=== PATIENT | female | born 1935 | race Caucasian/White ===

== ENCOUNTER 2017-10-20 18:56 | Emergency (ER) | payer MEDICARE, SELFPAY ==
[2017-10-20 19:28] VITALS: BP 123/77; PULSE 91; RESP 20; TEMP 36.7; O2SAT 96
--- NOTE | 2017-10-20 20:18 | DI.CT.S_ITS ---
PROCEDURE: CT ABDOMEN PELVIS W CON INDICATIONS: LLQ pain - diverticulitis? TECHNIQUE: After the administration of oral and intravenous contrast, 5 mm thick sections acquired from the diaphragms to the symphysis. 5 mm thick coronal and sagittal reformats were performed. For radiation dose reduction, the following was used: automated exposure control, adjustment of mA and/or kV according to patient size. COMPARISON: [facility], CT, KIDNEY/ URETER/BLADDER, 02/25/2016, 12:49. FINDINGS: Image quality: Excellent. ABDOMEN: Lung bases: Lung bases are clear. Heart size is normal. Solid organs: Liver is normal in size. No change in 7 mm hypodensity within the right hepatic dome. Calcifications within the hepatic parenchyma and spleen are present. Gallbladder is partially contracted. Biliary system is non-dilated. Pancreas enhances normally. Spleen is normal in size and enhancement. No adrenal nodules. There is multifocal scarring involving the right kidney. Mild to moderate left and mild right hydronephrosis are present, new since the prior examination.. Multiple calculi within the right inferior pole kidney and renal pelvis are present, as before, largest of which is in the renal pelvis, measuring 16 mm. Peritoneum and bowel: Moderate hiatal hernia. Stomach and small bowel are grossly unremarkable. Appendix is not seen. No evidence of appendicitis.: Is nondistended. There is thickening versus suboptimal distention of the distal transverse colon, within the left lower quadrant. Diverticulosis of the descending and sigmoid colon is present. There is thickening of the distal descending colon, as well as the sigmoid colon. Pericolonic fat stranding surrounds segments of the sigmoid colon, and there is a small amount of loculated mesenteric pericolonic fluid surrounding the sigmoid colon. No free fluid or air. Nodes and vessels: No retroperitoneal or mesenteric adenopathy. Aorta and inferior vena cava are normal in caliber. Miscellaneous: No ventral hernias. PELVIS: Genitourinary: Urinary bladder is decompressed. Miscellaneous: No inguinal hernias or adenopathy. Bones: No suspicious bony lesions. No vertebral body compression fractures. IMPRESSION: 1. Findings most suggestive of diverticulitis involving the sigmoid colon, with pericolonic fluid, but no evidence of pericolonic abscess. Thickening of the distal transverse colon is present, which may represent ischemia, infection, inflammation, or suboptimal colonic distention. Followup colonoscopy is recommended to exclude underlying neoplasm. 2. Right renal scarring and collecting system calculi, associated with mild hydronephrosis. Mild left hydronephrosis is present. 3. Remote granulomatous disease. 4. Hiatal hernia. 5. Concordant with preliminary interpretation. Dictated by: Estephania Huffman M.D. on 10/21/2017 at 8:48 Approved by: Estephania Huffman M.D. on 10/21/2017 at 8:56
--- NOTE | 2017-10-20 20:52 | PC.NURSE ---
labs drawn by tutorial laboratory supervisor
[2017-10-20 21:08] LABS: Add Manual Diff / Slide Review NO; Basophils Percent Auto 0.6 % (0-2); Eosinophils Percent Auto 0.1 % (2-4); Hematocrit 44.8 % (36-46); Hemoglobin 15.3 g/dL (12.0-16.0); Lymphocytes Percent Auto 10.9 % (25-40); Mean Corpuscular HGB Conc 34.2 % (30-36); Mean Corpuscular Hemoglobin 30.5 PG (26-34); Mean Corpuscular Volume 89.3 fL (80-100); Monocytes Percent Auto 5.4 % (3-14); Neutrophils Absolute Auto 11600 /uL (3000-5900); Platelet Count 228 X10^3/uL (150-400); Red Blood Cell Count 5.02 X10^6/uL (4.0-5.2); Red Cell Distribution Width 14.3 % (11.6-14.8)
[2017-10-20 21:22] LABS: Alanine Aminotransferase 13 IU/L (9-52); Albumin Globulin Ratio 1.2 (1.0-2.8); Alkaline Phosphatase 123 U/L (38-126); Aspartate Aminotransferase 19 IU/L (14-36); BUN Creatinine Ratio 36.7 (6-22); Bilirubin Total 0.5 mg/dL (0.2-1.3); Calcium 9.3 mg/dL (8.4-10.2); Estimated Glomerular Filt Rate > 60.0 mL/min (>60); Globulin 3.4 g/dL (1.7-4.1); Glucose 104 mg/dL (80-110); HEMOLYSIS < 15 (0-50); Lactate (Lactic Acid) 1.1 mmol/L (0.7-2.1); Lipase 62 U/L (23-300); Potassium 4.5 mmol/L (3.4-5.1); Sodium 139 mmol/L (137-145); Total Protein 7.4 g/dL (6.3-8.2)
[2017-10-20 22:04] LABS: Appearance Urine UA SL CLOUDY; Bilirubin Urine UA NEGATIVE (NEGATIVE); Color Urine UA YELLOW; Glucose Urine UA NEGATIVE (Normal); Ketones Urine UA TRACE (NEGATIVE); Leukocyte Esterase Urine UA 2+ (NEGATIVE); Nitrite Urine UA POSITIVE (NEGATIVE); Occult Blood Urine UA 1+ (Negative); Protein Urine UA NEGATIVE (Negative); Urobilinogen Urine UA 0.2 E.U./dL (0.2); pH Urine UA 6.5 (4.5-8.0)
[2017-10-20 22:07] LABS: Bacteria Urine Many (>30); Culture Indicated Urine Specimen Cultured; RBC Urine 5-10/HPF (0-5/HPF); WBC Urine 30-100/HPF (0-5/HPF)
[2017-10-20 22:09] LABS: Squamous Epithelial Cell Urine 0-1 /HPF
[2017-10-20] MEDS: CIPROFLOXACIN 400 MG/200 ML PIGGYBACK 200 MG IV (23:36)
[2017-10-20] MEDS: metroNIDAZOLE 500 MG/100 ML PIGGYBACK 100 MG IV (23:36)
--- NOTE | 2017-10-20 23:40 | PC.NURSE ---
jennifer and uzair herrera site compatibility checked with clinical pharmacology and fanny. confirmed compatible.
--- NOTE | 2017-10-21 01:15 | ED_ITS ---
HPI - Abdominal Pain General Chief Complaint: Abdominal Pain Stated Complaint: STOMACH PAIN Time Seen by Provider: 10/20/17 19:56 History of Present Illness HPI narrative: HPI 82-year-old female with history of diverticulitis and ureterolithiasis presents for evaluation of one half day of intermittent mild left lower quadrant pain, notes decreased passage of flatus and stool. Denies nausea and vomiting. Denies dysuria and urinary frequency. Denies a history of atrial fibrillation. No prior abdominal surgeries. M/S/F/SocHx notable for: uretolithiasis, nephrolithiasis, colitis, constipation , diverticulitis, Parkinson's; remainder reviewed with patient and in chart. ROS: Negative constitutional, eye, cardiovascular, pulmonary, GI, , MSK, skin , neurologic, psychiatric, endocrine unless noted in the HPI. Exam Gen: Pleasant, non-toxic appearing, resting comfortably. HEENT: NC, AT, PEERL, EOMI. Resp: Clear to auscultation bilaterally, normal work of breathing, no accessory muscle usage. Card: Regular rate and rhythm with no murmurs, rubs, or gallops, extremities warm and well perfused. GI: minimal left lower quadrant tenderness, otherwise non-tender to palpation throughout all quadrants, no focal tenderness at McBurney's point, negative Francis's sign, non-distended, no rebound or guarding. : No suprapubic tenderness to palpation. MSK: No visible deformities, strength and tone without visually appreciable deficit. Skin: Normal color with no visible lesions. Neuro: AO x 3, no facial asymmetry, vision and hearing WNL. Psych: Mood and affect appropriate. Labs / Imaging: CT Abd/Pelvis: focal nodular thickening of the rectosigmoid colon leading to luminal narrowing. Associate diverticulitis noted. No definite inflamed diverticulitis, however seen. Diverticulitis felt less likely but difficult to entirely exclude to existing competent. Neoplastic lesion or focal colitis suspected. Free fluid. No topic gas. Right nephrolithiasis. Other findings above. Lactate 1.1 WBC 14.0, Hb 15.3, Na 139, K 4.5, Cr 0.60 Conjugated bilirubin 0.5, ALP 123, AST 19, ALT 13, lipase 62 UA - positive nitrate, 2+ leukocyte esterase, 5-10 RBCs, 3-100 WBCs, 0-1 squamous epithelial cells, many bacteria. MDM Previous chart, nursing note, labs, imaging, and vitals reviewed. A: 82-year-old female with history of diverticulitis and ureterolithiasis presents for evaluation of one half day of intermittent mild left lower quadrant pain, notes decreased passage of flatus and stool. DDx & Evaluation: left lower quadrant pain appears to correlate with imaging showing focal nodular thickening of the rectosigmoid colon. Given acute onset of symptoms and leukocytosis favor colitis. Patient given ciprofloxacin and Flagyl - the former of which also treat her urinary tract infection. No clear evidence of pyelonephritis, ureterolithiasis, or other acute intra-abdominal or genitourinary process. Patient given cipro and flagyl. Patient able to tolerate p.o. well, passing flatus and stool at baseline. Patient update of results, patient notes she has not had a colonoscopy ever. Strongly advised patient to have a colonoscopy after symptoms resolved. Patient given return to care precautions. Repeat exam at time of discharge without any abdominal discomfort and nontender to palpation throughout all quadrants. Disposition: discharge with prescription for ciprofloxacin and Flagyl. Return to care precautions provided. Recommend PCP follow-up. Impression: suspected colitis (please reference below for remainder of encounter information) Related Data Home Medications Medication Instructions Recorded Confirmed carbidopa-levodopa 1 tab PO TID #0 12/31/15 Previous Rx's Medication Instructions Recorded tamsulosin [Flomax] 0.4 mg PO Q DAY #7 cap 02/07/16 levofloxacin [Levaquin] 500 mg PO QDAY #10 tab 02/10/16 metronidazole [Flagyl] 500 mg PO TID #30 tab 02/10/16 Allergies Allergy/AdvReac Type Severity Reaction Status Date / Time Penicillins [PENICILLINS] Allergy Unknown Verified 10/20/17 23:25 [facility] Surgical History History of lithotripsy Status post hysterectomy Status post tonsillectomy and adenoidectomy Status post tubal ligation Family History Grandfather Diabetes mellitus Mother Heart disease Stroke Exam Initial Vital Signs Initial Vital Signs: Vital Signs Temperature 98.0 F 10/20/17 19:28 Pulse Rate 91 H 10/20/17 19:28 Respiratory Rate 20 10/20/17 19:28 Blood Pressure 123/77 H 10/20/17 19:28 Pulse Oximetry 96 10/20/17 19:28 Course Orders Ordered: ED Orders 10/20/17 20:18 CT abdomen pelvis w con Stat 10/20/17 20:48 Complete Blood Count AUTO DIFF Stat Comprehensive Metabolic Panel Stat Lactate (Lactic Acid) Stat Lipase Stat 10/20/17 21:34 Urinalysis and Microscopic Stat Urine Culture Stat Ciprofloxacin (Cipro) 400 mg in 200 mls @ 200 mls/hr IV NOW CASA Last Infusion: 10/21/17 00:43 Dose: 0 mls/hr Admin: 10/20/17 23:36 Dose: 200 mls/hr Discontinued Medications Metronidazole (Flagyl) 500 mg in 100 mls @ 100 mls/hr IV NOW ONE Stop: 10/21/17 00:08 Last Infusion: 10/21/17 00:44 Dose: 0 mls/hr Admin: 10/20/17 23:36 Dose: 100 mls/hr Vital Signs - 8 hr 10/20/17 19:28 Temperature 98.0 F Pulse Rate 91 H Respiratory Rate 20 Blood Pressure 123/77 H Pulse Oximetry 96 MDM - Abdominal Pain Lab Data Result diagrams: 10/20/17 20:48 10/20/17 20:48 Lab Results 10/20/17 10/20/17 10/20/17 Range/Units 20:48 20:48 20:48 WBC 14.0 H (4.5-11.0) X10^3/uL RBC 5.02 (4.0-5.2) X10^6/uL Hgb 15.3 (12.0-16.0) g/dL Hct 44.8 (36-46) % MCV 89.3 (80-100) fL MCH 30.5 (26-34) PG MCHC 34.2 (30-36) % RDW 14.3 (11.6-14.8) % Plt Count 228 (150-400) X10^3/uL Neut % (Auto) 83.0 H (50-75) % Lymph % (Auto) 10.9 L (25-40) % [place] % (Auto) 5.4 (3-14) % Eos % (Auto) 0.1 L (2-4) % Baso % (Auto) 0.6 (0-2) % Neut # (Auto) 64378 H (3790-1106) /uL Sodium 139 (137-145) mmol/L Potassium 4.5 (3.4-5.1) mmol/L Chloride 103.0 (98-107) mmol/L Carbon Dioxide 26.0 (22-32) mmol/L BUN 22.0 H (7-17) mg/dL Creatinine 0.60 (0.52-1.04) mg/dL Estimated GFR > 60.0 (>60) mL/min BUN/Creatinine Ratio 36.7 H (6-22) Glucose 104 (80-110) mg/dL Lactate 1.1 (0.7-2.1) mmol/L Calcium 9.3 (8.4-10.2) mg/dL Total Bilirubin 0.5 (0.2-1.3) mg/dL AST 19 (14-36) IU/L ALT 13 (9-52) IU/L Alkaline Phosphatase 123 (38-126) U/L Total Protein 7.4 (6.3-8.2) g/dL Albumin 4.0 (3.5-5.0) g/dL Globulin 3.4 (1.7-4.1) g/dL Albumin/Globulin Ratio 1.2 (1.0-2.8) Lipase 62 (23-300) U/L Urine Color Urine Appearance Urine pH (4.5-8.0) Ur Specific [place] (1.000-1.035) Urine Protein (Negative) Urine Glucose (UA) (Normal) g/dL Urine Ketones (NEGATIVE) Urine Occult Blood (Negative) Urine Nitrate (NEGATIVE) Urine Bilirubin (NEGATIVE) Urine Urobilinogen (0.2) E.U./dL Ur Leukocyte Esterase (NEGATIVE) Urine RBC (0-5/HPF) Urine WBC (0-5/HPF) Ur Squamous Epith Cells Urine Bacteria (None) Ur Culture Indicated? Micro UA Comment 10/20/17 Range/Units 21:34 WBC (4.5-11.0) X10^3/uL RBC (4.0-5.2) X10^6/uL Hgb (12.0-16.0) g/dL Hct (36-46) % MCV (80-100) fL MCH (26-34) PG MCHC (30-36) % RDW (11.6-14.8) % Plt Count (150-400) X10^3/uL Neut % (Auto) (50-75) % Lymph % (Auto) (25-40) % [place] % (Auto) (3-14) % Eos % (Auto) (2-4) % Baso % (Auto) (0-2) % Neut # (Auto) (3633-2491) /uL Sodium (137-145) mmol/L Potassium (3.4-5.1) mmol/L Chloride (98-107) mmol/L Carbon Dioxide (22-32) mmol/L BUN (7-17) mg/dL Creatinine (0.52-1.04) mg/dL Estimated GFR (>60) mL/min BUN/Creatinine Ratio (6-22) Glucose (80-110) mg/dL Lactate (0.7-2.1) mmol/L Calcium (8.4-10.2) mg/dL Total Bilirubin (0.2-1.3) mg/dL AST (14-36) IU/L ALT (9-52) IU/L Alkaline Phosphatase (38-126) U/L Total Protein (6.3-8.2) g/dL Albumin (3.5-5.0) g/dL Globulin (1.7-4.1) g/dL Albumin/Globulin Ratio (1.0-2.8) Lipase (23-300) U/L Urine Color Yellow Urine Appearance Sl cloudy Urine pH 6.5 (4.5-8.0) Ur Specific [place] 1.020 (1.000-1.035) Urine Protein Negative (Negative) Urine Glucose (UA) Negative (Normal) g/dL Urine Ketones Trace H (NEGATIVE) Urine Occult Blood 1+ H (Negative) Urine Nitrate Positive H (NEGATIVE) Urine Bilirubin Negative (NEGATIVE) Urine Urobilinogen 0.2 (0.2) E.U./dL Ur Leukocyte Esterase 2+ H (NEGATIVE) Urine RBC 5-10/hpf H (0-5/HPF) Urine WBC 30-100/hpf H (0-5/HPF) Ur Squamous Epith Cells 0-1 /hpf Urine Bacteria Many (>30) H (None) Ur Culture Indicated? Specimen cultured Micro UA Comment Not Reportable Discharge Plan Departure Prescriptions: No Action carbidopa-levodopa 25 MG/100 MG tablet 1 tab PO TID Qty: 0 RF: 0 tamsulosin [Flomax] 0.4 MG capsule,extended release 24hr 0.4 mg PO Q DAY Qty: 7 RF: 0 metronidazole [Flagyl] 500 MG tablet 500 mg PO TID Qty: 30 RF: 0 levofloxacin [Levaquin] 500 MG tablet 500 mg PO QDAY Qty: 10 RF: 0
[2017-10-21 01:22] VITALS: BP 118/62; PULSE 84; RESP 16; O2SAT 98
== END 2017-10-21 01:23 | disposition home or self-care (01) ==
PROVIDERS: Emergency Provider Emergency Medicine; Family Provider Family Medicine; PCP Family Medicine
DX: K52.9 Noninfective gastroenteritis and colitis, unspecified (principal)
CPT/HCPCS: 36415; 74177; 80053; 81001; 83605; 83690; 85025; 87086; 87186; 96365; 96368; 99283; 99284; J0744; Q9967

== ENCOUNTER → 2017-11-23 09:14 | Outpatient (CLI) | payer MEDICARE, SELFPAY ==
--- NOTE | 2017-11-23 | DI.RAD.S_ITS ---
PROCEDURE: XR KUB INDICATIONS: KIDNEY STONES TECHNIQUE: One view of the abdomen acquired. COMPARISON: [facility], CT, CT ABDOMEN PELVIS W CON, 10/20/2017, 20:47. [facility], CR, KUB XRAY (1 VIEW ABDOMEN), 03/14/2017, 14:31. FINDINGS: Surgical changes and devices: None. Bowel: Bowel gas pattern is normal. Soft tissues: Multiple right renal calculi are identified. Pelvic phleboliths. Visualized solid organ contours appear normal in size. Bones: No suspicious bony lesions. Dextroconvex lumbar scoliosis. IMPRESSION: Right nephrolithiasis appearing unchanged. Dictated by: Nathaniel Hamilton M.D. on 11/23/2017 at 9:58 Approved by: Nathaniel Hamilton M.D. on 11/23/2017 at 10:01
== END ==
PROVIDERS: PCP Family Medicine; Visit Provider Specialist
DX: N20.0 Calculus of kidney (principal)
CPT/HCPCS: 74018

== ENCOUNTER 2018-10-10 20:27 | Inpatient (IN) | payer MEDICARE, SELFPAY ==
--- NOTE | 2018-10-10 20:30 | ED_ITS ---
HPI - Extremity Injury (Lower) General Chief Complaint: Extremity Injury, Lower Stated Complaint: GLF, Rt Hip Pain Time Seen by Provider: 10/10/18 20:29 Source: EMS Mode of arrival: ambulatory Limitations: no limitations History of Present Illness HPI Narrative: Patient is a kiesha 83-year-old female who presents with right hip pain. 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 There is an obvious shortening and rotation. She is not on any blood thinners or anti-platelet medication she did not hit her head there is no other injury. She does have a history of Parkinson's MD complaint: hip injury Related Data Home Medications Medication Instructions Recorded Confirmed carbidopa-levodopa 1 tab PO TID #0 12/31/15 10/10/18 carbidopa-levodopa 1 tab PO TID 10/10/18 10/10/18 trazodone 50 mg PO BEDTIME PRN 10/10/18 10/10/18 Allergies Allergy/AdvReac Type Severity Reaction Status Date / Time Penicillins [PENICILLINS] Allergy Unknown Verified 10/10/18 20:34 Review of Systems Review of Systems ROS Unobtainable: All systems reviewed & are unremarkable except as noted in HPI and below Constitutional Denies chills, Denies fever(s), Denies lethargy and Denies weakness Eyes Denies change in vision, Denies eye discharge, Denies irritation and Denies loss of vision ENT Ears, Nose, Mouth, and Throat: Denies change in voice, Denies neck pain and Denies sore throat Cardiovascular Denies dyspnea and Denies dyspnea on exertion Respiratory Denies cough, Denies dyspnea, Denies dyspnea on exertion and Denies wheezing Gastrointestinal Gastrointestinal: Denies abdominal pain, Denies change in bowel habits, Denies diarrhea, Denies nausea and Denies vomiting Genitourinary Denies hematuria, Denies flank pain, Denies urinary incontinence and Denies urinary urgency Musculoskeletal Reports as per HPI and Denies neck pain Integumentary/Breasts Denies pruritus, Denies erythema, Denies rash and Denies wounds Neurologic Denies loss of vision and Denies weakness Allergic/Immunologic Denies wheezing [facility] Medical History Diverticulosis (Acute) Hallucinations (Acute) Macular degeneration of left eye (Acute) Nephrolithiasis (Acute) Parkinsons (Acute) Scoliosis (Acute) Septicemia (Acute) Surgical History History of cystocele (Acute) History of lithotripsy Status post hysterectomy Status post tonsillectomy and adenoidectomy Status post tubal ligation Family History (Updated 10/10/18 @ 23:57 by SUZAN Machado) Grandfather Diabetes mellitus Mother Heart disease Stroke Father Parkinsons Social History household members: spouse Smoking Status: Never smoker alcohol intake: current Family History Grandfather Diabetes mellitus Mother Heart disease Stroke Father Parkinsons Social History household members: spouse Smoking Status: Never smoker alcohol intake: current Exam Initial Vital Signs Initial Vital Signs: Vital Signs Temperature 98.4 F 10/10/18 20:34 Pulse Rate 90 10/10/18 20:34 Respiratory Rate 15 10/10/18 20:34 Blood Pressure 147/63 H 10/10/18 20:34 Pulse Oximetry 96 10/10/18 20:34 GENERAL: Alert well-dressed pleasant elderly female HEENT: Head atraumatic,EOMI, pupils reactive, neck is supple no vertebral tenderness full range of motion CARDIOVASCULAR: Regular rate and rhythm without murmurs, rubs or gallops. RESPIRATORY: Breath sounds equal bilaterally, no wheezes rales or rhonchi. ABDOMEN: Soft, nontender. Normoactive bowel sounds all 4 quadrants. No guarding or rebound. EXTREMITIES: Normal range of motion, no clubbing or edema. Neurovascularly intact Right leg shortened and internally rotated distal pedal pulse is intact no contusion at pelvis NEUROLOGICAL: Alert and oriented x4.Normal gait and speech. Cranial nerves II through XII grossly intact. SKIN: Warm, dry, no laceration, no petechiae, no rashes or lesions. Course Orders Ordered: ED Orders 10/10/18 20:35 XR hip w pel if done RT 2V Stat 10/10/18 21:22 Complete Blood Count AUTO DIFF Stat Comprehensive Metabolic Panel Stat 10/10/18 21:24 Magnesium Routine 10/10/18 23:43 Consult to Physical Therapy Evaluate & Treat 10/10/18 23:44 Consult to Occupational Therapy Evaluate & Treat Consult to Physician Routine 10/11/18 Basic Metabolic Panel Routine Complete Blood Count AUTO DIFF Routine EKG-12 Lead Routine Al Hydrox/Mg Hydrox/Simethicone (Maalox Plus) 30 ml PO Q6HR PRN PRN Reason: Dyspepsia Calcium Carbonate (Tums) 1,000 mg PO Q4HR PRN PRN Reason: Dyspepsia Carbidopa/Levodopa (Sinemet 25-100 Tab) 1 each PO TID CASA Carbidopa/Levodopa (Sinemet Er 50-200 Tab) 1 each PO TID CASA Sodium Chloride (Normal Saline 0.9%) 1,000 mls @ 75 mls/hr IV CONT [facility] Last Admin: 10/10/18 23:32 Dose: 75 mls/hr Ciprofloxacin (Cipro) 400 mg in 200 mls @ 200 mls/hr IV Q12H [facility] Last Admin: 10/11/18 00:59 Dose: 200 mls/hr Morphine Sulfate (Morphine) 2 mg IV Q4HR PRN PRN Reason: Breakthrough Pain Naloxone HCl (Narcan) 0.2 mg IV Q2MIN PRN PRN Reason: Opiate Reversal Ondansetron HCl (Zofran) 4 mg IV Q8HR PRN PRN Reason: Nausea And Vomiting Oxycodone/Acetaminophen (Percocet 5/325) 1 tab PO Q4HR PRN PRN Reason: Pain, Moderate (4-6) Oxycodone/Acetaminophen (Percocet 5/325) 2 tab PO Q4HR PRN PRN Reason: Pain, Severe (7-10) Last Admin: 10/11/18 00:48 Dose: 2 tab Discontinued Medications Morphine Sulfate (Morphine) 2 mg IV NOW ONE Stop: 10/10/18 20:36 Last Admin: 10/10/18 20:44 Dose: 2 mg Morphine Sulfate (Morphine) 2 mg IV NOW ONE Stop: 10/10/18 21:25 Last Admin: 10/10/18 21:33 Dose: 2 mg Vital Signs - 8 hr 10/10/18 20:34 10/10/18 22:35 10/10/18 22:49 Temperature 98.4 F 97.5 F L Pulse Rate 90 94 H 92 H Respiratory Rate 15 18 15 Blood Pressure 147/63 H 151/82 H 125/57 L Pulse Oximetry 96 93 94 10/11/18 00:00 Temperature 98.0 F Pulse Rate 84 Respiratory Rate 14 Blood Pressure 121/62 Pulse Oximetry 92 MDM - Extremity Injury (Lower) Lab Data Attestation: I reviewed the patient's lab results. Result diagrams: 10/10/18 21:22 10/10/18 21:22 Lab Results 10/10/18 10/10/18 10/10/18 Range/Units 21:22 21:22 21:24 WBC 12.1 H (4.5-11.0) X10^3/uL RBC 5.03 (4.0-5.2) X10^6/uL Hgb 14.8 (12.0-16.0) g/dL Hct 46.0 (36-46) % MCV 91.5 (80-100) fL MCH 29.4 (26-34) PG MCHC 32.2 (30-36) % RDW 14.5 (11.6-14.8) % Plt Count 267 (150-400) X10^3/uL Neut % (Auto) 80.7 H (50-75) % Lymph % (Auto) 10.6 L (25-40) % [place] % (Auto) 7.5 (3-14) % Eos % (Auto) 0.6 L (2-4) % Baso % (Auto) 0.6 (0-2) % Neut # (Auto) 9800 H (6568-4017) /uL Lymph # (Auto) 1300 (3403-6804) /uL Randall # (Auto) 900 (0-900) /uL Eos # (Auto) 100 (0-450) /uL Baso # (Auto) 100 (0-100) /uL Sodium 140 (137-145) mmol/L Potassium 4.2 (3.4-5.1) mmol/L Chloride 104 (98-107) mmol/L Carbon Dioxide 28 (22-32) mmol/L BUN 26 H (7-17) mg/dL Creatinine 0.70 (0.52-1.04) mg/dL Estimated GFR > 60.0 (>60) mL/min BUN/Creatinine Ratio 37.1 H (6-22) Glucose 128 H (80-110) mg/dL Calcium 9.6 (8.4-10.2) mg/dL Magnesium 2.2 (1.6-2.3) mg/dL Total Bilirubin 0.3 (0.2-1.3) mg/dL AST 21 (14-36) IU/L ALT 13 (9-52) IU/L Alkaline Phosphatase 129 H (38-126) U/L Total Protein 7.9 (6.3-8.2) g/dL Albumin 4.3 (3.5-5.0) g/dL Globulin 3.6 (1.7-4.1) g/dL Albumin/Globulin Ratio 1.2 (1.0-2.8) Imaging Data Right hip x-ray: Radiologist's impression: PROCEDURE: XR HIP W PEL IF DONE RT 2V INDICATIONS: fall shortened TECHNIQUE: AP pelvis with lateral view(s) of the right hip(s). COMPARISON: None. FINDINGS: Comminuted trochanteric fracture of the right hip with varus angulation and displacement of the lesser trochanter. No dislocation. No other fractures or dislocations. IMPRESSION: Comminuted trochanteric fracture of the right hip with varus angulation and displacement of the lesser trochanter. Dictated by: Capo Ramos M.D. on 10/10/2018 at 21:48 MDM Narrative Medical decision making narrative: Dr. Palacio orthopedic has reviewed x-rays will likely go to OR tomorrow evening after 6:00 p.m. she can eat breakfast-bed keep NPO henrik Loya updated on patient's symptoms test results in ED to see evaluate patient Discharge Plan Departure Patient Disposition: Admitted As Inpatient Clinical Impression: Closed right hip fracture Qualifiers: Encounter type: initial encounter Qualified Code(s): S72.001A - Fracture of unspecified part of neck of right femur, initial encounter for closed fracture Discharge Date/Time: 10/10/18 22:50 Interventions: ED Discharge Assessment Last Done: 10/10/18 22:49 Admit Date/Time: 10/10/18 22:15 Admit Provider: Drew Loya
[2018-10-10 20:34] VITALS: BP 147/63; PULSE 90; RESP 15; TEMP 36.9; O2SAT 96
--- NOTE | 2018-10-10 20:35 | DI.RAD.S_ITS ---
PROCEDURE: XR HIP W PEL IF DONE RT 2V INDICATIONS: fall shortened TECHNIQUE: AP pelvis with lateral view(s) of the right hip(s). COMPARISON: None. FINDINGS: Comminuted trochanteric fracture of the right hip with varus angulation and displacement of the lesser trochanter. No dislocation. No other fractures or dislocations. IMPRESSION: Comminuted trochanteric fracture of the right hip with varus angulation and displacement of the lesser trochanter. Dictated by: Capo Ramos M.D. on 10/10/2018 at 21:48 Approved by: Capo Ramos M.D. on 10/10/2018 at 21:49
[2018-10-10] MEDS: MORPHINE 2 MG/ML INJ IV ×2 (20:44→21:33)
[2018-10-10 21:28] LABS: Add Manual Diff / Slide Review NO; Basophils Absolute Auto 100 /uL (0-100); Basophils Percent Auto 0.6 % (0-2); Eosinophils Absolute Auto 100 /uL (0-450); Eosinophils Percent Auto 0.6 % (2-4); Hemoglobin 14.8 g/dL (12.0-16.0); Lymphocytes Absolute Auto 1300 /uL (1100-4500); Lymphocytes Percent Auto 10.6 % (25-40); Mean Corpuscular HGB Conc 32.2 % (30-36); Mean Corpuscular Hemoglobin 29.4 PG (26-34); Mean Corpuscular Volume 91.5 fL (80-100); Monocytes Absolute Auto 900 /uL (0-900); Monocytes Percent Auto 7.5 % (3-14); Neutrophils Absolute Auto 9800 /uL (1500-7000); Neutrophils Percent Auto 80.7 % (50-75); Platelet Count 267 X10^3/uL (150-400); Red Blood Cell Count 5.03 X10^6/uL (4.0-5.2); Red Cell Distribution Width 14.5 % (11.6-14.8); White Blood Cell Count 12.1 X10^3/uL (4.5-11.0)
[2018-10-10 21:40] LABS: Alanine Aminotransferase 13 IU/L (9-52); Albumin 4.3 g/dL (3.5-5.0); Albumin Globulin Ratio 1.2 (1.0-2.8); Alkaline Phosphatase 129 U/L (38-126); Aspartate Aminotransferase 21 IU/L (14-36); BUN Creatinine Ratio 37.1 (6-22); Bilirubin Total 0.3 mg/dL (0.2-1.3); Blood Urea Nitrogen 26 mg/dL (7-17); Calcium 9.6 mg/dL (8.4-10.2); Carbon Dioxide 28 mmol/L (22-32); Chloride 104 mmol/L (98-107); Estimated Glomerular Filt Rate > 60.0 mL/min (>60); Globulin 3.6 g/dL (1.7-4.1); Glucose 128 mg/dL (80-110); HEMOLYSIS < 15 (0-50); Potassium 4.2 mmol/L (3.4-5.1); Sodium 140 mmol/L (137-145); Total Protein 7.9 g/dL (6.3-8.2)
[2018-10-10 22:35] VITALS: BP 151/82; PULSE 94; RESP 18; TEMP 36.4; O2SAT 93
[2018-10-10 22:49] VITALS: BP 125/57; PULSE 92; RESP 15; O2SAT 94
[2018-10-10 23:00] VITALS: O2SAT 98
[2018-10-10 23:22] VITALS: BMI 22.7
[2018-10-10] MEDS: SODIUM CHLORIDE 0.9% 1,000 ML 75 ML IV (23:32)
--- NOTE | 2018-10-10 23:43 | PM.HP.1 ---
History of Present Illness Date Patient Seen: 10/10/18 Time Patient Seen: 22:54 Chief complaint: GLF, Rt Hip Pain Narrative: Carolina Swift is an 83-year-old female patient with history significant for Parkinson's, diverticulosis, nephrolithiasis, colitis, macular degeneration left eye, and scoliosis who presents to the ER after sustaining a fall landing on and fracturing her right hip. 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 She denies prodromal symptoms and had no complaints of dizziness visual changes or weakness. The patient was unable to ambulate due to severe pain and therefore her summoned EMS. The patient denies recent complaints of fevers or chills, no headaches nasal congestion or sore throat. She has a history of Parkinson's but denies difficulties chewing or swallowing. She has had no complaints of chest pain and denies palpitations. She reports no shortness of breath or dyspnea on exertion and has had no cough or wheezing. She denies abdominal pain, nausea vomiting but has had difficulty with chronic constipation. She denies urinary symptoms of burning, urgency or frequency and reports no hematuria. The patient is normally independent in functions and uses no assistive devices. Patient arrived in the ER at 7:28 p.m. at which time she was found to be 5 afebrile with a temperature of 98.0?, heart rate of 91, blood pressure 123/77 and a respiratory rate of 20 with saturation 96% on room air. The patient was found to have shortening and external rotation of the right leg and imaging was obtained which identifies and angulated comminuted trochanteric fracture right hip. Dr. Palacio was consulted with tentative plan to take the patient to surgery tomorrow evening. On laboratory analysis the patient does have an elevated white count at 12.1 with a hemoglobin of 14.8 hematocrit of 46.0 and platelets of 267. On chemistry her liquid lytes are within normal limits but is notable for a BUN of 26 and a creatinine of 0.7. Her nonfasting glucose was 128. The patient is admitted for evaluation and management of her right hip fracture. Patient History Medical History Diverticulosis (Acute) Hallucinations (Acute) Macular degeneration of left eye (Acute) Nephrolithiasis (Acute) Parkinsons (Acute) Scoliosis (Acute) Septicemia (Acute) Surgical History History of cystocele (Acute) History of lithotripsy Status post hysterectomy Status post tonsillectomy and adenoidectomy Status post tubal ligation Family History Grandfather Diabetes mellitus Mother Heart disease Stroke Family & Social History Family History (Updated 10/10/18 @ 23:57 by SUZAN Machado) Grandfather Diabetes mellitus Mother Heart disease Stroke Father Parkinsons Safety & Behavioral: Feels Safe in Current Yes Environment Been Physically Hurt or No Threatened By a Person Comment: The patient is for 15 years and lives in a single family single level family home with 2 steps to the [facility]. Her parents are both , her father had Parkinson's and her mother had cardiac disease with her 1st heart attack at the age of 40 but lived to be 93. She is an only child and has 2 children both in good health. Smoking: Patient endorses smoking 1/2 pack per day for a few years in her 20s but none since. Alcohol: Past occasional drinking but no longer consumes alcohol. Substance use: Patient denies recreation pharmaceuticals, herbal or cannabis products. Advanced directive: In direct discussion with the patient she wishes to be DO NOT RESUSCITATE. She designates her or her daughter Martina who is a physician or her daughter Leigh to be surrogate decision makers, all of home reportedly hold DPOA. Meds Home Medications Medication Instructions Recorded Confirmed Type carbidopa-levodopa 1 tab PO TID #0 12/31/15 10/10/18 History carbidopa-levodopa 1 tab PO TID 10/10/18 10/10/18 History trazodone 50 mg PO BEDTIME PRN 10/10/18 10/10/18 History Allergies Allergy/AdvReac Type Severity Reaction Status Date / Time Penicillins [PENICILLINS] Allergy Unknown Verified 10/10/18 20:34 Review of Systems Review of Systems All systems reviewed & are unremarkable except as noted in HPI and below Exam Vital Signs (past 8 hours): - 10/10/18 20:34 10/10/18 22:35 10/10/18 22:49 Temperature 98.4 F 97.5 F L Pulse Rate 90 94 H 92 H Respiratory Rate 15 18 15 Blood Pressure 147/63 H 151/82 H 125/57 L Pulse Oximetry 96 93 94 Oxygen Delivery Method Room Air Oxygen Flow Rate 0 Narrative Exam Narrative: GENERAL APPEARANCE: well developed, well nourished, in no acute distress. HEAD: Normocephalic, atraumatic, no scalp lesions. EYES: pupils equal, round, reactive to light and accommodation, sclera non-icteric, extraocular movement intact without nystagmus. EARS: normal external structures, no ear pain NOSE: sinuses non tender to percussion, no rhinorrhea ORAL CAVITY: Dry mucous membranes without lesions or exudate, palate normal, tongue in midline. THROAT: normal, no erythema, no exudate, pharynx normal, uvula midline. NECK/THYROID: neck supple, nontender to palpation, no step-offs, no jugular venous distention, no carotid bruit, no thyromegaly, trachea midline. LYMPH NODES: no cervical or supraclavicular lymphadenopathy. SKIN: warm and dry, no rashes, good turgor, 4 mm skin biopsy site right lateral lower leg without redness or swelling. HEART: regular rate and rhythm, S1-S2 without murmur, no rubs or gallops, 1+ dorsalis pedis pulses bilaterally, brisk capillary refill, no edema LUNGS: clear to auscultation bilaterally, no coarseness crackles or wheezing, no cough present CHEST: Symmetrical movement, no accessory muscle use, no pain to AP and lateral compression. ABDOMEN: Soft, no distention, no epigastric or abdominal tenderness on palpation, no guarding or peritoneal signs, no organomegaly, no flank or suprapubic tenderness, active bowel tones. BACK: Nontender to palpation, no step-offs, no muscular spasms palpated EXTREMITIES: Shortening and external rotation right leg, swelling and pain palpation right hip, BUE and LLE strength is 5/5, network pricing consultant equal bilateral, distal CMS intact. NEUROLOGIC: Mild masked facies, AAO x4, cranial nerves II-XII grossly intact , sensory exam intact to light touch, hearing grossly normal to speech. PSYCH: alert, cognitive function intact, fair eye contact, flat affect Objective Labs Result Diagrams: 10/10/18 21:22 10/10/18 21:22 Labs: Laboratory Results - last 24 hr 10/10/18 10/10/18 21:22 21:22 WBC 12.1 H RBC 5.03 Hgb 14.8 Hct 46.0 MCV 91.5 MCH 29.4 MCHC 32.2 RDW 14.5 Plt Count 267 Neut % (Auto) 80.7 H Lymph % (Auto) 10.6 L [place] % (Auto) 7.5 Eos % (Auto) 0.6 L Baso % (Auto) 0.6 Neut # (Auto) 9800 H Lymph # (Auto) 1300 [place] # (Auto) 900 Eos # (Auto) 100 Baso # (Auto) 100 Sodium 140 Potassium 4.2 Chloride 104 Carbon Dioxide 28 BUN 26 H Creatinine 0.70 Estimated GFR > 60.0 BUN/Creatinine Ratio 37.1 H Glucose 128 H Calcium 9.6 Total Bilirubin 0.3 AST 21 ALT 13 Alkaline Phosphatase 129 H Total Protein 7.9 Albumin 4.3 Globulin 3.6 Albumin/Globulin Ratio 1.2 Assessment & Plan Assessment & Plan narrative: Mrs. Swift is admitted to the hospital with plan for surgical management of her comminuted right trochanteric hip fracture 1. Comminuted right trochanteric hip fracture, present on admission, acute -patient sustained a ground level fall landing on her right hip stating a comminuted and angulated trochanteric fracture of the right hip. -cause of the fall is unknown, patient denies prodromal symptoms weakness dizziness visual changes or headache. She denies loss of consciousness, head or neck trauma. -Dr. Palacio, orthopedics, is consulting with plan for surgery tomorrow evening. -pain management with Percocet 1-2 tablets q.6 hours as needed for pain with morphine 2 mg as needed for breakthrough pain -will obtain a preoperative 12 lead EKG with BMP and CBC in the morning -patient will be NPO at 9:00 a.m. in anticipation of surgery. 2. Urinary tract infection, present on admission, acute versus chronic. -patient with history of prior urinary tract infections and is at present asymptomatic. -patient is currently afebrile has elevated white count at 12.1 which may be related to UTI or trauma. -patient with prior history of septicemia secondary to nephrolithiasis per family report. -patient with indwelling Michel catheter draining cloudy yellow urine. -patient with positive urine culture from 1 year ago with Klebsiella pneumoniae, in light of surgery with implants will treat current finding of UTI. -ciprofloxacin 400 mg IV every 12 hours. -normal saline 75 mL per hour for rehydration 3. Parkinson's, present on admission, chronic. -patient with recent adjustment in her carbidopa levodopa dosing confirmed with family at bedside. Continue 1 each carbidopa levodopa 25/100 and 50/200 3 times daily. -patient with associated sleep disturbance and her reports restless sleep and hallucinations. Patient states trazodone is ineffective. -will monitor patient and medicate as needed. 4. Constipation, chronic -patient with history constipation and poor oral intake -patient appears dehydrated, normal saline 75 cc/hour. -docusate, Dulcolax and MiraLax or ordered as needed for constipation. The patient is admitted to the hospital for management of pain and planned surgical intervention over hip fracture. The patient is admitted as an inpatient with expected length of stay to be greater than 2 midnights.
[2018-10-11] VITALS (22 sets, daily range): BP systolic 102–148; BP diastolic 49–94; PULSE 80–92; RESP 8–18; TEMP 36.3–37.1; O2SAT 90–99; BMI 23.8
--- NOTE | 2018-10-11 | DI.RAD.S_ITS ---
PROCEDURE: XR HIP W PEL IF DONE RT 2V INDICATIONS: RIGHT HIP ORIF TECHNIQUE: 4 intraoperative fluoroscopic views of the hip were acquired. COMPARISON: [facility], , XR HIP W PEL IF DONE RT 2V, 10/10/2018, 20:54. FINDINGS: Intraoperative fluoroscopic images of right hip shows internal fixation of previously noted right intertrochanteric fracture with intramedullary win and femoral neck compression screw placement. Distal fixation screws also seen. IMPRESSION: Fluoroscopy guidance was provided intraoperatively for ORIF of right proximal femur. Dictated by: Blane Archer M.D. on 10/11/2018 at 21:16 Approved by: Blane Archer M.D. on 10/11/2018 at 21:17
--- NOTE | 2018-10-11 00:05 | P.HP_ITS ---
History of Present Illness Date Patient Seen: 10/10/18 Time Patient Seen: 22:54 Chief complaint: GLF, Rt Hip Pain Narrative: Carolina Swift is an 83-year-old female patient with history signi ficant for Parkinson's, diverticulosis, nephrolithiasis, colitis, macular degeneration left eye, and scoliosis who presents to the ER after sustaining a fall landing on and fracturing her right hip. 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 She denies prodromal symptoms and had no complaints of dizziness visual changes or weakness. The patient was unable to ambulate due to severe pain and therefore her summoned EMS. The patient denies recent complaints of fevers or chills, no headaches nasal congestion or sore throat. She has a history of Parkinson's but denies difficulties chewing or swallowing. She has had no complaints of chest pain and denies palpitations. She reports no shortness of breath or dyspnea on exertion and has had no cough or wheezing. She denies abdominal pain, nausea vomiting but has had difficulty with chronic constipation. She denies urinary symptoms of burning, urgency or frequency and reports no hematuria. The patient is normally independent in functions and uses no assistive devices. Patient arrived in the ER at 7:28 p.m. at which time she was found to be 5 afebrile with a temperature of 98.0?, heart rate of 91, blood pressure 123/77 an d a respiratory rate of 20 with saturation 96% on room air. The patient was found to have shortening and external rotation of the right leg and imaging was obtained which identifies and angulated comminuted trochanteric fracture right hip. Dr. Palacio was consulted with tentative plan to take the patient to surgery tomorrow evening. On laboratory analysis the patient does have an elevated white count at 12.1 with a hemoglobin of 14.8 hematocrit of 46.0 and platelets of 267. On chemistry her liquid lytes are within normal limits but is notable for a BUN of 26 and a creatinine of 0.7. Her nonfasting glucose was 128. The patient is admitted for evaluation and management of her right hip fracture. Patient History Medical History Diverticulosis (Acute) Hallucinations (Acute) Macular degeneration of left eye (Acute) Nephrolithiasis (Acute) Parkinsons (Acute) Scoliosis (Acute) Septicemia (Acute) Surgical History History of cystocele (Acute) History of lithotripsy Status post hysterectomy Status post tonsillectomy and adenoidectomy Status post tubal ligation Family History Grandfather Diabetes mellitus Mother Heart disease Stroke Family & Social History Family History (Updated 10/10/18 @ 23:57 by SUZAN Machado) Grandfather Diabetes mellitus Mother Heart disease Stroke Father Parkinsons Safety & Behavioral: Feels Safe in Current Yes Environment Been Physically Hurt or No Threatened By a Person Comment: The patient is for 15 years and lives in a single family single level family home with 2 steps to the [facility]. Her parents are both , her father had Parkinson's and her mother had cardiac disease with her 1st heart attack at the age of 40 but lived to be 93. She is an only child and has 2 children both in good health. Smoking: Patient endorses smoking 1/2 pack per day for a few years in her 20s but none since. Alcohol: Past occasional drinking but no longer consumes alcohol. Substance use: Patient denies recreation pharmaceuticals, herbal or cannabis products. Advanced directive: In direct discussion with the patient she wishes to be DO NOT RESUSCITATE. She designates her or her daughter Martina who is a physician or her daughter Leigh to be surrogate decision makers, all of home reportedly hold DPOA. Meds Home Medications Medication Instructions Recorded Confirmed Type carbidopa-levodopa 1 tab PO TID #0 12/31/15 10/10/18 History carbidopa-levodopa 1 tab PO TID 10/10/18 10/10/18 History trazodone 50 mg PO BEDTIME PRN 10/10/18 10/10/18 History Allergies Allergy/AdvReac Type Severity Reaction Status Date / Time Penicillins [PENICILLINS] Allergy Unknown Verified 10/10/18 20:34 Review of Systems Review of Systems All systems reviewed & are unremarkable except as noted in HPI and below Exam Vital Signs (past 8 hours): - 10/10/18 20:34 10/10/18 22:35 10/10/18 22:49 Temperature 98.4 F 97.5 F L Pulse Rate 90 94 H 92 H Respiratory Rate 15 18 15 Blood Pressure 147/63 H 151/82 H 125/57 L Pulse Oximetry 96 93 94 Oxygen Delivery Method Room Air Oxygen Flow Rate 0 Narrative Exam Narrative: GENERAL APPEARANCE: well developed, well nourished, in no acute distress. HEAD: Normocephalic, atraumatic, no scalp lesions. EYES: pupils equal, round, reactive to light and accommodation, sclera non-icte rand, extraocular movement intact without nystagmus. EARS: normal external structures, no ear pain NOSE: sinuses non tender to percussion, no rhinorrhea ORAL CAVITY: Dry mucous membranes without lesions or exudate, palate normal, tongue in midline. THROAT: normal, no erythema, no exudate, pharynx normal, uvula midline. NECK/THYROID: neck supple, nontender to palpation, no step-offs, no jugular adriana ous distention, no carotid bruit, no thyromegaly, trachea midline. LYMPH NODES: no cervical or supraclavicular lymphadenopathy. SKIN: warm and dry, no rashes, good turgor, 4 mm skin biopsy site right lateral lower leg without redness or swelling. HEART: regular rate and rhythm, S1-S2 without murmur, no rubs or gallops, 1+ dorsalis pedis pulses bilaterally, brisk capillary refill, no edema LUNGS: clear to auscultation bilaterally, no coarseness crackles or wheezing, no cough present CHEST: Symmetrical movement, no accessory muscle use, no pain to AP and lateral compression. ABDOMEN: Soft, no distention, no epigastric or abdominal tenderness on palpation, no guarding or peritoneal signs, no organomegaly, no flank or suprapubic tenderness, active bowel tones. BACK: Nontender to palpation, no step-offs, no muscular spasms palpated EXTREMITIES: Shortening and external rotation right leg, swelling and pain palpation right hip, BUE and LLE strength is 5/5, director semiconductor equal bilateral, distal CMS intact. NEUROLOGIC: Mild masked facies, AAO x4, cranial nerves II-XII grossly intact , sensory exam intact to light touch, hearing grossly normal to speech. PSYCH: alert, cognitive function intact, fair eye contact, flat affect Objective Labs Result Diagrams: 10/10/18 21:22 10/10/18 21:22 Labs: Laboratory Results - last 24 hr 10/10/18 10/10/18 21:22 21:22 WBC 12.1 H RBC 5.03 Hgb 14.8 Hct 46.0 MCV 91.5 MCH 29.4 MCHC 32.2 RDW 14.5 Plt Count 267 Neut % (Auto) 80.7 H Lymph % (Auto) 10.6 L [place] % (Auto) 7.5 Eos % (Auto) 0.6 L Baso % (Auto) 0.6 Neut # (Auto) 9800 H Lymph # (Auto) 1300 [place] # (Auto) 900 Eos # (Auto) 100 Baso # (Auto) 100 Sodium 140 Potassium 4.2 Chloride 104 Carbon Dioxide 28 BUN 26 H Creatinine 0.70 Estimated GFR > 60.0 BUN/Creatinine Ratio 37.1 H Glucose 128 H Calcium 9.6 Total Bilirubin 0.3 AST 21 ALT 13 Alkaline Phosphatase 129 H Total Protein 7.9 Albumin 4.3 Globulin 3.6 Albumin/Globulin Ratio 1.2 Assessment & Plan Assessment & Plan narrative: Mrs. Swift is admitted to the hospital with plan for surgical management of her comminuted right trochanteric hip fracture 1. Comminuted right trochanteric hip fracture, present on admission, acute -patient sustained a ground level fall landing on her right hip stating a comminuted and angulated trochanteric fracture of the right hip. -cause of the fall is unknown, patient denies prodromal symptoms weakness dizziness visual changes or headache. She denies loss of consciousness, head or neck trauma. -Dr. Palacio, orthopedics, is consulting with plan for surgery tomorrow evening. -pain management with Percocet 1-2 tablets q.6 hours as needed for pain with morphine 2 mg as needed for breakthrough pain -will obtain a preoperative 12 lead EKG with BMP and CBC in the morning -patient will be NPO at 9:00 a.m. in anticipation of surgery. 2. Urinary tract infection, present on admission, acute versus chronic. -patient with history of prior urinary tract infections and is at present asymptomatic. -patient is currently afebrile has elevated white count at 12.1 which may be related to UTI or trauma. -patient with prior history of septicemia secondary to nephrolithiasis per family report. -patient with indwelling Michel catheter draining cloudy yellow urine. -patient with positive urine culture from 1 year ago with Klebsiella pneumoniae, in light of surgery with implants will treat current finding of UTI. -ciprofloxacin 400 mg IV every 12 hours. -normal saline 75 mL per hour for rehydration 3. Parkinson's, present on admission, chronic. -patient with recent adjustment in her carbidopa levodopa dosing confirmed with family at bedside. Continue 1 each carbidopa levodopa 25/100 and 50/200 3 times daily. -patient with associated sleep disturbance and her reports restless sleep and hallucinations. Patient states trazodone is ineffective. -will monitor patient and medicate as needed. 4. Constipation, chronic -patient with history constipation and poor oral intake -patient appears dehydrated, normal saline 75 cc/hour. -docusate, Dulcolax and MiraLax or ordered as needed for constipation. The patient is admitted to the hospital for management of pain and planned surgical intervention over hip fracture. The patient is admitted as an inpatient with expected length of stay to be greater than 2 midnights.
[2018-10-11 00:14] LABS: Magnesium 2.2 mg/dL (1.6-2.3)
[2018-10-11] MEDS: OXYCODONE/ACETAMINOPHEN 5/325 TABLET 2 TAB PO ×2 (00:48→08:53)
[2018-10-11] MEDS: CIPROFLOXACIN 400 MG/200 ML PIGGYBACK 200 MG IV ×3 (00:59→23:55)
[2018-10-11 06:01] LABS: BUN Creatinine Ratio 37.1 (6-22); Blood Urea Nitrogen 26 mg/dL (7-17); Calcium 8.8 mg/dL (8.4-10.2); Carbon Dioxide 28 mmol/L (22-32); Chloride 104 mmol/L (98-107); Estimated Glomerular Filt Rate > 60.0 mL/min (>60); Glucose 119 mg/dL (80-110); HEMOLYSIS < 15 (0-50); Potassium 4.4 mmol/L (3.4-5.1); Sodium 137 mmol/L (137-145)
[2018-10-11 06:03] LABS: Add Manual Diff / Slide Review NO; Basophils Absolute Auto 0 /uL (0-100); Basophils Percent Auto 0.3 % (0-2); Eosinophils Absolute Auto 0 /uL (0-450); Eosinophils Percent Auto 0.4 % (2-4); Hematocrit 39.4 % (36-46); Lymphocytes Absolute Auto 1600 /uL (1100-4500); Lymphocytes Percent Auto 13.4 % (25-40); Mean Corpuscular HGB Conc 33.1 % (30-36); Mean Corpuscular Hemoglobin 30.1 PG (26-34); Mean Corpuscular Volume 91.1 fL (80-100); Monocytes Absolute Auto 1200 /uL (0-900); Monocytes Percent Auto 9.9 % (3-14); Neutrophils Absolute Auto 9100 /uL (1500-7000); Platelet Count 224 X10^3/uL (150-400); Red Blood Cell Count 4.33 X10^6/uL (4.0-5.2)
--- NOTE | 2018-10-11 06:57 | PM.CN ---
History of Present Illness Date Patient Seen: 10/11/18 Time Patient Seen: 06:57 Chief complaint: GLF, Rt Hip Pain Reason for consult: Right hip fracture Requesting provider: Lelo Greene Narrative: The patient is an 83-year-old woman with Parkinson's disease. She suffered a fall yesterday sustaining a displaced proximal femur fracture. Orthopedic consultation has been obtained for definitive management of the fracture. PENDING SALE TO [facility] Medical History Diverticulosis (Acute) Hallucinations (Acute) Macular degeneration of left eye (Acute) Nephrolithiasis (Acute) Parkinsons (Acute) Scoliosis (Acute) Septicemia (Acute) Surgical History History of cystocele (Acute) History of lithotripsy Status post hysterectomy Status post tonsillectomy and adenoidectomy Status post tubal ligation Family History Grandfather Diabetes mellitus Mother Heart disease Stroke Father Parkinsons Social History household members: spouse Smoking Status: Never smoker alcohol intake: current Family History Grandfather Diabetes mellitus Mother Heart disease Stroke Father Parkinsons Social History household members: spouse Smoking Status: Never smoker alcohol intake: current Meds Home Medications Medication Instructions Recorded Confirmed Type carbidopa-levodopa 1 tab PO TID #0 12/31/15 10/10/18 History carbidopa-levodopa 1 tab PO TID 10/10/18 10/10/18 History trazodone 50 mg PO BEDTIME PRN 10/10/18 10/10/18 History Allergies Allergy/AdvReac Type Severity Reaction Status Date / Time Penicillins [PENICILLINS] Allergy Unknown Verified 10/10/18 20:34 Review of Systems Review of Systems All systems reviewed & are unremarkable except as noted in HPI and below Exam Vital Signs (past 8 hours): - 10/10/18 23:00 10/11/18 00:00 10/11/18 04:00 Temperature 98.0 F 97.8 F Pulse Rate 84 87 Respiratory Rate 14 16 Blood Pressure 121/62 121/60 Pulse Oximetry 98 92 92 Oxygen Delivery Method Room Air Oxygen Flow Rate 0 Narrative Exam Narrative: Right lower extremity is shortened and externally rotated. Calf is soft. Light touch and motion are intact in the right foot. There is a 2+ posterior tibial pulse. The skin over the proposed incision sites appears to be intact. Objective Labs Result Diagrams: 10/11/18 05:10 10/11/18 05:10 Labs: Laboratory Results - last 24 hr 10/10/18 10/10/18 10/10/18 21:22 21:22 21:24 WBC 12.1 H RBC 5.03 Hgb 14.8 Hct 46.0 MCV 91.5 MCH 29.4 MCHC 32.2 RDW 14.5 Plt Count 267 Neut % (Auto) 80.7 H Lymph % (Auto) 10.6 L [place] % (Auto) 7.5 Eos % (Auto) 0.6 L Baso % (Auto) 0.6 Neut # (Auto) 9800 H Lymph # (Auto) 1300 [place] # (Auto) 900 Eos # (Auto) 100 Baso # (Auto) 100 Sodium 140 Potassium 4.2 Chloride 104 Carbon Dioxide 28 BUN 26 H Creatinine 0.70 Estimated GFR > 60.0 BUN/Creatinine Ratio 37.1 H Glucose 128 H Calcium 9.6 Magnesium 2.2 Total Bilirubin 0.3 AST 21 ALT 13 Alkaline Phosphatase 129 H Total Protein 7.9 Albumin 4.3 Globulin 3.6 Albumin/Globulin Ratio 1.2 10/11/18 10/11/18 05:10 05:10 WBC 12.0 H RBC 4.33 Hgb 13.0 Hct 39.4 MCV 91.1 MCH 30.1 MCHC 33.1 RDW 14.0 Plt Count 224 Neut % (Auto) 76.0 H Lymph % (Auto) 13.4 L [place] % (Auto) 9.9 Eos % (Auto) 0.4 L Baso % (Auto) 0.3 Neut # (Auto) 9100 H Lymph # (Auto) 1600 [place] # (Auto) 1200 H Eos # (Auto) 0 Baso # (Auto) 0 Sodium 137 Potassium 4.4 Chloride 104 Carbon Dioxide 28 BUN 26 H Creatinine 0.70 Estimated GFR > 60.0 BUN/Creatinine Ratio 37.1 H Glucose 119 H Calcium 8.8 Magnesium Total Bilirubin AST ALT Alkaline Phosphatase Total Protein Albumin Globulin Albumin/Globulin Ratio Radiographs: X-rays reveal a displaced intertrochanteric hip fracture with a long medial lesser trochanteric butterfly fragment which extends into the subtrochanteric region. Assessment & Plan Assessment & Plan narrative: The patient is a pleasant 83-year-old woman with a history of Parkinson's disease who suffered a fall last night. She has a displaced sub/intertrochanteric fracture of the right femur. Treatment options for this include a dynamic hip screw or an intramedullary hip screw. Given the length of the medial butterfly fragment, I believe an intramedullary approach would be preferable. I have discussed the risks benefits and alternatives of the surgery with the patient and she has agreed to proceed. We will try to schedule that for this evening after my elective surgical day. She has given her signed informed consent.
[2018-10-11] MEDS: CARBIDOPA-LEVODOPA ER 50/200 TABLET 1 EACH PO ×2 (08:50→14:51)
[2018-10-11] MEDS: CARBIDOPA-LEVODOPA 25/100 TABLET 1 EACH PO ×2 (08:50→14:51)
--- NOTE | 2018-10-11 11:14 | PC.NURSE ---
Pt is A&Ox3. She denies pain at rest, but sais that she is umcomfortable with any movement. Given 2 percocet and pt seems to be more comfortable. Pts is visiting, his daughter brought him in. Initially they were going to leave her here in his wheelchair by himself to visit family alone. She stated that if he had to go to the bathroom he may end up on the floor. Explained to family member that visitor cannot be left here by himself if he needs supervision.. Family or someone needs to be with visitor at all times. Nurses are here to care for the patient only. Family has remained here with there dad. Pts daughter just came to visit as well. Family member also asking if can use oxygen in the room if needed as he left his in the car. This is not acceptable. Will talk to family if this issue is brought up again.
--- NOTE | 2018-10-11 11:25 | PT.IPTN ---
Current Diagnoses Fracture of unspecified part of neck of right femur, initial encounter for closed fracture (10/10/18) Encounter for other preprocedural examination (10/10/18) Surgery Performed Operation Date: 10/11/18 17:00 <No data on this case meets the specified criteria> Physical Therapy Treatment Note M3 PT-IP Subjective Start: 10/11/18 11:24 Freq: NEEDED Status: Active Protocol: Document 10/11/18 11:24 (Rec: 10/11/18 11:25 [id number]) Subjective Physical Therapy Visit Type Type Administrative Note Notes Checked in with pt and RN. Pt will receive hip sx later this pm. Hold PT at this point and reattempt tomorrow.
[2018-10-11] MEDS: SODIUM CHLORIDE 0.9% 1,000 ML 75 ML IV (14:01)
--- NOTE | 2018-10-11 14:10 | OT.IP.TRT ---
Current Diagnoses Fracture of unspecified part of neck of right femur, initial encounter for closed fracture (10/10/18) Encounter for other preprocedural examination (10/10/18) Surgery Performed Operation Date: 10/11/18 17:00 <No data on this case meets the specified criteria> Occupational Therapy Treatment Note M3 OT- IP Subjective and Pain Start: 10/11/18 14:09 Freq: Status: Active Protocol: Document 10/11/18 14:10 COLT (Rec: 10/11/18 14:12 COLT [id number]) OT- Subjective Occupational Therapy Visit Type Type Patient Unavailable Notes OT referral received. Will hold evaluation today as pt in surgery for repair of R hi p fx. Will await post op orders.
[2018-10-11] MEDS: OXYCODONE/ACETAMINOPHEN 5/325 TABLET 1 TAB PO (14:59)
--- NOTE | 2018-10-11 15:56 | CM.DANOTE ---
Addendum entered by Shayna Eastman LPN 10/12/18 16:28: Ashlie/[facility] did call back late 10/11. [facility] can accept when pt stable for same if this continues to be their snf choice. Original Note: Discharge Planning/Care Management DCP: assessment: case received, EMR reviewed and met with pt and her 3 daughters. Introduced self and role. Pt is an 83 year old female who admitted last night to care of the hospitalist team. Fall with fractured hip in setting of Parkinson's disease. Orthopedic team: consulted: Dr. Palacio is taking pt to surgery this evening for surgical repair of the hip. Payer: Medicare and AARP: Plan F PCP: Dr. Dennis Nieves Pt states she is aware that a SNF rehab stay will likely be needed and discussed specifics of same. SNF choice list: discussed. Choice: [facility] referral/done and with daughters to do some touring. Daughter Martina Hardy: a family practice physician: is identified as the primary family spokesperson. Pt does live with her but he has his own health care issues and is currently being cared for by his daughter. Martina does note that the family is aware that pt and her will need to relook at their living situation after she completed her rehab and they will assist them with the options going forward. Pt was very alert and participatory in the conversation. P: check in tomorrow once pt has worked with therapy. Anticipate snf stay: [facility] or other. November/[facility] is reviewing and anticipates acceptance if this remains pt/family choice. Advanced directive, confirm from FAMILY Start: 10/11/18 01:12 Freq: Q24H Status: Active Protocol: Document 10/11/18 11:02 CLL (Rec: 10/11/18 11:13 CLL [id number]) Advance Directive, confirm on record Time 08:00 Person contacted family Copy received No CM Discharge Assessment Start: 10/11/18 15:46 Freq: Status: Active Protocol: Document 10/11/18 15:47 ITV (Rec: 10/11/18 15:56 ITV [id number]) Discharge Planning Assessment Advance Directives? Yes History Provided By Patient Family Member Medical Record Has Patient been admitted in last 30 No days? Prior Living Arrangements House Household Members spouse Comment spouse uses a w/c and o2. His daughter did bring him to visit pt today, see DEEPA Rasmussen's notes re this visit. Is patient alert and oriented? Yes Patient/Family Preference Senior Living Facility Whiteboard Updated in Patient Room with Yes name and ext. # of Communication Clerk Review Status In Process Next Review Type Continued Stay Review Discharge Planning/Care Management Advanced directive, confirm from FAMILY Start: 10/11/18 01:12 Freq: Q24H Status: Active Protocol: Document 10/11/18 11:02 CLL (Rec: 10/11/18 11:13 CLL [id number]) Advance Directive, confirm on record Time 08:00 Person contacted family Copy received No CM Discharge Assessment Start: 10/11/18 15:46 Freq: Status: Active Protocol: Document 10/11/18 15:47 ITV (Rec: 10/11/18 15:56 ITV [id number]) Discharge Planning Assessment Advance Directives? Yes History Provided By Patient Family Member Medical Record Has Patient been admitted in last 30 No days? Prior Living Arrangements House Household Members spouse Comment spouse uses a w/c and o2. His daughter did bring him to visit pt today, see DEEPA Rasmussen's notes re this visit. Is patient alert and oriented? Yes Patient/Family Preference Senior Living Facility Whiteboard Updated in Patient Room with Yes name and ext. # of Communication Clerk Review Status In Process Next Review Type Continued Stay Review
--- NOTE | 2018-10-11 16:28 | PC.NURSE ---
Addendum entered by Merary Mueller R.N. 10/11/18 21:02: Pt resting quietly at this time. Family in room. IVF infusing as per orders. Two dsg to right hip CDI. Michel cath patent clear urine. Stable post op course. Call light w/in reach/ bed alarm on for pt safety. Continue w/plan of care. Addendum entered by Merary Mueller R.N. 10/11/18 19:46: Pt returned from PACU @ 1930 [place] but awakens easily. Lungs diminished @ bases SpO2 96% 1L IFV resumed as per ordfers. SCD in place. Stable post op course. Call light w/in reach, bed alarm on for pt safety. Original Note: Pt awake, A/O, denies discomfort at this time. IV NS @ 75 infusing as per orders via pump w/o incidence. SCD on Michel cath patent mark yellow urine. Pt escorted to OR suite at 1630
[2018-10-11] MEDS: CEFAZOLIN 1 GM VIAL IV (17:30)
--- NOTE | 2018-10-11 17:55 | SUR.OPER ---
Head on pillow. Supine on fracture table with operative leg secured in traction. Other leg secured in padded stirrup. Arms across chest, secured with sheet.
[2018-10-11] MEDS: BUPIVACAINE 0.5% W/ EPI (PF) VIAL 30 ML INJ (18:32)
[2018-10-11] MEDS: LACTATED RINGERS 1,000 ML 42 ML IV (18:48)
--- NOTE | 2018-10-11 19:03 | PM.OP.1 ---
Operative Date/Time/Diagnoses Date of procedure: 10/11/18 Time of procedure: 19:03 Pre-op diagnosis: Right closed, displaced, subtrochanteric/intertrocanteric femoral fracture Post-op diagnosis: same Procedure & Clinicians Procedure: Reduction and internal fixation of right hip fracture with intramedullary hip screw Same procedure as scheduled: Yes Indications: The patient is an 83-year-old woman with Parkinson's disease who fell yesterday sustaining the above-noted fracture. After discussion of the risks benefits and alternatives she has agreed to surgery. Risks discussed included but were not limited to: Failure to improve, cutting out of the screw, stiffness, infection, nerve damage, deep venous thrombosis, pulmonary embolism, stroke, myocardial infarction, permanent paralysis and . Surgeon: oDn Palacio Click Yes if Unassisted: Yes Anesthesia Type: General and Local Operative Notes Findings: Comminuted displaced proximal femoral fracture with satisfactory reduction after win placement. Closure Type: primary Specimen(s): none sent Prosthetic devices, grafts, tissues, transplants, or devices: Implants in this procedure were manufactured by the [employer] and included a [employer] Nail System with a 130 degree 11.5 mm short femoral nail, a 110 mm x 10.5 mm diameter lag screw and 2 distal 5.0 mm diameter cortical screws measuring 30 mm in length. Applied: catheter and implant(s) Estimated Blood Loss (mL): 150 Blood products transfused: none Procedure in detail: Patient was seen in the preoperative area where the right hip was confirmed as the operative site and marked with my initials. She received preoperative antibiotics and was taken to the operating room and a general anesthetic was induced on her hospital bed prior to transfer to the fracture table. The right leg was placed in a traction leg schaffer the left leg in a well leg schaffer. After appropriate traction was applied the position of the fracture alignment was confirmed as being improved on the AP and lateral views. A multimedia editor-out was then performed. The lateral aspect of the right thigh was prepared with ChloraPrep in the usual fashion and draped with a vertical adherent drape. An approximately 6 cm incision was created proximal to the greater trochanter and carried to the fascia german which was incised. The tip of the greater trochanter was palpated and a guide pin placed through the greater trochanter into the femoral shaft across the fracture. A starter Reamer was used and the guide win exchanged for a longer ball tip guide win. This was over reamed with the proximal Reamer to the appropriate depth to allow placement of the win. Flexible reamers were then used as sounds to determine the appropriate win size. A 13 mm Reamer had slight cortical bite so an 11.5 mm win was chosen. This was assembled to the out seat coverer appropriately and then placed. The guide win was then removed. Using the out seat coverer to place the lag screw in the appropriate position, a guide pin was placed into the femoral head and confirmed as being in the central 3rd of the femoral head on the AP and lateral views. It was slightly anterior in the femoral neck. I felt this was acceptable. This was measured and reamed with the appropriate Reamer and the 110 mm lag screw placed. The locking bolt was then placed in the sliding position. The 2 distal interlock screws were placed using the appropriate guide. The position of all hardware and the fracture was verified as being acceptable in the AP and lateral views. The out seat coverer was removed. The wounds were irrigated with sterile saline solution. The fascia german was reapproximated with 0 Vicryl. The subcutaneous layer in the proximal wound was closed with interrupted 3 O Vicryl. Bambi were used for all skin incisions. Local anesthetic including 20 mL of 0.5% Marcaine with epinephrine was injected around the wounds for postoperative pain control. Dressings of Xeroform, sterile 4x4s and Tegaderms were applied. The patient was then transferred back to her hospital bed and taken to the recovery room in good condition having tolerated the procedure well. Complications: none Condition: stable Disposition: PACU Plan for aftercare: The patient will be allowed to weightbear as tolerated on the right lower extremity with physical therapy. She likely will require transfer to a [facility] facility for additional rehabilitation prior to discharge home.
--- NOTE | 2018-10-11 19:05 | SUR.PHASEI ---
Oral care done
--- NOTE | 2018-10-11 19:14 | P.OP_ITS ---
Operative Date/Time/Diagnoses Date of procedure: 10/11/18 Time of procedure: 19:03 Pre-op diagnosis: Right closed, displaced, subtrochanteric/intertrocanteric femoral fracture Post-op diagnosis: same Procedure & Clinicians Procedure: Reduction and internal fixation of right hip fracture with intramedullary hip screw Same procedure as scheduled: Yes Indications: The patient is an 83-year-old woman with Parkinson's disease who fell yesterday sustaining the above-noted fracture. After discussion of the risks benefits and alternatives she has agreed to surgery. Risks discussed included but were not limited to: Failure to improve, cutting out of the screw, stiffness, infection, nerve damage, deep venous thrombosis, pulmonary embolism, stroke, myocardial infarction, permanent paralysis and . Surgeon: Don Palacio Click Yes if Unassisted: Yes Anesthesia Type: General and Local Operative Notes Findings: Comminuted displaced proximal femoral fracture with satisfactory reduction after win placement. Closure Type: primary Specimen(s): none sent Prosthetic devices, grafts, tissues, transplants, or devices: Implants in this procedure were manufactured by the [employer] and included a [employer] Natural Nail System with a 130 degree 11.5 mm short femoral nail, a 110 mm x 10.5 mm diameter lag screw and 2 distal 5.0 mm diameter cortical screws measuring 30 mm in length. Applied: catheter and implant(s) Estimated Blood Loss (mL): 150 Blood products transfused: none Procedure in detail: Patient was seen in the preoperative area where the right hip was confirmed as the operative site and marked with my initials. She received preoperative antibiotics and was taken to the operating room and a general anesthetic was induced on her hospital bed prior to transfer to the fracture table. The right leg was placed in a traction leg schaffer the left leg in a well leg schaffer. After appropriate traction was applied the position of the fracture alignment was confirmed as being improved on the AP and lateral views. A multimedia production assistant-out was then performed. The lateral aspect of the right thigh was prepared with ChloraPrep in the usual fashion and draped with a vertical adherent drape. An approximately 6 cm incision was created proximal to the greater trochanter and carried to the fascia german which was incised. The tip of the greater trochanter was palpated and a guide pin placed through the greater trochanter into the femoral shaft across the fracture. A starter Reamer was used and the guide win exchanged for a longer ball tip guide win. This was over reamed with the proximal Reamer to the appropriate depth to allow placement of the win. Flexible reamers were then used as sounds to determine the appropriate win size. A 13 mm Reamer had slight cortical bite so an 11.5 mm win was chosen. This was assembled to the out black studies professor appropriately and then placed. The guide win was then removed. Using the out black studies professor to place the lag screw in the appropriate position, a guide pin was placed into the femoral head and confirmed as being in the central 3rd of the femoral head on the AP and lateral views. It was slightly anterior in the femoral neck. I felt this was acceptable. This was measured and reamed with the appropriate Reamer and the 110 mm lag screw placed. The locking bolt was then placed in the sliding position. The 2 distal interlock screws were placed using the appropriate guide. The position of all hardware and the fracture was verified as being acceptable in the AP and lateral views. The out black studies professor was removed. The wounds were irrigated with sterile saline solution. The fascia german was reapproximated with 0 Vicryl. The subcutaneous layer in the proximal wound was closed with interrupted 3 O Vicryl. Bambi were used for all skin incisions. Local anesthetic including 20 mL of 0.5% Marcaine with epinephrine was injected around the wounds for postoperative pain control. Dressings of Xeroform, sterile 4x4s and Tegaderms were applied. The patient was then transferred back to her hospital bed and taken to the recovery room in good condition having tolerated the procedure well. Complications: none Condition: stable Disposition: PACU Plan for aftercare: The patient will be allowed to weightbear as tolerated on the right lower extremity with physical therapy. She likely will require transfer to a [facility] facility for additional rehabilitation prior to discharge home.
--- NOTE | 2018-10-11 19:20 | SUR.PHASEI ---
Report called to Josette
--- NOTE | 2018-10-11 19:37 | SUR.PHASEI ---
Pt transferred to the floor with o2 at 1lnc. Report to Josette. VS Stable. IV saline locked. Drsgs checked with RN. Pt denied pain.
[2018-10-11] MEDS: ACETAMINOPHEN 325 MG TABLET 975 MG PO (20:01)
[2018-10-11] MEDS: DOCUSATE 100 MG CAPSULE PO (20:01)
--- NOTE | 2018-10-11 21:09 | P.PN_ITS ---
Subjective Date Patient Seen: 10/11/18 Interval history: Carolina Swift is an 83-year-old female patient with a past medical history significant for Parkinson's, diverticulosis, nephrolithiasis, colitis, macular degeneration left eye, and scoliosis who presents to the ER after sustaining a fall landing on and fracturing her right hip. The patient is resting in bed comfortably. She reports pain with movement but otherwise does not have any pain. she endorses chronic constipation. She denies headache, shortness of breath, chest pain, abdominal pain, nausea, vomiting, fever, chills, dysuria, or diarrhea. She is voiding via ramos catheter. A stringent bowel regimen is been implemented. She is on strict bedrest and is going to have surgery this evening. Exam Vital Signs (past 8 hours): - 10/11/18 16:02 10/11/18 16:03 10/11/18 16:35 Temperature 98.1 F 98.0 F Pulse Rate 83 82 Respiratory Rate 18 15 Blood Pressure 112/59 L 102/62 Pulse Oximetry 96 96 93 10/11/18 18:48 10/11/18 18:54 10/11/18 18:58 Temperature 98.7 F Pulse Rate 92 H 92 H 92 H Respiratory Rate 12 15 11 L Blood Pressure 137/61 122/49 L 119/54 L Pulse Oximetry 99 93 97 10/11/18 19:03 10/11/18 19:08 10/11/18 19:18 Temperature Pulse Rate 90 92 H 90 Respiratory Rate 8 L 11 L 12 Blood Pressure 128/54 L 131/53 L 148/73 H Pulse Oximetry 99 97 94 10/11/18 19:30 10/11/18 19:49 10/11/18 20:00 Temperature 97.4 F L Pulse Rate 88 88 87 Respiratory Rate 16 17 Blood Pressure 131/75 137/70 Pulse Oximetry 94 95 10/11/18 20:30 10/11/18 20:31 Temperature 97.3 F L Pulse Rate 86 Respiratory Rate 16 Blood Pressure 125/66 Pulse Oximetry 95 92 Oxygen Delivery Method Room Air Oxygen Flow Rate 1 Narrative Exam Narrative: General: Elderly female lying in bed and in no acute distress, well-developed, well-nourished, appropriately interactive. HEENT: Normocephalic, atraumatic. External ears without defect. Pupils equal, ro und, and reactive to light. Anicteric sclerae, moist conjunctivae, and no lid lag. Dry oral mucosa. Neck:Poor tugor with full range of motion. No lymphadenopathy or thyromegaly. Cardiovascular: Regular rate and rhythm without murmurs, rubs, or gallops appreciated. Pulmonary: Clear to auscultation bilaterally without crackles, wheezes, or rhonchi. Normal respiratory effort with no use of accessory muscles. Abdomen: Soft, bowel sounds present, nontender, nondistended. No hepatosplenomegaly or masses appreciated. Extremities: No clubbing, cyanosis, or edema. Right leg externally rotated without tenderness to palpation. Skin: Normal temperature, turgor, and texture; no rash, ulcers, or subcutaneous nodules appreciated. Neurological: Cranial nerves grossly intact. Parkinsonian disease is very subtle with mild tremor and masked facies. Psychiatric: Normal mood and affect. Alert and oriented to person, place, and time. Objective Labs Result Diagrams: 10/12/18 05:00 10/12/18 05:21 Labs: Laboratory Results - last 24 hr 10/10/18 10/10/18 10/10/18 21:22 21:22 21:24 WBC 12.1 H RBC 5.03 Hgb 14.8 Hct 46.0 MCV 91.5 MCH 29.4 MCHC 32.2 RDW 14.5 Plt Count 267 Neut % (Auto) 80.7 H Lymph % (Auto) 10.6 L [place] % (Auto) 7.5 Eos % (Auto) 0.6 L Baso % (Auto) 0.6 Neut # (Auto) 9800 H Lymph # (Auto) 1300 [place] # (Auto) 900 Eos # (Auto) 100 Baso # (Auto) 100 Sodium 140 Potassium 4.2 Chloride 104 Carbon Dioxide 28 BUN 26 H Creatinine 0.70 Estimated GFR > 60.0 BUN/Creatinine Ratio 37.1 H Glucose 128 H Calcium 9.6 Magnesium 2.2 Total Bilirubin 0.3 AST 21 ALT 13 Alkaline Phosphatase 129 H Total Protein 7.9 Albumin 4.3 Globulin 3.6 Albumin/Globulin Ratio 1.2 10/11/18 10/11/18 05:10 05:10 WBC 12.0 H RBC 4.33 Hgb 13.0 Hct 39.4 MCV 91.1 MCH 30.1 MCHC 33.1 RDW 14.0 Plt Count 224 Neut % (Auto) 76.0 H Lymph % (Auto) 13.4 L [place] % (Auto) 9.9 Eos % (Auto) 0.4 L Baso % (Auto) 0.3 Neut # (Auto) 9100 H Lymph # (Auto) 1600 [place] # (Auto) 1200 H Eos # (Auto) 0 Baso # (Auto) 0 Sodium 137 Potassium 4.4 Chloride 104 Carbon Dioxide 28 BUN 26 H Creatinine 0.70 Estimated GFR > 60.0 BUN/Creatinine Ratio 37.1 H Glucose 119 H Calcium 8.8 Magnesium Total Bilirubin AST ALT Alkaline Phosphatase Total Protein Albumin Globulin Albumin/Globulin Ratio Assessment & Plan Assessment & Plan narrative: Carolina Swift is an 83-year-old female patient with a past medical history significant for Parkinson's, diverticulosis, nephrolithiasis, colitis, macular degeneration left eye, and scoliosis who presents to the ER after sustaining a fall landing on and fracturing her right hip. 1. Acute pathological comminuted right trochanteric hip fracture, present on admission. Active. -Patient sustained a ground level fall landing on her right hip enduring a comminuted and angulated trochanteric fracture of the right hip. -The cause of the fall is unknown. Patient denies prodromal symptoms including: weakness, dizziness, visual changes, or headache. She denies loss of conscio usness, head or neck trauma after fall. -Dr. Palacio, orthopedics, consulted and plans for surgery later today. NPO currently. -Continue Percocet 1-2 tablets every 6 hours as needed for moderate pain and morphine 2 mg IV as needed for severe breakthrough pain. 2. Probable acute urinary tract infection, present on admission. Active. -Patient with history of prior urinary tract infections. Afebrile with mildly elevated WBC of 12.1 which may be related to UTI vs. trauma and asymptomatic other than GLF. -Prior history of septicemia secondary to nephrolithiasis per family report. -Continue ciprofloxacin 400 mg IV every 12 hours. -Continue normal saline 75 mL/hr for gentle hydration. 3. Parkinson's, chronic, present on admission. Stable. -Patient had recent adjustment in her carbidopa/levodopa dosing confirmed with family at bedside. Continue carbidopa/levodopa IR 25/100 mg 3 times daily and carbidopa/levodopa ER 50/200 mg 3 times daily. -Patient with associated sleep disturbance and her reports restless sleep and hallucinations. Patient states trazodone is ineffective. 4. Constipation, chronic, present on admission. Stable. -Patient with history constipation likely due to parkinson's and poor oral intake of fluids. -Continue normal saline 75 mL/hr for gentle hydration as patient appears dry. -Continue docusate, Dulcolax and MiraLax as needed for constipation. Disposition: Patient likely to discharge in several days after surgery once mobilizing to long term facility for continued physical rehabilitation.
[2018-10-11] MEDS: OXYCODONE IR 5 MG TABLET PO (23:55)
[2018-10-12] VITALS (11 sets, daily range): BP systolic 107–126; BP diastolic 47–64; PULSE 82–104; RESP 16–21; TEMP 36.2–37.1; O2SAT 92–95
--- NOTE | 2018-10-12 04:02 | PC.NURSE ---
Assumed care of pt at 2300 on 10/11/18. Pt resting in bed during bedside hand-off. Drsgs to R hip c/d/i. CMS+, IVF infusing per AUG. Oxycodone effective for post-op pain. Denies nausea. CPOX on; 1L NC sats 92-95%. Reposition to prevention skin breakdown. Bed alarm on. Door open for close monitoring.
[2018-10-12] MEDS: SODIUM CHLORIDE 0.9% 1,000 ML 75 ML IV (06:13)
[2018-10-12] MEDS: OXYCODONE IR 5 MG TABLET PO ×4 (06:13→17:22)
[2018-10-12 06:20] LABS: Add Manual Diff / Slide Review NO; Basophils Absolute Auto 0 /uL (0-100); Basophils Percent Auto 0.1 % (0-2); Eosinophils Absolute Auto 0 /uL (0-450); Hematocrit 34.6 % (36-46); Hemoglobin 11.8 g/dL (12.0-16.0); Lymphocytes Absolute Auto 700 /uL (1100-4500); Lymphocytes Percent Auto 6.3 % (25-40); Mean Corpuscular HGB Conc 34.1 % (30-36); Mean Corpuscular Hemoglobin 30.8 PG (26-34); Mean Corpuscular Volume 90.4 fL (80-100); Monocytes Absolute Auto 800 /uL (0-900); Monocytes Percent Auto 7.8 % (3-14); Neutrophils Absolute Auto 9300 /uL (1500-7000); Neutrophils Percent Auto 85.8 % (50-75); Platelet Count 205 X10^3/uL (150-400); Red Blood Cell Count 3.82 X10^6/uL (4.0-5.2); Red Cell Distribution Width 14.1 % (11.6-14.8); White Blood Cell Count 10.9 X10^3/uL (4.5-11.0)
[2018-10-12 06:21] LABS: Blood Urea Nitrogen 16 mg/dL (7-17); Calcium 8.5 mg/dL (8.4-10.2); Carbon Dioxide 24 mmol/L (22-32); Chloride 104 mmol/L (98-107); Estimated Glomerular Filt Rate > 60.0 mL/min (>60); Glucose 126 mg/dL (80-110); HEMOLYSIS < 15 (0-50); Potassium 4.2 mmol/L (3.4-5.1); Sodium 135 mmol/L (137-145)
[2018-10-12] MEDS: ACETAMINOPHEN 325 MG TABLET 975 MG PO ×3 (09:37→21:20)
[2018-10-12] MEDS: DOCUSATE 100 MG CAPSULE PO ×2 (09:38→21:21)
[2018-10-12] MEDS: ENOXAPARIN 40 MG/0.4 ML SYRINGE SUBCUT (09:39)
[2018-10-12] MEDS: POLYETHYLENE GLYCOL 3350 17 GM POWD.PACK PO (09:39)
--- NOTE | 2018-10-12 10:17 | P.PN_ITS ---
Subjective Date Patient Seen: 10/12/18 Time Patient Seen: 10:16 Interval history: 83 year old female with history of Parkinsons who is POD#1 s/p reduction and internal fixation of right hip fracture with intramedullary hip screw with Dr. Palacio. Her pain is well controlled. She has not yet mobilized with PT. Tolerating food. Urinary catheter in place. Denies chest pain or shortness of breath. Exam Vital Signs (past 8 hours): - 10/12/18 05:50 10/12/18 07:40 Temperature 97.9 F 97.8 F Pulse Rate 88 92 H Respiratory Rate 16 18 Blood Pressure 114/62 126/64 Pulse Oximetry 95 95 Oxygen Delivery Method Nasal Cannula Oxygen Flow Rate 1 Narrative Exam Narrative: 83 year old female resting comfortably in bed, no acute distress. Alert and oriented. Dressing in place over right hip is clean, dry, and intact. Distal sensation intact. Pulses symmetrical. Able to flex/extend the toes. Objective Labs Result Diagrams: 10/12/18 05:00 10/12/18 05:21 Labs: Laboratory Results - last 24 hr 10/12/18 10/12/18 10/12/18 05:00 05:21 05:21 WBC 10.9 Cancelled RBC 3.82 L Cancelled Hgb 11.8 L Cancelled Hct 34.6 L Cancelled MCV 90.4 Cancelled MCH 30.8 Cancelled MCHC 34.1 Cancelled RDW 14.1 Cancelled Plt Count 205 Cancelled Neut % (Auto) 85.8 H Lymph % (Auto) 6.3 L [place] % (Auto) 7.8 Eos % (Auto) 0.0 L Baso % (Auto) 0.1 Neut # (Auto) 9300 H Lymph # (Auto) 700 L [place] # (Auto) 800 Eos # (Auto) 0 Baso # (Auto) 0 Sodium 135 L Potassium 4.2 Chloride 104 Carbon Dioxide 24 BUN 16 Creatinine 0.50 L Estimated GFR > 60.0 BUN/Creatinine Ratio 32.0 H Glucose 126 H Calcium 8.5 Magnesium 2.0 Assessment & Plan Post-op Postoperative Procedures Operation Date: 10/11/18 17:00 Actual Procedures Side Surgeon p ORIF Hip/Intramedullary Hip Screw Right Don Palacio MD Continue pain control. Weight bear as tolerated with PT today. Patient will likely discharge to SNF in the coming days.
--- NOTE | 2018-10-12 10:45 | PT.IIE ---
Current Diagnoses Fracture of unspecified part of neck of right femur, initial encounter for closed fracture (10/10/18) Encounter for other preprocedural examination (10/10/18) Surgery Performed Operation Date: 10/11/18 17:00 Actual Procedures p ORIF Hip/Intramedullary Hip Screw(Right) - Don Palacio MD Surgical History (Last Reviewed 10/11/18 @ 06:58 by Don Palacio MD) History of cystocele (Acute) History of lithotripsy Status post hysterectomy Status post tonsillectomy and adenoidectomy Status post tubal ligation Medical History (Last Reviewed 10/11/18 @ 06:58 by Don Palacio MD) Diverticulosis (Acute) Hallucinations (Acute) Macular degeneration of left eye (Acute) Nephrolithiasis (Acute) Parkinsons (Acute) Scoliosis (Acute) Septicemia (Acute) Physical Therapy Inpatient Evaluation/Re-Eval M1 PT/OT-IP Prior Functional Status Start: 10/11/18 11:24 Freq: NEEDED Status: Active Protocol: Document 10/12/18 10:45 AB (Rec: 10/12/18 13:14 AB [id number]) Medical Review Prior Functional Status Medical History Reviewed Yes Communication able to make needs known Mobility and Gait pt staed that she is independent with all mobilities and ambulation without AD Social History Household Members spouse Living Arrangements House Number of Floors (Floors) One Floor Number of Stairs To Enter/Railing? 2 steps to enter without rails but has a R side grab bar by the door Home Environment Standard Height Toilet Walk in Shower Home Equipment Raised Toilet Seat Without Armrests Shower Seat without Backrest Hand Held Shower Employment Status Retired M2 PT-IP Current Condition Start: 10/11/18 11:24 Freq: NEEDED Status: Active Protocol: Document 10/12/18 10:45 AB (Rec: 10/12/18 13:14 AB [id number]) Physical Therapy Current Condition Current Condition Evaluation Date 10/12/18 Treatment Diagnosis s/p reduction and internal fixation intramedullary hip screw; diff in walk Onset Date 10/10/18 Precautions Other Precautions falls Weight Bearing Status Weight Bearing Status Weight Bear as Tolerated M3 PT-IP Subjective Start: 10/11/18 11:24 Freq: NEEDED Status: Active Protocol: Document 10/12/18 10:45 AB (Rec: 10/12/18 13:14 AB [id number]) Subjective Physical Therapy Visit Type Type Initial Evaluation Visit Start Time 10:45 Visit Stop Time 11:26 Total Visit Minutes 41 Number of BLOOD DONOR RECRUITER Visits 0 Physical Therapy Visit Comments Patient Comments pt agreeable to do PT Therapy Pain Assessment Pain When Pain Assessed At Rest Pain Present Pain Present Pain Reported Location Right Hip Intensity 5 Scale Used Numeric (1 - 10) Pain Management Techniques Apply Cold Re-positioning Timing of Activity with Medications M4 PT-IP Mobility and Gait Start: 10/11/18 11:24 Freq: NEEDED Status: Active Protocol: Document 10/12/18 10:45 AB (Rec: 10/12/18 13:14 AB [id number]) PT-Bed Mobility Assessment Supine to Sit Supine to Sit Maximum Assistance 1 Person Assistance PT-Transfer Assessment Sit to and From Stand Sit to and from Stand Moderate Assistance Maximum Assistance 1 Person Assistance Equipment Transfer Assistive Device Gait Belt Front Wheeled Walker Orthotic/Prosthetic Devices or Brace: No Transfers Transfer Destination Chair Transfer Technique pt ambulated using fWW Transfer Ability Level of Assist Maximum Assistance 1 Person Assistance Gait Assessment Gait Gait Assistance Required: Maximum Assistance Distance (Feet) 3 Able to Maintain Weight Bearing Status Yes During Gait Assistive Devices Assistive Device Gait Belt Front Wheeled Walker Orthotic/Prosthetic Devices or Brace: No Gait Deviations General Gait Pattern Ataxic Decreased Stride Length Decreased Feet Clearance Narrow Based Gait Factors Limiting Gait Function Factors Limiting Gait Function Decreased Activity Tolerance Decreased Strength Difficulty Following Directions Limited Range of Motion Pain Poor Balance Poor Safety Awareness PT-Balance Assessment Sitting Balance and Reactions Static Sitting Balance Ability Good Dynamic Sitting Balance Ability Fair Standing Balance and Reactions Static Standing Balance Ability Poor Dynamic Standing Balance Ability Poor Device Used FWW M5 PT-IP Objective Assessments Start: 10/11/18 11:24 Freq: NEEDED Status: Active Protocol: Document 10/12/18 10:45 AB (Rec: 10/12/18 13:14 AB [id number]) Orientation Orientation/Cognition Level of Alertness Alert Orientation Name Place Situation Safety Awareness Decreased Safety Awareness Memory Description Short Term Impaired [place] Impaired Gross Range of Motion Lower Extremity ROM Assessment Right Impaired Impairments muscle guarding during hip/ knee flexion Strength Lower Extremity Strength Assessment Bilaterally Impaired Comments Strength Comments RLE : 3-/5 LLE: 3+/5 Muscle Tone Muscle Tone Location Bilateral Lower Extremity Type of Tone Rigidity Severity of Tone Mild M6 PT-IP Treatment Start: 10/11/18 11:24 Freq: NEEDED Status: Active Protocol: Document 10/12/18 10:45 AB (Rec: 10/12/18 13:14 AB [id number]) Physical Therapy Treatment Education Education Provided Precautions Weight Bearing Status Safety M7 PT-IP Assessment and Plan Start: 10/11/18 11:24 Freq: NEEDED Status: Active Protocol: Document 10/12/18 10:45 AB (Rec: 10/12/18 13:14 AB [id number]) PT Summary Assessment and Plan Potential Rehabilitation Potential Fair Status of Condition at Evaluation Evolving Summary Impairments Pain ROM Strength Balance Coordination Sensation Tone Cognition Bed Mobility Transfers Gait Activity Tolerance Assessment Summary [facility] to improve strength and mobility. Goals Bed Mobility Goal Contact Guard Assistance Transfer Goal Contact Guard Assistance Front Wheeled Walker Gait Goal Contact Guard Assistance Front Wheel Walker Gait Distance 100 Days to Meet Goals 5 Frequency of Treatment Frequency Of Treatment Twice a Day Treatment Plan Physical Therapy Treatment Plan Bed Mobility Training Transfer Training Gait Training Therapeutic Exercise Balance Retraining Post Op Education Discharge Planning Hot or Cold Pack Neuromuscular Re-ed Coordination Retraining Manual Therapy Recommendations To Nursing Amount of Assist Needed 2 Person Assist Discharge Recommendations PT Discharge Recommendations SNF Rehab
--- NOTE | 2018-10-12 10:52 | P.PN_ITS ---
Subjective Date Patient Seen: 10/12/18 Time Patient Seen: 10:52 Interval history: She is seen today to follow-up her right hip fracture and Parkinson's disease. The Sinemet had not been reordered postop and so that will be corrected today. Several family members are present and are pleasantly entertaining her and each other. She plans to go to [facility] for rehab soon. Exam Vital Signs (past 8 hours): - 10/12/18 05:50 10/12/18 07:40 Temperature 97.9 F 97.8 F Pulse Rate 88 92 H Respiratory Rate 16 18 Blood Pressure 114/62 126/64 Pulse Oximetry 95 95 Oxygen Delivery Method Nasal Cannula Oxygen Flow Rate 1 Narrative Exam Narrative: She is alert and oriented x3. There is no masked faces, observed stiffness or pill rolling tremor. Heart is regular rate and rhythm without murmur. Lungs are clear to auscultation bilaterally. Extremities have no ankle edema. Clean dressings are present on the right hip in 2 locations without signs of infection or drainage. Objective Labs Result Diagrams: 10/12/18 05:00 10/12/18 05:21 Labs: Laboratory Results - last 24 hr 10/12/18 10/12/18 10/12/18 05:00 05:21 05:21 WBC 10.9 Cancelled RBC 3.82 L Cancelled Hgb 11.8 L Cancelled Hct 34.6 L Cancelled MCV 90.4 Cancelled MCH 30.8 Cancelled MCHC 34.1 Cancelled RDW 14.1 Cancelled Plt Count 205 Cancelled Neut % (Auto) 85.8 H Lymph % (Auto) 6.3 L [place] % (Auto) 7.8 Eos % (Auto) 0.0 L Baso % (Auto) 0.1 Neut # (Auto) 9300 H Lymph # (Auto) 700 L [place] # (Auto) 800 Eos # (Auto) 0 Baso # (Auto) 0 Sodium 135 L Potassium 4.2 Chloride 104 Carbon Dioxide 24 BUN 16 Creatinine 0.50 L Estimated GFR > 60.0 BUN/Creatinine Ratio 32.0 H Glucose 126 H Calcium 8.5 Magnesium 2.0 Assessment & Plan Assessment & Plan narrative: 1. Comminuted right trochanteric hip fracture, present on admission, acute -patient sustained a ground level fall landing on her right hip stating a comminuted and angulated trochanteric fracture of the right hip. -cause of the fall is unknown, patient denies prodromal symptoms weakness dizziness visual changes or headache. She denies loss of consciousness, head or neck trauma. -Dr. Palacio did an open reduction internal fixation yesterday. -pain management with Percocet 1-2 tablets q.6 hours as needed for pain with morphine 2 mg as needed for breakthrough pain -postop hemoglobin this morning is down just slightly to 11.8. 2. Urinary tract infection not present -no classic UTI symptoms so no UA collected. No treatment indicated. 3. Parkinson's, present on admission, chronic. -resume the carbidopa levodopa 25/100 and 50/200 3 times daily today. -patient with associated sleep disturbance and her reports restless sle ep and hallucinations. Patient states trazodone is ineffective. -will monitor patient and medicate as needed. 4. Constipation, chronic -patient with history constipation and poor oral intake -docusate, Dulcolax and MiraLax or ordered as needed for constipation. Disposition is return to [facility] where she had been before, for rehabilitation in 1 or 2 days depending on orthopedic recommendations.
[2018-10-12] MEDS: CARBIDOPA-LEVODOPA 25/100 TABLET 1 EACH PO ×2 (12:41→21:21)
[2018-10-12] MEDS: CARBIDOPA-LEVODOPA ER 50/200 TABLET 1 EACH PO ×2 (12:42→21:20)
--- NOTE | 2018-10-12 12:46 | PC.NURSE ---
Addendum entered by Samantha Jordan R.N. 10/12/18 14:16: MS/PAIN - pt req pain medication while working with phys therapy this afternoon, given 5mg po oxycodone. Original Note: AM NOTE - awakens easily, r hip discomfort 2 on scale 0/10 after earlier oxycodone, barrier dsg x 2 cdi, 2l 94%, removed oxygen and sat 92% ra, brought in IS and pt demonstrated correct use to 1000, enc use freq, ramos clear urine, tong scs, +cms, wiggles toes on command, hx parkinson's and spoke and meds were reordered this am, later after repositioning, given 5mg po oxycodone prior to phys therapy, able sit up, denied dizziness and few steps to chair, adequate po intake and ivf saline locked.
--- NOTE | 2018-10-12 14:00 | PT.IPTN ---
Current Diagnoses Fracture of unspecified part of neck of right femur, initial encounter for closed fracture (10/10/18) Encounter for other preprocedural examination (10/10/18) Surgery Performed Operation Date: 10/11/18 17:00 Actual Procedures p ORIF Hip/Intramedullary Hip Screw(Right) - Don Palacio MD Physical Therapy Treatment Note M2 PT-IP Current Condition Start: 10/11/18 11:24 Freq: NEEDED Status: Active Protocol: Document 10/12/18 10:45 AB (Rec: 10/12/18 13:14 AB [id number]) Physical Therapy Current Condition Current Condition Evaluation Date 10/12/18 Treatment Diagnosis s/p reduction and internal fixation intramedullary hip screw; diff in walk Onset Date 10/10/18 Precautions Other Precautions falls Weight Bearing Status Weight Bearing Status Weight Bear as Tolerated M3 PT-IP Subjective Start: 10/11/18 11:24 Freq: NEEDED Status: Active Protocol: Document 10/12/18 14:00 AB (Rec: 10/12/18 15:07 AB [id number]) Subjective Physical Therapy Visit Type Type Treatment Note Visit Start Time 14:00 Visit Stop Time 14:17 Total Visit Minutes 17 Number of HIGH ENERGY FORMING EQUIPMENT OPERATOR Visits 0 Physical Therapy Visit Comments Patient Comments pt agreeable to do PT Therapy Pain Assessment Pain When Pain Assessed During Mobility Pain Present Pain Present Pain Reported Location Right Hip Intensity 5 Scale Used Numeric (1 - 10) Pain Management Techniques Re-positioning M4 PT-IP Mobility and Gait Start: 10/11/18 11:24 Freq: NEEDED Status: Active Protocol: Document 10/12/18 14:00 AB (Rec: 10/12/18 15:07 AB [id number]) PT-Transfer Assessment Sit to and From Stand Sit to and from Stand Maximum Assistance 1 Person Assistance Use of Upper Extremities Equipment Transfer Assistive Device Gait Belt Front Wheeled Walker Orthotic/Prosthetic Devices or Brace: No Comments Mobility Comments pt completed sit to stand max A and cues, able to maintain standing using FWW for support mod to max A and cues. tolerated standing for ~ 15 sec. pt stated that she thinks she cannot walk but agreed to do marching in place and completed x 4 requiring max A and cues. pt c/o increase pain and requested to sit down. required mod A for controlled descent to the chair. informed nurse regarding pt requesting for pain meds. pt agreed to stand again and completed sit to stand max A and cues. tolerated ~ 10 sec of standing and pt has to sit down. pt refused further activities. M5 PT-IP Objective Assessments Start: 10/11/18 11:24 Freq: NEEDED Status: Active Protocol: Document 10/12/18 10:45 AB (Rec: 10/12/18 13:14 AB [id number]) Orientation Orientation/Cognition Level of Alertness Alert Orientation Name Place Situation Safety Awareness Decreased Safety Awareness Memory Description Short Term Impaired [employer] Director Impaired Gross Range of Motion Lower Extremity ROM Assessment Right Impaired Impairments muscle guarding during hip/ knee flexion Strength Lower Extremity Strength Assessment Bilaterally Impaired Comments Strength Comments RLE : 3-/5 LLE: 3+/5 Muscle Tone Muscle Tone Location Bilateral Lower Extremity Type of Tone Rigidity Severity of Tone Mild M6 PT-IP Treatment Start: 10/11/18 11:24 Freq: NEEDED Status: Active Protocol: Document 10/12/18 14:00 AB (Rec: 10/12/18 15:07 AB [id number]) Physical Therapy Treatment Exercises Exercises Seated Knee Flexion/Extension Education Education Provided Precautions Weight Bearing Status Post-Op Packet Safety M7 PT-IP Assessment and Plan Start: 10/11/18 11:24 Freq: NEEDED Status: Active Protocol: Document 10/12/18 14:00 AB (Rec: 10/12/18 15:07 AB [id number]) PT Summary Assessment and Plan Potential Rehabilitation Potential Fair Summary Impairments Pain ROM Strength Balance Coordination Sensation Tone Cognition Bed Mobility Transfers Gait Activity Tolerance Progress Towards Goals Slow Progress due to Pain Slow Progress due to Medical Issues Assessment Summary pt requiring max A with moblity and unable to tolerate much activity this afternoon. pt will require SNF rehab to improve strength and function. Goals Bed Mobility Goal Contact Guard Assistance Transfer Goal Contact Guard Assistance Front Wheeled Walker Gait Goal Contact Guard Assistance Front Wheel Walker Gait Distance 100 Days to Meet Goals 5 Frequency of Treatment Frequency Of Treatment Twice a Day Treatment Plan Physical Therapy Treatment Plan Bed Mobility Training Transfer Training Gait Training Therapeutic Exercise Balance Retraining Post Op Education Discharge Planning Hot or Cold Pack Neuromuscular Re-ed Coordination Retraining Manual Therapy Recommendations To Nursing Amount of Assist Needed 2 Person Assist Discharge Recommendations PT Discharge Recommendations SNF Rehab
--- NOTE | 2018-10-12 15:03 | OT.IP.EVAL ---
Current Diagnoses Fracture of unspecified part of neck of right femur, initial encounter for closed fracture (10/10/18) Encounter for other preprocedural examination (10/10/18) Surgery Performed Operation Date: 10/11/18 17:00 Actual Procedures p ORIF Hip/Intramedullary Hip Screw(Right) - Don Palacio MD Past Medical History (Last Reviewed 10/11/18 @ 06:58 by Don Palacio MD) Diverticulosis (Acute) Hallucinations (Acute) Macular degeneration of left eye (Acute) Nephrolithiasis (Acute) Parkinsons (Acute) Scoliosis (Acute) Septicemia (Acute) Surgical History (Last Reviewed 10/11/18 @ 06:58 by Don Palacio MD) History of cystocele (Acute) History of lithotripsy Status post hysterectomy Status post tonsillectomy and adenoidectomy Status post tubal ligation Occupational Therapy Inpatient Evaluation/Re-Eval M1 PT/OT-IP Prior Functional Status Start: 10/11/18 11:24 Freq: NEEDED Status: Active Protocol: Document 10/12/18 11:10 [facility] (Rec: 10/12/18 15:03 [facility] [id number]) Medical Review Prior Functional Status Medical History Reviewed Yes Communication able to make needs known Mobility and Gait pt stated that she is independent with all mobilities and ambulation without AD Activities of Daily Living and IADL's Per pt's daughter has been coming to assist more for medication set-up, assist to pay bills. Pt's assists with IADl needs. Social History Household Members spouse Living Arrangements House Number of Floors (Floors) One Floor Number of Stairs To Enter/Railing? 2 steps to enter without rails but has a R side grab bar by the door Home Environment Standard Height Toilet Walk in Shower Home Equipment Raised Toilet Seat Without Armrests Shower Seat without Backrest Hand Held Shower Employment Status Retired M2 OT-IP Current Condition Start: 10/11/18 14:09 Freq: Status: Active Protocol: Document 10/12/18 11:10 [facility] (Rec: 10/12/18 15:03 [facility] [id number]) Occupational Therapy Current Condition Current Condition Evaluation Date 10/12/18 Treatment Diagnosis s/p ORIF Hip/Intramedullary Hip screw Diagnosis Onset Date 10/10/18 Weight Bearing Status Weight Bearing Status Weight Bear as Tolerated M3 OT- IP Subjective and Pain Start: 10/11/18 14:09 Freq: Status: Active Protocol: Document 10/12/18 11:10 [facility] (Rec: 10/12/18 15:03 [facility] [id number]) OT- Subjective Occupational Therapy Visit Type Type Initial Evaluation Visit Start Time 11:10 Visit Stop Time 11:40 Total Visit Minutes 30 Occupational Therapy Visit Comments Patient Comments Pt in the process on getting up with PT when OT came in for OT eval. OT Pain Assessment Pain When Pain Assessed At Rest Pain Present Pain Present Pain Reported Location Right Hip Intensity 5 M4 OT- IP ADL's Start: 10/11/18 14:09 Freq: Status: Active Protocol: Document 10/12/18 11:10 [facility] (Rec: 10/12/18 15:03 [facility] [id number]) OT ADL-Grooming General Evaluation Grooming Ability Standby Assistance Areas Needing Assistance Retrieving/Set-up of Grooming Items Comments OT Grooming Comments Pt needing set-up for grooming needs while sitting at the recliner. OT ADL-Oral Care Comments Oral Care Comments Pt unable to take out lower dentures and states at times not able to at home. OT ADL-Dressing General Eval Lower Body Dressing Ability Total Assistance Areas Needing Assistance Socks M5 OT- IP IADL's Start: 10/11/18 14:09 Freq: Status: Active Protocol: Document 10/12/18 11:10 [facility] (Rec: 10/12/18 15:03 [facility] [id number]) OT-Instrumental Activities of Daily Living Medication Management Medication Management Caregiver Administers Money Management Money Management Caregiver Provides Assistance Meal Preparation Meal Preparation Caregiver Provides Assist M6 OT- IP Functional Cognition Start: 10/11/18 14:09 Freq: Status: Active Protocol: Document 10/12/18 11:10 [facility] (Rec: 10/12/18 15:03 [facility] [id number]) Cognitive Factors Limiting Selfcare Function Cognitive Ability Level of Alertness Alert Patient Orientation Name Place Situation Attention Span Ability Capable of Focused Attention Capable of Sustained Attention Ability to Follow Commands Able to Follow One Step Commands with Increased Time Able to Follow One Step Commands with Repetition Memory Description Short Term Impaired Working Impaired Safety Awareness Underestimates Need for Assistance Cognitive Comments Cognitive Assessment Comments Pt needing concrete commands to follow. Pt needed orientation to items in order to do own grooming while sitting in the recliner. M7 OT- IP Mobility and Balance Start: 10/11/18 14:09 Freq: Status: Active Protocol: Document 10/12/18 11:10 [facility] (Rec: 10/12/18 15:03 [facility] [id number]) OT- Bed Mobility Assessment Rolling Type of Rolling Roll to Left Level of Assistance Maximum Assistance 1 Person Assistance Supine to Sit Supine to Sit Assist Maximum Assistance 1 Person Assistance OT-Transfer Assessment Sit to and From Stand Sit to and from Stand Maximum Assistance 1 Person Assistance 2 Person Assistance Transfers Transfer Ability Maximum Assistance 1 Person Assistance 2 Person Assistance Technique Transfer Destination Chair Transfer Technique Stand Step Pivot Devices Transfer Assistive Devices Gait Belt Front Wheeled Walker Comments Mobility Comments Pt needing extensive assist for bed mobility and to come to stand. VC for safety for FWW and to be sure to back up all the way to the recliner before sitting. M8 OT- IP Objective Assessments Start: 10/11/18 14:09 Freq: Status: Active Protocol: Document 10/12/18 11:10 [facility] (Rec: 10/12/18 15:03 [facility] [id number]) OT Gross Range of Motion Upper Extremity Range of Motion Assessment Within Functional Limits OT Strength Upper Extremity Strength Assessment Within Functional Limits M9 OT- IP Assessment and Plan Start: 10/11/18 14:09 Freq: Status: Active Protocol: Document 10/12/18 11:10 [facility] (Rec: 10/12/18 15:03 [facility] [id number]) OT Summary Assessment and Plan Potential Rehabilitation Potential Good Analytic Complexity at Evaluation Low Summary OT Impairments Pain Functional Mobility Grooming Dressing Toileting Bathing Toilet Transfers Shower Transfers Progress Towards Goals Slow Progress due to Pain Slow Progress due to Medical Issues Slow Progress due to Activity Tolerance Assessment Summary Pt low complexity and main barriers are needing extensive assist for bed mobility, transfers, ADL's, and will benefit from skilled rehab as pt far from baseline. Goals Grooming Goal Contact Guard Assistance Dressing Goal Moderate Assistance Toileting Goal Minimal Assistance Bathing Goal Moderate Assistance Toilet Transfer Goal Contact Guard Assistance Shower Transfer Goal Moderate Assistance Patient/Caregiver Education Goal Caregiver Independent Assisting Patient OT-Other Goals Grooming while standing with FWW. Days to Meet Goals 7 Frequency of Treatment Frequency Of Treatment Once a Day Treatment Plan OT Treatment Plan ADL Training Functional Cognition Training Functional Mobility Patient/Family Education Discharge Planning Other Treatment Recommendations and Next optomechanical engineer front of recliner for Treatment Focus grooming needs and pratciec LB AED. Discharge Recommendations OT Discharge Recommendations SNF Rehab Home Equipment Needs shower chair with arm rests, FWW
[2018-10-13] VITALS (8 sets, daily range): BP systolic 116–134; BP diastolic 57–67; PULSE 84–99; RESP 16–21; TEMP 36.5–37.3; O2SAT 92–96
--- NOTE | 2018-10-13 00:45 | PC.NURSE ---
2300- Pt POD#1 R hip procedure w/ dressing in place & CDI. Moving 1PA to chair, sched Tylenol & oxycodone for pain. Tele in place reading SR/ST; VSS on RA. Pt is tolerating regular diet, saline locked, CMS intact. Ramos catheter in place & patent, will reassess the need for this with the MD assigned to the pt. 0300- Pt denies any pain; VSS; spoke with SUZAN Loya about why ramos catheter was still in place. He stated to remove the ramos. Ramos removed without any problems tolerated well. Will watch output
[2018-10-13] MEDS: CARBIDOPA-LEVODOPA ER 50/200 TABLET 1 EACH PO ×3 (09:09→21:10)
[2018-10-13] MEDS: DOCUSATE 100 MG CAPSULE PO ×2 (09:10→21:10)
[2018-10-13] MEDS: ENOXAPARIN 40 MG/0.4 ML SYRINGE SUBCUT (09:10)
[2018-10-13] MEDS: ACETAMINOPHEN 325 MG TABLET 975 MG PO ×3 (09:10→21:10)
[2018-10-13] MEDS: POLYETHYLENE GLYCOL 3350 17 GM POWD.PACK PO (09:10)
[2018-10-13] MEDS: CARBIDOPA-LEVODOPA 25/100 TABLET 1 EACH PO ×3 (09:30→21:10)
--- NOTE | 2018-10-13 09:39 | PT.IPTN ---
Current Diagnoses Fracture of unspecified part of neck of right femur, initial encounter for closed fracture (10/10/18) Encounter for other preprocedural examination (10/10/18) Surgery Performed Operation Date: 10/11/18 17:00 Actual Procedures p ORIF Hip/Intramedullary Hip Screw(Right) - Don Palacio MD Physical Therapy Treatment Note M2 PT-IP Current Condition Start: 10/11/18 11:24 Freq: NEEDED Status: Active Protocol: Document 10/12/18 10:45 [facility] (Rec: 10/12/18 13:14 AB [id number]) Physical Therapy Current Condition Current Condition Evaluation Date 10/12/18 Treatment Diagnosis s/p R hip internal fixation intramedullary hip screw; diff in walking Onset Date 10/10/18 Precautions Other Precautions falls Weight Bearing Status Weight Bearing Status Weight Bear as Tolerated M3 PT-IP Subjective Start: 10/11/18 11:24 Freq: NEEDED Status: Active Protocol: Document 10/13/18 09:39 [facility] (Rec: 10/13/18 11:02 AB [id number]) Subjective Physical Therapy Visit Type Type Treatment Note Visit Start Time 09:39 Visit Stop Time 10:03 Total Visit Minutes 24 Number of STRAND AND BINDER CONTROLLER Visits 0 Physical Therapy Visit Comments Patient Comments pt agreeable to do PT Therapy Pain Assessment Pain When Pain Assessed At Rest Pain Present Pain Present Pain Reported Location Right Hip Intensity 6 Scale Used Numeric (1 - 10) Pain Management Techniques Apply Cold Re-positioning Timing of Activity with Medications M4 PT-IP Mobility and Gait Start: 10/11/18 11:24 Freq: NEEDED Status: Active Protocol: Document 10/13/18 09:39 [facility] (Rec: 10/13/18 11:02 AB [id number]) PT-Bed Mobility Assessment Supine to Sit Supine to Sit Maximum Assistance 1 Person Assistance Scooting Scooting to Edge of Bed Maximum Assistance PT-Transfer Assessment Sit to and From Stand Sit to and from Stand Maximum Assistance 1 Person Assistance Use of Upper Extremities Equipment Transfer Assistive Device Gait Belt Front Wheeled Walker Orthotic/Prosthetic Devices or Brace: No Transfers Transfer Destination Chair Transfer Technique Stand Step Pivot Transfer Ability Level of Assist Maximum Assistance 1 Person Assistance Use of Upper Extremities Comments Mobility Comments pt tends not to put weight on RLE, has (+) rigidity during mobility requiring max A to complete tasks. Gait Assessment Comments Gait Comments pt refused to do ambulation M5 PT-IP Objective Assessments Start: 10/11/18 11:24 Freq: NEEDED Status: Active Protocol: Document 10/12/18 10:45 [facility] (Rec: 10/12/18 13:14 AB [id number]) Orientation Orientation/Cognition Level of Alertness Alert Orientation Name Place Situation Safety Awareness Decreased Safety Awareness Memory Description Short Term Impaired [place] Hand Impaired Gross Range of Motion Lower Extremity ROM Assessment Right Impaired Impairments muscle guarding during hip/ knee flexion Strength Lower Extremity Strength Assessment Bilaterally Impaired Comments Strength Comments RLE : 3-/5 LLE: 3+/5 Muscle Tone Muscle Tone Location Bilateral Lower Extremity Type of Tone Rigidity Severity of Tone Mild M6 PT-IP Treatment Start: 10/11/18 11:24 Freq: NEEDED Status: Active Protocol: Document 10/13/18 09:39 [facility] (Rec: 10/13/18 11:02 AB [id number]) Physical Therapy Treatment Exercises Exercises Ankle Pumps Heel Slides Education Education Provided Safety M7 PT-IP Assessment and Plan Start: 10/11/18 11:24 Freq: NEEDED Status: Active Protocol: Document 10/13/18 09:39 [facility] (Rec: 10/13/18 11:02 AB [id number]) PT Summary Assessment and Plan Potential Rehabilitation Potential Fair Summary Impairments Pain ROM Strength Balance Coordination Sensation Tone Cognition Bed Mobility Transfers Gait Activity Tolerance Progress Towards Goals Slow Progress due to Pain Slow Progress due to Medical Issues Assessment Summary pt requiring max A with mobility and will require SNF rehab to improve strength and function. Aside from recent R hip surgery, pt has parkinson' s disease affecting function and progress. Goals Bed Mobility Goal Contact Guard Assistance Transfer Goal Contact Guard Assistance Front Wheeled Walker Gait Goal Contact Guard Assistance Front Wheel Walker Gait Distance 100 Days to Meet Goals 5 Frequency of Treatment Frequency Of Treatment Twice a Day Treatment Plan Physical Therapy Treatment Plan Bed Mobility Training Transfer Training Gait Training Therapeutic Exercise Balance Retraining Post Op Education Discharge Planning Hot or Cold Pack Neuromuscular Re-ed Coordination Retraining Manual Therapy Recommendations To Nursing Amount of Assist Needed 2 Person Assist Discharge Recommendations PT Discharge Recommendations SNF Rehab
--- NOTE | 2018-10-13 10:17 | PM.PNPO.1 ---
Subjective Date Patient Seen: 10/13/18 Time Patient Seen: 10:17 Interval history: POD #2 status post ORIF femur fracture with Dr. Palacio. Patient not complaining of any pain. She has been up and ambulating with physical therapy. She has been slow to mobilize and will require correction facility. The [facility] has agreed to take patient Exam Vital Signs (past 8 hours): - 10/13/18 04:00 10/13/18 09:00 Temperature 98.6 F 98.5 F Pulse Rate 89 89 Respiratory Rate 16 16 Blood Pressure 116/57 L 134/67 Pulse Oximetry 94 92 Oxygen Delivery Method Room Air Oxygen Flow Rate 1 Narrative Exam Narrative: Patient is sitting at bedside chair no acute distress. Right hip dressing is CDI. Calves are soft, compressible and nontender bilaterally. Pulses are symmetrical. Objective Labs Result Diagrams: 10/12/18 05:00 10/12/18 05:21 Assessment & Plan Post-op (1) Closed right hip fracture: Postoperative Procedures Operation Date: 10/11/18 17:00 Actual Procedures Side Surgeon p ORIF Hip/Intramedullary Hip Screw Right Don Palacio MD Weightbearing as tolerated. Continue working with physical therapy. Patient will discharge to [facility] today if medically stable per hospitalist.
--- NOTE | 2018-10-13 10:21 | P.PN_ITS ---
Subjective Date Patient Seen: 10/13/18 Time Patient Seen: 10:17 Interval history: POD #2 status post ORIF femur fracture with Dr. Palacio. Patient not complaining of any pain. She has been up and ambulating with physical therapy. She has been slow to mobilize and will require skilled [facility]. The [facility] has agreed to take patient Exam Vital Signs (past 8 hours): - 10/13/18 04:00 10/13/18 09:00 Temperature 98.6 F 98.5 F Pulse Rate 89 89 Respiratory Rate 16 16 Blood Pressure 116/57 L 134/67 Pulse Oximetry 94 92 Oxygen Delivery Method Room Air Oxygen Flow Rate 1 Narrative Exam Narrative: Patient is sitting at bedside chair no acute distress. Right hip dressing is CDI. Calves are soft, compressible and nontender bilaterally. Pulses are symmetrical. Objective Labs Result Diagrams: 10/12/18 05:00 10/12/18 05:21 Assessment & Plan Post-op (1) Closed right hip fracture: Postoperative Procedures Operation Date: 10/11/18 17:00 Actual Procedures Side Surgeon p ORIF Hip/Intramedullary Hip Screw Right Don Palacio MD Weightbearing as tolerated. Continue working with physical therapy. Patient will discharge to [facility] today if medically stable per hospitalist.
--- NOTE | 2018-10-13 12:03 | PC.NURSE ---
Pt denies pain to right hip at rest but reports it increases with activity. She has been medicated with 975mg Tylenol as scheduled per order. She reports the Tylenol helps a great deal with recovery. Dressing to right hip is CDI. She has been up and transfered from bed to chair with PT. Her daughters and supportive have been at the bedside. She is A & O x 3. Pt was noted to have a minor cough after drinking her thin liquid water. Pt's family has requested a swallow evaluation if possible. They are concerned for her swallow in relation to her Parkinson's disease.
--- NOTE | 2018-10-13 13:22 | PT.IPTN ---
Current Diagnoses Fracture of unspecified part of neck of right femur, initial encounter for closed fracture (10/10/18) Encounter for other preprocedural examination (10/10/18) Surgery Performed Operation Date: 10/11/18 17:00 Actual Procedures p ORIF Hip/Intramedullary Hip Screw(Right) - Don Palacio MD Physical Therapy Treatment Note M2 PT-IP Current Condition Start: 10/11/18 11:24 Freq: NEEDED Status: Active Protocol: Document 10/12/18 10:45 AB (Rec: 10/12/18 13:14 AB [id number]) Physical Therapy Current Condition Current Condition Evaluation Date 10/12/18 Treatment Diagnosis s/p R hip internal fixation intramedullary hip screw; diff in walking Onset Date 10/10/18 Precautions Other Precautions falls Weight Bearing Status Weight Bearing Status Weight Bear as Tolerated M3 PT-IP Subjective Start: 10/11/18 11:24 Freq: NEEDED Status: Active Protocol: Document 10/13/18 13:22 AB (Rec: 10/13/18 14:31 AB [id number]) Subjective Physical Therapy Visit Type Type Treatment Note Visit Start Time 13:22 Visit Stop Time 13:41 Total Visit Minutes 19 Number of TRUCK RENTAL CLERK Visits 0 Physical Therapy Visit Comments Patient Comments pt requesting to go back to bed Therapy Pain Assessment Pain When Pain Assessed At Rest Pain Present Pain Present Pain Reported Location Right Hip Intensity 5 Scale Used Numeric (1 - 10) Pain Management Techniques Re-positioning Timing of Activity with Medications M4 PT-IP Mobility and Gait Start: 10/11/18 11:24 Freq: NEEDED Status: Active Protocol: Document 10/13/18 13:22 AB (Rec: 10/13/18 14:31 AB [id number]) PT-Bed Mobility Assessment Sit to Supine Sit to Supine Maximum Assistance 2 Person Assistance Bedrails PT-Transfer Assessment Sit to and From Stand Sit to and from Stand Maximum Assistance Use of Upper Extremities Equipment Transfer Assistive Device Gait Belt Front Wheeled Walker Orthotic/Prosthetic Devices or Brace: No Transfers Transfer Destination Bed Transfer Technique Stand Step Pivot Transfer Ability Level of Assist Maximum Assistance 1 Person Assistance 2 Person Assistance Use of Upper Extremities Gait Assessment Gait Gait Assistance Required: Maximum Assistance 1 Person Assist Distance (Feet) 3 Able to Maintain Weight Bearing Status Yes During Gait Assistive Devices Assistive Device Gait Belt Front Wheeled Walker Orthotic/Prosthetic Devices or Brace: No Gait Deviations General Gait Pattern Antalgic Decreased Stride Length Decreased Feet Clearance Narrow Based Gait Factors Limiting Gait Function Factors Limiting Gait Function Decreased Activity Tolerance Decreased Strength Difficulty Following Directions Limited Range of Motion Pain Poor Balance Poor Safety Awareness M5 PT-IP Objective Assessments Start: 10/11/18 11:24 Freq: NEEDED Status: Active Protocol: Document 10/12/18 10:45 AB (Rec: 10/12/18 13:14 AB [id number]) Orientation Orientation/Cognition Level of Alertness Alert Orientation Name Place Situation Safety Awareness Decreased Safety Awareness Memory Description Short Term Impaired Long-Term Impaired Gross Range of Motion Lower Extremity ROM Assessment Right Impaired Impairments muscle guarding during hip/ knee flexion Strength Lower Extremity Strength Assessment Bilaterally Impaired Comments Strength Comments RLE : 3-/5 LLE: 3+/5 Muscle Tone Muscle Tone Location Bilateral Lower Extremity Type of Tone Rigidity Severity of Tone Mild M6 PT-IP Treatment Start: 10/11/18 11:24 Freq: NEEDED Status: Active Protocol: Document 10/13/18 13:22 AB (Rec: 10/13/18 14:31 AB [id number]) Physical Therapy Treatment Exercises Exercises Heel Slides Education Education Provided Safety Other Treatments Other Treatment Performed educated daughter on how to assist pt with LE exercises M7 PT-IP Assessment and Plan Start: 10/11/18 11:24 Freq: NEEDED Status: Active Protocol: Document 10/13/18 13:22 AB (Rec: 10/13/18 14:31 AB [id number]) PT Summary Assessment and Plan Potential Rehabilitation Potential Fair Summary Impairments Pain ROM Strength Balance Coordination Sensation Tone Cognition Bed Mobility Transfers Gait Activity Tolerance Progress Towards Goals Slow Progress due to Pain Slow Progress due to Medical Issues Assessment Summary pt continues to require max A x 1-2 for mobility and will need SNF rehab to improve strength and mobility. Goals Bed Mobility Goal Contact Guard Assistance Transfer Goal Contact Guard Assistance Front Wheeled Walker Gait Goal Contact Guard Assistance Front Wheel Walker Gait Distance 100 Days to Meet Goals 5 Frequency of Treatment Frequency Of Treatment Twice a Day Treatment Plan Physical Therapy Treatment Plan Bed Mobility Training Transfer Training Gait Training Therapeutic Exercise Balance Retraining Post Op Education Discharge Planning Hot or Cold Pack Neuromuscular Re-ed Coordination Retraining Manual Therapy Recommendations To Nursing Amount of Assist Needed 2 Person Assist Discharge Recommendations PT Discharge Recommendations SNF Rehab
--- NOTE | 2018-10-13 13:54 | OT.IP.TRT ---
Current Diagnoses Fracture of unspecified part of neck of right femur, initial encounter for closed fracture (10/10/18) Encounter for other preprocedural examination (10/10/18) Surgery Performed Operation Date: 10/11/18 17:00 Actual Procedures p ORIF Hip/Intramedullary Hip Screw(Right) - Don Palacio MD Occupational Therapy Treatment Note M2 OT-IP Current Condition Start: 10/11/18 14:09 Freq: Status: Active Protocol: Document 10/12/18 11:10 [facility] (Rec: 10/12/18 15:03 [facility] [id number]) Occupational Therapy Current Condition Current Condition Evaluation Date 10/12/18 Treatment Diagnosis s/p ORIF Hip/Intramedullary Hip screw Diagnosis Onset Date 10/10/18 Weight Bearing Status Weight Bearing Status Weight Bear as Tolerated M3 OT- IP Subjective and Pain Start: 10/11/18 14:09 Freq: Status: Active Protocol: Document 10/13/18 13:45 [facility] (Rec: 10/13/18 13:54 [facility] [id number]) OT- Subjective Occupational Therapy Visit Type Type Treatment Note Visit Start Time 13:22 Visit Stop Time 13:41 Total Visit Minutes 19 Occupational Therapy Visit Comments Patient Comments Pt wanting to get back to bed. OT Pain Assessment Pain When Pain Assessed At Rest Pain Present Pain Present Denied Pain M4 OT- IP ADL's Start: 10/11/18 14:09 Freq: Status: Active Protocol: Document 10/13/18 13:45 [facility] (Rec: 10/13/18 13:54 [facility] [id number]) OT ADL-Dressing General Eval Lower Body Dressing Ability Maximum Assistance Areas Needing Assistance Underpants/Brief Comments OT Dressing Comments MAX A for brief and socks. OT ADL-Toileting General Evaluation Toileting Ability Maximum Assistance Areas Needing Assistance Manage Clothing Perform Perineal Hygiene Devices Toileting Assistive Devices Commode Comments OT Toileting Comments One person to help to stand with FWW MAX A X1 and another person to assist for all hygiene and brie management needs. M5 OT- IP IADL's Start: 10/11/18 14:09 Freq: Status: Active Protocol: Document 10/12/18 11:10 [facility] (Rec: 10/12/18 15:03 [facility] [id number]) OT-Instrumental Activities of Daily Living Medication Management Medication Management Caregiver Administers Money Management Money Management Caregiver Provides Assistance Meal Preparation Meal Preparation Caregiver Provides Assist M6 OT- IP Functional Cognition Start: 10/11/18 14:09 Freq: Status: Active Protocol: Document 10/13/18 13:45 [facility] (Rec: 10/13/18 13:54 [facility] [id number]) Cognitive Factors Limiting Selfcare Function Cognitive Ability Level of Alertness Alert Patient Orientation Name Place Situation Attention Span Ability Capable of Focused Attention Capable of Sustained Attention Ability to Follow Commands Able to Follow One Step Commands with Increased Time Able to Follow One Step Commands with Repetition Memory Description Short Term Impaired Safety Awareness Underestimates Need for Assistance Cognitive Comments Cognitive Assessment Comments Pt needing step by step instructions for taking steps today , sit to stand and for bed mobility needs. VC to push up from surface sitting on and to reach back before sitting. M7 OT- IP Mobility and Balance Start: 10/11/18 14:09 Freq: Status: Active Protocol: Document 10/13/18 13:45 [facility] (Rec: 10/13/18 13:54 [facility] [id number]) OT- Bed Mobility Assessment Sit to Supine Sit to Supine Assist Maximum Assistance 1 Person Assistance OT-Transfer Assessment Sit to and From Stand Sit to and from Stand Maximum Assistance 1 Person Assistance Transfers Transfer Ability Minimal Assistance Maximum Assistance 2 Person Assistance Technique Transfer Destination Bed Transfer Technique Stand Step Pivot Devices Transfer Assistive Devices Gait Belt Front Wheeled Walker Comments Mobility Comments Pt with PT/OT cotx able to take more steps, however needing from 1-2 person help, especially when pt tires and having to turn. OT- Balance Assessment Sitting Balance and Reactions Static Sitting Balance Ability Fair Standing Balance and Reactions Static Standing Balance Ability Poor Dynamic Standing Balance Ability Poor M8 OT- IP Objective Assessments Start: 10/11/18 14:09 Freq: Status: Active Protocol: Document 10/12/18 11:10 [facility] (Rec: 10/12/18 15:03 [facility] [id number]) OT Gross Range of Motion Upper Extremity Range of Motion Assessment Within Functional Limits OT Strength Upper Extremity Strength Assessment Within Functional Limits M9 OT- IP Assessment and Plan Start: 10/11/18 14:09 Freq: Status: Active Protocol: Document 10/13/18 13:45 [facility] (Rec: 10/13/18 13:54 [facility] [id number]) OT Summary Assessment and Plan Potential Rehabilitation Potential Good Analytic Complexity at Evaluation Low Summary OT Impairments Pain Functional Mobility Grooming Dressing Toileting Bathing Toilet Transfers Shower Transfers Progress Towards Goals Slow Progress due to Medical Issues Slow Progress due to Activity Tolerance Slow Progress due to Cognition Assessment Summary Pt making progress but will still benefit form skilled rehab as currently still needing 2 person assist for ADl and functional mobility needs. Goals Grooming Goal Contact Guard Assistance Dressing Goal Moderate Assistance Toileting Goal Minimal Assistance Bathing Goal Moderate Assistance Toilet Transfer Goal Contact Guard Assistance Shower Transfer Goal Moderate Assistance Patient/Caregiver Education Goal Caregiver Independent Assisting Patient OT-Other Goals Grooming while standing with FWW. Days to Meet Goals 6 Frequency of Treatment Frequency Of Treatment Once a Day Treatment Plan OT Treatment Plan ADL Training Functional Cognition Training Functional Mobility Patient/Family Education Discharge Planning Other Treatment Recommendations and Next transportation superintendent front of recliner for Treatment Focus grooming needs and practice [facility] AED. Discharge Recommendations OT Discharge Recommendations SNF Rehab Home Equipment Needs shower chair with arm rests, FWW, BSC
--- NOTE | 2018-10-13 14:13 | P.PN_ITS ---
Subjective Date Patient Seen: 10/13/18 Interval history: Patient is 83-year-old female with Parkinson's disease, POD #2 status post ORIF femur fracture with Dr. Palacio. She has been mobilizing with PT. She has controlled right hip pain with movement. She has not urinated since Michel catheter removed early this morning. She has not had bowel movements since in hospital, has problems with chronic constipation, but typically goes every other day. Also patient and family have noticed that she has some difficulty with swallowing liquids. Exam Vital Signs (past 8 hours): - 10/13/18 09:00 10/13/18 10:45 Temperature 98.5 F Pulse Rate 89 Respiratory Rate 16 Blood Pressure 134/67 Pulse Oximetry 92 92 Oxygen Delivery Method Room Air Oxygen Flow Rate 1 Narrative Exam Narrative: General: Alert, pleasant and in no acute distress sitting in bedside chair Lungs: Bibasilar crackles otherwise clear Heart: Regular rhythm Extremities: Right hip dressing clean and dry, no distal edema Skin: No rash Neuro: Well-oriented, nonfocal Objective Labs Result Diagrams: 10/12/18 05:00 10/12/18 05:21 Assessment & Plan Assessment & Plan narrative: Patient is 83-year-old female with Parkinson's disease status post ORIF for right femur fracture. 1. Comminuted right trochanteric hip fracture, pathologic due to osteoporosis, present on admission, acute -patient sustained a ground level fall landing on her right hip stating a comminuted and angulated trochanteric fracture of the right hip. -cause of the fall is unknown, patient denies prodromal symptoms weakness dizziness visual changes or headache. She denies loss of consciousness, head or neck trauma. -Dr. Palacio did an open reduction internal fixation on 10/11/2018 -pain management with Percocet 1-2 tablets q.6 hours as needed for pain with morphine 2 mg as needed for breakthrough pain -postop hemoglobin stable 2. Urinary tract infection not present -no classic UTI symptoms so no UA collected. No treatment indicated. 3. Parkinson's, present on admission, chronic. -resume the carbidopa levodopa 25/100 and 50/200 3 times daily today. -patient with associated sleep disturbance and her reports restless sleep and hallucinations. Patient states trazodone is ineffective. -will monitor patient and medicate as needed. 4. Constipation, acute and chronic -patient with history constipation and poor oral intake -continue daily stool softener and MiraLax, added senna 2 tablets each evening -order Dulcolax suppository and fleets enema if needed 5. Dysphagia -difficulty swallowing liquids presumably due to her Parkinson's -request a speech therapy swallow eval 6. Rule out urinary retention -requested bladder scan for postvoid residual, reinsert Michel if needed Patient overall stable and plan is to discharge to [facility] tomorrow, Monday when bed available.
--- NOTE | 2018-10-13 15:38 | PC.NURSE ---
Pt has made two attempts to void her bladder this shift after having her catheter removed at the reported time of 0230. She had approx. 150mls out at approx. 1245 the first time with post void residual bladder scan of 260mls after. Pt attempted another void at 1530 and was able to void 475mls urine.
[2018-10-13] MEDS: OXYCODONE IR 5 MG TABLET PO (16:59)
[2018-10-13] MEDS: SENNOSIDES 8.6 MG TABLET 17.2 MG PO (21:10)
--- NOTE | 2018-10-14 01:37 | PC.NURSE ---
2300- Pt POD#3 R hip ORIF w/ bulky dressing in place CDI. CMS intact distally; pt moving 1PA in room at this time. Tolerating regular diet at this time w/ meds whole in applesauce. IV saline locked' tele has been DC'd; VSS on RA; SED's in place
[2018-10-14 03:44] VITALS: BP 140/64; PULSE 97; RESP 16; TEMP 36.6; O2SAT 95
[2018-10-14] MEDS: OXYCODONE IR 5 MG TABLET PO (05:05)
[2018-10-14 07:00] VITALS: O2SAT 92
--- NOTE | 2018-10-14 07:20 | P.DS_ITS ---
History of Present Illness Date Patient Seen: 10/10/18 Chief complaint: GLF, Rt Hip Pain Narrative: Written by Drew MARES: Carolina Swift is an 83-year-old female patient with history significant for Parkinson's, diverticulosis, nephrolithiasis, colitis, macular degeneration left eye, and scoliosis who presents to the ER after sustaining a fall landing on and fracturing her right hip. 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 She denies prodromal symptoms and had no complaints of dizziness visual changes or weakness. The patient was unable to ambulate due to severe pain and therefore her summoned EMS. The patient denies recent complaints of fevers or chills, no headaches nasal congestion or sore throat. She has a history of Parkinson's but denies difficulties chewing or swallowing. She has had no complaints of chest pain and denies palpitations. She reports no shortness of breath or dyspnea on exertion and has had no cough or wheezing. She denies abdominal pain, nausea vomiting but has had difficulty with chronic constipation. She denies urinary symptoms of burning, urgency or frequency and reports no hematuria. The patient is normally independent in functions and uses no assistive devices. Patient arrived in the ER at 7:28 p.m. at which time she was found to be 5 afebrile with a temperature of 98.0?, heart rate of 91, blood pressure 123/77 a nd a respiratory rate of 20 with saturation 96% on room air. The patient was found to have shortening and external rotation of the right leg and imaging was obtained which identifies and angulated comminuted trochanteric fracture right hip. Dr. Palacio was consulted with tentative plan to take the patient to surgery tomorrow evening. On laboratory analysis the patient does have an elevated white count at 12.1 with a hemoglobin of 14.8 hematocrit of 46.0 and platelets of 267. On chemistry her liquid lytes are within normal limits but is notable for a BUN of 26 and a creatinine of 0.7. Her nonfasting glucose was 128. The patient is admitted for evaluation and management of her right hip fracture. Discharge Providers Date of admission: 10/10/18 22:15 Discharge Date: 10/14/18 Primary care physician: Jw Nieves MD Consults: 10/10/18 23:43 Consult to Physical Therapy Evaluate & Treat Comment: Right trochanteric hip fracture Physician Instructions: Evaluate and Treat 10/10/18 23:44 Consult to Occupational Therapy Evaluate & Treat Comment: Right trochanteric hip fracture Physician Instructions: Evaluate and treat Consult to Physician Routine Comment: Consulting Provider: Don Palacio Reason for consultation: Right trochanteric hip fracture 10/11/18 19:43 Consult to Discharge Planning Routine Comment: Consult to Physical Therapy Evaluate & Treat Comment: Physician Instructions: Evaluate and Treat Consult to Respiratory Therapy Evaluate & Treat Comment: Physician Instructions: Evaluate and treat 10/13/18 13:21 Consult to Speech Therapy Evaluate & Treat Comment: swallow eval, dysphagia with liquids Physician Instructions: Evaluate and treat Discharge provider: Aminta Munoz DO Summary Discharge Diagnosis: 1. Acute pathological comminuted right trochanteric hip fracture, present on admission. Stable. 2. Possible acute urinary tract infection, present on admission. Resolved. 3. Parkinson's, chronic, present on admission. Stable. 4. Constipation, chronic, present on admission. Stable. Hospital Course: Carolina Swift is an 83-year-old female patient with a past medical history significant for Parkinson's, diverticulosis, nephrolithiasis, colitis, macular degeneration left eye, and scoliosis who presents to the ER after sustaining a fall landing on and fracturing her right hip. 1. Acute pathological comminuted right trochanteric hip fracture after ground level fall, secondary to osteoporosis, present on admission. Stable. -Patient sustained a ground level fall landing on her right hip enduring a comminuted and angulated trochanteric fracture of the right hip. -The cause of the fall is unknown. Patient denies prodromal symptoms including: weakness, dizziness, visual changes, or headache. She denies loss of con sciousness, head or neck trauma after fall. -Dr. Palacio, orthopedics, consulted and performed right hip repair. Patient is allowed to weightbear as tolerated on the right lower extremity with physical therapy. Follow-up with [facility]opedics in 2 weeks. -Continued scheduled Tylenol 975 mg 3 times daily and started tramadol 50 mg every 6 hours for breakthrough pain. -Continue enoxaparin 40 mg subQ for 10 days. -Patient will need to have osteoporosis addressed outpatient per PCP. 2. Possible acute urinary tract infection, present on admission. Resolved. -Patient with history of prior urinary tract infections. Afebrile with mildly elevated WBC of 12.1 which may be related to UTI vs. trauma and asymptomatic other than GLF. -Prior history of septicemia secondary to nephrolithiasis per family report. -No UA performed for unclear reason. Patient treated empirically for UTI with ciprofloxacin 400 mg IV every 12 hours and received Ancef pre- and intra- operatively. -Continued normal saline 75 mL/hr for gentle hydration until adequately hydrated. 3. Parkinson's, chronic, present on admission. Stable. -Patient had recent adjustment in her carbidopa/levodopa dosing confirmed with family at bedside. Continue carbidopa/levodopa IR 25/100 mg 3 times daily and carbidopa/levodopa ER 50/200 mg 3 times daily. -Patient with associated sleep disturbance and only mild relief with trazodone. She reports better sleep with new change in carbidopa/levadopa. 4. Constipation, chronic, present on admission. Stable. -Patient with history constipation due to parkinson's and poor oral intake of fluids. -Continued normal saline 75 mL/hr for gentle hydration until patient adequately hydrated then stopped. -Continued docusate, Dulcolax and MiraLax as needed for constipation. Status at Discharge Functional status at discharge: uses cane/walker Overall status at discharge: patient is not back to baseline Exam Vital Signs (past 8 hours): - 10/13/18 23:50 10/14/18 03:44 Temperature 99.2 F 97.8 F Pulse Rate 94 H 97 H Respiratory Rate 16 16 Blood Pressure 127/60 140/64 Pulse Oximetry 92 95 Oxygen Delivery Method Room Air Oxygen Flow Rate 1 Narrative Exam Narrative: General: Elderly female lying in bed and in no acute distress, well-developed, well-nourished, appropriately interactive. HEENT: Normocephalic, atraumatic. External ears without defect. Pupils equal, round, and reactive to light. Anicteric sclerae, moist conjunctivae, and no lid lag. Dry oral mucosa. Neck:Poor tugor with full range of motion. No lymphadenopathy or thyromegaly. Cardiovascular: Regular rate and rhythm without murmurs, rubs, or gallops appreciated. Pulmonary: Clear to auscultation bilaterally without crackles, wheezes, or rh onchi. Normal respiratory effort with no use of accessory muscles. Abdomen: Soft, bowel sounds present, nontender, nondistended. No hepatosplenomegaly or masses appreciated. Extremities: No clubbing, cyanosis, or edema. Right leg with dressing in place C/D/I and without surrounding erythema. Skin: Normal temperature, turgor, and texture; no rash, ulcers, or subcutaneous nodules appreciated. Neurological: Cranial nerves grossly intact. Parkinsonian disease is very subtle with mild tremor and masked facies. Psychiatric: Normal mood and flat affect. Alert and oriented to person, place, and time. Objective Labs Result Diagrams: 10/14/18 11:50 10/14/18 11:50 Discharge Plan Discharge Plan Patient Disposition: SNF Transfer to: [facility] Transportation: Facility vehicle I certify the postop hospital fci care is medically necessary on a continuing basis for any conditions for which he/ she received care during this hospitalization.: Yes The receiving facility has agreed to accept transfer and provide medical treatment.: Yes Discharge Med Rec/Prescriptions Prescriptions: New tramadol 50 mg Tablet 50 mg PO Q4HR PRN (Reason: Pain, Moderate (4-6)) Qty: 30 RF: 0 enoxaparin [Lovenox] 40 mg/0.4 mL Syringe 40 mg subcut DAILY 7 Days Qty: 5 RF: 0 sennosides [senna] 8.6 mg Tablet 17.2 mg PO BEDTIME PRN (Reason: Constipation) Qty: 30 RF: 0 polyethylene glycol 3350 17 gram Powder In Packet 17 gm PO DAILY Qty: 30 RF: 0 bisacodyl 10 mg Suppository 10 mg IA BID PRN (Reason: Constipation) Qty: 10 RF: 0 docusate sodium [DOK] 100 mg Capsule 100 mg PO BID Qty: 60 RF: 0 acetaminophen 325 mg Tablet 975 mg PO TID Qty: 90 RF: 0 Continued carbidopa-levodopa 25 MG/100 MG tablet 1 tab PO TID Qty: 0 RF: 0 carbidopa-levodopa 50-200 mg tablet extended release 1 tab PO TID RF: 0 trazodone 50 mg tablet 50 mg PO BEDTIME PRN (Reason: Sleep) RF: 0 Follow up/Referrals: Jw Nieves MD [Primary Care Provider] - Don Palacio MD [Physician] - 2 Weeks Discharge Health Status Multidrug resistant organism: No MDRO Precautions: [place] Provider Discharge Instructions Diet: Low-fat, Low-sodium and Low-cholesterol Activity: The patient will be allowed to weightbear as tolerated on the right lower extremity with physical therapy. Discharge Data Primary Care Provider: Jw Nievse Attending Provider: Drew Loya Admmilo Date/Time: 10/10/18 22:15
[2018-10-14] MEDS: CARBIDOPA-LEVODOPA 25/100 TABLET 1 EACH PO ×2 (08:42→14:04)
[2018-10-14] MEDS: ENOXAPARIN 40 MG/0.4 ML SYRINGE SUBCUT (08:42)
[2018-10-14] MEDS: DOCUSATE 100 MG CAPSULE PO (08:42)
[2018-10-14] MEDS: ACETAMINOPHEN 325 MG TABLET 975 MG PO ×2 (08:42→14:07)
[2018-10-14] MEDS: CARBIDOPA-LEVODOPA ER 50/200 TABLET 1 EACH PO ×2 (08:42→14:04)
[2018-10-14] MEDS: POLYETHYLENE GLYCOL 3350 17 GM POWD.PACK PO (08:43)
[2018-10-14 08:48] VITALS: BP 143/65; PULSE 99; RESP 16; TEMP 36.6; O2SAT 92
[2018-10-14] MEDS: TRAMADOL 50 MG TABLET PO (08:55)
--- NOTE | 2018-10-14 09:02 | P.PN_ITS ---
Subjective Date Patient Seen: 10/14/18 Time Patient Seen: 09:00 Interval history: Comfortable rest, pain while walking and limited in her ambulation. Exam Vital Signs (past 8 hours): - 10/14/18 03:44 10/14/18 08:48 Temperature 97.8 F 97.8 F Pulse Rate 97 H 99 H Respiratory Rate 16 16 Blood Pressure 140/64 143/65 H Pulse Oximetry 95 92 Oxygen Delivery Method Room Air Oxygen Flow Rate 0 Const Orientation: alert and oriented x3 Extrem Other: Right hip dressing clean dry intact, soft calf, 1+ pulse. Objective Labs Result Diagrams: 10/12/18 05:00 10/12/18 05:21 Assessment & Plan Post-op Postoperative Procedures Operation Date: 10/11/18 17:00 Actual Procedures Side Surgeon p ORIF Hip/Intramedullary Hip Screw Right Don Palacio MD appropriate postoperative course for her hip fracture. Plan for discharge to residential when available.
[2018-10-14] MEDS: BISACODYL 10 MG SUPP PR (09:14)
[2018-10-14 12:03] LABS: Add Manual Diff / Slide Review NO; Basophils Absolute Auto 100 /uL (0-100); Basophils Percent Auto 0.6 % (0-2); Eosinophils Absolute Auto 100 /uL (0-450); Eosinophils Percent Auto 1.2 % (2-4); Hematocrit 31.9 % (36-46); Hemoglobin 10.5 g/dL (12.0-16.0); Lymphocytes Absolute Auto 1200 /uL (1100-4500); Lymphocytes Percent Auto 9.8 % (25-40); Mean Corpuscular HGB Conc 32.9 % (30-36); Mean Corpuscular Volume 91.2 fL (80-100); Monocytes Absolute Auto 1300 /uL (0-900); Monocytes Percent Auto 10.6 % (3-14); Neutrophils Absolute Auto 9400 /uL (1500-7000); Neutrophils Percent Auto 77.8 % (50-75); Platelet Count 234 X10^3/uL (150-400); Red Cell Distribution Width 14.4 % (11.6-14.8)
[2018-10-14 12:13] LABS: BUN Creatinine Ratio 28.3 (6-22); Blood Urea Nitrogen 17 mg/dL (7-17); Calcium 8.6 mg/dL (8.4-10.2); Carbon Dioxide 30 mmol/L (22-32); Chloride 100 mmol/L (98-107); Estimated Glomerular Filt Rate > 60.0 mL/min (>60); Glucose 112 mg/dL (80-110); HEMOLYSIS < 15 (0-50); Magnesium 2.1 mg/dL (1.6-2.3); Potassium 4.4 mmol/L (3.4-5.1); Sodium 136 mmol/L (137-145)
--- NOTE | 2018-10-14 12:37 | PT.IPTN ---
Current Diagnoses Fracture of unspecified part of neck of right femur, initial encounter for closed fracture (10/10/18) Encounter for other preprocedural examination (10/10/18) Surgery Performed Operation Date: 10/11/18 17:00 Actual Procedures p ORIF Hip/Intramedullary Hip Screw(Right) - Don Palacio MD Physical Therapy Treatment Note M2 PT-IP Current Condition Start: 10/11/18 11:24 Freq: NEEDED Status: Active Protocol: Document 10/12/18 10:45 AB (Rec: 10/12/18 13:14 AB [id number]) Physical Therapy Current Condition Current Condition Evaluation Date 10/12/18 Treatment Diagnosis s/p R hip internal fixation intramedullary hip screw; diff in walking Onset Date 10/10/18 Precautions Other Precautions falls Weight Bearing Status Weight Bearing Status Weight Bear as Tolerated M3 PT-IP Subjective Start: 10/11/18 11:24 Freq: NEEDED Status: Active Protocol: Document 10/14/18 10:15 CLB (Rec: 10/14/18 12:37 CLB [email or web address]) Subjective Physical Therapy Visit Type Type Treatment Note Visit Start Time 10:15 Visit Stop Time 10:32 Total Visit Minutes 17 Notes Pt on EOB upon arrival. Daughter and son-in-law present. Number of CABINET PROFESSIONAL Visits 1 Physical Therapy Visit Comments Patient Comments pt agreeable to do PT Therapy Pain Assessment Pain When Pain Assessed At Rest Pain Present Pain Present Pain Reported M4 PT-IP Mobility and Gait Start: 10/11/18 11:24 Freq: NEEDED Status: Active Protocol: Document 10/14/18 10:15 CLB (Rec: 10/14/18 12:37 CLB [email or web address]) PT-Bed Mobility Assessment Sit to Supine Sit to Supine Maximum Assistance 2 Person Assistance Bedrails PT-Transfer Assessment Sit to and From Stand Sit to and from Stand Maximum Assistance Use of Upper Extremities Equipment Transfer Assistive Device Gait Belt Front Wheeled Walker Orthotic/Prosthetic Devices or Brace: No Transfers Transfer Destination Bed Transfer Ability Level of Assist Maximum Assistance 1 Person Assistance 2 Person Assistance Use of Upper Extremities Comments Mobility Comments Pt stood from EOB and stated she was dizzy, pt sat with BP 117/63, Pt stood again taking side steps towards HOB, BP in standing 84/31, pt was assisted to supine, BP 134/79. RN notified. Pt requires verbal and tactile cues for all weight shifting and side steps. Gait Assessment Comments Gait Comments pt refused to do ambulation M5 PT-IP Objective Assessments Start: 10/11/18 11:24 Freq: NEEDED Status: Active Protocol: Document 10/12/18 10:45 AB (Rec: 10/12/18 13:14 AB [id number]) Orientation Orientation/Cognition Level of Alertness Alert Orientation Name Place Situation Safety Awareness Decreased Safety Awareness Memory Description Short Term Impaired Hand Carver Impaired Gross Range of Motion Lower Extremity ROM Assessment Right Impaired Impairments muscle guarding during hip/ knee flexion Strength Lower Extremity Strength Assessment Bilaterally Impaired Comments Strength Comments RLE : 3-/5 LLE: 3+/5 Muscle Tone Muscle Tone Location Bilateral Lower Extremity Type of Tone Rigidity Severity of Tone Mild M6 PT-IP Treatment Start: 10/11/18 11:24 Freq: NEEDED Status: Active Protocol: Document 10/13/18 13:22 AB (Rec: 10/13/18 14:31 AB [id number]) Physical Therapy Treatment Exercises Exercises Heel Slides Education Education Provided Safety Other Treatments Other Treatment Performed educated daughter on how to assist pt with LE exercises M7 PT-IP Assessment and Plan Start: 10/11/18 11:24 Freq: NEEDED Status: Active Protocol: Document 10/14/18 10:15 CLB (Rec: 10/14/18 12:37 CLB [email or web address]) PT Summary Assessment and Plan Potential Rehabilitation Potential Fair Summary Impairments Pain ROM Strength Balance Coordination Sensation Tone Cognition Bed Mobility Transfers Gait Activity Tolerance Progress Towards Goals Slow Progress due to Pain Slow Progress due to Medical Issues Assessment Summary PT requires Max A x 1-2 for bed mobility and transfers. Pt will need SNF rehab to improve strength and mobility. Goals Bed Mobility Goal Contact Guard Assistance Transfer Goal Contact Guard Assistance Front Wheeled Walker Gait Goal Contact Guard Assistance Front Wheel Walker Gait Distance 100 Days to Meet Goals 5 Frequency of Treatment Frequency Of Treatment Twice a Day Treatment Plan Physical Therapy Treatment Plan Bed Mobility Training Transfer Training Gait Training Therapeutic Exercise Balance Retraining Post Op Education Discharge Planning Hot or Cold Pack Neuromuscular Re-ed Coordination Retraining Manual Therapy Recommendations To Nursing Amount of Assist Needed 2 Person Assist Discharge Recommendations PT Discharge Recommendations SNF Rehab
--- NOTE | 2018-10-14 16:04 | CM.DPC ---
DCP Cont: Patient is to be discharged today to [facility]. Discussed with family, and this is their choosing. November in admissions confirms hot die picker time for 1430. PASSR completed, discharge summary and med sheets faxed to [facility]. Updated nurse, Conchita. She is aware. P: Patient is to discharge to [facility] today. Katelyn Butler RN/Travel Journalist
== END 2018-10-14 14:44 | DRG 482 ==
LOC: ED 22:07 → AC 22:18
PROVIDERS: Internal Medicine; Orthopaedic Surgery; Admitting Provider Nurse Practitioner Adult Health; Emergency Provider Emergency Medicine; Family Provider Family Medicine; PCP Family Medicine; Visit Provider Nurse Practitioner Adult Health
PROC: 0QS606Z Reposition Right Upper Femur with Intramedullary Internal Fixation Device, Open Approach (ICD-10-PCS; CPT 27245; principal; 2018-10-11 17:00)
DX: M84.451A Pathological fracture, right femur, initial encounter for fracture (principal); G20 Parkinson's disease; W18.30XA Fall on same level, unspecified, initial encounter; K59.09 Other constipation; R13.10 Dysphagia, unspecified
CPT/HCPCS: 36415; 51701; 73502; 76000; 80048; 80053; 83735; 85025; 93005; 94760; 96374; 96375; 97110; 97162; 97165; 97530; 97535; 99283; 99284; J0690; J0744; J1100; J1650; J2270; J2405; J2704; J3010

== ENCOUNTER 2018-10-31 10:17 | Inpatient (IN) | payer MEDICARE, SELFPAY ==
[2018-10-30 07:38] VITALS: BMI 26.6
[2018-10-31] VITALS (15 sets, daily range): BP systolic 95–139; BP diastolic 42–69; PULSE 78–88; RESP 11–18; TEMP 36–37.2; O2SAT 92–98; BMI 22.4
--- NOTE | 2018-10-31 10:46 | DI.RAD.S_ITS ---
PROCEDURE: XR HIP RT 1V INDICATIONS: post op films TECHNIQUE: 2 view(s) of the hip acquired. COMPARISON: [facility], CR, XR HIP W PEL IF DONE RT 2V, 10/11/2018, 17:36. [facility], CR, XR HIP W PEL IF DONE RT 2V, 10/10/2018, 20:54. FINDINGS: Bones: Patient is status post right total hip arthroplasty, with hardware components in expected positions. A cerclage wire is seen stabilizing components of the greater trochanteric fracture. The lesser trochanter fracture fragment is displaced medially as was previously the case, and alignment along the arthroplasty appears normal The hip joint appears congruent. The visualized bony structures appear intact. Soft tissues: Overlying postoperative changes are noted. No suspicious soft tissue densities. IMPRESSION: Excellent anatomic alignment established after complex comminuted angulated and impacted intertrochanteric right hip fracture fixation. Dictated by: Vincenzo Jarvis M.D. on 10/31/2018 at 16:01 Approved by: Vincenzo Jarvis M.D. on 10/31/2018 at 16:03
[2018-10-31] MEDS: LACTATED RINGERS 1,000 ML 42 ML IV ×3 (11:03→15:41)
[2018-10-31] MEDS: CELECOXIB 200 MG CAPSULE PO (12:10)
[2018-10-31] MEDS: PREGABALIN 75 MG CAPSULE PO (12:10)
--- NOTE | 2018-10-31 12:28 | PM.PREOP ---
Pre-operative Note Interval Note History & Physical reviewed/Exam performed by Physician: Yes Changes to H&P: No
[2018-10-31] MEDS: CLINDAMYCIN 600 MG/50 ML PIGGYBACK 50 MG IV (13:25)
[2018-10-31] MEDS: TRANEXAMIC ACID 1,000 MG VIAL 1000 MG INJ (13:50)
--- NOTE | 2018-10-31 14:06 | SUR.OPER ---
Lateral on padded OR bed. Gel axillary roll. Arms secured on padded armboard with pillow supporting top arm. Padded hip positioner braces x4 - anterior and posterior chest and pelvis. Additional gel pad used anterior pelvis. Gel pad under bottom leg from knee to foot and secured with tape over sheet.
[2018-10-31] MEDS: BUPIVACAINE LIPOSOME 266 MG/20 ML VIAL INJ (14:13)
[2018-10-31] MEDS: BUPIVACAINE 0.25% W/ EPI 30 ML VIAL 60 ML INJ (14:13)
[2018-10-31 15:00] LABS: Hematocrit 30.2 % (36-46)
--- NOTE | 2018-10-31 16:12 | PM.OP.1 ---
Operative Date/Time/Diagnoses Date of procedure: 10/31/18 Time of procedure: 15:45 Pre-op diagnosis: Complex proximal femoral fracture including subtrochanteric, intertrochanteric, lesser trochanteric and greater trochanteric fractures with failure of prior intramedullary hip screw Post-op diagnosis: same Procedure & Clinicians Procedure: 1. Calcar replacing hemiarthroplasty 2. Open reduction internal fixation of greater trochanteric fracture with cerclage wire 3. Removal of intramedullary hip screw Same procedure as scheduled: Yes Indications: The patient is an 83-year-old woman who approximately 3 weeks ago underwent a fixation of a proximal femoral fracture with an intramedullary hip screw. She went on to have failure of this construct with the screw cutting out from the femoral head. She has agreed to revision to a calcar replacing hemiarthroplasty after discussion the risks benefits and alternatives. Risks discussed included but were not limited to: Failure to improve pain, failure to improve functional ability, leg length discrepancy, instability, infection, nerve damage, deep venous thrombosis, pulmonary embolism, stroke, myocardial infarction, permanent paralysis and . Surgeon: Don Palacio Hotel Associate: Rossana Campo Click Yes if Unassisted: No Anesthesia Type: General and Local Operative Notes Findings: Complex fracture with soft bone. Approximately 1/4 of the femoral head was missing in a triangular pattern from the screw cutting out. In addition there was an approximately 1 cm x 1 cm area of the superolateral acetabular rim that had been eroded by the tip of the screw. This did not appear to affect the stability of the prosthetic. Closure Type: primary Specimen(s): none sent Prosthetic devices, grafts, tissues, transplants, or devices: Implants used in this procedure were manufactured by the [employer] and [employer] except where noted and included an [place] +15 calcar replacing size 12 femoral stem, a -3 unipolar spacer and a 46 mm Tandem unipolar femoral head. In addition a single Tracy cerclage cable with crimp was placed around the greater trochanter. Finally a plastic cement plug was placed distally. Applied: catheter, drain(s) and implant(s) Estimated Blood Loss (mL): 600 Blood products transfused: none Procedure in detail: The patient was seen in the pre-operative area, where they identified the right hip as the operative site and this was marked with my initials. The patient received pre-operative antibiotics and was taken to the operating room and placed on the operative table in the left lateral decubitus position after satisfactory anesthesia. A climate change analyst out was performed. The wilmer from the prior surgery were removed. The right leg was prepared from the ankle to the iliac crest with ChloroPrep in the usual fashion and draped through sterile drapes. Initially the distal interlock screws were removed by reopening the stab wounds through which they had been placed. These were connected and dissection was carried out to the lateral aspect of the femur. Hohmann retractors were placed. The screws were visualized and removed without difficulty. The hip was approached through an approximately 20 cm incision centered over the greater trochanter and curving gently posteriorly as it went proximally. This was carried sharply to the fascia german, which was divided and retracted with a self-retaining retractor. The trochanteric bursa was excised with care being taken to avoid the sciatic nerve, which was identified and protected throughout the case. The leg screw was identified and the screw route cdl driver of fixed to prevent rotation of the win with removal of the proximal locking screw. The proximal locking screw was then removed followed by the lag screw and the win itself. There was a coronal split in the greater trochanter. This interval was used to access the hip. The femoral head and neck were removed. The head was sized and trial heads of appropriate size were placed in the acetabulum until the appropriate size was determined. A sponge was placed in the acetabular We then turned our attention to the femur. The canal was gently reamed with the cylindrical reamers. The broaches were used, sequentially enlarging until a fit with the cylindrical reamer was obtained. A small modification cut of the proximal femoral shaft was necessary to allow the flat portion of the calcar replacing prosthetic to fit. A cerclage wire was placed around the anterior portion of the greater trochanter which had remained attached to the shaft. A distal cement plug was placed and the canal cleaned with pulsatile lavage. Cement was retrograde injected. The cement was pressurized with finger packing only because of the perforations in the femoral canal. The stem was placed and held in the appropriate version until the cement hardened. A trial head and neck were then placed and the hip relocated and checked for leg length and stability. The patient was stable in the position of sleep, of squatting, and could be put through a range of motion with 45 degrees internal rotation without dislocation. At 90 degrees flexion, internal rotation to 70? was possible before dislocation. This was felt to be satisfactory and the appropriate components were were placed. The acetabulum was cleared of all material and the hip relocated one final time. The cerclage cable that had previously been placed was threaded through the hole in the prosthesis and around the posterior, unattached, portion of the greater trochanter. This was then tensioned with the appropriate equipment and fixed in place with the set screw. Radiographs were obtained intra-operatively confirming the position of all components and confirming that there were no iatrogenic fractures. There was extravasated bone cement through the distal interlock screw holes which was removed through the incision distally. The split in the abductor musculature was fixed with a running 0 Vicryl. A deep drain was placed The fascia german was closed with running and interrupted 0 Vicryl. A subcutaneous drain was placed. The subcutaneous layer of all wounds was closed with interrupted 3-0 Vicryl, and the skin with wilmer. An Aquacel Ag dressing was applied to the hemiarthroplasty wound and 4x4s and Tegaderm to the other wound. The patient was taken to recovery having tolerated the procedure well. Complications: none Condition: stable Disposition: PACU Plan for aftercare: Patient will be allowed to weightbear as tolerated with posterior hip precautions. She will likely be transferred to a shelter facility for full rehab.
--- NOTE | 2018-10-31 16:27 | P.OP_ITS ---
Operative Date/Time/Diagnoses Date of procedure: 10/31/18 Time of procedure: 15:45 Pre-op diagnosis: Complex proximal femoral fracture including subtrochanteric, intertrochanteric, lesser trochanteric and greater trochanteric fractures with failure of prior intramedullary hip screw Post-op diagnosis: same Procedure & Clinicians Procedure: 1. Calcar replacing hemiarthroplasty 2. Open reduction internal fixation of greater trochanteric fracture with cerclage wire 3. Removal of intramedullary hip screw Same procedure as scheduled: Yes Indications: The patient is an 83-year-old woman who approximately 3 weeks ago underwent a fixation of a proximal femoral fracture with an intramedullary hip screw. She went on to have failure of this construct with the screw cutting out from the femoral head. She has agreed to revision to a calcar replacing hemiarthroplasty after discussion the risks benefits and alternatives. Risks discussed included but were not limited to: Failure to improve pain, failure to improve functional ability, leg length discrepancy, instability, infection, nerve damage, deep venous thrombosis, pulmonary embolism, stroke, myocardial infarction, permanent paralysis and . Surgeon: Don Palacio Retoucher Photoengraving: Rossana Campo Click Yes if Unassisted: No Anesthesia Type: General and Local Operative Notes Findings: Complex fracture with soft bone. Approximately 1/4 of the femoral head was missing in a triangular pattern from the screw cutting out. In addition there was an approximately 1 cm x 1 cm area of the superolateral acetabular rim that had been eroded by the tip of the screw. This did not appear to affect the stability of the prosthetic. Closure Type: primary Specimen(s): none sent Prosthetic devices, grafts, tissues, transplants, or devices: Implants used in this procedure were manufactured by the [employer] and [employer] except where noted and included an [place] +15 calcar replacing size 12 femoral stem, a -3 unipolar spacer and a 46 mm Tandem unipolar femoral head. In addition a single Tracy cerclage cable with crimp was placed around the greater trochanter. Finally a plastic cement plug was placed distally. Applied: catheter, drain(s) and implant(s) Estimated Blood Loss (mL): 600 Blood products transfused: none Procedure in detail: The patient was seen in the pre-operative area, where they identified the right hip as the operative site and this was marked with my initials. The patient received pre-operative antibiotics and was taken to the operating room and placed on the operative table in the left lateral decubitus position after satisfactory anesthesia. A upset welding machine operator out was performed. The wilmer from the prior surgery were removed. The right leg was prepared from the ankle to the iliac crest with ChloroPrep in the usual fashion and draped through sterile drapes. Initially the distal interlock screws were removed by reopening the stab wounds through which they had been placed. These were connected and dissection was carried out to the lateral aspect of the femur. Hohmann retractors were placed. The screws were visualized and removed without difficulty. The hip was approached through an approximately 20 cm incision centered over the greater trochanter and curving gently posteriorly as it went proximally. This was carried sharply to the fascia german, which was divided and retracted with a self- retaining retractor. The trochanteric bursa was excised with care being taken to avoid the sciatic nerve, which was identified and protected throughout the case. The leg screw was identified and the screw solid waste truck driver of fixed to prevent rotation of the win with removal of the proximal locking screw. The proximal locking screw was then removed followed by the lag screw and the win itself. There was a coronal split in the greater trochanter. This interval was used to access the hip. The femoral head and neck were removed. The head was sized and trial heads of appropriate size were placed in the acetabulum until the appropriate size was determined. A sponge was placed in the acetabular We then turned our attention to the femur. The canal was gently reamed with the cylindrical reamers. The broaches were used, sequentially enlarging until a fit with the cylindrical reamer was obtained. A small modification cut of the proximal femoral shaft was necessary to allow the flat portion of the calcar replacing prosthetic to fit. A cerclage wire was placed around the anterior portion of the greater trochanter which had remained attached to the shaft. A distal cement plug was placed and the canal cleaned with pulsatile lavage. Cement was retrograde injected. The cement was pressurized with finger packing only because of the perforations in the femoral canal. The stem was placed and held in the appropriate version until the cement hardened. A trial head and neck were then placed and the hip relocated and checked for leg length and stability. The patient was stable in the position of sleep, of squatting, and could be put through a range of motion with 45 degrees internal rotation without dislocation. At 90 degrees flexion, internal rotation to 70? was possible before dislocation. This was felt to be satisfactory and the appropriate components were were placed. The acetabulum was cleared of all material and the hip relocated one final time. The cerclage cable that had previously been placed was threaded through the hole in the prosthesis and around the posterior, unattached, portion of the greater trochanter. This was then tensioned with the appropriate equipment and fixed in place with the set screw. Radiographs were obtained intra-operatively confirming the position of all components and confirming that there were no iatrogenic fractures. There was extravasated bone cement through the distal interlock screw holes which was removed through the incision distally. The split in the abductor musculature was fixed with a running 0 Vicryl. A deep drain was placed The fascia german was closed with running and interrupted 0 Vicryl. A subcutaneous drain was placed. The subcutaneous layer of all wounds was closed with interrupted 3-0 Vicryl, and the skin with wilmer. An Aquacel Ag dressing was applied to the hemiarthroplasty wound and 4x4s and Tegaderm to the other wound. The patient was taken to recovery having tolerated the procedure well. Complications: none Condition: stable Disposition: PACU Plan for aftercare: Patient will be allowed to weightbear as tolerated with posterior hip precautions. She will likely be transferred to a intermediate facility for full rehab.
[2018-10-31] MEDS: LACTATED RINGERS 1,000 ML 125 ML IV (17:08)
[2018-10-31] MEDS: VANCOMYCIN 1,000 MG/200 ML FROZ.PIGGY 200 MG IV (19:17)
[2018-10-31] MEDS: CARBIDOPA-LEVODOPA 25/100 TABLET 1 EACH PO (21:34)
[2018-10-31] MEDS: DOCUSATE 100 MG CAPSULE PO (21:34)
[2018-10-31] MEDS: ASPIRIN EC 81 MG TABLET PO (21:34)
[2018-10-31] MEDS: CARBIDOPA-LEVODOPA ER 50/200 TABLET 1 EACH PO (21:34)
[2018-10-31] MEDS: ACETAMINOPHEN 325 MG TABLET 975 MG PO (21:46)
--- NOTE | 2018-11-01 01:07 | PC.NURSE ---
2300- Pt POD#0 R total hip posterior approach w/ hemovac in place. Aquacel dressing CDI, prev RN said pt lost about 600 mL in OR. Will monitor H/H in the AM. Michel catheter in place draining pale yellow urine; BA on and active. LR running as ordered into R AC; pt has not worked w/ PT yet. Cont SpO2 in place, bilat SED's in place, CMS+.
[2018-11-01] MEDS: LACTATED RINGERS 1,000 ML 125 ML IV (02:45)
[2018-11-01 05:59] VITALS: BP 126/61; PULSE 90; RESP 16; TEMP 36.4; O2SAT 94
[2018-11-01 06:02] LABS: Hemoglobin 9.5 g/dL (12.0-16.0)
[2018-11-01] MEDS: TRAMADOL 50 MG TABLET PO (06:48)
--- NOTE | 2018-11-01 07:24 | PM.PNPO.1 ---
Subjective Date Patient Seen: 11/01/18 Time Patient Seen: 07:24 Interval history: The patient reports that she is in discomfort postoperatively. Exam Vital Signs (past 8 hours): - 10/31/18 23:40 11/01/18 05:59 Temperature 97.9 F 97.6 F Pulse Rate 83 90 Respiratory Rate 16 16 Blood Pressure 107/51 L 126/61 Pulse Oximetry 94 94 Oxygen Delivery Method Nasal Cannula Oxygen Flow Rate 1 Narrative Exam Narrative: Right lower extremity appears to be appropriate in length and rotation. There is significant ecchymosis from the prior intramedullary rodding. The wound is dressed with no significant drainage on the bandage. Calf is soft. Light touch and motion are intact in the right lower extremity. Rotation of the hip is minimally uncomfortable. Objective Labs Result Diagrams: 11/01/18 05:26 Labs: Laboratory Results - last 24 hr 10/31/18 10/31/18 11/01/18 14:46 14:46 05:26 Hgb 9.5 L Hct 30.2 L 29.0 L Blood Type O Positive Antibody Screen Negative Assessment & Plan Post-op Postoperative Procedures Operation Date: 10/31/18 12:30 Actual Procedures Side Surgeon p Hip Hemiarthroplasty w/Removal deep implant Right Don Palacio MD Postoperative day: 1 Postoperative status: doing well, marginal pain control and anemia Postoperative status narrative: The patient is stable postoperative day 1 after conversion of a failed intramedullary hip screw to a calcar replacing hemiarthroplasty with ORIF of the greater trochanter. She has a post hemorrhagic anemia from her 2 surgeries. Pain control is marginal at this point. Postoperative plan: routine post-op care and ambulate Postoperative plan narrative: We will advance her physical therapy. She may weightbear as tolerated. It is likely she will require [facility] facility when medically stable. I anticipate that will be in 1-2 days. Time Spent With Patient less than 15 minutes Quality VTE Deep Vein Thrombosis/Pulmonary Embolism Present on Admission: No
[2018-11-01 07:35] VITALS: BP 111/42; PULSE 90; RESP 18; TEMP 36.9; O2SAT 93
--- NOTE | 2018-11-01 08:47 | CM.DANOTE ---
DCP: Case received, EMR reviewed and met with patient. Introduced self and role. Baseline health information received from patient. Also received additional information from Ashlie at [facility]. DCP template assessment completed with information currently available. Patient is an 83 year old female who admitted yesterday morning to the care of the surgical team. PCP: Dr. Nieves. Payer: confirmed: Medicare/[employer]. Patient came to hospital for surgical procedure. She had her original surgery a couple of weeks ago, secondary to a complex proximal femoral fracture. Patient has been at [facility] since the surgery, and original surgery resulted in a failure of hip screw. She had her second surgery yesterday. Confirmed with November at [facility] admissions that patient will be returning to facility with her Medicare coverage. Spoke to patient briefly in room. Confirmed with her as well that she has been at [facility], and plans to return there. Confirmed with her that she does reside in [place] with her , Bonifacio. She mentioned that she currently has limited mobility, but has a walker and a wheel chair. P: DCP to continue to follow closely. Anticipate that patient will be here another day or two. Will be working with physical therapy team. Plan is to return to [facility] when stable. Continue to collaborate with Ashlie at [facility]. Katelyn Butler RN/Pipe Chipper
[2018-11-01] MEDS: ACETAMINOPHEN 325 MG TABLET 975 MG PO ×3 (10:08→21:16)
[2018-11-01] MEDS: ASPIRIN EC 81 MG TABLET PO ×2 (10:10→21:16)
[2018-11-01] MEDS: CARBIDOPA-LEVODOPA ER 50/200 TABLET 1 EACH PO ×3 (10:12→21:16)
[2018-11-01] MEDS: CARBIDOPA-LEVODOPA 25/100 TABLET 1 EACH PO ×3 (10:12→21:16)
[2018-11-01] MEDS: DOCUSATE 100 MG CAPSULE PO ×2 (10:14→21:17)
[2018-11-01] MEDS: OXYCODONE IR 5 MG TABLET PO ×3 (10:15→20:15)
[2018-11-01] MEDS: POLYETHYLENE GLYCOL 3350 17 GM POWD.PACK PO (10:15)
[2018-11-01] MEDS: VANCOMYCIN 1,000 MG/200 ML FROZ.PIGGY 200 MG IV (11:12)
[2018-11-01 11:55] VITALS: BP 99/44; PULSE 90; RESP 16; TEMP 37.3; O2SAT 91
--- NOTE | 2018-11-01 12:07 | PT.IIE ---
Current Diagnoses Unspecified trochanteric fracture of right femur, initial encounter for closed fracture (10/31/18) Other mechanical complication of other internal orthopedic devices, implants and grafts, initial encounter (10/31/18) Surgery Performed Operation Date: 10/31/18 12:30 Actual Procedures p Hip Hemiarthroplasty w/Removal deep implant(Right) - Don Palacio MD Surgical History (Last Updated 10/30/18 @ 07:47 by Keke Avina RN) History of cystocele (Acute) History of hip surgery (Acute 10/11/18) History of lithotripsy Status post hysterectomy Status post tonsillectomy and adenoidectomy Status post tubal ligation Medical History (Last Reviewed 10/11/18 @ 06:58 by Don Palacio MD) Diverticulosis (Acute) Hallucinations (Acute) Macular degeneration of left eye (Acute) Nephrolithiasis (Acute) Parkinsons (Acute) Scoliosis (Acute) Septicemia (Acute) Physical Therapy Inpatient Evaluation/Re-Eval M1 PT/OT-IP Prior Functional Status Start: 11/01/18 14:12 Freq: NEEDED Status: Active Protocol: Document 11/01/18 12:07 AB (Rec: 11/01/18 14:26 AB [id number]) Medical Review Prior Functional Status Medical History Reviewed Yes Communication able to make needs known Mobility and Gait Prior to first hospitalization : pt was independent with all mobilities and ambulation without AD Prior Functional Level (Other details) pt first hospitalized 10/11/18 due to a fall and sustained a R hip fx and underwent ORIF. pt d/c'd to SNF. pt had a hardware failure and had to undergo R hip hemiarthroplasty . Social History Household Members spouse Living Arrangements House Number of Floors (Floors) One Floor Number of Stairs To Enter/Railing? 2 steps without rails but has R side bar by the door Home Environment Standard Height Toilet Walk in Shower Home Equipment Front Wheel Walker Raised Toilet Seat Without Armrests Shower Seat without Backrest Employment Status Retired M2 PT-IP Current Condition Start: 11/01/18 14:12 Freq: NEEDED Status: Active Protocol: Document 11/01/18 12:07 AB (Rec: 11/01/18 14:26 AB [id number]) Physical Therapy Current Condition Current Condition Evaluation Date 11/01/18 Treatment Diagnosis s/p R hip hemiarthroplasty; difficulty in walking Onset Date 10/31/18 Precautions Posterior Hip Precautions No Hip Flexion > 90 degrees No Hip Internal Rotation No Hip Adduction Other Precautions Falls Weight Bearing Status Weight Bearing Status Weight Bear as Tolerated M3 PT-IP Subjective Start: 11/01/18 14:12 Freq: NEEDED Status: Active Protocol: Document 11/01/18 12:07 AB (Rec: 11/01/18 14:26 AB [id number]) Subjective Physical Therapy Visit Type Type Initial Evaluation Visit Start Time 12:07 Visit Stop Time 12:51 Total Visit Minutes 44 Number of FILER FINISH Visits 0 Physical Therapy Visit Comments Patient Comments pt agreed to do PT; family present during PT session Therapy Pain Assessment Pain When Pain Assessed At Rest Pain Present Pain Present Pain Reported Location Right Hip Intensity 7 Scale Used Numeric (1 - 10) Pain Management Techniques Re-positioning Timing of Activity with Medications M4 PT-IP Mobility and Gait Start: 11/01/18 14:12 Freq: NEEDED Status: Active Protocol: Document 11/01/18 12:07 AB (Rec: 11/01/18 14:26 AB [id number]) PT-Bed Mobility Assessment Supine to Sit Supine to Sit Maximum Assistance 1 Person Assistance Scooting Scooting to Edge of Bed Maximum Assistance Dependent PT-Transfer Assessment Sit to and From Stand Sit to and from Stand Maximum Assistance 2 Person Assistance Use of Upper Extremities Equipment Transfer Assistive Device Gait Belt Front Wheeled Walker Orthotic/Prosthetic Devices or Brace: No Transfers Transfer Destination Chair Transfer Technique Stand Step Pivot Transfer Ability Level of Assist Maximum Assistance 2 Person Assistance Use of Upper Extremities Comments Mobility Comments pt required max A and max cues to maintain R posterior hip precautions Gait Assessment Comments Gait Comments unable at this time PT-Balance Assessment Sitting Balance and Reactions Static Sitting Balance Ability Good Dynamic Sitting Balance Ability Fair Standing Balance and Reactions Static Standing Balance Ability Poor Dynamic Standing Balance Ability Poor Device Used FWW M5 PT-IP Objective Assessments Start: 11/01/18 14:12 Freq: NEEDED Status: Active Protocol: Document 11/01/18 12:07 AB (Rec: 11/01/18 14:26 AB [id number]) Orientation Orientation/Cognition Level of Alertness Alert Orientation Name Place Situation Safety Awareness Decreased Safety Awareness Memory Description 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 Impaired Gross Range of Motion Lower Extremity ROM Assessment Right Impaired Impairments RLE tightness during PROM for hip/knee flexion Strength Lower Extremity Strength Assessment Bilaterally Impaired Comments Strength Comments RLE 3-/5 LLE 3+/5 Sensation Assessment Sensation Gross Sensation WNL M6 PT-IP Treatment Start: 11/01/18 14:12 Freq: NEEDED Status: Active Protocol: Document 11/01/18 12:07 AB (Rec: 11/01/18 14:26 AB [id number]) Physical Therapy Treatment Exercises Exercises Heel Slides Education Education Provided Precautions Weight Bearing Status Post-Op Packet Safety M7 PT-IP Assessment and Plan Start: 11/01/18 14:12 Freq: NEEDED Status: Active Protocol: Document 11/01/18 12:07 AB (Rec: 11/01/18 14:26 AB [id number]) PT Summary Assessment and Plan Potential Rehabilitation Potential Fair Status of Condition at Evaluation Evolving Summary Impairments Pain ROM Strength Balance Coordination Sensation Tone Cognition Bed Mobility Transfers Gait Activity Tolerance Assessment Summary pt requiring max X 2 to dependent assist with mobility . requires max cues and assist to maintain hip precautions. pt will require SNF rehab to improve strength and function. Goals Bed Mobility Goal Contact Guard Assistance Transfer Goal Contact Guard Assistance Front Wheeled Walker Gait Goal Contact Guard Assistance Front Wheel Walker Gait Distance 50 Days to Meet Goals 5 Frequency of Treatment Frequency Of Treatment Twice a Day Treatment Plan Physical Therapy Treatment Plan Bed Mobility Training Transfer Training Gait Training Therapeutic Exercise Balance Retraining Post Op Education Discharge Planning Hot or Cold Pack Neuromuscular Re-ed Coordination Retraining Manual Therapy Recommendations To Nursing Amount of Assist Needed 2 Person Assist Discharge Recommendations PT Discharge Recommendations SNF Rehab
--- NOTE | 2018-11-01 14:42 | PT.IPTN ---
Current Diagnoses Unspecified trochanteric fracture of right femur, initial encounter for closed fracture (10/31/18) Other mechanical complication of other internal orthopedic devices, implants and grafts, initial encounter (10/31/18) Surgery Performed Operation Date: 10/31/18 12:30 Actual Procedures p Hip Hemiarthroplasty w/Removal deep implant(Right) - oDn Palacio MD Physical Therapy Treatment Note M2 PT-IP Current Condition Start: 11/01/18 14:12 Freq: NEEDED Status: Active Protocol: Document 11/01/18 12:07 AB (Rec: 11/01/18 14:26 AB [id number]) Physical Therapy Current Condition Current Condition Evaluation Date 11/01/18 Treatment Diagnosis s/p R hip hemiarthroplasty; difficulty in walking Onset Date 10/31/18 Precautions Posterior Hip Precautions No Hip Flexion > 90 degrees No Hip Internal Rotation No Hip Adduction Other Precautions Falls Weight Bearing Status Weight Bearing Status Weight Bear as Tolerated M3 PT-IP Subjective Start: 11/01/18 14:12 Freq: NEEDED Status: Active Protocol: Document 11/01/18 14:42 AB (Rec: 11/01/18 15:13 AB [id number]) Subjective Physical Therapy Visit Type Type Treatment Note Visit Start Time 14:42 Visit Stop Time 15:00 Total Visit Minutes 18 Number of VETERINARY VIRUS SERUM INSPECTOR Visits 0 Physical Therapy Visit Comments Patient Comments pt requested to go back to bed . Therapy Pain Assessment Pain When Pain Assessed At Rest Pain Present Pain Present Pain Reported Location Right Hip Intensity 8 Scale Used Numeric (1 - 10) Pain Behaviors Guarding Pain Management Techniques Re-positioning Timing of Activity with Medications M4 PT-IP Mobility and Gait Start: 11/01/18 14:12 Freq: NEEDED Status: Active Protocol: Document 11/01/18 14:42 AB (Rec: 11/01/18 15:13 AB [id number]) PT-Bed Mobility Assessment Sit to Supine Sit to Supine Total Assistance 2 Person Assistance PT-Transfer Assessment Sit to and From Stand Sit to and from Stand Maximum Assistance 1 Person Assistance 2 Person Assistance Use of Upper Extremities Equipment Transfer Assistive Device Gait Belt Front Wheeled Walker Orthotic/Prosthetic Devices or Brace: No Transfers Transfer Destination Bed Transfer Technique Stand Step Pivot Transfer Ability Level of Assist Maximum Assistance 2 Person Assistance Use of Upper Extremities Comments Mobility Comments BP sitting on chair: 93/59. pt agreed to do ambulation and completed ~ 3 ft using FWW max A x 1-2 and max cues. pt sat back on the chair. BP 85/ 42 assisted pt back in bed requiring max A x 2 and max cues using FWW. BP supine: 113/56 Gait Assessment Gait Gait Assistance Required: Maximum Assistance 1 Person Assist 2 Person Assist Distance (Feet) 3 Able to Maintain Weight Bearing Status Yes During Gait Assistive Devices Assistive Device Gait Belt Front Wheeled Walker Orthotic/Prosthetic Devices or Brace: No Gait Deviations General Gait Pattern Antalgic Decreased Stride Length Decreased Feet Clearance Factors Limiting Gait Function Factors Limiting Gait Function Decreased Activity Tolerance Decreased Strength Difficulty Following Directions Limited Range of Motion Pain Poor Balance Poor Safety Awareness Comments Gait Comments pt requiring cues and assist for weight shifting and stabilizing RLE during ambulation. M5 PT-IP Objective Assessments Start: 11/01/18 14:12 Freq: NEEDED Status: Active Protocol: Document 11/01/18 12:07 AB (Rec: 11/01/18 14:26 AB [id number]) Orientation Orientation/Cognition Level of Alertness Alert Orientation Name Place Situation Safety Awareness Decreased Safety Awareness Memory Description Short Term Impaired [place]oe Ragger Impaired Gross Range of Motion Lower Extremity ROM Assessment Right Impaired Impairments RLE tightness during PROM for hip/knee flexion Strength Lower Extremity Strength Assessment Bilaterally Impaired Comments Strength Comments RLE 3-/5 LLE 3+/5 Sensation Assessment Sensation Gross Sensation WNL M6 PT-IP Treatment Start: 11/01/18 14:12 Freq: NEEDED Status: Active Protocol: Document 11/01/18 14:42 AB (Rec: 11/01/18 15:13 AB [id number]) Physical Therapy Treatment Education Education Provided Precautions Safety Other Treatments Other Treatment Performed pt continues to require cues to recall hip precautions M7 PT-IP Assessment and Plan Start: 11/01/18 14:12 Freq: NEEDED Status: Active Protocol: Document 11/01/18 14:42 AB (Rec: 11/01/18 15:13 AB [id number]) PT Summary Assessment and Plan Potential Rehabilitation Potential Good Summary Impairments Pain ROM Strength Balance Coordination Sensation Tone Cognition Bed Mobility Transfers Gait Activity Tolerance Progress Towards Goals Slow Progress due to Medical Issues Slow Progress due to Activity Tolerance Assessment Summary pt requiring 2 person assist for all mobilities at this time. has decrease activity tolerance and c/o increase pain affecting mobility. BP also decreased with upright activity. pt will require SNF rehab to improve strength and function. Goals Bed Mobility Goal Contact Guard Assistance Transfer Goal Contact Guard Assistance Front Wheeled Walker Gait Goal Contact Guard Assistance Front Wheel Walker Gait Distance 50 Days to Meet Goals 5 Frequency of Treatment Frequency Of Treatment Twice a Day Treatment Plan Physical Therapy Treatment Plan Bed Mobility Training Transfer Training Gait Training Therapeutic Exercise Balance Retraining Post Op Education Discharge Planning Hot or Cold Pack Neuromuscular Re-ed Coordination Retraining Manual Therapy Recommendations To Nursing Amount of Assist Needed 2 Person Assist Discharge Recommendations PT Discharge Recommendations SNF Rehab
[2018-11-01 17:10] VITALS: BP 103/50; PULSE 90; RESP 16; TEMP 36.7; O2SAT 93
[2018-11-01 20:10] VITALS: BP 96/52; PULSE 89; RESP 16; TEMP 36.5; O2SAT 95
[2018-11-02] VITALS (7 sets, daily range): BP systolic 96–132; BP diastolic 41–57; PULSE 84–97; RESP 14–18; TEMP 35.8–37; O2SAT 91–96
--- NOTE | 2018-11-02 00:58 | PC.NURSE ---
Addendum entered by Winter Cuenca R.N. 11/02/18 05:37: Complains of 8/10 right hip pain; repositioned and medicated with Oxycodone and agreed to having ice applied to hip. Had 60cc from hemovac this morning. Due to reported poor mobility catheter not removed this morning and will wait until after therapy before removing. Addendum entered by Winter Cuenca R.N. 11/02/18 02:41: Complains of 5/10 right hip pain; repositioned and medicated with Oxycodone. Declines offer of ice pack. Addendum entered by Winter Cuenca R.N. 11/02/18 01:01: Fall risk score is high and bed alarm is activated. Original Note: Patient is alert and oriented. Breath sounds CTA with RA sat of 91%. HRR. Denies nausea. BT present and states she is passing flatus. Indwelling catheter is patent with clear anitha urine. Dressings to right hip are CDI with surrounding bruising noted. Hemovac is intact and compressed. Needing assist to reposition q2h. Denies any pain at present time. Wearing bilateral SCD's. Following posterior hip precautions. CMS is intact.
[2018-11-02] MEDS: OXYCODONE IR 5 MG TABLET PO ×6 (02:37→19:51)
[2018-11-02] MEDS: CARBIDOPA-LEVODOPA ER 50/200 TABLET 1 EACH PO ×3 (06:39→21:10)
[2018-11-02] MEDS: CARBIDOPA-LEVODOPA 25/100 TABLET 1 EACH PO ×3 (06:39→21:10)
[2018-11-02] MEDS: ASPIRIN EC 81 MG TABLET PO ×2 (08:32→21:10)
[2018-11-02] MEDS: DOCUSATE 100 MG CAPSULE PO ×2 (08:32→21:10)
[2018-11-02] MEDS: ACETAMINOPHEN 325 MG TABLET 975 MG PO ×3 (08:33→21:08)
[2018-11-02] MEDS: SODIUM CHLORIDE 0.9% FLUSH 10 ML IV (08:34)
[2018-11-02] MEDS: POLYETHYLENE GLYCOL 3350 17 GM POWD.PACK PO (08:34)
--- NOTE | 2018-11-02 09:53 | PM.PNPO.1 ---
Subjective Date Patient Seen: 11/02/18 Time Patient Seen: 09:53 Interval history: Patient is 83 year old female who is POD#2 s/p calcar replacing hemiarthroplasty and ORIF of greater trochanteric fracture with cerclage wire with Dr. Palacio. Pain has been controlled with oxycodone. She has been slow to mobilize but was able to walk about the room for short periods. Complains of some difficulty sleeping last night. Daughter who is physician was present today. Denies any calf tenderness, chest pain, shortness of breath. Exam Vital Signs (past 8 hours): - 11/02/18 04:57 11/02/18 08:30 Temperature 96.5 F L 98.6 F Pulse Rate 84 89 Respiratory Rate 16 14 Blood Pressure 132/53 L 101/45 L Pulse Oximetry 91 92 Oxygen Delivery Method Room Air Oxygen Flow Rate 0 Narrative Exam Narrative: Pleasant 83 year old female resting comfortably in bed alert and oriented in no acute distress. Dressings in place are clean, dry, and intact with minimal shadow drainage. Drain in place. Neurovascularly intact in distal extremity. Calves are soft and compressible. Objective Labs Result Diagrams: 11/01/18 05:26 Assessment & Plan Post-op Postoperative Procedures Operation Date: 10/31/18 12:30 Actual Procedures Side Surgeon p Hip Hemiarthroplasty w/Removal deep implant Right Don Palacio MD Continue pain control today. Encouraged patient to mobilize as tolerated with physical therapy. Discontinue drain today. Discontinue urinary catheter today if she is able to mobilize to commode or bathroom. Quality VTE Deep Vein Thrombosis/Pulmonary Embolism Present on Admission: No
--- NOTE | 2018-11-02 10:15 | PT.IPTN ---
Current Diagnoses Unspecified trochanteric fracture of right femur, initial encounter for closed fracture (10/31/18) Other mechanical complication of other internal orthopedic devices, implants and grafts, initial encounter (10/31/18) Surgery Performed Operation Date: 10/31/18 12:30 Actual Procedures p Hip Hemiarthroplasty w/Removal deep implant(Right) - Don Palacio MD Physical Therapy Treatment Note M2 PT-IP Current Condition Start: 11/01/18 14:12 Freq: NEEDED Status: Active Protocol: Document 11/01/18 12:07 AB (Rec: 11/01/18 14:26 AB [id number]) Physical Therapy Current Condition Current Condition Evaluation Date 11/01/18 Treatment Diagnosis s/p R hip hemiarthroplasty; difficulty in walking Onset Date 10/31/18 Precautions Posterior Hip Precautions No Hip Flexion > 90 degrees No Hip Internal Rotation No Hip Adduction Other Precautions Falls Weight Bearing Status Weight Bearing Status Weight Bear as Tolerated M3 PT-IP Subjective Start: 11/01/18 14:12 Freq: NEEDED Status: Active Protocol: Document 11/02/18 10:15 AB (Rec: 11/02/18 13:47 AB [id number]) Subjective Physical Therapy Visit Type Type Treatment Note Visit Start Time 10:15 Visit Stop Time 10:39 Total Visit Minutes 24 Number of HAT IRONER Visits 0 Physical Therapy Visit Comments Patient Comments pt agreeable to do PT; pt's daughter present during tx session Therapy Pain Assessment Pain When Pain Assessed At Rest Pain Present Pain Present Pain Reported Location Right Hip Intensity 6 Pain Management Techniques Re-positioning Timing of Activity with Medications M4 PT-IP Mobility and Gait Start: 11/01/18 14:12 Freq: NEEDED Status: Active Protocol: Document 11/02/18 10:15 AB (Rec: 11/02/18 13:47 AB [id number]) PT-Bed Mobility Assessment Supine to Sit Supine to Sit Maximum Assistance 1 Person Assistance PT-Transfer Assessment Sit to and From Stand Sit to and from Stand Moderate Assistance 2 Person Assistance Use of Upper Extremities Equipment Transfer Assistive Device Gait Belt Front Wheeled Walker Orthotic/Prosthetic Devices or Brace: No Transfers Transfer Destination Chair Transfer Technique pt ambulated to the chair Transfer Ability Level of Assist Moderate Assistance Maximum Assistance 2 Person Assistance Use of Upper Extremities Gait Assessment Gait Gait Assistance Required: Moderate Assistance 2 Person Assist Distance (Feet) 15 Able to Maintain Weight Bearing Status Yes During Gait Assistive Devices Assistive Device Gait Belt Front Wheeled Walker Orthotic/Prosthetic Devices or Brace: No Gait Deviations General Gait Pattern Antalgic Decreased Stride Length Decreased Feet Clearance Step-to Gait Factors Limiting Gait Function Factors Limiting Gait Function Decreased Activity Tolerance Decreased Strength Difficulty Following Directions Limited Range of Motion Pain Poor Balance Poor Safety Awareness Comments Gait Comments pt presents with decrease weight bearing on RLE with increase knee flexion during standing M5 PT-IP Objective Assessments Start: 11/01/18 14:12 Freq: NEEDED Status: Active Protocol: Document 11/01/18 12:07 AB (Rec: 11/01/18 14:26 AB [id number]) Orientation Orientation/Cognition Level of Alertness Alert Orientation Name Place Situation Safety Awareness Decreased Safety Awareness Memory Description 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 Impaired Gross Range of Motion Lower Extremity ROM Assessment Right Impaired Impairments RLE tightness during PROM for hip/knee flexion Strength Lower Extremity Strength Assessment Bilaterally Impaired Comments Strength Comments RLE 3-/5 LLE 3+/5 Sensation Assessment Sensation Gross Sensation WNL M6 PT-IP Treatment Start: 11/01/18 14:12 Freq: NEEDED Status: Active Protocol: Document 11/02/18 10:15 AB (Rec: 11/02/18 13:47 AB [id number]) Physical Therapy Treatment Exercises Exercises Quad Sets Heel Slides Seated Knee Flexion/Extension Education Education Provided Precautions Safety M7 PT-IP Assessment and Plan Start: 11/01/18 14:12 Freq: NEEDED Status: Active Protocol: Document 11/02/18 10:15 AB (Rec: 11/02/18 13:47 AB [id number]) PT Summary Assessment and Plan Potential Rehabilitation Potential Fair Summary Impairments Pain ROM Strength Balance Coordination Sensation Tone Cognition Bed Mobility Transfers Gait Activity Tolerance Progress Towards Goals Slow Progress due to Pain Slow Progress due to Medical Issues Slow Progress due to Activity Tolerance Assessment Summary pt continues to require 2 person assist with mobility. requires increase time to complete all tasks and max cues. pt will need SNF rehab to improve strength and mobility Goals Bed Mobility Goal Contact Guard Assistance Transfer Goal Contact Guard Assistance Front Wheeled Walker Gait Goal Contact Guard Assistance Front Wheel Walker Gait Distance 50 Days to Meet Goals 5 Frequency of Treatment Frequency Of Treatment Twice a Day Treatment Plan Physical Therapy Treatment Plan Bed Mobility Training Transfer Training Gait Training Therapeutic Exercise Balance Retraining Post Op Education Discharge Planning Hot or Cold Pack Neuromuscular Re-ed Coordination Retraining Manual Therapy Recommendations To Nursing Amount of Assist Needed 2 Person Assist Discharge Recommendations PT Discharge Recommendations SNF Rehab
--- NOTE | 2018-11-02 11:33 | CM.DPC ---
Addendum entered by Shayna Eastman LPN 11/02/18 11:47: OF Note: pt's daughter Martina Vasquez, a family practice physician in [place], is identified as the family spokesperson: [phone]. (pt's is in poor health, currently being cared for by family.) Addendum entered by Shayna Eastman LPN 11/02/18 11:44: Did talk with [facility]. She confirms they are anticipating pt's return. She will be on admission phone for the weekend/[facility]. Original Note: DCP: continued: Case received. READMIT NOTED: pt was here after a fall 10/10-10/14/18. She had surgery: ORIF and went to [facility] for rehab/recovery under her Medicare benefit. TAMMY Garay has confirmed the pt intends to return there for rehab when stable for same and [facility] is holding her bed. Discussed case in Team Rounds. PT recommends obtaining OT order/done. INSERTER OPERATOR Leyda noted that pt was scheduled for an OUTPT barium swallow with INSERTER OPERATOR on Monday...She is following to see if this would be better done while pt is an INPT during this stay. She notes she is currently very limited by pain when sitting upright so would make the testing difficult. P: Will be following prn. P: return to [facility] when stable for same.
[2018-11-02] MEDS: BISACODYL 5 MG TABLET 10 MG PO (12:29)
--- NOTE | 2018-11-02 12:45 | PT.IPTN ---
Current Diagnoses Unspecified trochanteric fracture of right femur, initial encounter for closed fracture (10/31/18) Other mechanical complication of other internal orthopedic devices, implants and grafts, initial encounter (10/31/18) Surgery Performed Operation Date: 10/31/18 12:30 Actual Procedures p Hip Hemiarthroplasty w/Removal deep implant(Right) - Don Palacio MD Physical Therapy Treatment Note M2 PT-IP Current Condition Start: 11/01/18 14:12 Freq: NEEDED Status: Active Protocol: Document 11/01/18 12:07 AB (Rec: 11/01/18 14:26 AB [id number]) Physical Therapy Current Condition Current Condition Evaluation Date 11/01/18 Treatment Diagnosis s/p R hip hemiarthroplasty; difficulty in walking Onset Date 10/31/18 Precautions Posterior Hip Precautions No Hip Flexion > 90 degrees No Hip Internal Rotation No Hip Adduction Other Precautions Falls Weight Bearing Status Weight Bearing Status Weight Bear as Tolerated M3 PT-IP Subjective Start: 11/01/18 14:12 Freq: NEEDED Status: Active Protocol: Document 11/02/18 12:45 AB (Rec: 11/02/18 13:57 AB [id number]) Subjective Physical Therapy Visit Type Type Treatment Note Visit Start Time 12:45 Visit Stop Time 13:03 Total Visit Minutes 18 Number of CABIN OUTFITTER Visits 0 Physical Therapy Visit Comments Patient Comments nurse informed that pt requested to use the toilet and go back to bed afterwards. Therapy Pain Assessment Pain When Pain Assessed At Rest Pain Present Pain Present Pain Reported Location Right Hip Intensity 6 Scale Used Numeric (1 - 10) Pain Management Techniques Re-positioning Timing of Activity with Medications M4 PT-IP Mobility and Gait Start: 11/01/18 14:12 Freq: NEEDED Status: Active Protocol: Document 11/02/18 12:45 AB (Rec: 11/02/18 13:57 AB [id number]) PT-Bed Mobility Assessment Sit to Supine Sit to Supine Maximum Assistance 2 Person Assistance PT-Transfer Assessment Sit to and From Stand Sit to and from Stand Moderate Assistance 2 Person Assistance Use of Upper Extremities Equipment Transfer Assistive Device Gait Belt Front Wheeled Walker Orthotic/Prosthetic Devices or Brace: No Transfers Transfer Destination Bed Bedside Commode Transfer Technique Stand Step Pivot Transfer Ability Level of Assist Moderate Assistance 2 Person Assistance Use of Upper Extremities Comments Mobility Comments pt completed sit tos tand from chair requiring mod A x 2 and max cues. requires assistance to bring RLE forward prior to standing and sitting. pt was able to complete sit to stand from the bedside commode mod A x 2 and max cues and maintain standing requiring mod A using FWW for support while assisted with hygiene care. pt then ambulated ~ 3 ft towards the bed using FWW mod A x 2 and max cues. requires assistance with weight shifting and stabilizing RLE. positioned pt in bed. Call light and table placed within reach. M5 PT-IP Objective Assessments Start: 11/01/18 14:12 Freq: NEEDED Status: Active Protocol: Document 11/01/18 12:07 AB (Rec: 11/01/18 14:26 AB [id number]) Orientation Orientation/Cognition Level of Alertness Alert Orientation Name Place Situation Safety Awareness Decreased Safety Awareness Memory Description Short Term Impaired Chcf Impaired Gross Range of Motion Lower Extremity ROM Assessment Right Impaired Impairments RLE tightness during PROM for hip/knee flexion Strength Lower Extremity Strength Assessment Bilaterally Impaired Comments Strength Comments RLE 3-/5 LLE 3+/5 Sensation Assessment Sensation Gross Sensation WNL M6 PT-IP Treatment Start: 11/01/18 14:12 Freq: NEEDED Status: Active Protocol: Document 11/02/18 12:45 AB (Rec: 11/02/18 13:57 AB [id number]) Physical Therapy Treatment Education Education Provided Precautions Safety M7 PT-IP Assessment and Plan Start: 11/01/18 14:12 Freq: NEEDED Status: Active Protocol: Document 11/02/18 12:45 AB (Rec: 11/02/18 13:57 AB [id number]) PT Summary Assessment and Plan Potential Rehabilitation Potential Fair Summary Impairments Pain ROM Strength Balance Coordination Sensation Tone Cognition Bed Mobility Transfers Gait Activity Tolerance Progress Towards Goals Slow Progress due to Pain Slow Progress due to Medical Issues Slow Progress due to Activity Tolerance Assessment Summary pt continues to require 2 person assist with mobility and presents with decrearrse activity tolerance. pt will need SNF rehab to improve strenght and mobility. Goals Bed Mobility Goal Contact Guard Assistance Transfer Goal Contact Guard Assistance Front Wheeled Walker Gait Goal Contact Guard Assistance Front Wheel Walker Gait Distance 50 Days to Meet Goals 5 Frequency of Treatment Frequency Of Treatment Twice a Day Treatment Plan Physical Therapy Treatment Plan Bed Mobility Training Transfer Training Gait Training Therapeutic Exercise Balance Retraining Post Op Education Discharge Planning Hot or Cold Pack Neuromuscular Re-ed Coordination Retraining Manual Therapy Recommendations To Nursing Amount of Assist Needed 2 Person Assist Discharge Recommendations PT Discharge Recommendations SNF Rehab
--- NOTE | 2018-11-02 15:54 | OT.IP.EVAL ---
Current Diagnoses Unspecified trochanteric fracture of right femur, initial encounter for closed fracture (10/31/18) Other mechanical complication of other internal orthopedic devices, implants and grafts, initial encounter (10/31/18) Surgery Performed Operation Date: 10/31/18 12:30 Actual Procedures p Hip Hemiarthroplasty w/Removal deep implant(Right) - Don Palacio MD Past Medical History (Last Reviewed 10/11/18 @ 06:58 by Don Palacio MD) Diverticulosis (Acute) Hallucinations (Acute) Macular degeneration of left eye (Acute) Nephrolithiasis (Acute) Parkinsons (Acute) Scoliosis (Acute) Septicemia (Acute) Surgical History (Last Updated 10/30/18 @ 07:47 by Keke Avina RN) History of cystocele (Acute) History of hip surgery (Acute 10/11/18) History of lithotripsy Status post hysterectomy Status post tonsillectomy and adenoidectomy Status post tubal ligation Occupational Therapy Inpatient Evaluation/Re-Eval M1 PT/OT-IP Prior Functional Status Start: 11/02/18 15:22 Freq: NEEDED Status: Active Protocol: Document 11/02/18 12:47 [facility] (Rec: 11/02/18 15:53 [facility] [id number]) Medical Review Prior Functional Status Medical History Reviewed Yes Communication able to make needs known Mobility and Gait Prior to first hospitalization : pt was independent with all mobilities and ambulation without AD Activities of Daily Living and IADL's Prior to second surgery , pt's doing all IADL needs, and daughter coming to assist with medications and bills. Prior Functional Level (Other details) pt first hospitalized 10/11/18 due to a fall and sustained a R hip fx and underwent ORIF. pt d/c'd to SNF. pt had a hardware failure and had to undergo R hip hemiarthroplasty . Social History Household Members spouse Living Arrangements House Number of Floors (Floors) One Floor Number of Stairs To Enter/Railing? 2 steps without rails but has R side bar by the door Home Environment Standard Height Toilet Walk in Shower Home Equipment Front Wheel Walker Raised Toilet Seat Without Armrests Shower Seat without Backrest Employment Status Retired M2 OT-IP Current Condition Start: 11/02/18 15:22 Freq: Status: Active Protocol: Document 11/02/18 12:47 [facility] (Rec: 11/02/18 15:53 [facility] [id number]) Occupational Therapy Current Condition Current Condition Evaluation Date 11/02/18 Treatment Diagnosis S/p right hip arthroplasty Diagnosis Onset Date 10/31/18 Post Operative Precautions Posterior Hip Precautions No Hip Flexion > 90 degrees No Hip Internal Rotation No Hip Adduction Weight Bearing Status Weight Bearing Status Weight Bear as Tolerated M3 OT- IP Subjective and Pain Start: 11/02/18 15:22 Freq: Status: Active Protocol: Document 11/02/18 12:47 [facility] (Rec: 11/02/18 15:53 [facility] [id number]) OT- Subjective Occupational Therapy Visit Type Type Initial Evaluation Visit Start Time 12:47 Visit Stop Time 13:07 Total Visit Minutes 20 Notes Pt wanting to try to use the BSC. Occupational Therapy Visit Comments Patient Comments Pt wanting to try to use the bathroom. OT Pain Assessment Pain When Pain Assessed During Mobility Pain Present Pain Present Pain Reported M4 OT- IP ADL's Start: 11/02/18 15:22 Freq: Status: Active Protocol: Document 11/02/18 12:47 [facility] (Rec: 11/02/18 15:53 [facility] [id number]) OT ADL-Toileting General Evaluation Toileting Ability Maximum Assistance Areas Needing Assistance Perform Perineal Hygiene Devices Toileting Assistive Devices Commode Comments OT Toileting Comments Two person to come to stand initially and then one perosn to help stand and another for hygiene needs. M5 OT- IP IADL's Start: 11/02/18 15:22 Freq: Status: Active Protocol: Document 11/02/18 12:47 [facility] (Rec: 11/02/18 15:53 [facility] [id number]) OT-Instrumental Activities of Daily Living Medication Management Medication Management Caregiver Administers Money Management Money Management Caregiver Provides Assistance Filament Welder Filament Welder Caregiver Provides Assist M6 OT- IP Functional Cognition Start: 11/02/18 15:22 Freq: Status: Active Protocol: Document 11/02/18 12:47 [facility] (Rec: 11/02/18 15:53 [facility] [id number]) Cognitive Factors Limiting Selfcare Function Cognitive Ability Level of Alertness Alert Patient Orientation Name Attention Span Ability Capable of Focused Attention Capable of Sustained Attention Ability to Follow Commands Able to Follow One Step Commands with Increased Time Able to Follow One Step Commands with Repetition Memory Description Short Term Impaired Safety Awareness Decreased Ability to Apply Precautions Underestimates Need for Assistance Problem Solving Ability Unable to Identify Errors Needs Assist to Identify Solutions Cognitive Comments Cognitive Assessment Comments Pt not able to recall hip precautions and needing assist to help incorporate during toileting and mobility needs. VC for hand placement for transfers. OT- Vision and Hearing OT- Hearing Assessment OT- Hearing Assessment WFL M7 OT- IP Mobility and Balance Start: 11/02/18 15:22 Freq: Status: Active Protocol: Document 11/02/18 12:47 [facility] (Rec: 11/02/18 15:53 [facility] [id number]) OT- Bed Mobility Assessment Sit to Supine Sit to Supine Assist Maximum Assistance 2 Person Assistance OT-Transfer Assessment Sit to and From Stand Sit to and from Stand Moderate Assistance 2 Person Assistance Transfers Transfer Ability Moderate Assistance 2 Person Assistance Technique Transfer Destination Bed Bedside Commode Transfer Technique Stand Step Pivot Devices Transfer Assistive Devices Gait Belt Front Wheeled Walker Comments Mobility Comments Assist for hand placement, assist to come to stand and sit and help with RLE management. OT- Balance Assessment Sitting Balance and Reactions Static Sitting Balance Ability Good Standing Balance and Reactions Static Standing Balance Ability Poor M9 OT- IP Assessment and Plan Start: 11/02/18 15:22 Freq: Status: Active Protocol: Document 11/02/18 12:47 [facility] (Rec: 11/02/18 15:53 [facility] [id number]) OT Summary Assessment and Plan Potential Rehabilitation Potential Good Analytic Complexity at Evaluation Low Summary OT Impairments Pain Strength Balance Functional Cognition Functional Mobility Grooming Dressing Toileting Bathing Toilet Transfers Shower Transfers Progress Towards Goals Slow Progress due to Pain Slow Progress due to Activity Tolerance Slow Progress due to Cognition Assessment Summary Pt low complexity and main barriers are endurance, strength, now needing extensive of two persons for mobility needs. Pt will benefit from skilled rehab at this time. Goals Grooming Goal Standby Assistance Dressing Goal Minimal Assistance Toileting Goal Minimal Assistance Bathing Goal Moderate Assistance Toilet Transfer Goal Minimal Assistance Shower Transfer Goal Moderate Assistance Patient/Caregiver Education Goal Demonstrate Post-Op Precautions Days to Meet Goals 7 Frequency of Treatment Frequency Of Treatment Once a Day Treatment Plan OT Treatment Plan ADL Training Functional Cognition Training Functional Mobility Patient/Family Education Discharge Planning Other Treatment Recommendations and Next Stand at sink from grooming Treatment Focus needs. Practie LB dressing, hip precaution education. Discharge Recommendations OT Discharge Recommendations SNF Rehab
[2018-11-02] MEDS: TRAZODONE 50 MG TABLET PO (21:08)
[2018-11-02] MEDS: SENNOSIDES 8.6 MG TABLET 17.2 MG PO (21:10)
--- NOTE | 2018-11-02 23:55 | PC.NURSE ---
Addendum entered by Winter Cuenca R.N. 11/03/18 06:51: Has been repositioned multiple times in past hour and stating pain is 8/10 although FLACC is 0. Medicated with Oxycodone but refusing ice pack. Addendum entered by Winter Cuenca R.N. 11/03/18 03:47: Complains of pain in right hip, repositioned to left by tilting bed per patient request and medicated with Oxycodone. Addendum entered by Winter Cuenca R.N. 11/02/18 23:59: Fall risk score is high and bed alarm is activated. Original Note: Patient is alert and oriented but drowsy tonight and with flat affect. Breath sounds diminished but RA sat 95%. HRR. Denies nausea. BT present and states she has been passing some flatus. Indwelling catheter patent with clear yellow urine in bag; again requests to wait until after morning therapy before having catheter d'cd. Needing help to reposition in bed. Reportedly gets out of bed with walker and 2 assists and does well although very slow to move. Dressings to right hip intact with noted spots of shadow drainage on Aquacel dressing. CMS is intact. Wearing bilateral SCD's. Denies pain at this time.
[2018-11-03] MEDS: OXYCODONE IR 5 MG TABLET PO ×3 (03:44→21:18)
[2018-11-03 05:50] VITALS: BP 122/57; PULSE 89; RESP 18; TEMP 37.1; O2SAT 94
[2018-11-03] MEDS: CARBIDOPA-LEVODOPA ER 50/200 TABLET 1 EACH PO ×3 (06:44→21:15)
[2018-11-03] MEDS: CARBIDOPA-LEVODOPA 25/100 TABLET 1 EACH PO ×3 (06:44→21:15)
[2018-11-03 07:37] VITALS: BP 109/51; PULSE 86; RESP 14; TEMP 36.9; O2SAT 95
[2018-11-03] MEDS: POLYETHYLENE GLYCOL 3350 17 GM POWD.PACK PO (08:46)
[2018-11-03] MEDS: ACETAMINOPHEN 325 MG TABLET 975 MG PO ×3 (08:46→21:14)
[2018-11-03] MEDS: ASPIRIN EC 81 MG TABLET PO ×2 (08:46→21:14)
[2018-11-03] MEDS: DOCUSATE 100 MG CAPSULE PO (08:46)
--- NOTE | 2018-11-03 10:06 | PM.PNPO.1 ---
Subjective Date Patient Seen: 11/03/18 Time Patient Seen: 10:06 Interval history: Patient is 83 year old female who is POD#3 s/p calcar replacing hemiarthroplasty and ORIF of greater trochanteric fracture with cerclage wire with Dr. Palacio. She continues to have good pain control. She was able to walk 3 feet with 2 person assist yesterday with PT and attempted to use the commode. Patient seems notably apathetic in comparison to yesterday and states she just wants to sleep and for it to go away. Daughter remains present at patient's bedside. Exam Vital Signs (past 8 hours): - 11/03/18 05:50 11/03/18 07:37 Temperature 98.8 F 98.4 F Pulse Rate 89 86 Respiratory Rate 18 14 Blood Pressure 122/57 L 109/51 L Pulse Oximetry 94 95 Oxygen Delivery Method Room Air Oxygen Flow Rate 0 Narrative Exam Narrative: 83 year old female resting in bed. Somewhat somnolent. In no acute distress. Dressing in place is clean, dry, and intact. Neurovascularly intact with soft, compressible calves bilaterally. Objective Labs Result Diagrams: 11/01/18 05:26 Assessment & Plan Post-op Postoperative Procedures Operation Date: 10/31/18 12:30 Actual Procedures Side Surgeon p Hip Hemiarthroplasty w/Removal deep implant Right Don Palacio MD Her recovery has been complicated by difficulty with mobilizing and her history of Parkinsons. Michel remains in place as she is 2 person assist with limited mobility. Recommend she continue to work with PT today. She will need further rehab at SNF and has bed at [facility] but is not ready for discharge today, possible discharge tomorrow. Quality VTE Deep Vein Thrombosis/Pulmonary Embolism Present on Admission: No
--- NOTE | 2018-11-03 11:20 | PT.IPTN ---
Current Diagnoses Unspecified trochanteric fracture of right femur, initial encounter for closed fracture (10/31/18) Other mechanical complication of other internal orthopedic devices, implants and grafts, initial encounter (10/31/18) Surgery Performed Operation Date: 10/31/18 12:30 Actual Procedures p Hip Hemiarthroplasty w/Removal deep implant(Right) - Don Palacio MD Physical Therapy Treatment Note M2 PT-IP Current Condition Start: 11/01/18 14:12 Freq: NEEDED Status: Active Protocol: Document 11/01/18 12:07 AB (Rec: 11/01/18 14:26 AB [id number]) Physical Therapy Current Condition Current Condition Evaluation Date 11/01/18 Treatment Diagnosis s/p R hip hemiarthroplasty; difficulty in walking Onset Date 10/31/18 Precautions Posterior Hip Precautions No Hip Flexion > 90 degrees No Hip Internal Rotation No Hip Adduction Other Precautions Falls Weight Bearing Status Weight Bearing Status Weight Bear as Tolerated M3 PT-IP Subjective Start: 11/01/18 14:12 Freq: NEEDED Status: Active Protocol: Document 11/03/18 11:20 [facility]GD (Rec: 11/03/18 11:49 [facility]GD [id number]) Subjective Physical Therapy Visit Type Type Treatment Note Visit Start Time 10:50 Visit Stop Time 11:20 Total Visit Minutes 30 Number of DATA CENTER PROJECT MANAGER Visits 1 Physical Therapy Visit Comments Patient Comments Pt willing to get out of bed. Therapy Pain Assessment Pain When Pain Assessed At Rest Pain Present Pain Present Pain Reported Location Right Hip Intensity 4 Scale Used Numeric (1 - 10) Pain Management Techniques Re-positioning Timing of Activity with Medications M4 PT-IP Mobility and Gait Start: 11/01/18 14:12 Freq: NEEDED Status: Active Protocol: Document 11/03/18 11:20 [facility] (Rec: 11/03/18 11:49 GGD [id number]) PT-Bed Mobility Assessment Supine to Sit Supine to Sit Moderate Assistance 1 Person Assistance Head of Bed Elevated Scooting Scooting to Edge of Bed Moderate Assistance PT-Transfer Assessment Sit to and From Stand Sit to and from Stand Minimal Assistance 1 Person Assistance Use of Upper Extremities Equipment Transfer Assistive Device Gait Belt Front Wheeled Walker Orthotic/Prosthetic Devices or Brace: No Transfers Transfer Destination Chair Transfer Ability Level of Assist Moderate Assistance 1 Person Assistance Use of Upper Extremities Gait Assessment Gait Gait Assistance Required: Moderate Assistance 1 Person Assist Distance (Feet) 15 Able to Maintain Weight Bearing Status Yes During Gait Assistive Devices Assistive Device Gait Belt Front Wheeled Walker Orthotic/Prosthetic Devices or Brace: No Gait Deviations General Gait Pattern Antalgic Decreased Stride Length Decreased Feet Clearance Step-to Gait Factors Limiting Gait Function Factors Limiting Gait Function Decreased Activity Tolerance Decreased Strength Difficulty Following Directions Limited Range of Motion Pain Poor Balance Poor Safety Awareness M5 PT-IP Objective Assessments Start: 11/01/18 14:12 Freq: NEEDED Status: Active Protocol: Document 11/01/18 12:07 AB (Rec: 11/01/18 14:26 AB [id number]) Orientation Orientation/Cognition Level of Alertness Alert Orientation Name Place Situation Safety Awareness Decreased Safety Awareness Memory Description Short Term Impaired Twister Tender Paper Impaired Gross Range of Motion Lower Extremity ROM Assessment Right Impaired Impairments RLE tightness during PROM for hip/knee flexion Strength Lower Extremity Strength Assessment Bilaterally Impaired Comments Strength Comments RLE 3-/5 LLE 3+/5 Sensation Assessment Sensation Gross Sensation WNL M6 PT-IP Treatment Start: 11/01/18 14:12 Freq: NEEDED Status: Active Protocol: Document 11/03/18 11:20 GGD (Rec: 11/03/18 11:49 GGD [id number]) Physical Therapy Treatment Exercises Exercises Ankle Pumps Gluteal Sets Quad Sets Seated Knee Flexion/Extension Education Education Provided Precautions M7 PT-IP Assessment and Plan Start: 11/01/18 14:12 Freq: NEEDED Status: Active Protocol: Document 11/03/18 11:20 GGD (Rec: 11/03/18 11:49 GGD [id number]) PT Summary Assessment and Plan Summary Assessment Summary Pt improving slowly with mobility. She need mod A with gait. She had decrease weight bearing on R LE with increase in knee flexion. Frequency of Treatment Frequency Of Treatment Twice a Day Treatment Plan Physical Therapy Treatment Plan Bed Mobility Training Transfer Training Gait Training Therapeutic Exercise Balance Retraining Post Op Education Discharge Planning Hot or Cold Pack Neuromuscular Re-ed Coordination Retraining Manual Therapy Recommendations To Nursing Amount of Assist Needed 2 Person Assist Discharge Recommendations PT Discharge Recommendations SNF Rehab
[2018-11-03 11:56] VITALS: BP 89/38; PULSE 92; RESP 16; TEMP 36.9; O2SAT 93
--- NOTE | 2018-11-03 13:50 | PT.IPTN ---
Current Diagnoses Unspecified trochanteric fracture of right femur, initial encounter for closed fracture (10/31/18) Other mechanical complication of other internal orthopedic devices, implants and grafts, initial encounter (10/31/18) Surgery Performed Operation Date: 10/31/18 12:30 Actual Procedures p Hip Hemiarthroplasty w/Removal deep implant(Right) - Don Palacio MD Physical Therapy Treatment Note M2 PT-IP Current Condition Start: 11/01/18 14:12 Freq: NEEDED Status: Active Protocol: Document 11/01/18 12:07 AB (Rec: 11/01/18 14:26 AB [id number]) Physical Therapy Current Condition Current Condition Evaluation Date 11/01/18 Treatment Diagnosis s/p R hip hemiarthroplasty; difficulty in walking Onset Date 10/31/18 Precautions Posterior Hip Precautions No Hip Flexion > 90 degrees No Hip Internal Rotation No Hip Adduction Other Precautions Falls Weight Bearing Status Weight Bearing Status Weight Bear as Tolerated M3 PT-IP Subjective Start: 11/01/18 14:12 Freq: NEEDED Status: Active Protocol: Document 11/03/18 13:50 GGD (Rec: 11/03/18 15:23 GGD [id number]) Subjective Physical Therapy Visit Type Type Treatment Note Visit Start Time 13:25 Visit Stop Time 13:50 Total Visit Minutes 25 Number of AUTOBODY TECHNICIAN Visits 2 Physical Therapy Visit Comments Patient Comments Pt willing to get out of bed. Therapy Pain Assessment Pain When Pain Assessed At Rest Pain Present Pain Present Pain Reported Location Right Hip Intensity 7 Scale Used Numeric (1 - 10) M4 PT-IP Mobility and Gait Start: 11/01/18 14:12 Freq: NEEDED Status: Active Protocol: Document 11/03/18 13:50 GGD (Rec: 11/03/18 15:23 GGD [id number]) PT-Bed Mobility Assessment Sit to Supine Sit to Supine Maximum Assistance 2 Person Assistance PT-Transfer Assessment Sit to and From Stand Sit to and from Stand Minimal Assistance 1 Person Assistance Use of Upper Extremities Equipment Transfer Assistive Device Gait Belt Front Wheeled Walker Orthotic/Prosthetic Devices or Brace: No Transfers Transfer Destination Bed Transfer Ability Level of Assist Moderate Assistance 1 Person Assistance Use of Upper Extremities Gait Assessment Gait Gait Assistance Required: Minimum Assistance 1 Person Assist Distance (Feet) 18 Able to Maintain Weight Bearing Status Yes During Gait Assistive Devices Assistive Device Gait Belt Front Wheeled Walker Orthotic/Prosthetic Devices or Brace: No Gait Deviations General Gait Pattern Antalgic Decreased Stride Length Decreased Feet Clearance Step-to Gait Factors Limiting Gait Function Factors Limiting Gait Function Decreased Activity Tolerance Decreased Strength Difficulty Following Directions Limited Range of Motion Pain Poor Balance Poor Safety Awareness M5 PT-IP Objective Assessments Start: 11/01/18 14:12 Freq: NEEDED Status: Active Protocol: Document 11/01/18 12:07 AB (Rec: 11/01/18 14:26 AB [id number]) Orientation Orientation/Cognition Level of Alertness Alert Orientation Name Place Situation Safety Awareness Decreased Safety Awareness Memory Description Short Term Impaired Process Control Specialist Impaired Gross Range of Motion Lower Extremity ROM Assessment Right Impaired Impairments RLE tightness during PROM for hip/knee flexion Strength Lower Extremity Strength Assessment Bilaterally Impaired Comments Strength Comments RLE 3-/5 LLE 3+/5 Sensation Assessment Sensation Gross Sensation WNL M6 PT-IP Treatment Start: 11/01/18 14:12 Freq: NEEDED Status: Active Protocol: Document 11/03/18 11:20 GGD (Rec: 11/03/18 11:49 GGD [id number]) Physical Therapy Treatment Exercises Exercises Ankle Pumps Gluteal Sets Quad Sets Seated Knee Flexion/Extension Education Education Provided Precautions M7 PT-IP Assessment and Plan Start: 11/01/18 14:12 Freq: NEEDED Status: Active Protocol: Document 11/03/18 13:50 GGD (Rec: 11/03/18 15:23 GGD [id number]) PT Summary Assessment and Plan Summary Assessment Summary Pt improving with is to stand. She need assist with advancement of FWW during gait . She was a max A for bed mobility. Pt will need SNF to improve functional mobility. Frequency of Treatment Frequency Of Treatment Twice a Day Treatment Plan Physical Therapy Treatment Plan Bed Mobility Training Transfer Training Gait Training Therapeutic Exercise Balance Retraining Post Op Education Discharge Planning Hot or Cold Pack Neuromuscular Re-ed Coordination Retraining Manual Therapy Recommendations To Nursing Amount of Assist Needed 2 Person Assist Discharge Recommendations PT Discharge Recommendations SNF Rehab
[2018-11-03] MEDS: BISACODYL 5 MG TABLET 10 MG PO (14:03)
[2018-11-03 16:33] VITALS: BP 137/65; PULSE 91; RESP 15; TEMP 37.4; O2SAT 92
--- NOTE | 2018-11-03 16:42 | OT.IP.TRT ---
Current Diagnoses Unspecified trochanteric fracture of right femur, initial encounter for closed fracture (10/31/18) Other mechanical complication of other internal orthopedic devices, implants and grafts, initial encounter (10/31/18) Surgery Performed Operation Date: 10/31/18 12:30 Actual Procedures p Hip Hemiarthroplasty w/Removal deep implant(Right) - Don Palacio MD Occupational Therapy Treatment Note M2 OT-IP Current Condition Start: 11/02/18 15:22 Freq: Status: Active Protocol: Document 11/02/18 12:47 [facility] (Rec: 11/02/18 15:53 [facility] [id number]) Occupational Therapy Current Condition Current Condition Evaluation Date 11/02/18 Treatment Diagnosis S/p right hip arthroplasty Diagnosis Onset Date 10/31/18 Post Operative Precautions Posterior Hip Precautions No Hip Flexion > 90 degrees No Hip Internal Rotation No Hip Adduction Weight Bearing Status Weight Bearing Status Weight Bear as Tolerated M3 OT- IP Subjective and Pain Start: 11/02/18 15:22 Freq: Status: Active Protocol: Document 11/03/18 16:37 CGR (Rec: 11/03/18 16:42 CGR [id number]) OT- Subjective Occupational Therapy Visit Type Type Treatment Note Visit Start Time 13:30 Visit Stop Time 13:50 Total Visit Minutes 20 Notes Co-treat with P.T. Occupational Therapy Visit Comments Patient Comments Pt states she just wants to get back to bed. OT Pain Assessment Pain When Pain Assessed At Rest Pain Present Pain Present Pain Reported Location Right Hip Intensity 8 Scale Used Numeric (1 - 10) Description Aching Management Techniques Modification of Treatment Timing of Activity with Medications M4 OT- IP ADL's Start: 11/02/18 15:22 Freq: Status: Active Protocol: Document 11/02/18 12:47 [facility] (Rec: 11/02/18 15:53 [facility] [id number]) OT ADL-Toileting General Evaluation Toileting Ability Maximum Assistance Areas Needing Assistance Perform Perineal Hygiene Devices Toileting Assistive Devices Commode Comments OT Toileting Comments Two person to come to stand initially and then one perosn to help stand and another for hygiene needs. M5 OT- IP IADL's Start: 11/02/18 15:22 Freq: Status: Active Protocol: Document 11/02/18 12:47 [facility] (Rec: 11/02/18 15:53 [facility] [id number]) OT-Instrumental Activities of Daily Living Medication Management Medication Management Caregiver Administers Money Management Money Management Caregiver Provides Assistance Risk Management Intern Risk Management Intern Caregiver Provides Assist M6 OT- IP Functional Cognition Start: 11/02/18 15:22 Freq: Status: Active Protocol: Document 11/02/18 12:47 [facility] (Rec: 11/02/18 15:53 [facility] [id number]) Cognitive Factors Limiting Selfcare Function Cognitive Ability Level of Alertness Alert Patient Orientation Name Attention Span Ability Capable of Focused Attention Capable of Sustained Attention Ability to Follow Commands Able to Follow One Step Commands with Increased Time Able to Follow One Step Commands with Repetition Memory Description Short Term Impaired Safety Awareness Decreased Ability to Apply Precautions Underestimates Need for Assistance Problem Solving Ability Unable to Identify Errors Needs Assist to Identify Solutions Cognitive Comments Cognitive Assessment Comments Pt not able to recall hip precautions and needing assist to help incorporate during toileting and mobility needs. VC for hand placement for transfers. OT- Vision and Hearing OT- Hearing Assessment OT- Hearing Assessment WFL M7 OT- IP Mobility and Balance Start: 11/02/18 15:22 Freq: Status: Active Protocol: Document 11/03/18 16:37 CGR (Rec: 11/03/18 16:42 CGR [id number]) OT- Bed Mobility Assessment Sit to Supine Sit to Supine Assist Maximum Assistance 2 Person Assistance Scooting Scooting to Edge of Bed Maximum Assistance 2 Person Assistance OT-Transfer Assessment Sit to and From Stand Sit to and from Stand Minimal Assistance Transfers Transfer Ability Minimal Assistance Technique Transfer Destination Bed Bedside Commode Devices Transfer Assistive Devices Gait Belt Front Wheeled Walker Comments Mobility Comments Pt ambualted from BSC on one side of the bed to the other side of the bed. OT- Gait Assessment Gait Gait Assistance Required: Minimum Assistance Assistive Devices Assistive Device Gait Belt Front Wheeled Walker OT- Balance Assessment Sitting Balance and Reactions Static Sitting Balance Ability Fair Dynamic Sitting Balance Ability Fair M9 OT- IP Assessment and Plan Start: 11/02/18 15:22 Freq: Status: Active Protocol: Document 11/03/18 16:37 CGR (Rec: 11/03/18 16:42 CGR [id number]) OT Summary Assessment and Plan Potential Rehabilitation Potential Good Summary OT Impairments Pain Strength Balance Functional Cognition Functional Mobility Grooming Dressing Toileting Bathing Toilet Transfers Shower Transfers Progress Towards Goals Slow Progress due to Pain Slow Progress due to Activity Tolerance Slow Progress due to Cognition Assessment Summary Pt with limited activity on this day with OT. Pt declined all self care but daughter states that pt brushed her teeth this morning. Pt will continue to benefit from OT servicdes. Goals Grooming Goal Standby Assistance Dressing Goal Minimal Assistance Toileting Goal Minimal Assistance Bathing Goal Moderate Assistance Toilet Transfer Goal Minimal Assistance Shower Transfer Goal Moderate Assistance Patient/Caregiver Education Goal Demonstrate Post-Op Precautions Days to Meet Goals 6 Frequency of Treatment Frequency Of Treatment Once a Day Treatment Plan OT Treatment Plan ADL Training Functional Cognition Training Functional Mobility Patient/Family Education Discharge Planning Other Treatment Recommendations and Next Stand at sink from grooming Treatment Focus needs. Practie LB dressing, hip precaution education. Discharge Recommendations OT Discharge Recommendations SNF Rehab
[2018-11-03 21:14] VITALS: BP 117/56; PULSE 90; RESP 16; TEMP 37.1; O2SAT 95
[2018-11-03] MEDS: TRAZODONE 50 MG TABLET PO (21:15)
[2018-11-04 00:28] VITALS: BP 121/57; PULSE 87; RESP 16; TEMP 36.8; O2SAT 92
--- NOTE | 2018-11-04 00:48 | PC.NURSE ---
Addendum entered by Winter Cuenca R.N. 11/04/18 06:37: States don't feel well but unable to give any specifics. Did state pain is 5/10 when asked so medicated with Oxycodone and given dereck lexii for slight nausea which she admitted to when asked. Needy behavior this morning, using call light frequently to have staff raise/lower head and/or readjust position slightly. Addendum entered by Winter Cuenca R.N. 11/04/18 03:28: After getting back to bed states pain is 3/10 so medicated with Oxycodone. Addendum entered by Winter Cuenca R.N. 11/04/18 03:27: Up to BS with walker and 2 assist although not needing much physical support but is very slow in moving. Had BM/urine mix. Bladder scan showing only 81ml in bladder post void Original Note: Patient is alert and oriented. Breath sounds diminished but CTA with RA sat of 92%; mouth breathes when asleep. HRR. Denies nausea. BT present and had BM on previous shift. Catheter removed yesterday with only small voids after so was bladder scanned for >400cc on previous shift and required straight cath for 650cc urine; continuing to monitor. Needing help to reposition q2h as patient does not move herself. Dressings intact with no new drainage noted. CMS intact. Wearing bilateral SCD's. Denies pain. Fall risk score is high and bed alarm is activated.
[2018-11-04] MEDS: OXYCODONE IR 5 MG TABLET PO ×2 (03:24→06:34)
[2018-11-04] MEDS: CARBIDOPA-LEVODOPA 25/100 TABLET 1 EACH PO (06:35)
[2018-11-04] MEDS: CARBIDOPA-LEVODOPA ER 50/200 TABLET 1 EACH PO (06:35)
[2018-11-04 08:00] VITALS: BP 110/51; PULSE 89; RESP 14; TEMP 36.8; O2SAT 92
[2018-11-04] MEDS: ACETAMINOPHEN 325 MG TABLET 975 MG PO (09:27)
[2018-11-04] MEDS: ASPIRIN EC 81 MG TABLET PO (09:35)
--- NOTE | 2018-11-04 11:21 | PT.IPTN ---
Current Diagnoses Unspecified trochanteric fracture of right femur, initial encounter for closed fracture (10/31/18) Other mechanical complication of other internal orthopedic devices, implants and grafts, initial encounter (10/31/18) Surgery Performed Operation Date: 10/31/18 12:30 Actual Procedures p Hip Hemiarthroplasty w/Removal deep implant(Right) - Don Palacio MD Physical Therapy Treatment Note M2 PT-IP Current Condition Start: 11/01/18 14:12 Freq: NEEDED Status: Active Protocol: Document 11/01/18 12:07 AB (Rec: 11/01/18 14:26 AB [id number]) Physical Therapy Current Condition Current Condition Evaluation Date 11/01/18 Treatment Diagnosis s/p R hip hemiarthroplasty; difficulty in walking Onset Date 10/31/18 Precautions Posterior Hip Precautions No Hip Flexion > 90 degrees No Hip Internal Rotation No Hip Adduction Other Precautions Falls Weight Bearing Status Weight Bearing Status Weight Bear as Tolerated M3 PT-IP Subjective Start: 11/01/18 14:12 Freq: NEEDED Status: Active Protocol: Document 11/04/18 10:10 CLB (Rec: 11/04/18 11:20 CLB [id number]) Subjective Physical Therapy Visit Type Type Treatment Note Visit Start Time 10:10 Visit Stop Time 10:55 Total Visit Minutes 30 Notes Split treatment, ambulated pt to shower 10:10-10:30, then returned to assist HOSPITALIST PROGRAM DIRECTOR transfer pt to chair from shower from 10:45-10:55. Physical Therapy Visit Comments Patient Comments Pt wanting to take shower. Therapy Pain Assessment Pain When Pain Assessed At Rest Pain Present Pain Present Pain Reported Location Right Hip Intensity 4 Scale Used Numeric (1 - 10) Pain Management Techniques Re-positioning Timing of Activity with Medications M4 PT-IP Mobility and Gait Start: 11/01/18 14:12 Freq: NEEDED Status: Active Protocol: Document 11/04/18 10:10 CLB (Rec: 11/04/18 11:20 CLB [id number]) PT-Bed Mobility Assessment Supine to Sit Supine to Sit Moderate Assistance 1 Person Assistance Head of Bed Elevated Scooting Scooting to Edge of Bed Maximum Assistance PT-Transfer Assessment Sit to and From Stand Sit to and from Stand Minimal Assistance 1 Person Assistance Use of Upper Extremities Equipment Transfer Assistive Device Gait Belt Front Wheeled Walker Orthotic/Prosthetic Devices or Brace: No Transfers Transfer Destination Chair Toilet Bedside Commode Transfer Ability Level of Assist Moderate Assistance 1 Person Assistance Use of Upper Extremities Gait Assessment Gait Gait Assistance Required: Minimum Assistance 2 Person Assist Distance (Feet) 15 Able to Maintain Weight Bearing Status Yes During Gait Assistive Devices Assistive Device Gait Belt Front Wheeled Walker Orthotic/Prosthetic Devices or Brace: No Gait Deviations General Gait Pattern Antalgic Decreased Stride Length Decreased Feet Clearance Step-to Gait Factors Limiting Gait Function Factors Limiting Gait Function Decreased Activity Tolerance Decreased Strength Difficulty Following Directions Limited Range of Motion Pain Poor Balance Poor Safety Awareness Comments Gait Comments Pt with increased fatigue today requiring Min A x2 with verbal cues for step sequencing and walker management. M5 PT-IP Objective Assessments Start: 11/01/18 14:12 Freq: NEEDED Status: Active Protocol: Document 11/01/18 12:07 AB (Rec: 11/01/18 14:26 AB [id number]) Orientation Orientation/Cognition Level of Alertness Alert Orientation Name Place Situation Safety Awareness Decreased Safety Awareness Memory Description Short Term Impaired Health Education Teacher Impaired Gross Range of Motion Lower Extremity ROM Assessment Right Impaired Impairments RLE tightness during PROM for hip/knee flexion Strength Lower Extremity Strength Assessment Bilaterally Impaired Comments Strength Comments RLE 3-/5 LLE 3+/5 Sensation Assessment Sensation Gross Sensation WNL M6 PT-IP Treatment Start: 11/01/18 14:12 Freq: NEEDED Status: Active Protocol: Document 11/03/18 11:20 GGD (Rec: 11/03/18 11:49 GGD [id number]) Physical Therapy Treatment Exercises Exercises Ankle Pumps Gluteal Sets Quad Sets Seated Knee Flexion/Extension Education Education Provided Precautions M7 PT-IP Assessment and Plan Start: 11/01/18 14:12 Freq: NEEDED Status: Active Protocol: Document 11/04/18 10:10 CLB (Rec: 11/04/18 11:20 CLB [id number]) PT Summary Assessment and Plan Summary Impairments Pain ROM Strength Balance Coordination Sensation Tone Cognition Bed Mobility Transfers Gait Activity Tolerance Progress Towards Goals Slow Progress due to Pain Slow Progress due to Activity Tolerance Assessment Summary Pt ambulated towards shower but was unable to stand pivot onto [facility] into shower area. Pt required two person assist to sit on toilet for rest before squat pivot transfer to [facility]. Pt able to ambulate ~3ft after shower to get to doorway of BR and sit in recliner that was moved close to BR door. Pt was then moved into place beside bed, reclined with pillow under lower legs and rolled blanket between legs to prevent crossing, alarm on and daughter present. Goals Bed Mobility Goal Contact Guard Assistance Transfer Goal Contact Guard Assistance Front Wheeled Walker Gait Goal Contact Guard Assistance Front Wheel Walker Gait Distance 50 Days to Meet Goals 5 Frequency of Treatment Frequency Of Treatment Twice a Day Treatment Plan Physical Therapy Treatment Plan Bed Mobility Training Transfer Training Gait Training Therapeutic Exercise Balance Retraining Post Op Education Discharge Planning Hot or Cold Pack Neuromuscular Re-ed Coordination Retraining Manual Therapy Recommendations To Nursing Amount of Assist Needed 2 Person Assist Discharge Recommendations PT Discharge Recommendations SNF Rehab
--- NOTE | 2018-11-04 11:28 | PM.PN.1 ---
Exam Vital Signs (past 8 hours): - 11/04/18 08:00 Temperature 98.3 F Pulse Rate 89 Respiratory Rate 14 Blood Pressure 110/51 L Pulse Oximetry 92 Oxygen Delivery Method Room Air Oxygen Flow Rate 0 Objective Labs Result Diagrams: 11/01/18 05:26 Assessment & Plan Assessment & Plan narrative: Patient is admitted after surgery with Dr. Palacio revision hip fx. Patient has been stable and progressing with physical therapy. Patient is neurovascularly intact on exam. Patient has no signs or symptoms of DVT. Patient's dressing is clean dry and intact. I discussed at length with family her prognosis and precautions. She is cleared to be transferred to SNF today. I answered all of family's questions. Quality VTE Deep Vein Thrombosis/Pulmonary Embolism Present on Admission: No
--- NOTE | 2018-11-04 12:09 | CM.DPC ---
DCP Discharge SNF Per Ortho MD, pt medically stable to d/c to SNF today and signed med rec and printed scripts. SW called [facility] and confirmed that they can accept pt back today and still no PASRR needed as pt is a return and request bead picker at 1230. RADHA faxed d/c note, signed med rec, script to [facility] admissions to review. RADHA met bedside with pt, spouse, 2 adult Dtrs and 1 adult son and explained role and they confirm that they are still agreeable with pt d/c back to [facility] for ongoing rehab. Pt finishing her lunch and family will help to carry over pt's belongings and meet her at [facility]. RADHA updated RN, APPLIANCE TECHNICIAN, budget analyst with pt d/c. Plan: Patient to d/c back to [facility] today via w/c van at 1230. STANLEY Torres
--- NOTE | 2018-11-04 12:18 | PC.NURSE ---
Addendum entered by Rosanne Andino R.N. 11/04/18 12:58: pt left unit at 1255 in no distress, only tired. Addendum entered by Rosanne Andino R.N. 11/04/18 12:55: Pt bladder scanned at 1235 for approx 494mls, Assisted pt to BS with 2PA, pt transferred fair using gait belt and walker. Voided 325mls of anitha urine. Pt then transferred to transport wheelchair. Olivier with transport present to take p back to [facility], pt's 2 daughters at side, all belongings collected. Addendum entered by Rosanne Andino R.N. 11/04/18 12:27: Report called to Ashley at [facility] at 1220. Aware of urinary retention and dressing status, Dr. Gordon stated ok for dressing to stay if not compromised. Original Note: Day Shift- Spoke with Dr. Gordon around 1105, okay with urinary straight catheter if greater than 400mls prior to transfer to SNF today. Right hip aquacel dressing clean, dry, intact, proximal edge of the corners of dressing are rolled, dressing not compromised. Family at bedside, 2 daughters, aware of discharge to [facility] around 1230 case picker.
--- NOTE | 2018-11-10 10:46 | PM.DS.1 ---
History of Present Illness Date Patient Seen: 11/04/18 Time Patient Seen: 10:47 Chief complaint: [id number] RIGHT DEEP IMPLANT REMOVAL Narrative: Please see HPI in chart. Discharge Providers Date of admission: 10/31/18 10:17 Discharge Date: 11/04/18 Primary care physician: Jw Nieves MD Consults: 10/31/18 16:56 Consult to Discharge Planning Routine Comment: Consult to Physical Therapy Evaluate & Treat Comment: Physician Instructions: post op [place] protocol 11/02/18 11:32 Consult to Occupational Therapy Evaluate & Treat Comment: as per P.T. recommendation Physician Instructions: Evaluate and treat Discharge provider: Gail Apple PA-C Summary Discharge Diagnosis: s/p calcar replacing hemiarthroplasty Hospital Course: The patient is an 83-year-old woman who approximately 3 weeks ago underwent a fixation of a proximal femoral fracture with an intramedullary hip screw. She went on to have failure of this construct with the screw cutting out from the femoral head. She has agreed to revision to a calcar replacing hemiarthroplasty after discussion the risks benefits and alternatives. Risks discussed included but were not limited to: Failure to improve pain, failure to improve functional ability, leg length discrepancy, instability, infection, nerve damage, deep venous thrombosis, pulmonary embolism, stroke, myocardial infarction, permanent paralysis and . Status at Discharge Cognitive/behavioral status at discharge: oriented Functional status at discharge: uses cane/walker Overall status at discharge: patient is progressing back to baseline Exam Vital Signs (past 8 hours): Oxygen Delivery Method Room Air Oxygen Flow Rate 0 Narrative Exam Narrative: Patient is neurovascularly intact on exam. Patient has no signs or symptoms of DVT. Patient's dressing is clean dry and intact. Objective Labs Result Diagrams: 11/01/18 05:26 Discharge Plan Discharge Plan Patient Disposition: SNF Transfer to: [facility] Transportation: Facility vehicle Consult as needed: Dental, Hearing, Mental health, Podiatry and Vision I certify the postop hospital custodial care is medically necessary on a continuing basis for any conditions for which he/ she received care during this hospitalization.: Yes The receiving facility has agreed to accept transfer and provide medical treatment.: Yes Discharge Med Rec/Prescriptions Prescriptions: New aspirin 81 mg Tablet,Delayed Release (Dr/Ec) 81 mg PO BID Qty: 60 RF: 0 oxycodone 5 mg Tablet 5 mg PO Q4-6H PRN (Reason: Pain, Moderate (4-6)) Qty: 40 RF: 0 Continued carbidopa-levodopa 25 MG/100 MG tablet 1 tab PO TID Qty: 0 RF: 0 carbidopa-levodopa 50-200 mg tablet extended release 1 tab PO TID RF: 0 trazodone 50 mg tablet 50 mg PO BEDTIME PRN (Reason: Sleep) RF: 0 tramadol 50 mg Tablet 50 mg PO Q4HR PRN (Reason: Pain, Moderate (4-6)) Qty: 30 RF: 0 sennosides [senna] 8.6 mg Tablet 17.2 mg PO BEDTIME PRN (Reason: Constipation) Qty: 30 RF: 0 polyethylene glycol 3350 17 gram Powder In Packet 17 gm PO DAILY Qty: 30 RF: 0 bisacodyl 10 mg Suppository 10 mg TN BID PRN (Reason: Constipation) Qty: 10 RF: 0 docusate sodium [DOK] 100 mg Capsule 100 mg PO BID Qty: 60 RF: 0 acetaminophen 325 mg Tablet 975 mg PO TID Qty: 90 RF: 0 Follow up/Referrals: Jw Nieves MD [Primary Care Provider] - Don Palacio MD [Physician] - Discharge Health Status Multidrug resistant organism: No MDRO Precautions: [place] Provider Discharge Instructions Diet: Diet as Tolerated and Regular Liquid consistency: Normal/Thin Food texture: Regular Activity: Weight bear as tolerated Cold/Heat Therapy: Ice packs as needed Catheter: 2-way Michel Catheter comment: Straight catheter if volume greater than 400mls Skin/Wound/Dressing Care Report to your healthcare provider any signs of infection, such as:: chills, fever, unusual drainage and unusual redness Dressing: Leave Aquacel dressing in place until 2 week post operative visit. May be changed if soiled. Special Rehabilitation Services Reason for rehabilitation: Post-operative therapy Rehab type: Physical therapy and Occupational therapy Restrictions to mobility: Posterior hip precautions Visit Report/Discharge Packet Instructions: DI for Hip Replacement, How to Prevent Falls Discharge Data Primary Care Provider: Jw Nieves Attending Provider: Don Palacio Admit Date/Time: 10/31/18 10:17 Discharges patient from system. Discharge Date/Time: 11/04/18 12:55 Quality VTE Deep Vein Thrombosis/Pulmonary Embolism Present on Admission: No
== END 2018-11-04 12:55 | DRG 470 ==
PROVIDERS: Anesthesiology; Admitting Provider Orthopaedic Surgery; Family Provider Family Medicine; PCP Family Medicine; Visit Provider Orthopaedic Surgery
PROC: 0SRR0JZ Replacement of Right Hip Joint, Femoral Surface with Synthetic Substitute, Open Approach (ICD-10-PCS; CPT 27125; principal; 2018-10-31 12:30)
DX: T84.124A Displacement of internal fixation device of right femur, initial encounter (principal); G20 Parkinson's disease; S72.101D Unspecified trochanteric fracture of right femur, subsequent encounter for closed fracture with routine healing
CPT/HCPCS: 36415; 73501; 85014; 85018; 86850; 86900; 86901; 97116; 97162; 97165; 97530; C1776; C9290; J1100; J1170; J2405; J2704; J3010; J3370

== ENCOUNTER → 2018-11-13 11:53 | Outpatient (ROUT) | payer MEDICARE, SELFPAY ==
[2018-10-31 16:57] VITALS: BMI 22.4
== END ==
PROVIDERS: Family Provider Family Medicine; PCP Family Medicine; Visit Provider Internal Medicine

== ENCOUNTER → 2018-11-23 09:26 | Outpatient (CLI) | payer MEDICARE, SELFPAY ==
[2018-10-31 16:57] VITALS: BMI 22.4
--- NOTE | 2018-11-23 | DI.RAD.S_ITS ---
PROCEDURE: FL BARIUM SWALLOW W SPEECH INDICATIONS: DYSPHAGIA TECHNIQUE: Examination was conducted in conjunction with speech pathology per standard protocol. In the lateral projection, filming was performed of the patient swallowing. AP projection filming may also be performed with patient swallowing. COMPARISON: None. FINDINGS: Function: The oral preparatory phase appears normal, with proper containment. The subsequent oral propulsive phase, pharyngeal phase, and esophageal phase of swallowing also appear normal with all proffered substances. Mild amount of residue is seen collecting at the level of the vallecula. No laryngotracheal penetration or aspiration. No pathologic vallecular pooling. Morphology: No cricopharyngeal bar is identified. No cervical esophageal webs. No Zenker's diverticulum. No strictures. IMPRESSION: Mild amount of residue. No aspiration or penetration is seen during the study. Please refer to speech pathology notes for details. Dictated by: Blane Archer M.D. on 11/23/2018 at 10:58 Approved by: Blane Archer M.D. on 11/23/2018 at 10:59
--- NOTE | 2018-11-23 15:05 | ST.SWALLOW ---
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 Swift is a 83 year old female resident of [facility] with a medical history significant for Parkinson's (2016), scoliosis, diverticulosis of intestine, macular degeneration and age- related osteoporosis with recent right femur fracture for which she was hospitalized twice. Subjective Observations Mrs. Swift was accompanied by LEONOR Collazo at [facility]. Anjali reports Mrs Aris Swift presents with occasional s/sx of aspiration during meals, but notes these have decreased in frequency since she returned from her second hospitalization. Mrs. Swift was cooperative and responded appropriately to questions. Patient Positioning Position View Lateral Imaging Lateral View Textures Administered Trials Presented Thin Liquid via Spoon Thin Liquid via Cup [place] Liquid via Spoon [place] Liquid via Cup Honey Liquid via Spoon Pudding Thick Liquid via Spoon Regular Textures Oral Phase Source: MBSIMP (TM) (C) Bolus Specific Scoring Grid Lip Closure No Impairment (WNL) Tongue Control During Bolus Hold No Impairment (WNL) Bolus Prep/Mastication Mild Impairment Bolus Transport/Lingual Motion Mild Impairment Oral Residue Mild Impairment Additional Oral Phase Observations Observed slow prolonged chewing/mashing with complete re-collection of 1/2 shortbread cookie coated with barium. Lingual motion was repetitive/disorganized during bolus transport of honey thick and pudding thick barium . A collection of oral residue with shortbread cookie was observed following completion of the first swallow, but residue diminished in amount after second swallow which patient implemented without being cued. Initiation of the pharyngeal swallow was on brisk and on time for all consistencies trialed. Pharyngeal Phase Source: MBSIMP (TM) (C) Bolus Specific Scoring Grid Soft Palate Elevation No Impairment (WNL) Tongue Base Strength/Range of Motion No Impairment (WNL) Laryngeal Elevation No Impairment (WNL) Anterior Hyoid Movement Mild Impairment Epiglottic Range of Motion Moderate Impairment Laryngeal Vestibular Closure No Impairment (WNL) Pharyngeal Stripping Wave No Impairment (WNL) Upper Esophageal Sphincter Opening Mild Impairment Additional Pharyngeal Phase Observations Anterior hyoid excursion and epiglottic inversion were both incomplete. Additionally, pharyngoesophageal segment distension was partial. As a result, a collection of residue in the vallecula and pyriform sinues as well as trace residue along the pharyngel wall, tongue base and aryepiglottic folds was present following most trials. A second dry swallow was successful in decreasing amount of residue, but did not clear residue fully. Laryngeal vestibular closure was complete and no penetration or aspiration were observed during the test. (PA Scale Score 1). A/P View Esophageal Observations Esophageal Function Not viewed Clinical Impressions Dysphagia Type Oropharyngeal Findings Mild-moderate oropharyngeal dysphagia characterized by disorganized tongue motion, oral residue, reduced anterior hyoid excursion and epiglottic movement, and diffuse pharyngeal residue. Airway protection was adequate with complete laryngeal vestibular closure. No penetration or aspiration observed during the test, however, presence and amount of residue post-swallow increases risk for aspiration. Recommend double swallow and small bites/sips during meals. Pharyngeal strengthening exercises such as edward, effortful, and shaker are recommended to improve pharyngeal function if patient can participate. Rehabilitation Potential Good Patient Appropriate for Therapy Yes Recommendations Diet Liquids Order Thin Diet Order Regular Medication Recommendation As Tolerated Additional Dietary Needs Reminders to Use Strategies Aspiration Precautions Recommended Precautions Upright at 90 Degrees Small Bites/Sips Double Swallow Treatment Plan Therapy Recommendations Compensatory Strategy Education Additional Therapy Recommendations Exercises listed above as able
== END ==
PROVIDERS: Family Provider Family Medicine; PCP Family Medicine; Visit Provider Internal Medicine
DX: R13.10 Dysphagia, unspecified (principal)
CPT/HCPCS: 74230; 92611

== ENCOUNTER → 2018-11-29 14:12 | Outpatient (CLI) | payer MEDICARE, SELFPAY ==
[2018-10-31 16:57] VITALS: BMI 22.4
--- NOTE | 2018-11-29 14:18 | DI.CT.S_ITS ---
PROCEDURE: CT HEAD/BRAIN WO CON INDICATIONS: STATUS POST FALL TECHNIQUE: Noncontrast 4.5 mm thick angled axial sections acquired from the foramen magnum to the vertex, with coronal and sagittal reformats. For radiation dose reduction, the following was used: automated exposure control, adjustment of mA and/or kV according to patient size. COMPARISON: [facility], CT, HEAD WITHOUT CONTRAST, 06/26/2013, 18:20. FINDINGS: Image quality: Excellent. CSF spaces: Basal cisterns are patent. No extra-axial fluid collections. The ventricles are symmetric in size and shape. Brain: No intracranial bleeds or masses. There is cerebral volume loss for age, with resultant ventricular and sulcal prominence. There are periventricular and deep white matter chronic small vessel ischemic changes. There is intracranial internal carotid artery atherosclerosis. Skull and face: Calvarium and visualized facial bones appear intact, without suspicious lesions. Sinuses: Visualized sinuses and mastoids are clear. IMPRESSION: No trauma found, mild microvascular atherosclerotic change in the deep white matter of each hemisphere. Dictated by: Vincenzo Jarvis M.D. on 11/29/2018 at 16:11 Approved by: Vincenzo Jarvis M.D. on 11/29/2018 at 16:12
== END ==
PROVIDERS: PCP Family Medicine; Visit Provider Nurse Practitioner Family
DX: Z91.81 History of falling (principal); G20 Parkinson's disease; I65.29 Occlusion and stenosis of unspecified carotid artery; M51.9 Unspecified thoracic, thoracolumbar and lumbosacral intervertebral disc disorder; M80.051D Age-related osteoporosis with current pathological fracture, right femur, subsequent encounter for fracture with routine healing; T84.11 Breakdown (mechanical) of internal fixation device of bones of limb; H35.30 Unspecified macular degeneration; K57.90 Diverticulosis of intestine, part unspecified, without perforation or abscess without bleeding; K59.09 Other constipation; G47.00 Insomnia, unspecified
CPT/HCPCS: 70450

== ENCOUNTER 2018-12-09 13:37 | Emergency (ER) | payer MEDICARE, SELFPAY ==
[2018-10-31 16:57] VITALS: BMI 22.4
--- NOTE | 2018-12-09 13:46 | DI.RAD.S_ITS ---
PROCEDURE: XR HIP W PEL IF DONE RT 2V INDICATIONS: increasing right hip pain, s/p repair x 2 last month TECHNIQUE: 2 views of the hip were acquired. COMPARISON: [facility], CT, CT ABDOMEN PELVIS W CON, 10/20/2017, 20:47. [facility], CR, XR HIP W PEL IF DONE RT 2V, 10/10/2018, 20:54. FINDINGS: Bones: Post surgical changes related to a right hip arthroplasty are present. No acute fracture or dislocation is evident. Increasing/developing dystrophic calcifications about the proximal femur is present. Moderate degenerative changes of the lower lumbar spine and pubis symphysis are present. There mild degenerative changes of the left hip. Soft tissues: No suspicious soft tissue calcifications or masses. Foci of high attenuation within the pelvis are not present on the prior study and are felt to represent high attenuation material within the bowel, possibly residing within distal colonic diverticuli. Moderate residual stool is seen within the pelvis. Multiple renal calculi are evident on the right, similar to the prior CT. IMPRESSION: 1. No acute right hip fracture. 2. Right hip arthroplasty changes. Increasing/developing dystrophic calcifications along the proximal femur are present. Dictated by: Sim De Los Santos M.D. on 12/09/2018 at 13:08 Approved by: Sim De Los Santos M.D. on 12/09/2018 at 13:12
[2018-12-09 13:47] VITALS: BP 130/38; PULSE 88; RESP 18; TEMP 36.9; O2SAT 97; BMI 28.7
--- NOTE | 2018-12-09 13:50 | ED.LOWEXIN ---
HPI - Extremity Injury (Lower) General Chief Complaint: Extremity Injury, Lower Stated Complaint: Post hip surgery, pain R hip Time Seen by Provider: 12/09/18 13:46 Source: patient, EMS and old records reviewed Mode of arrival: EMS Limitations: no limitations History of Present Illness HPI Narrative: This is an 83-year-old female comes to the emergency department with complaint of increasing pain in her right hip. Patient was seen in early October had an intramedullary hip screw, subsequently had failure and then required demond arthroplasty. [facility] She states over the past 24-48 hours she has had increasing pain in that hip she has not had any fever she is aware of. She does have a hematoma. She is unsure if it has increased in size. She does feel like that leg is shorter than the other 1. She states she does not know if that is new or present since her last surgery. She denies any shortness of breath, no chest pain or pressure, no nausea no vomiting no diarrhea. She chronically has constipation, she is passing gas regularly. No urinary symptoms. No swelling, no tingling or numbness down the right lower extremity. She states lying flat in the bed her chest pain is only 1 or 2/10, when she tries to ambulate it is increased. She has been ambulating with a walker. She has been taking tramadol for pain. Related Data Home Medications Medication Instructions Recorded Confirmed carbidopa-levodopa 1 tab PO TID #0 12/31/15 10/31/18 carbidopa-levodopa 1 tab PO TID 10/10/18 10/31/18 trazodone 50 mg PO BEDTIME PRN 10/10/18 10/31/18 Previous Rx's Medication Instructions Recorded acetaminophen 975 mg PO TID #90 tab 10/14/18 bisacodyl 10 mg DC BID PRN #10 ea 10/14/18 docusate sodium [DOK] 100 mg PO BID #60 cap 10/14/18 polyethylene glycol 3350 17 gm PO DAILY #30 ea 10/14/18 sennosides [senna] 17.2 mg PO BEDTIME PRN #30 tab 10/14/18 tramadol 50 mg PO Q4HR PRN #30 tab 10/14/18 aspirin 81 mg PO BID #60 tab 11/03/18 oxycodone 5 mg PO Q4-6H PRN #40 tab 11/03/18 hydrocodone-acetaminophen [Kanona] 1 tab PO Q6H PRN #10 tab 12/09/18 Allergies Allergy/AdvReac Type Severity Reaction Status Date / Time Penicillins [PENICILLINS] Allergy Unknown Verified 12/09/18 13:51 Review of Systems Review of Systems ROS Unobtainable: All systems reviewed & are unremarkable except as noted in HPI and below Constitutional Denies chills, Denies fever(s), Denies lethargy and Denies weakness Cardiovascular Denies chest pain, Denies dyspnea and Denies dyspnea on exertion Respiratory Denies chest congestion, Denies cough, Denies dyspnea and Denies dyspnea on exertion Gastrointestinal Gastrointestinal: Denies abdominal pain, Denies change in bowel habits, Reports constipation, Denies diarrhea, Denies nausea and Denies vomiting Genitourinary Denies hematuria, Denies dysuria, Denies flank pain and Denies urinary urgency Musculoskeletal Reports as per HPI, Reports abnormal gait, Reports arthralgias (Right hip), Reports limited range of motion, Denies muscle weakness, Denies numbness and Denies tingling Integumentary/Breasts Reports unusual bruising (Hematoma) Neurologic Reports abnormal gait, Denies numbness, Denies tingling and Denies weakness [facility] Medical History Diverticulosis (Acute) Hallucinations (Acute) Macular degeneration of left eye (Acute) Nephrolithiasis (Acute) Parkinsons (Acute) Scoliosis (Acute) Septicemia (Acute) Surgical History History of cystocele (Acute) History of hip surgery (Acute 10/11/18) History of lithotripsy Status post hysterectomy Status post tonsillectomy and adenoidectomy Status post tubal ligation Family History Grandfather Diabetes mellitus Mother Heart disease Stroke Father Parkinsons Social History household members: spouse Smoking Status: Never smoker alcohol intake: current Family History Grandfather Diabetes mellitus Mother Heart disease Stroke Father Parkinsons Social History household members: spouse Smoking Status: Never smoker alcohol intake: current Exam Narrative Exam Narrative: GENERAL: Alert and oriented x three, well-nourished, well-appearing female in mild distress. HEENT: Head normocephalic, atraumatic, EOMI, pupils reactive, face symmetric, moist mucous membranes NECK: Supple, full range of motion CARDIOVASCULAR: Regular rate and rhythm without murmurs, rubs or gallops. RESPIRATORY: Breath sounds equal bilaterally, no wheezes rales or rhonchi. ABDOMEN: Soft, nontender. Normoactive bowel sounds all 4 quadrants. No guarding or rebound, rigidity, no mass : No CVA tenderness EXTREMITIES: Normal range of motion, no clubbing or edema. Neurovascularly intact. Patient's right lower extremity is shorter than the left. She is able to flex at the hip as well as light her leg straight without any major issue, she does not have any significant bony tenderness with palpation. She does have a large hematoma although bruising does appear older. Patient's incision is clean dry and intact. Patient does not have any warmth to the joint or hematoma. She has 2+ pulse. Normal sensation throughout the leg with no swelling. NEUROLOGICAL: Cranial nerves II through XII grossly intact. Moving all extremities SKIN: Warm, dry, no petechiae, no rashes or lesions. Initial Vital Signs Initial Vital Signs: Vital Signs Temperature 98.4 F 12/09/18 13:47 Pulse Rate 88 12/09/18 13:47 Respiratory Rate 18 12/09/18 13:47 Blood Pressure 130/38 L 12/09/18 13:47 Pulse Oximetry 97 12/09/18 13:47 Course Orders Ordered: ED Orders 12/09/18 13:30 Complete Blood Count AUTO DIFF Stat Comprehensive Metabolic Panel Stat 12/09/18 13:46 XR hip w pel if done RT 2V Stat Vital Signs - 8 hr 12/09/18 13:47 12/09/18 15:05 Temperature 98.4 F Pulse Rate 88 91 H Respiratory Rate 18 20 Blood Pressure 130/38 L 111/45 L Pulse Oximetry 97 95 MDM - Extremity Injury (Lower) Lab Data Attestation: I reviewed the patient's lab results. Result diagrams: 12/09/18 13:30 12/09/18 13:30 Lab Results 12/09/18 12/09/18 Range/Units 13:30 13:30 WBC 10.4 (4.5-11.0) X10^3/uL RBC 4.22 (4.0-5.2) X10^6/uL Hgb 12.8 (12.0-16.0) g/dL Hct 39.4 (36-46) % MCV 93.3 (80-100) fL MCH 30.4 (26-34) PG MCHC 32.6 (30-36) % RDW 15.1 H (11.6-14.8) % Plt Count 377 (150-400) X10^3/uL Neut % (Auto) 68.9 (50-75) % Lymph % (Auto) 21.5 L (25-40) % Bullock % (Auto) 6.4 (3-14) % Eos % (Auto) 2.3 (2-4) % Baso % (Auto) 0.9 (0-2) % Neut # (Auto) 7200 H (8534-6775) /uL Lymph # (Auto) 2200 (1171-5369) /uL Bullock # (Auto) 700 (0-900) /uL Eos # (Auto) 200 (0-450) /uL Baso # (Auto) 100 (0-100) /uL Sodium 139 (137-145) mmol/L Potassium 4.1 (3.4-5.1) mmol/L Chloride 101 (98-107) mmol/L Carbon Dioxide 28 (22-32) mmol/L BUN 15 (7-17) mg/dL Creatinine 0.50 L (0.52-1.04) mg/dL Estimated GFR > 60.0 (>60) mL/min BUN/Creatinine Ratio 30.0 H (6-22) Glucose 123 H (80-110) mg/dL Calcium 9.5 (8.4-10.2) mg/dL Total Bilirubin 0.6 (0.2-1.3) mg/dL AST 20 (14-36) IU/L ALT < 6 L (9-52) IU/L Alkaline Phosphatase 209 H (38-126) U/L Total Protein 7.5 (6.3-8.2) g/dL Albumin 4.2 (3.5-5.0) g/dL Globulin 3.3 (1.7-4.1) g/dL Albumin/Globulin Ratio 1.3 (1.0-2.8) Imaging Data Right hip x-ray: Radiologist's impression: [address] [address] XRay Report Signed Patient: Carolina Swift MMR#: [id number] : [id number]:[id number] Age/Sex: 83 / FDate of Service: 12/09/18 Loc: ED Accession Number: [id number] Procedure: XR hip w pel if done RT 2V Ordering Provider: Tejal Curry D.O. PROCEDURE: XR HIP W PEL IF DONE RT 2V INDICATIONS: increasing right hip pain, s/p repair x 2 last month TECHNIQUE: 2 views of the hip were acquired. COMPARISON: [facility], CT, CT ABDOMEN PELVIS W CON, 10/20/2017, 20:47. [facility], CR, XR HIP W PEL IF DONE RT 2V, 10/10/2018, 20:54. FINDINGS: Bones: Post surgical changes related to a right hip arthroplasty are present. No acute fracture or dislocation is evident. Increasing/developing dystrophic calcifications about the proximal femur is present. Moderate degenerative changes of the lower lumbar spine and pubis symphysis are present. There mild degenerative changes of the left hip. Soft tissues: No suspicious soft tissue calcifications or masses. Foci of high attenuation within the pelvis are not present on the prior study and are felt to represent high attenuation material within the bowel, possibly residing within distal colonic diverticuli. Moderate residual stool is seen within the pelvis. Multiple renal calculi are evident on the right, similar to the prior CT. IMPRESSION: 1. No acute right hip fracture. 2. Right hip arthroplasty changes. Increasing/developing dystrophic calcifications along the proximal femur are present. Dictated by: Sim De Los Santos M.D. on 12/09/2018 at 13:08 Approved by: Sim De Los Santos M.D. on 12/09/2018 at 13:12 MDM Narrative Medical decision making narrative: No fracture, no notation of hardware being in place. Patient has some dystrophic calcification. She does have a hematoma which family states may have re-accumulated but does show any signs of infection today. Patient's white count is normal, the rest her lab work does not show significant change. Patient is comfortable while lying flat. We discussed how she is doing walking around. She states pain is increased at that time. His operative short-term prescription for slightly increased on pain medication as well as continuing her tramadol but that she should not take these together. She has an appointment on MondayDecember [address] Palacio her orthopedic surgeon. Discharge Plan Departure Patient Disposition: Home Clinical Impression: Hip pain Discharge Date/Time: 12/09/18 15:08 Interventions: ED Discharge Assessment Last Done: 12/09/18 15:05 Instructions: DI for Hip Pain Activity Restrictions/Additional Instructions: Follow-up with your orthopedic surgeon in the next 2-3 days for recheck. Call for an appointment. You may take Kanona 1 tablet every 6 hours as needed for pain, this medication can make you sleepy do not drive, perform hazards activities or make any major decisions while taking it. Do not take this with your tramadol. Continue your other home medications as prescribed. Return to the emergency department fevers greater 100.4 F, rapidly worsening pain, rapidly expanding hematoma, new weakness, numbness, loss of sensation, color change in her leg such as cyanosis or pallor for other new or concerning symptoms. Prescriptions: New hydrocodone-acetaminophen [Kanona] 5-325 mg tablet 1 tab PO Q6H PRN (Reason: pain) Qty: 10 RF: 0 No Action carbidopa-levodopa 25 MG/100 MG tablet 1 tab PO TID Qty: 0 RF: 0 carbidopa-levodopa 50-200 mg tablet extended release 1 tab PO TID RF: 0 trazodone 50 mg tablet 50 mg PO BEDTIME PRN (Reason: Sleep) RF: 0 tramadol 50 mg Tablet 50 mg PO Q4HR PRN (Reason: Pain, Moderate (4-6)) Qty: 30 RF: 0 sennosides [senna] 8.6 mg Tablet 17.2 mg PO BEDTIME PRN (Reason: Constipation) Qty: 30 RF: 0 polyethylene glycol 3350 17 gram Powder In Packet 17 gm PO DAILY Qty: 30 RF: 0 bisacodyl 10 mg Suppository 10 mg DC BID PRN (Reason: Constipation) Qty: 10 RF: 0 docusate sodium [DOK] 100 mg Capsule 100 mg PO BID Qty: 60 RF: 0 acetaminophen 325 mg Tablet 975 mg PO TID Qty: 90 RF: 0 aspirin 81 mg Tablet,Delayed Release (Dr/Ec) 81 mg PO BID Qty: 60 RF: 0 oxycodone 5 mg Tablet 5 mg PO Q4-6H PRN (Reason: Pain, Moderate (4-6)) Qty: 40 RF: 0 Referrals: Jw Nieves MD [Primary Care Provider] - Don Palacio MD [Physician] -
[2018-12-09 13:53] LABS: Add Manual Diff / Slide Review NO; Basophils Absolute Auto 100 /uL (0-100); Basophils Percent Auto 0.9 % (0-2); Eosinophils Absolute Auto 200 /uL (0-450); Eosinophils Percent Auto 2.3 % (2-4); Hematocrit 39.4 % (36-46); Hemoglobin 12.8 g/dL (12.0-16.0); Lymphocytes Absolute Auto 2200 /uL (1100-4500); Lymphocytes Percent Auto 21.5 % (25-40); Mean Corpuscular HGB Conc 32.6 % (30-36); Mean Corpuscular Hemoglobin 30.4 PG (26-34); Mean Corpuscular Volume 93.3 fL (80-100); Monocytes Absolute Auto 700 /uL (0-900); Monocytes Percent Auto 6.4 % (3-14); Neutrophils Absolute Auto 7200 /uL (1500-7000); Neutrophils Percent Auto 68.9 % (50-75); Platelet Count 377 X10^3/uL (150-400); Red Blood Cell Count 4.22 X10^6/uL (4.0-5.2); Red Cell Distribution Width 15.1 % (11.6-14.8); White Blood Cell Count 10.4 X10^3/uL (4.5-11.0)
--- NOTE | 2018-12-09 13:54 | ED_ITS ---
HPI - Extremity Injury (Lower) General Chief Complaint: Extremity Injury, Lower Stated Complaint: Post hip surgery, pain R hip Time Seen by Provider: 12/09/18 13:46 Source: patient, EMS and old records reviewed Mode of arrival: EMS Limitations: no limitations History of Present Illness HPI Narrative: This is an 83-year-old female comes to the emergency department with complaint of increasing pain in her right hip. Patient was seen in early October had an intramedullary hip screw, subsequently had failure and then required demond arthroplasty. Patient was discharged to [facility]. She states over the past 24-48 hours she has had increasing pain in that hip she has not had any fever she is aware of. She does have a hematoma. She is unsure if it has increased in size. She does feel like that leg is shorter than the other 1. She states she does not know if that is new or present since her last surgery. She denies any shortness of breath, no chest pain or pressure, no nausea no vomiting no diarrhea. She chronically has constipation, she is passing gas regularly. No urinary symptoms. No swelling, no tingling or numbness down the right lower extremity. She states lying flat in the bed her chest pain is only 1 or 2/10, when she tries to ambulate it is increased. She has been ambulating with a walker. She has been taking tramadol for pain. Related Data Home Medications Medication Instructions Recorded Confirmed carbidopa-levodopa 1 tab PO TID #0 12/31/15 10/31/18 carbidopa-levodopa 1 tab PO TID 10/10/18 10/31/18 trazodone 50 mg PO BEDTIME PRN 10/10/18 10/31/18 Previous Rx's Medication Instructions Recorded acetaminophen 975 mg PO TID #90 tab 10/14/18 bisacodyl 10 mg VA BID PRN #10 ea 10/14/18 docusate sodium [DOK] 100 mg PO BID #60 cap 10/14/18 polyethylene glycol 3350 17 gm PO DAILY #30 ea 10/14/18 sennosides [senna] 17.2 mg PO BEDTIME PRN #30 tab 10/14/18 tramadol 50 mg PO Q4HR PRN #30 tab 10/14/18 aspirin 81 mg PO BID #60 tab 11/03/18 oxycodone 5 mg PO Q4-6H PRN #40 tab 11/03/18 hydrocodone-acetaminophen [Anza] 1 tab PO Q6H PRN #10 tab 12/09/18 Allergies Allergy/AdvReac Type Severity Reaction Status Date / Time Penicillins [PENICILLINS] Allergy Unknown Verified 12/09/18 13:51 Review of Systems Review of Systems ROS Unobtainable: All systems reviewed & are unremarkable except as noted in HPI and below Constitutional Denies chills, Denies fever(s), Denies lethargy and Denies weakness Cardiovascular Denies chest pain, Denies dyspnea and Denies dyspnea on exertion Respiratory Denies chest congestion, Denies cough, Denies dyspnea and Denies dyspnea on exertion Gastrointestinal Gastrointestinal: Denies abdominal pain, Denies change in bowel habits, Reports constipation, Denies diarrhea, Denies nausea and Denies vomiting Genitourinary Denies hematuria, Denies dysuria, Denies flank pain and Denies urinary urgency Musculoskeletal Reports as per HPI, Reports abnormal gait, Reports arthralgias (Right hip), Reports limited range of motion, Denies muscle weakness, Denies numbness and Denies tingling Integumentary/Breasts Reports unusual bruising (Hematoma) Neurologic Reports abnormal gait, Denies numbness, Denies tingling and Denies weakness [facility] Medical History Diverticulosis (Acute) Hallucinations (Acute) Macular degeneration of left eye (Acute) Nephrolithiasis (Acute) Parkinsons (Acute) Scoliosis (Acute) Septicemia (Acute) Surgical History History of cystocele (Acute) History of hip surgery (Acute 10/11/18) History of lithotripsy Status post hysterectomy Status post tonsillectomy and adenoidectomy Status post tubal ligation Family History Grandfather Diabetes mellitus Mother Heart disease Stroke Father Parkinsons Social History household members: spouse Smoking Status: Never smoker alcohol intake: current Family History Grandfather Diabetes mellitus Mother Heart disease Stroke Father Parkinsons Social History household members: spouse Smoking Status: Never smoker alcohol intake: current Exam Narrative Exam Narrative: GENERAL: Alert and oriented x three, well-nourished, well- appearing female in mild distress. HEENT: Head normocephalic, atraumatic, EOMI, pupils reactive, face symmetric, moist mucous membranes NECK: Supple, full range of motion CARDIOVASCULAR: Regular rate and rhythm without murmurs, rubs or gallops. RESPIRATORY: Breath sounds equal bilaterally, no wheezes rales or rhonchi. ABDOMEN: Soft, nontender. Normoactive bowel sounds all 4 quadrants. No guarding or rebound, rigidity, no mass : No CVA tenderness EXTREMITIES: Normal range of motion, no clubbing or edema. Neurovascularly intact. Patient's right lower extremity is shorter than the left. She is able to flex at the hip as well as light her leg straight without any major issue, she does not have any significant bony tenderness with palpation. She does have a large hematoma although bruising does appear older. Patient's incision is clean dry and intact. Patient does not have any warmth to the joint or hematoma. She has 2+ pulse. Normal sensation throughout the leg with no swelling. NEUROLOGICAL: Cranial nerves II through XII grossly intact. Moving all extremities SKIN: Warm, dry, no petechiae, no rashes or lesions. Initial Vital Signs Initial Vital Signs: Vital Signs Temperature 98.4 F 12/09/18 13:47 Pulse Rate 88 12/09/18 13:47 Respiratory Rate 18 12/09/18 13:47 Blood Pressure 130/38 L 12/09/18 13:47 Pulse Oximetry 97 12/09/18 13:47 Course Orders Ordered: ED Orders 12/09/18 13:30 Complete Blood Count AUTO DIFF Stat Comprehensive Metabolic Panel Stat 12/09/18 13:46 XR hip w pel if done RT 2V Stat Vital Signs - 8 hr 12/09/18 13:47 12/09/18 15:05 Temperature 98.4 F Pulse Rate 88 91 H Respiratory Rate 18 20 Blood Pressure 130/38 L 111/45 L Pulse Oximetry 97 95 MDM - Extremity Injury (Lower) Lab Data Attestation: I reviewed the patient's lab results. Result diagrams: 12/09/18 13:30 12/09/18 13:30 Lab Results 12/09/18 12/09/18 Range/Units 13:30 13:30 WBC 10.4 (4.5-11.0) X10^3/uL RBC 4.22 (4.0-5.2) X10^6/uL Hgb 12.8 (12.0-16.0) g/dL Hct 39.4 (36-46) % MCV 93.3 (80-100) fL MCH 30.4 (26-34) PG MCHC 32.6 (30-36) % RDW 15.1 H (11.6-14.8) % Plt Count 377 (150-400) X10^3/uL Neut % (Auto) 68.9 (50-75) % Lymph % (Auto) 21.5 L (25-40) % Humphreys % (Auto) 6.4 (3-14) % Eos % (Auto) 2.3 (2-4) % Baso % (Auto) 0.9 (0-2) % Neut # (Auto) 7200 H (4970-9488) /uL Lymph # (Auto) 2200 (6832-1012) /uL Humphreys # (Auto) 700 (0-900) /uL Eos # (Auto) 200 (0-450) /uL Baso # (Auto) 100 (0-100) /uL Sodium 139 (137-145) mmol/L Potassium 4.1 (3.4-5.1) mmol/L Chloride 101 (98-107) mmol/L Carbon Dioxide 28 (22-32) mmol/L BUN 15 (7-17) mg/dL Creatinine 0.50 L (0.52-1.04) mg/dL Estimated GFR > 60.0 (>60) mL/min BUN/Creatinine Ratio 30.0 H (6-22) Glucose 123 H (80-110) mg/dL Calcium 9.5 (8.4-10.2) mg/dL Total Bilirubin 0.6 (0.2-1.3) mg/dL AST 20 (14-36) IU/L ALT < 6 L (9-52) IU/L Alkaline Phosphatase 209 H (38-126) U/L Total Protein 7.5 (6.3-8.2) g/dL Albumin 4.2 (3.5-5.0) g/dL Globulin 3.3 (1.7-4.1) g/dL Albumin/Globulin Ratio 1.3 (1.0-2.8) Imaging Data Right hip x-ray: Radiologist's impression: [address] [address] XRay Report Signed Patient: Carolina Swift MMR#: [id number] : [id number]:[id number] Age/Sex: 83 / FDate of Service: 12/09/18 Loc: ED Accession Number: [id number] Procedure: XR hip w pel if done RT 2V Ordering Provider: Tejal Curry D.O. PROCEDURE: XR HIP W PEL IF DONE RT 2V INDICATIONS: increasing right hip pain, s/p repair x 2 last month TECHNIQUE: 2 views of the hip were acquired. COMPARISON: [facility], CT, CT ABDOMEN PELVIS W CON, 10/20/2017, 20:47. [facility], CR, XR HIP W PEL IF DONE RT 2V, 10/10/2018, 20:54. FINDINGS: Bones: Post surgical changes related to a right hip arthroplasty are present. No acute fracture or dislocation is evident. Increasing/developing dystrophic calcifications about the proximal femur is present. Moderate degenerative changes of the lower lumbar spine and pubis symphysis are present. There mild degenerative changes of the left hip. Soft tissues: No suspicious soft tissue calcifications or masses. Foci of high attenuation within the pelvis are not present on the prior study and are felt to represent high attenuation material within the bowel, possibly residing within distal colonic diverticuli. Moderate residual stool is seen within the pelvis. Multiple renal calculi are evident on the right, similar to the prior CT. IMPRESSION: 1. No acute right hip fracture. 2. Right hip arthroplasty changes. Increasing/developing dystrophic calcifications along the proximal femur are present. Dictated by: Sim De Los Santos M.D. on 12/09/2018 at 13:08 Approved by: Sim De Los Santos M.D. on 12/09/2018 at 13:12 MDM Narrative Medical decision making narrative: No fracture, no notation of hardware being in place. Patient has some dystrophic calcification. She does have a hematoma which family states may have re-accumulated but does show any signs of infection today. Patient's white count is normal, the rest her lab work does not show significant change. Patient is comfortable while lying flat. We discussed how she is doing walking around. She states pain is increased at that time. His operative short-term prescription for slightly increased on pain medication as well as continuing her tramadol but that she should not take these together. She has an appointment on MondayDecember [address] Palacio her orthopedic surgeon. Discharge Plan Departure Patient Disposition: Home Clinical Impression: Hip pain Discharge Date/Time: 12/09/18 15:08 Interventions: ED Discharge Assessment Last Done: 12/09/18 15:05 Instructions: DI for Hip Pain Activity Restrictions/Additional Instructions: Follow-up with your orthopedic surgeon in the next 2-3 days for recheck. Call for an appointment. You may take Anza 1 tablet every 6 hours as needed for pain, this medication can make you sleepy do not drive, perform hazards activities or make any major decisions while taking it. Do not take this with your tramadol. Continue your other home medications as prescribed. Return to the emergency department fevers greater 100.4 F, rapidly worsening pain, rapidly expanding hematoma, new weakness, numbness, loss of sensation, color change in her leg such as cyanosis or pallor for other new or concerning symptoms. Prescriptions: New hydrocodone-acetaminophen [Anza] 5-325 mg tablet 1 tab PO Q6H PRN (Reason: pain) Qty: 10 RF: 0 No Action carbidopa-levodopa 25 MG/100 MG tablet 1 tab PO TID Qty: 0 RF: 0 carbidopa-levodopa 50-200 mg tablet extended release 1 tab PO TID RF: 0 trazodone 50 mg tablet 50 mg PO BEDTIME PRN (Reason: Sleep) RF: 0 tramadol 50 mg Tablet 50 mg PO Q4HR PRN (Reason: Pain, Moderate (4-6)) Qty: 30 RF: 0 sennosides [senna] 8.6 mg Tablet 17.2 mg PO BEDTIME PRN (Reason: Constipation) Qty: 30 RF: 0 polyethylene glycol 3350 17 gram Powder In Packet 17 gm PO DAILY Qty: 30 RF: 0 bisacodyl 10 mg Suppository 10 mg VA BID PRN (Reason: Constipation) Qty: 10 RF: 0 docusate sodium [DOK] 100 mg Capsule 100 mg PO BID Qty: 60 RF: 0 acetaminophen 325 mg Tablet 975 mg PO TID Qty: 90 RF: 0 aspirin 81 mg Tablet,Delayed Release (Dr/Ec) 81 mg PO BID Qty: 60 RF: 0 oxycodone 5 mg Tablet 5 mg PO Q4-6H PRN (Reason: Pain, Moderate (4-6)) Qty: 40 RF: 0 Referrals: Jw Nieves MD [Primary Care Provider] - Don Palacio MD [Physician] -
[2018-12-09 13:58] LABS: Albumin 4.2 g/dL (3.5-5.0); Albumin Globulin Ratio 1.3 (1.0-2.8); Alkaline Phosphatase 209 U/L (38-126); Aspartate Aminotransferase 20 IU/L (14-36); Bilirubin Total 0.6 mg/dL (0.2-1.3); Blood Urea Nitrogen 15 mg/dL (7-17); Calcium 9.5 mg/dL (8.4-10.2); Carbon Dioxide 28 mmol/L (22-32); Chloride 101 mmol/L (98-107); Estimated Glomerular Filt Rate > 60.0 mL/min (>60); Globulin 3.3 g/dL (1.7-4.1); Glucose 123 mg/dL (80-110); HEMOLYSIS 18 (0-50); Potassium 4.1 mmol/L (3.4-5.1); Sodium 139 mmol/L (137-145); Total Protein 7.5 g/dL (6.3-8.2)
[2018-12-09 13:59] LABS: Alanine Aminotransferase < 6 IU/L (9-52)
[2018-12-09 15:05] VITALS: BP 111/45; PULSE 91; RESP 20; O2SAT 95
--- NOTE | 2018-12-09 15:17 | PC.NURSE ---
telephone report to amber hickey at [facility]. pt dc'd with family via [place].
== END 2018-12-09 15:08 | disposition home or self-care (01) ==
PROVIDERS: Emergency Provider Emergency Medicine; PCP Family Medicine
DX: M25.551 Pain in right hip (principal)
CPT/HCPCS: 73502; 80053; 85025; 99282; 99284

== ENCOUNTER 2018-12-26 20:16 | Emergency (ER) | payer MEDICARE, SELFPAY ==
[2018-10-31 16:57] VITALS: BMI 22.4
--- NOTE | 2018-12-26 20:20 | DI.RAD.S_ITS ---
PROCEDURE: XR HIP W PEL IF DONE RT 2V COMPARISON: [facility], CR, XR HIP W PEL IF DONE RT 2V, 12/09/2018, 13:48. [facility], CR, XR HIP W PEL IF DONE RT 2V, 10/11/2018, 17:36. INDICATIONS: R hip pain, external rotation s/p fall FINDINGS: Prior right hip arthroplasty, with greater trochanteric cerclage wire and distortion of the proximal femur medially consistent with heterotopic ossification in addition to healed moderately displaced bone fragments in that area. No new trauma is found. IMPRESSION: Stable appearance of the postsurgical changes at the right hip with no new trauma found. Dictated by: Vincenzo Jarvis M.D. on 12/26/2018 at 21:00 Approved by: Vincenzo Jarvis M.D. on 12/26/2018 at 21:08
[2018-12-26 20:21] VITALS: BMI 23.3
[2018-12-26 20:24] VITALS: PULSE 80
--- NOTE | 2018-12-26 20:41 | PC.NURSE ---
bed [place] offered, pt unable to use at this time. Warm blankets and socks given.
--- NOTE | 2018-12-26 20:59 | ED.LOWEXIN ---
HPI - Extremity Injury (Lower) General Chief Complaint: Extremity Injury, Lower Stated Complaint: fall Monday, hip pain Time Seen by Provider: 12/26/18 20:19 Source: patient, family and EMS Mode of arrival: EMS Limitations: no limitations History of Present Illness HPI Narrative: 83-year-old female nonsmoker with history of Parkinson's presents by EMS for evaluation of right hip pain and hematoma after a fall a few days ago. She has a surgically repaired right hip and while ambulating a few days ago she tripped and fell on that hip and has since had pain which makes it difficult for her to ambulate though not impossible. She denies any head neck or back pain. She denies any chest pain or shortness of breath. She states she was not dizzy, weak or lightheaded leading to the fall and it was purely a mechanical fall. She has full recollection. Her pain is worse with motion and improves with rest. She denies numbness, tingling or weakness MD complaint: hip injury Onset (ago): day(s) Type of Injury: blunt Place: home Severity: moderate Relieving factors: rest Exacerbating factors: weight bearing and movement Context: fall and direct blow Associated symptoms: able to partially bear weight Other symptoms: none Related Data Home Medications Medication Instructions Recorded Confirmed carbidopa-levodopa 1 tab PO TID #0 12/31/15 10/31/18 carbidopa-levodopa 1 tab PO TID 10/10/18 10/31/18 trazodone 50 mg PO BEDTIME PRN 10/10/18 10/31/18 Previous Rx's Medication Instructions Recorded acetaminophen 975 mg PO TID #90 tab 10/14/18 bisacodyl 10 mg SD BID PRN #10 ea 10/14/18 docusate sodium [DOK] 100 mg PO BID #60 cap 10/14/18 polyethylene glycol 3350 17 gm PO DAILY #30 ea 10/14/18 sennosides [senna] 17.2 mg PO BEDTIME PRN #30 tab 10/14/18 tramadol 50 mg PO Q4HR PRN #30 tab 10/14/18 aspirin 81 mg PO BID #60 tab 11/03/18 oxycodone 5 mg PO Q4-6H PRN #40 tab 11/03/18 hydrocodone-acetaminophen [[place]] 1 tab PO Q6H PRN #10 tab 12/09/18 Allergies Allergy/AdvReac Type Severity Reaction Status Date / Time Penicillins [PENICILLINS] Allergy Unknown Verified 12/09/18 13:51 Review of Systems Constitutional Denies chills, Denies fever(s), Denies lethargy and Denies weakness Eyes Denies change in vision, Denies eye discharge, Denies irritation and Denies loss of vision ENT Ears, Nose, Mouth, and Throat: Denies change in voice, Denies neck pain and Denies sore throat Cardiovascular Denies chest pain, Denies irregular heart rhythm, Denies lightheadedness, Denies palpitations, Denies dyspnea, Denies dyspnea on exertion and Denies orthopnea Respiratory Denies cough, Denies dyspnea, Denies dyspnea on exertion and Denies wheezing Gastrointestinal Gastrointestinal: Denies abdominal pain, Denies change in bowel habits, Denies diarrhea, Denies nausea and Denies vomiting Genitourinary Denies hematuria, Denies flank pain, Denies urinary incontinence and Denies urinary urgency Musculoskeletal Reports joint swelling, Reports limited range of motion and Denies neck pain Integumentary/Breasts Denies pruritus, Denies erythema, Denies rash and Denies wounds Neurologic Denies confusion, Denies loss of vision and Denies weakness Psychiatric Denies anxiety, Denies confusion, Denies depression, Denies homicidal ideation and Denies suicidal ideation Endocrine Denies palpitations Hematologic/Lymphatic Denies easy bruising Allergic/Immunologic Denies wheezing PFSH Medical History Diverticulosis (Acute) Hallucinations (Acute) Macular degeneration of left eye (Acute) Nephrolithiasis (Acute) Parkinsons (Acute) Scoliosis (Acute) Septicemia (Acute) Surgical History History of cystocele (Acute) History of hip surgery (Acute 10/11/18) History of lithotripsy Status post hysterectomy Status post tonsillectomy and adenoidectomy Status post tubal ligation Family History Grandfather Diabetes mellitus Mother Heart disease Stroke Father Parkinsons Social History household members: spouse Smoking Status: Never smoker alcohol intake: current Family History Grandfather Diabetes mellitus Mother Heart disease Stroke Father Parkinsons Social History household members: spouse Smoking Status: Never smoker alcohol intake: current Exam Narrative Exam Narrative: GENERAL: 83-year-old female, frail an elderly is at her apparent baseline per family. She is alert and oriented x3, GCS 15 HEAD: Atraumatic. Normocephalic. No temporal or scalp tenderness. EYES: Pupils equal round and reactive. Extraocular motions intact. No scleral icterus. No injection or drainage. ENT: Nose without bleeding, purulent drainage or septal hematoma. Throat without erythema, tonsillar hypertrophy or exudate. Uvula midline. Airway patent. NECK: Trachea midline. No JVD or lymphadenopathy. Supple, nontender, no meningeal signs. CARDIOVASCULAR: Regular rate and rhythm without murmurs, gallops, or rubs. RESPIRATORY: Clear to auscultation. Breath sounds equal bilaterally. No wheezes, rales, or rhonchi. GASTROINTESTINAL: Abdomen soft, non-tender, nondistended. No hepato-splenomegaly, or palpable masses. No guarding. EXTREMITIES: Painful palpation of right hip with large, soft hematoma. Patient has full but painful range of motion BACK: Nontender without deformity or crepitance. No flank tenderness. NEURO: AOx3. SKIN: No rash or erythema. Initial Vital Signs Initial Vital Signs: Vital Signs Pulse Rate 80 12/26/18 20:24 Course Orders Ordered: ED Orders 12/26/18 20:20 XR hip w pel if done RT 2V Stat 12/26/18 21:43 CT pelvis wo con Stat 12/26/18 23:10 Urine Culture Stat Urine Microscopic Stat Discontinued Medications Acetaminophen (Tylenol) 975 mg PO NOW ONE Stop: 12/27/18 00:18 Last Admin: 12/27/18 00:20 Dose: 975 mg Vital Signs - 8 hr 12/26/18 21:10 12/26/18 23:43 Pulse Rate 80 74 Respiratory Rate 16 18 Blood Pressure [Right Arm] 133/57 L 134/69 Pulse Oximetry 98 99 MDM - Extremity Injury (Lower) Lab Data Lab Results 12/26/18 Range/Units 23:10 Urine RBC 0-1/hpf (0-5/HPF) Urine WBC 1-5/hpf (0-5/HPF) Ur Squamous Epith Cells 1-5 /hpf (0-5/HPF) Urine Bacteria Few (2-10) H (None) Ur Culture Indicated? Specimen cultured Urine Dip Bedside Urine Glucose Negative Bedside Urine Bilirubin - Negative Bedside Urine Ketone +/- 5 Urine Specific [place] 1.010 Bedside Urine Occult Blood +/- Bedside Urine pH 7.0 Bedside Urine Protein - Negative Bedside Urine Urobilinogen - Negative Bedside Urine Nitrite - Negative Bedside Urine Leukocytes +++ 500 Esterase MDM Narrative Medical decision making narrative: 83-year-old female with a fall a few days ago and now painful right hip with hematoma presents. X-ray shows no obvious fracture, CT scan suggests no acute fracture and no change in her hardware. She has urine suggesting urinary tract infection but no symptoms such as dysuria, frequency, urgency nor weakness or lightheadedness. She would prefer to hold off on treating this until she developed symptoms or cultures would suggest otherwise. Patient given return precautions and has had her questions answered to her apparent satisfaction. Discharge Plan Departure Patient Disposition: Home Clinical Impression: Contusion Qualifiers: Encounter type: initial encounter Contusion area: hip Laterality: right Qualified Code(s): S70.01XA - Contusion of right hip, initial encounter Discharge Date/Time: 12/27/18 00:05 Instructions: DI for Contusion Activity Restrictions/Additional Instructions: *You have been diagnosed with [right hip contusion, x-ray and CT scan were negative for fracture] *What to do: *Take medications as directed: Tylenol or Motrin for pain *Follow up with your primary care provider in 2-3 days, call for an appointment. Let them know you were seen in the Emergency Department and that we ask that you be seen in follow up *Return to ER if you should have any new, worsening or concerning symptoms, such as [worsening pain, inability to ambulate. Your urine had some very subtle suspicion of a possible urinary tract infection but you had no symptoms so we elected to hold off on antibiotics. If you develop urinary frequency, burning or urgency please contact her primary care provider] Prescriptions: No Action carbidopa-levodopa 25 MG/100 MG tablet 1 tab PO TID Qty: 0 RF: 0 hydrocodone-acetaminophen [[place]] 5-325 mg tablet 1 tab PO Q6H PRN (Reason: pain) Qty: 10 RF: 0 carbidopa-levodopa 50-200 mg tablet extended release 1 tab PO TID RF: 0 trazodone 50 mg tablet 50 mg PO BEDTIME PRN (Reason: Sleep) RF: 0 tramadol 50 mg Tablet 50 mg PO Q4HR PRN (Reason: Pain, Moderate (4-6)) Qty: 30 RF: 0 sennosides [senna] 8.6 mg Tablet 17.2 mg PO BEDTIME PRN (Reason: Constipation) Qty: 30 RF: 0 polyethylene glycol 3350 17 gram Powder In Packet 17 gm PO DAILY Qty: 30 RF: 0 bisacodyl 10 mg Suppository 10 mg SD BID PRN (Reason: Constipation) Qty: 10 RF: 0 docusate sodium [DOK] 100 mg Capsule 100 mg PO BID Qty: 60 RF: 0 acetaminophen 325 mg Tablet 975 mg PO TID Qty: 90 RF: 0 aspirin 81 mg Tablet,Delayed Release (Dr/Ec) 81 mg PO BID Qty: 60 RF: 0 oxycodone 5 mg Tablet 5 mg PO Q4-6H PRN (Reason: Pain, Moderate (4-6)) Qty: 40 RF: 0 Referrals: Jw Nieves MD [Primary Care Provider] -
[2018-12-26 21:10] VITALS: BP 133/57; PULSE 80; RESP 16; O2SAT 98
--- NOTE | 2018-12-26 21:35 | PC.NURSE ---
Patient requesting Tylenol for pain, pt unable to take oral meds at this time for r/o hip fx per Dr. Holloway, Tylenol suppository offered to patient and refused. Awaiting CT. Patient given oral care and chapstick, repositioned and pillows placed under knees. Bed domingo offered and refused.
--- NOTE | 2018-12-26 21:43 | DI.CT.S_ITS ---
PROCEDURE: CT PEL WO CON INDICATIONS: severe R hip pain s/p fall TECHNIQUE: Noncontrast 3 mm axial sections acquired through the bony pelvis, with coronal and sagittal reformatting. COMPARISON: [facility], CT, CT ABDOMEN PELVIS W CON, 10/20/2017, 20:47. [facility], CR, XR HIP W PEL IF DONE RT 2V, 10/11/2018, 17:36. [facility], CR, XR HIP W PEL IF DONE RT 2V, 10/10/2018, 20:54. [facility], CR, XR HIP RT 1V, 10/31/2018, 15:04. [facility], CR, XR PELVIS WITH LATERAL HIP RIGHT, 11/13/2018, 15:11. [facility], CR, XR PELVIS WITH LATERAL HIP RIGHT, 12/11/2018, 15:37. [facility], CR, XR HIP W PEL IF DONE RT 2V, 12/09/2018, 13:48. [facility], CR, XR HIP W PEL IF DONE RT 2V, 12/26/2018, 20:28. FINDINGS: Image quality: Metallic artifacts from the right prosthesis partially obscured adjacent structures. Bones: There is right hip total arthroplasty. The prosthesis appears intact. The prosthetic femoral head appears superior and laterally subluxed with widening of the medial joint space. There is fracture of superior acetabulum with mild displacement, which is of uncertain chronicity. There is increased heterotopic bone formation in the area of the lesser trochanter which was previously fractured. The left hip is intact. No fracture in sacrum. 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 Soft tissues: There is a complex fluid collection in the right lateral thigh the 3.0 x 5.4 x 4.8 cm. Colonic diverticula present. There are multiple right renal stones. The largest stone measures 9 x 13 mm at the left UVJ. A 2 cm low density nodule in the right kidney may be a cyst. There is moderate atherosclerosis. IMPRESSION: 1. Total right hip arthroplasty. There is superior lateral subluxation of the right prosthetic femoral head. Mildly displaced right superior acetabular fracture of uncertain chronicity is present. 2. A large complex fluid collection in the right lateral thigh. Differential diagnosis includes hematoma versus abscess. 3. Multiple right renal stones. No hydronephrosis. 4. A 2 cm low-density nodule in the right kidney is likely a renal cyst. 5. Diverticulosis without acute diverticulitis. The result was discussed with Dr. Greene in ER. Dictated by: Jay Fuller M.D. on 12/27/2018 at 7:27 Approved by: Jay Fuller M.D. on 12/27/2018 at 8:10
[2018-12-26 23:43] VITALS: BP 134/69; PULSE 74; RESP 18; O2SAT 99
[2018-12-27 00:01] LABS: Bacteria Urine Few (2-10); Culture Indicated Urine Specimen Cultured; RBC Urine 0-1/HPF (0-5/HPF); Squamous Epithelial Cell Urine 1-5 /HPF (0-5/HPF); WBC Urine 1-5/HPF (0-5/HPF)
[2018-12-27] MEDS: ACETAMINOPHEN 325 MG TABLET 975 MG PO (00:20)
--- NOTE | 2018-12-27 05:14 | ED_ITS ---
HPI - Extremity Injury (Lower) General Chief Complaint: Extremity Injury, Lower Stated Complaint: fall Monday, hip pain Time Seen by Provider: 12/26/18 20:19 Source: patient, family and EMS Mode of arrival: EMS Limitations: no limitations History of Present Illness HPI Narrative: 83-year-old female nonsmoker with history of Parkinson's presents by EMS for evaluation of right hip pain and hematoma after a fall a few days ago. She has a surgically repaired right hip and while ambulating a few days ago she tripped and fell on that hip and has since had pain which makes it difficult for her to ambulate though not impossible. She denies any head neck or back pain. She denies any chest pain or shortness of breath. She states she was not dizzy, weak or lightheaded leading to the fall and it was purely a mecha nical fall. She has full recollection. Her pain is worse with motion and improves with rest. She denies numbness, tingling or weakness MD complaint: hip injury Onset (ago): day(s) Type of Injury: blunt Place: home Severity: moderate Relieving factors: rest Exacerbating factors: weight bearing and movement Context: fall and direct blow Associated symptoms: able to partially bear weight Other symptoms: none Related Data Home Medications Medication Instructions Recorded Confirmed carbidopa-levodopa 1 tab PO TID #0 12/31/15 10/31/18 carbidopa-levodopa 1 tab PO TID 10/10/18 10/31/18 trazodone 50 mg PO BEDTIME PRN 10/10/18 10/31/18 Previous Rx's Medication Instructions Recorded acetaminophen 975 mg PO TID #90 tab 10/14/18 bisacodyl 10 mg [place] BID PRN #10 ea 10/14/18 docusate sodium [DOK] 100 mg PO BID #60 cap 10/14/18 polyethylene glycol 3350 17 gm PO DAILY #30 ea 10/14/18 sennosides [senna] 17.2 mg PO BEDTIME PRN #30 tab 10/14/18 tramadol 50 mg PO Q4HR PRN #30 tab 10/14/18 aspirin 81 mg PO BID #60 tab 11/03/18 oxycodone 5 mg PO Q4-6H PRN #40 tab 11/03/18 hydrocodone-acetaminophen [[place]] 1 tab PO Q6H PRN #10 tab 12/09/18 Allergies Allergy/AdvReac Type Severity Reaction Status Date / Time Penicillins [PENICILLINS] Allergy Unknown Verified 12/09/18 13:51 Review of Systems Constitutional Denies chills, Denies fever(s), Denies lethargy and Denies weakness Eyes Denies change in vision, Denies eye discharge, Denies irritation and Denies loss of vision ENT Ears, Nose, Mouth, and Throat: Denies change in voice, Denies neck pain and Denies sore throat Cardiovascular Denies chest pain, Denies irregular heart rhythm, Denies lightheadedness, Denies palpitations, Denies dyspnea, Denies dyspnea on exertion and Denies orthopnea Respiratory Denies cough, Denies dyspnea, Denies dyspnea on exertion and Denies wheezing Gastrointestinal Gastrointestinal: Denies abdominal pain, Denies change in bowel habits, Denies diarrhea, Denies nausea and Denies vomiting Genitourinary Denies hematuria, Denies flank pain, Denies urinary incontinence and Denies urinary urgency Musculoskeletal Reports joint swelling, Reports limited range of motion and Denies neck pain Integumentary/Breasts Denies pruritus, Denies erythema, Denies rash and Denies wounds Neurologic Denies confusion, Denies loss of vision and Denies weakness Psychiatric Denies anxiety, Denies confusion, Denies depression, Denies homicidal ideation and Denies suicidal ideation Endocrine Denies palpitations Hematologic/Lymphatic Denies easy bruising Allergic/Immunologic Denies wheezing PFS Medical History Diverticulosis (Acute) Hallucinations (Acute) Macular degeneration of left eye (Acute) Nephrolithiasis (Acute) Parkinsons (Acute) Scoliosis (Acute) Septicemia (Acute) Surgical History History of cystocele (Acute) History of hip surgery (Acute 10/11/18) History of lithotripsy Status post hysterectomy Status post tonsillectomy and adenoidectomy Status post tubal ligation Family History Grandfather Diabetes mellitus Mother Heart disease Stroke Father Parkinsons Social History household members: spouse Smoking Status: Never smoker alcohol intake: current Family History Grandfather Diabetes mellitus Mother Heart disease Stroke Father Parkinsons Social History household members: spouse Smoking Status: Never smoker alcohol intake: current Exam Narrative Exam Narrative: GENERAL: 83-year-old female, frail an elderly is at her apparent baseline per family. She is alert and oriented x3, GCS 15 HEAD: Atraumatic. Normocephalic. No temporal or scalp tenderness. EYES: Pupils equal round and reactive. Extraocular motions intact. No scleral icterus. No injection or drainage. ENT: Nose without bleeding, purulent drainage or septal hematoma. Throat without erythema, tonsillar hypertrophy or exudate. Uvula midline. Airway patent. NECK: Trachea midline. No JVD or lymphadenopathy. Supple, nontender, no meningeal signs. CARDIOVASCULAR: Regular rate and rhythm without murmurs, gallops, or rubs. RESPIRATORY: Clear to auscultation. Breath sounds equal bilaterally. No wheezes, rales, or rhonchi. GASTROINTESTINAL: Abdomen soft, non-tender, nondistended. No hepato- splenomegaly, or palpable masses. No guarding. EXTREMITIES: Painful palpation of right hip with large, soft hematoma. Patient has full but painful range of motion BACK: Nontender without deformity or crepitance. No flank tenderness. NEURO: AOx3. SKIN: No rash or erythema. Initial Vital Signs Initial Vital Signs: Vital Signs Pulse Rate 80 12/26/18 20:24 Course Orders Ordered: ED Orders 12/26/18 20:20 XR hip w pel if done RT 2V Stat 12/26/18 21:43 CT pelvis wo con Stat 12/26/18 23:10 Urine Culture Stat Urine Microscopic Stat Discontinued Medications Acetaminophen (Tylenol) 975 mg PO NOW ONE Stop: 12/27/18 00:18 Last Admin: 12/27/18 00:20 Dose: 975 mg Vital Signs - 8 hr 12/26/18 21:10 12/26/18 23:43 Pulse Rate 80 74 Respiratory Rate 16 18 Blood Pressure [Right Arm] 133/57 L 134/69 Pulse Oximetry 98 99 MDM - Extremity Injury (Lower) Lab Data Lab Results 12/26/18 Range/Units 23:10 Urine RBC 0-1/hpf (0-5/HPF) Urine WBC 1-5/hpf (0-5/HPF) Ur Squamous Epith Cells 1-5 /hpf (0-5/HPF) Urine Bacteria Few (2-10) H (None) Ur Culture Indicated? Specimen cultured Urine Dip Bedside Urine Glucose Negative Bedside Urine Bilirubin - Negative Bedside Urine Ketone +/- 5 Urine Specific [place] 1.010 Bedside Urine Occult Blood +/- Bedside Urine pH 7.0 Bedside Urine Protein - Negative Bedside Urine Urobilinogen - Negative Bedside Urine Nitrite - Negative Bedside Urine Leukocytes +++ 500 Esterase MDM Narrative Medical decision making narrative: 83-year-old female with a fall a few days ago and now painful right hip with hematoma presents. X-ray shows no obvious fracture, CT scan suggests no acute fracture and no change in her hardware. She has urine suggesting urinary tract infection but no symptoms such as dysuria, frequency, urgency nor weakness or lightheadedness. She would prefer to hold off on treating this until she developed symptoms or cultures would suggest otherwise. Patient given return precautions and has had her questions answered to her apparent satisfaction. Discharge Plan Departure Patient Disposition: Home Clinical Impression: Contusion Qualifiers: Encounter type: initial encounter Contusion area: hip Laterality: right Qualified Code(s): S70.01XA - Contusion of right hip, initial encounter Discharge Date/Time: 12/27/18 00:05 Instructions: DI for Contusion Activity Restrictions/Additional Instructions: *You have been diagnosed with [right hip contusion, x-ray and CT scan were negative for fracture] *What to do: *Take medications as directed: Tylenol or Motrin for pain *Follow up with your primary care provider in 2-3 days, call for an appointment. Let them know you were seen in the Emergency Department and that we ask that you be seen in follow up *Return to ER if you should have any new, worsening or concerning symptoms, such as [worsening pain, inability to ambulate. Your urine had some very subtle suspicion of a possible urinary tract infection but you had no symptoms so we elected to hold off on antibiotics. If you develop urinary frequency, burning or urgency please contact her primary care provider] Prescriptions: No Action carbidopa-levodopa 25 MG/100 MG tablet 1 tab PO TID Qty: 0 RF: 0 hydrocodone-acetaminophen [[place]] 5-325 mg tablet 1 tab PO Q6H PRN (Reason: pain) Qty: 10 RF: 0 carbidopa-levodopa 50-200 mg tablet extended release 1 tab PO TID RF: 0 trazodone 50 mg tablet 50 mg PO BEDTIME PRN (Reason: Sleep) RF: 0 tramadol 50 mg Tablet 50 mg PO Q4HR PRN (Reason: Pain, Moderate (4-6)) Qty: 30 RF: 0 sennosides [senna] 8.6 mg Tablet 17.2 mg PO BEDTIME PRN (Reason: Constipation) Qty: 30 RF: 0 polyethylene glycol 3350 17 gram Powder In Packet 17 gm PO DAILY Qty: 30 RF: 0 bisacodyl 10 mg Suppository 10 mg [place] BID PRN (Reason: Constipation) Qty: 10 RF: 0 docusate sodium [DOK] 100 mg Capsule 100 mg PO BID Qty: 60 RF: 0 acetaminophen 325 mg Tablet 975 mg PO TID Qty: 90 RF: 0 aspirin 81 mg Tablet,Delayed Release (Dr/Ec) 81 mg PO BID Qty: 60 RF: 0 oxycodone 5 mg Tablet 5 mg PO Q4-6H PRN (Reason: Pain, Moderate (4-6)) Qty: 40 RF: 0 Referrals: Jw Nieves MD [Primary Care Provider] -
== END 2018-12-27 00:05 | disposition home or self-care (01) ==
PROVIDERS: Emergency Provider Emergency Medicine; PCP Family Medicine
DX: S70.01XA Contusion of right hip, initial encounter (principal); W01.0XXA Fall on same level from slipping, tripping and stumbling without subsequent striking against object, initial encounter
CPT/HCPCS: 72192; 73502; 81003; 81015; 87086; 99282; 99284

== ENCOUNTER → 2020-08-26 11:31 | Outpatient (CLI) | payer MEDICARE, SELFPAY ==
[2018-10-31 16:57] VITALS: BMI 22.4
--- NOTE | 2020-08-26 | DI.CT.S_ITS ---
PROCEDURE: CT SOFT TISSUE NECK W CON INDICATIONS: Unspecified malignant neoplasm of skin of unspecif TECHNIQUE: After the administration of intravenous contrast, 3.0 mm axial sections acquired from the sella to the aortic arch. Additional oblique axial 3.0 mm sections acquired through the pharynx. 3 mm thick coronal and sagittal reformats were generated. For radiation dose reduction, the following was used: automated exposure control. COMPARISON: [facility], CT, CT HEAD/BRAIN WO CON, 11/29/2018, 14:30. [facility], CT, CT CHEST WO CON, 08/26/2020, 12:32. FINDINGS: Image quality: Excellent. Lymph nodes: No enlarged lymph nodes seen throughout the neck. Vessels: Visualized vasculature appears patent. Neck spaces: Postoperative change of the region of the right restorationism can be seen. No desmond recurrent masses can be seen within this region. The oropharynx, nasopharynx, and pharynx demonstrate no mucosal lesions. The vocal cords, false vocal cords, pyriform sinuses, epiglottis, vallecula, and tongue base all appear normal. Glands: The parotid and submandibular glands appear normal. Thyroid gland demonstrates no significant abnormality. Miscellaneous: Visualized brain and orbits appear normal. Mild consolidation can be seen involving the superior segment of the right lower lobe. Superficial soft tissues appear normal. Bones: No suspicious bony lesions. Visualized sinuses and mastoids appear unremarkable. Cervical spine degenerative changes are seen, which are overall worst at the C6-C7 level. IMPRESSION: No recurrent masses or enlarged lymph nodes are seen. Mild consolidation is seen involving the superior segment of the right lower lobe. Please see the accompanying chest CT report. Dictated by: Mauro Beltran M.D. on 08/26/2020 at 12:05 Approved by: Mauro Beltran M.D. on 08/26/2020 at 12:07
--- NOTE | 2020-08-26 | DI.CT.S_ITS ---
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 1 mm lung window, 5 mm thick coronal and sagittal and 7 mm axial MIP reformats were then acquired. For radiation dose reduction, the following was used: automated exposure control, adjustment of mA and/or kV according to patient size. COMPARISON: [facility], CT, CT ABDOMEN PELVIS W CON, 10/20/2017, 20:47. [facility], CT, CT SOFT TISSUE NECK W CON, 08/26/2020, 12:32. FINDINGS: Image quality: Excellent. Lungs and pleura: Right lower lobe mild subpleural airspace opacity, (3/133). Additionally there is mild dependent subpleural opacity bilaterally. Tree-in-bud nodular opacity in the left upper lobe medially and right upper lobe inferior laterally. Several small scattered pulmonary nodules. For example: -Right upper lobe 0.4 cm, (3/121). -Left upper lobe linear opacity which likely represents a mucous plug, (3/147). -Left lower lobe 0.5 cm, (3/159). -Left lower lobe subpleural 0.6 cm, (3/175), remotely 0.3 cm in 2018. No pleural effusions or pneumothorax. A few areas of distal mucus airway plugging. Mediastinum: Heart size is normal. Aortic valvular calcification. No pericardial effusion. Calcified right hilar and mediastinal lymph nodes. Thoracic aorta and central pulmonary arteries are normal in size. Esophagus is normal in caliber. No hiatal hernia. Bones and chest wall: No suspicious bony lesions. No vertebral body compression fractures. No axillary or supraclavicular adenopathy by size criteria. Thyroid gland is unremarkable. Abdomen: Calcified granuloma. Small simple cyst in the left kidney seen. Visualized upper abdominal solid organs and bowel loops appear normal in the absence of contrast. IMPRESSION: 1. Several small pulmonary nodules which are indeterminate. Largest measures 0.6 cm. -Recommend CT of the chest in 6-12 months. 2. Small areas of tree-in-bud nodular opacity. Suspect bronchiolitis. Few areas of distal mucus airway plugging. Mild opacity in the right lung may represent infectious/inflammatory etiology. 3. Calcified mediastinal and hilar lymph nodes. No enlarged lymph nodes. Dictated by: Daryl Colindres M.D. on 08/26/2020 at 15:16 Approved by: Daryl Colindres M.D. on 08/26/2020 at 15:35
[2020-08-26 11:58] LABS: BUN Creatinine Ratio 35.5 (6-22); Blood Urea Nitrogen 22 mg/dL (7-17); Estimated Glomerular Filt Rate > 60.0 mL/min (>60)
== END ==
PROVIDERS: PCP Nurse Practitioner Gerontology; Referring Provider Otolaryngology Plastic Surgery within the Head & Neck; Visit Provider Otolaryngology Plastic Surgery within the Head & Neck
DX: C44.329 Squamous cell carcinoma of skin of other parts of face (principal); C44.300 Unspecified malignant neoplasm of skin of unspecified part of face; R91.8 Other nonspecific abnormal finding of lung field
CPT/HCPCS: 36415; 70491; 71250; 82565; 84520

== ENCOUNTER → 2021-03-03 10:56 | Outpatient (CLI) | payer MEDICARE, SELFPAY ==
[2018-10-31 16:57] VITALS: BMI 22.4
--- NOTE | 2021-03-03 | DI.CT.S_ITS ---
PROCEDURE: CT SOFT TISSUE NECK W CON INDICATIONS: Malignant neoplasm of parotid gland TECHNIQUE: After the administration of intravenous contrast, 3.0 mm axial sections acquired from the sella to the aortic arch. Additional oblique axial 3.0 mm sections acquired through the pharynx. 3 mm thick coronal and sagittal reformats were generated. For radiation dose reduction, the following was used: automated exposure control. COMPARISON: [facility], CT, CT SOFT TISSUE NECK W CON, 08/26/2020, 12:32. FINDINGS: Image quality: Excellent. Lymph nodes: No enlarged lymph nodes seen throughout the neck. Vessels: Visualized vasculature appears patent. Neck spaces: The oropharynx, nasopharynx, and pharynx demonstrate no mucosal lesions. The vocal cords, false vocal cords, pyriform sinuses, epiglottis, vallecula, and tongue base all appear normal. Cutaneous thickening involving the right lateral face/right temporal scalp is stable compared to August 26, 2020. Glands: The parotid and submandibular glands appear normal. No parotid mass identified. Thyroid gland is contains small hypoattenuating nodules which are stable compared to the prior exam. Miscellaneous: Visualized brain and orbits appear normal. Partially visualized patchy consolidation in the posterior aspect of the superior segment right lower lobe is stable compared to prior CT scan obtained August 26, 2020. Superficial soft tissues appear normal. Bones: No suspicious bony lesions. Spine degenerative disc disease and facet arthropathy. Visualized sinuses and mastoids appear unremarkable. IMPRESSION: 1. Stable examination compared to August 26, 2020. 2. No parotid mass identified. 3. No lymphadenopathy based on size criteria. 4. Right lateral face/right temporal scalp cutaneous thickening stable compared to prior examination. Dictated by: Bonnie Fragoso MD, PhD on 03/03/2021 at 13:10 Approved by: Bonnie Fragoso MD, PhD on 03/03/2021 at 13:18
[2021-03-03 11:45] LABS: BUN Creatinine Ratio 28.8 (6-22); Blood Urea Nitrogen 17 mg/dL (7-17); Calcium 9.5 mg/dL (8.4-10.2); Carbon Dioxide 30 mmol/L (22-32); Chloride 104 mmol/L (98-107); Estimated Glomerular Filt Rate > 60.0 mL/min (>60); Glucose 141 mg/dL (80-110); HEMOLYSIS < 15 (0-50); Phosphorous 3.1 mg/dL (2.8-4.1); Potassium 4.3 mmol/L (3.4-5.1); Sodium 140 mmol/L (137-145)
== END ==
PROVIDERS: PCP Nurse Practitioner Gerontology; Referring Provider Radiology Radiation Oncology; Visit Provider Radiology Radiation Oncology
DX: C07 Malignant neoplasm of parotid gland (principal)
CPT/HCPCS: 36415; 70491; 80069

== ENCOUNTER 2021-12-29 09:59 | Inpatient (IN) | payer MEDICARE, SELFPAY ==
[2018-10-31 16:57] VITALS: BMI 22.4
[2021-12-29] VITALS (14 sets, daily range): BP systolic 93–134; BP diastolic 49–76; PULSE 83–93; RESP 17–27; TEMP 35.8–36.4; O2SAT 91–97; BMI 20.3
--- NOTE | 2021-12-29 10:01 | DI.RAD.S_ITS ---
PROCEDURE: XR CHEST 1V INDICATIONS: weakness TECHNIQUE: One view of the chest was acquired. COMPARISON: [facility], , CHEST 2 VIEW, 06/26/2013, 18:16. FINDINGS: Surgical changes and devices: None. Lungs and pleura: Lungs are clear. No pleural effusions or pneumothorax. More pronounced elevation of the right hemidiaphragm. Mediastinum: Mediastinal contours appear normal. Heart size is normal. Bones and chest wall: No suspicious bony lesions. Overlying soft tissues appear unremarkable. IMPRESSION: No acute pulmonary process. Dictated by: Carmen Livingston M.D. on 12/29/2021 at 11:04 Approved by: Carmen Livingston M.D. on 12/29/2021 at 11:06
--- NOTE | 2021-12-29 10:01 | ED.WEAKNESS ---
HPI - Weakness General Chief complaint: Altered Mental Status Stated complaint: decreased LOC Time Seen by Provider: 12/29/21 10:00 History of Present Illness HPI Narrative: Patient is a 86-year-old female who resides at assisted living she has history of Parkinson's disease. For the last 3 days she has had profound weakness she has been falling she has not had anything to eat or drink for the last 2 days. She is complaining of some right hip pain. She definitely has decrease in mental status according to family and staff. She has previously had UTIs. 1 of our staff members works with her all is in states that is any she gets carbidopa levodopa she typically Perks up. Related Data Home Medications Medication Instructions Recorded Confirmed carbidopa 25 mg-levodopa 100 mg 1 tab PO TID ##0 12/31/15 12/29/21 tablet carbidopa ER 50 mg-levodopa 200 mg 1 tab PO TID 10/10/18 12/29/21 tablet,extended release trazodone 50 mg tablet 50 mg PO BEDTIME PRN Sleep 10/10/18 12/29/21 alendronate 70 mg tablet 70 mg PO WEEKLY 12/29/21 12/29/21 cholecalciferol (vitamin D3) 2,000 units PO DAILY 12/29/21 12/29/21 docusate sodium 100 mg capsule 100 mg PO DAILY 12/29/21 12/29/21 ketoconazole 2 % topical cream 1 applic topical 2XW 12/29/21 12/29/21 melatonin 5 mg PO BEDTIME PRN Insomnia 12/29/21 12/29/21 mirtazapine 15 mg tablet 15 mg PO BEDTIME 12/29/21 12/29/21 ondansetron HCl 4 mg tablet 4 mg PO Q3-6H PRN Nausea 12/29/21 12/29/21 polyethylene glycol 3350 17 gram 17 gm PO DAILY PRN Constipation 12/29/21 12/29/21 oral powder packet Previous Rx's Medication Instructions Recorded sennosides 8.6 mg tablet (senna) 17.2 mg PO BEDTIME PRN 10/14/18 Constipation #30 tabs tramadol 50 mg tablet 50 mg PO Q4HR PRN Pain, Moderate 10/14/18 (4-6) #30 tabs oxycodone 5 mg tablet 5 mg PO Q4-6H PRN Pain, Moderate 11/03/18 (4-6) #40 tabs hydrocodone 5 mg-acetaminophen 325 1 tab PO Q6H PRN pain #10 tabs 12/09/18 mg tablet (Randolph) Allergies Allergy/AdvReac Type Severity Reaction Status Date / Time Penicillins [PENICILLINS] Allergy Unknown Verified 12/09/18 13:51 Review of Systems Constitutional Constitutional: Reports frequent falls, Reports lethargy and Reports poor appetite ENT Ears, Nose, Mouth, and Throat: Denies dizziness Cardiovascular Cardiovascular: Denies chest pain and Denies dyspnea Respiratory Respiratory: Denies cough and Denies dyspnea Gastrointestinal Gastrointestinal: Denies abdominal pain, Denies nausea and Denies vomiting Genitourinary Genitourinary: Reports urinary incontinence Musculoskeletal Musculoskeletal: Reports arthralgias (left hip) Integumentary/Breasts Skin/Breast: Denies rash and Denies skin swelling Neurologic Neurologic: Denies dizziness and Reports frequent falls Patient History Medical History (Updated 12/29/21 @ 14:21 by Lelo Greene DO) Diverticulosis Hallucinations Macular degeneration of left eye Nephrolithiasis Parkinsons Scoliosis Septicemia Surgical History History of cystocele History of hip surgery (10/11/18) History of lithotripsy Status post hysterectomy Status post tonsillectomy and adenoidectomy Status post tubal ligation Family History Grandfather Diabetes mellitus Mother Heart disease Stroke Father Parkinsons Social History household members: spouse Smoking Status: Never smoker alcohol intake: current Smoking Status: Never smoker alcohol intake frequency: a few times a month Substance Use Type: does not use Exam Initial Vital Signs Initial Vital Signs: Vital Signs Pulse Rate 91 H 12/29/21 09:56 Respiratory Rate 17 12/29/21 09:56 Pulse Oximetry 95 12/29/21 09:56 GENERAL: Alert 86-year-old HEENT: Head atraumatic,EOMI, pupils reactive, face symmetric, moist mucous membranes CARDIOVASCULAR: Regular rate and rhythm without murmurs, rubs or gallops. RESPIRATORY: Breath sounds equal bilaterally, no wheezes rales or rhonchi. ABDOMEN: Soft, nontender. Normoactive bowel sounds all 4 quadrants. No guarding or rebound. : No CVA tenderness EXTREMITIES: Normal range of motion, no clubbing or edema. Neurovascularly intact Mild left hip tenderness NEUROLOGICAL: Filter Pulp Washer strength equal bilaterally able to lift right and left leg but overall diffuse weakness SKIN: Warm, dry, no laceration, no petechiae, no rashes or lesions. Course Orders Ordered: ED Orders 12/29/21 10:47 COVID19 -Nasal RAPID/Pre-Proc Stat Urinalysis and Microscopic Stat Urine Culture Stat 12/29/21 11:00 Blood Culture Stat 12/29/21 11:30 Complete Blood Count AUTO DIFF Stat Comprehensive Metabolic Panel Stat Lactate (Lactic Acid) Stat Procalcitonin Stat Troponin & CK Cardiac Panel Stat 12/29/21 11:48 XR hip w pel if done LT 2V Stat 12/29/21 12:06 XR wrist RT min 3V Stat Acetaminophen (Acetaminophen 325 Mg Tablet) 975 mg PO Q8H PRN PRN Reason: Pain, Mild (1-3) Hydrocodone Bitart/Acetaminophen (Hydrocodone/Acet 5/325 Tablet) 1 tab PO Q6H PRN PRN Reason: pain Carbidopa/Levodopa (Carbidopa-Levodopa 25/100 Tablet) 1 each PO TID [facility] Last Admin: 12/29/21 17:56 Dose: 1 each Documented By: BT Carbidopa/Levodopa (Carbidopa-Levodopa Er 50/200 Tablet) 1 each PO TID [facility] Last Admin: 12/29/21 17:56 Dose: 1 each Documented By: BT Docusate Sodium (Docusate 100 Mg Capsule) 100 mg PO DAILY [facility] Enoxaparin Sodium (Enoxaparin 40 Mg/0.4 Ml Syringe) 40 mg SUBCUT DAILY [facility] Sodium Chloride (Normal Saline 0.9%) 1,000 mls @ 150 mls/hr IV CONT [facility] Last Admin: 12/29/21 17:55 Dose: 150 mls/hr Documented By: BT Ciprofloxacin (Cipro) 400 mg in 200 mls @ 200 mls/hr IV Q12H [facility] Metronidazole (Flagyl) 500 mg in 100 mls @ 100 mls/hr IV Q8H [facility] Last Admin: 12/29/21 18:39 Dose: 100 mls/hr Documented By: BT Mirtazapine (Mirtazapine 15 Mg Tablet) 15 mg PO BEDTIME CASA Ondansetron HCl (Ondansetron 4 Mg/2 Ml Inj) 4 mg IV Q8HR PRN PRN Reason: Nausea And Vomiting Polyethylene Glycol (Polyethylene Glycol 3350 17 Gm Powd.Pack) 17 gm PO DAILY PRN PRN Reason: Constipation Sennosides (Sennosides 8.6 Mg Tablet) 17.2 mg PO BEDTIME PRN PRN Reason: Constipation Discontinued Medications Acetaminophen (Acetaminophen 325 Mg Tablet) 650 mg PO NOW ONE Stop: 12/29/21 12:41 Last Admin: 12/29/21 12:52 Dose: 650 mg Documented By: LAWSON Bisacodyl (Bisacodyl 5 Mg Tablet) 10 mg PO NOW ONE Stop: 12/29/21 18:20 Last Admin: 12/29/21 18:30 Dose: Not Given Documented By: WENDY Carbidopa/Levodopa (Carbidopa-Levodopa Er 50/200 Tablet) 1 each PO NOW ONE Stop: 12/29/21 10:02 Last Admin: 12/29/21 10:22 Dose: 1 each Documented By: LAWSON(2) Carbidopa/Levodopa (Carbidopa-Levodopa 25/100 Tablet) 1 each PO NOW ONE Stop: 12/29/21 11:37 Last Admin: 12/29/21 11:46 Dose: 1 each Documented By: LAWSON(2) Ceftriaxone Sodium 1,000 mg/ (Sodium Chloride) 100 mls @ 200 mls/hr IV NOW ONE Stop: 12/29/21 12:36 Last Infusion: 12/29/21 13:26 Dose: 0 mls/hr Documented By: Admin: 12/29/21 12:51 Dose: 200 mls/hr Documented By: LAWSON Sodium Chloride (Normal Saline 0.9%) 1,000 mls @ 150 mls/hr IV CONT CASA Last Admin: 12/29/21 13:06 Dose: 150 mls/hr Documented By: LAWSON(2) Vital Signs Vital signs: Vital Signs - 8 hr 12/29/21 11:30 12/29/21 11:30 12/29/21 12:00 Pulse Rate 91 H Respiratory Rate 20 Blood Pressure 134/60 118/71 Pulse Oximetry 95 12/29/21 12:00 12/29/21 12:30 12/29/21 12:30 Pulse Rate 90 91 H Respiratory Rate 20 26 H Blood Pressure 128/63 Pulse Oximetry 97 93 12/29/21 13:00 12/29/21 13:00 Pulse Rate 93 H Respiratory Rate 24 Blood Pressure 131/64 Pulse Oximetry 93 MDM - Weakness Lab Data Result diagrams: 12/29/21 11:30 12/29/21 11:30 Labs: Lab Results 12/29/21 12/29/21 12/29/21 Range/Units 10:47 10:47 11:30 WBC 24.4 H (4.5-11.0) X10^3/uL RBC 4.66 (4.0-5.2) X10^6/uL Hgb 13.7 (12.0-16.0) g/dL Hct 41.5 (36-46) % MCV 89.1 (80-100) fL MCH 29.4 (26-34) PG MCHC 33.0 (30-36) % RDW 15.7 H (11.6-14.8) % Plt Count 288 (150-400) X10^3/uL Neut % (Auto) 92.0 H (50-75) % Lymph % (Auto) 2.2 L (25-40) % Rusk % (Auto) 5.6 (3-14) % Eos % (Auto) 0.0 L (2-4) % Baso % (Auto) 0.2 (0-2) % Neut # (Auto) 79761 H (0736-7778) /uL Lymph # (Auto) 500 L (8112-1992) /uL Rusk # (Auto) 1400 H (0-900) /uL Eos # (Auto) 0 (0-450) /uL Baso # (Auto) 0 (0-100) /uL Sodium (137-145) mmol/L Potassium (3.4-5.1) mmol/L Chloride (98-107) mmol/L Carbon Dioxide (22-32) mmol/L BUN (7-17) mg/dL Creatinine (0.52-1.04) mg/dL Estimated GFR (>60) mL/min BUN/Creatinine Ratio (6-22) Glucose (80-110) mg/dL Lactate (0.7-2.1) mmol/L Calcium (8.4-10.2) mg/dL Total Bilirubin (0.2-1.3) mg/dL AST (14-36) IU/L ALT (<35) IU/L Alkaline Phosphatase (38-126) U/L Total Creatine Kinase (30-135) U/L CK-MB (CK-2) (<2.37) ng/mL CK-MB (CK-2) Rel Index (1.5-5.0) % Troponin I (0.01-0.034) ng/mL Total Protein (6.3-8.2) g/dL Albumin (3.5-5.0) g/dL Globulin (1.7-4.1) g/dL Albumin/Globulin Ratio (1.0-2.8) Procalcitonin (<0.5) ng/mL Urine Color Yellow Urine Appearance Cloudy Urine pH 5.0 (4.5-8.0) Ur Specific [place] 1.010 (1.000-1.035) Urine Protein 2+ H (Negative) Urine Glucose (UA) Negative (Negative) g/dL Urine Ketones Trace H (NEGATIVE) Urine Occult Blood 3+ H (Negative) Urine Nitrate Negative (Negative) Urine Bilirubin Negative (NEGATIVE) Urine Urobilinogen 0.2 (0.2) E.U./dL Ur Leukocyte Esterase 3+ H (NEGATIVE) Urine RBC 1-5/hpf (0-5/HPF) Urine WBC >100/hpf H (0-5/HPF) Urine Bacteria Many (>30) H (None) Ur Culture Indicated? Specimen cultured SARS-CoV-2 (PCR) Negative (Negative) 12/29/21 12/29/21 Range/Units 11:30 11:30 WBC (4.5-11.0) X10^3/uL RBC (4.0-5.2) X10^6/uL Hgb (12.0-16.0) g/dL Hct (36-46) % MCV (80-100) fL MCH (26-34) PG MCHC (30-36) % RDW (11.6-14.8) % Plt Count (150-400) X10^3/uL Neut % (Auto) (50-75) % Lymph % (Auto) (25-40) % Rusk % (Auto) (3-14) % Eos % (Auto) (2-4) % Baso % (Auto) (0-2) % Neut # (Auto) (5151-8843) /uL Lymph # (Auto) (1264-1724) /uL Rusk # (Auto) (0-900) /uL Eos # (Auto) (0-450) /uL Baso # (Auto) (0-100) /uL Sodium 139 (137-145) mmol/L Potassium 4.1 (3.4-5.1) mmol/L Chloride 105 (98-107) mmol/L Carbon Dioxide 26 (22-32) mmol/L BUN 53 H (7-17) mg/dL Creatinine 0.98 (0.52-1.04) mg/dL Estimated GFR 57 L (>60) mL/min BUN/Creatinine Ratio 54.1 H (6-22) Glucose 117 H (80-110) mg/dL Lactate 1.4 (0.7-2.1) mmol/L Calcium 8.9 (8.4-10.2) mg/dL Total Bilirubin 0.6 (0.2-1.3) mg/dL AST 116 H (14-36) IU/L ALT 13 (<35) IU/L Alkaline Phosphatase 108 (38-126) U/L Total Creatine Kinase 5036 H (30-135) U/L CK-MB (CK-2) 7.71 H (<2.37) ng/mL CK-MB (CK-2) Rel Index 0.2 L (1.5-5.0) % Troponin I < 0.012 (0.01-0.034) ng/mL Total Protein 6.9 (6.3-8.2) g/dL Albumin 3.5 (3.5-5.0) g/dL Globulin 3.4 (1.7-4.1) g/dL Albumin/Globulin Ratio 1.0 (1.0-2.8) Procalcitonin 7.64 H (<0.5) ng/mL Urine Color Urine Appearance Urine pH (4.5-8.0) Ur Specific Uledi (1.000-1.035) Urine Protein (Negative) Urine Glucose (UA) (Negative) g/dL Urine Ketones (NEGATIVE) Urine Occult Blood (Negative) Urine Nitrate (Negative) Urine Bilirubin (NEGATIVE) Urine Urobilinogen (0.2) E.U./dL Ur Leukocyte Esterase (NEGATIVE) Urine RBC (0-5/HPF) Urine WBC (0-5/HPF) Urine Bacteria (None) Ur Culture Indicated? SARS-CoV-2 (PCR) (Negative) Imaging Data CT scan - head: Radiologist Impression: Signed Patient: Carolina Swift MR#: [id number] : 1935 Acct:[id number] Age/Sex: 86 / F Date of Service: 12/29/21 Loc: ED Accession Number: [id number] ?? Procedure: CT head/brain wo con Ordering Provider: Lelo Greene D.O. PROCEDURE:? CT HEAD/BRAIN WO CON ? INDICATIONS:? falls ? TECHNIQUE:? Noncontrast 4.5 mm thick angled axial sections acquired from the foramen magnum to the vertex, with coronal and sagittal reformats.? For radiation dose reduction, the following was used:? automated exposure control, adjustment of mA and/or kV according to patient size.? ? COMPARISON:? [facility], CT, CT HEAD/BRAIN WO CON, 11/29/2018, 14:30. ? FINDINGS:? Image quality:? Excellent.? ? CSF spaces:? Basal cisterns are patent.? No extra-axial fluid collections.? The ventricles are symmetric in size and shape.? ? Brain:? No intracranial bleeds or masses.? There is cerebral volume loss for age, with resultant ventricular and sulcal prominence.? There are periventricular and deep white matter chronic small vessel ischemic changes.? There is intracranial internal carotid artery atherosclerosis.? ? Skull and face:? Calvarium and visualized facial bones appear intact, without suspicious lesions.? ? Sinuses:? Visualized sinuses and mastoids are clear.? ? IMPRESSION:? No evidence of acute intracranial process. ? ? Dictated by: Capo Ramos M.D. on 12/29/2021 at 10:35? Chest x-ray: Radiologist Impression: [address] [address] XRay Report Signed Patient: Carolina Swift MR#: [id number] : 1935 Acct:[id number] Age/Sex: 86 / F Date of Service: 12/29/21 Loc: ED Accession Number: [id number] ?? Procedure: XR chest 1V Ordering Provider: Lelo Greene D.O. PROCEDURE:? XR CHEST 1V ? INDICATIONS:? weakness ? TECHNIQUE:? One view of the chest was acquired.? ? COMPARISON:? [facility], CHEST 2 VIEW, 06/26/2013, 18:16. ? FINDINGS:? ? Surgical changes and devices:? None.? ? Lungs and pleura:? Lungs are clear.? No pleural effusions or pneumothorax.? More pronounced elevation of the right hemidiaphragm. ? Mediastinum:? Mediastinal contours appear normal.? Heart size is normal.? ? Bones and chest wall:? No suspicious bony lesions.? Overlying soft tissues appear unremarkable.? ? IMPRESSION:? No acute pulmonary process. ? ? Dictated by: Carmen Livingston M.D. on 12/29/2021 at 11:04 ?? Extremity x-ray #1: Radiologist Impression: [address] [place] [address] XRay Report Signed Patient: Carolina Swift MR#: [id number] : 1935 Acct:[id number] Age/Sex: 86 / F Date of Service: 12/29/21 Loc: ED Accession Number: [id number] ?? Procedure: XR hip w pel if done LT 2V Ordering Provider: Lelo Greene D.O. PROCEDURE:? XR HIP W PEL IF DONE LT 2V ? INDICATIONS:? pain fall ? TECHNIQUE:? 2 views of the hip were acquired.? ? COMPARISON:? [facility], XR HIP W PEL IF DONE RT 2V, 12/26/2018, 20:28. ? FINDINGS:? ? Bones:? Right hip prosthesis in place without hardware failure or loosening.? No evidence of acute fracture.? Generalized osseous demineralization present.? Degenerative changes present in the lower lumbar spine. ? Soft tissues:? No suspicious soft tissue calcifications or masses.? Moderate fecal debris in the rectum ? IMPRESSION:? ? Right hip arthroplasty in good position without fracture. ? Osteopenia.? Unremarkable left proximal femur.? Approved by: Adalberto Leal M.D. on 12/29/2021 at 11:34? Extremity x-ray #2: Radiologist Impression: XRay Report Signed Patient: Carolina Swift MR#: [id number] : 1935 Acct:[id number] Age/Sex: 86 / F Date of Service: 12/29/21 Loc: ED Accession Number: [id number] ?? Procedure: XR wrist RT min 3V Ordering Provider: Lelo Greene D.O. PROCEDURE:? XR WRIST RT MIN 3V ? INDICATIONS: fall ? TECHNIQUE:? 4 views of the wrist were acquired.? ? COMPARISON:? None. ? FINDINGS:? ? Bones:? No fractures or dislocations.? No suspicious bony lesions.? Radiocarpal joint space narrowing. Generalized decrease in osseous mineralization noted. ? Scaphoid view:? There is widening of the scapholunate interval.? No scaphoid fracture present. ? Soft tissues:? No suspicious soft tissue calcifications.? Medial soft tissue swelling noted ? IMPRESSION:? ? Medial soft tissue swelling.? Osteopenia without fracture or foreign body. ? Widening of the scapholunate interval may reflect and chronic ligamentous injury ? ? ? Approved by: Adalberto Leal M.D. on 12/29/2021 at 11:41? ECG Data Interpretation: Sinus rhythm rate 91 GA interval 162 QRS 74 QTC [address] changes similar to previous EKG MDM Narrative Medical decision making narrative: Patient is more confused and generally weak. She is found have UTI leukocytosis concern for urosepsis. She is given IV fluids results antibiotics. CPK is also noted to be mildly elevated at 5000. His daughter who is a physician states that she did fall 2 days ago and was on the ground for about 1 hour. Fortunately imaging is negative. Vitals are stable. Normal lactic acid however elevated procalcitonin consistent with infection. She is given her normal dose of carbidopa levodopa. Dr. Reardon accepts patient Discharge Plan Departure Patient Disposition: Admitted As Inpatient Clinical Impression: Acute UTI, Sepsis, Rhabdomyolysis Admit Date/Time: 12/29/21 13:01 Admit Provider: Drew Reardon
--- NOTE | 2021-12-29 10:13 | DI.CT.S_ITS ---
PROCEDURE: CT HEAD/BRAIN WO CON INDICATIONS: falls TECHNIQUE: Noncontrast 4.5 mm thick angled axial sections acquired from the foramen magnum to the vertex, with coronal and sagittal reformats. For radiation dose reduction, the following was used: automated exposure control, adjustment of mA and/or kV according to patient size. COMPARISON: [facility], CT, CT HEAD/BRAIN WO CON, 11/29/2018, 14:30. FINDINGS: Image quality: Excellent. CSF spaces: Basal cisterns are patent. No extra-axial fluid collections. The ventricles are symmetric in size and shape. Brain: No intracranial bleeds or masses. There is cerebral volume loss for age, with resultant ventricular and sulcal prominence. There are periventricular and deep white matter chronic small vessel ischemic changes. There is intracranial internal carotid artery atherosclerosis. Skull and face: Calvarium and visualized facial bones appear intact, without suspicious lesions. Sinuses: Visualized sinuses and mastoids are clear. IMPRESSION: No evidence of acute intracranial process. Dictated by: Capo Ramos M.D. on 12/29/2021 at 10:35 Approved by: Capo Ramos M.D. on 12/29/2021 at 10:36
[2021-12-29] MEDS: CARBIDOPA-LEVODOPA ER 50/200 TABLET 1 EACH PO ×3 (10:22→21:03)
[2021-12-29 10:58] LABS: Appearance Urine UA CLOUDY; Bilirubin Urine UA NEGATIVE (NEGATIVE); Color Urine UA YELLOW; Glucose Urine UA NEGATIVE (Negative); Ketones Urine UA TRACE (NEGATIVE); Leukocyte Esterase Urine UA 3+ (NEGATIVE); Nitrite Urine UA NEGATIVE (Negative); Occult Blood Urine UA 3+ (Negative); Protein Urine UA 2+ (Negative); Urobilinogen Urine UA 0.2 E.U./dL (0.2)
[2021-12-29 11:05] LABS: Bacteria Urine Many (>30); Culture Indicated Urine Specimen Cultured; RBC Urine 1-5/HPF (0-5/HPF); WBC Urine >100/HPF (0-5/HPF)
[2021-12-29 11:19] LABS: COVID19 -Nasal RAPID Negative (Negative)
[2021-12-29 11:43] LABS: Basophils Absolute Auto 0 /uL (0-100); Eosinophils Absolute Auto 0 /uL (0-450); Hemoglobin 13.7 g/dL (12.0-16.0); Lymphocytes Absolute Auto 500 /uL (1100-4500); Lymphocytes Percent Auto 2.2 % (25-40); Mean Corpuscular Hemoglobin 29.4 PG (26-34); Monocytes Percent Auto 5.6 % (3-14)
[2021-12-29 11:46] LABS: Add Manual Diff / Slide Review NO; Basophils Percent Auto 0.2 % (0-2); Hematocrit 41.5 % (36-46); Mean Corpuscular Volume 89.1 fL (80-100); Monocytes Absolute Auto 1400 /uL (0-900); Neutrophils Absolute Auto 22400 /uL (1500-7000); Platelet Count 288 X10^3/uL (150-400); Red Blood Cell Count 4.66 X10^6/uL (4.0-5.2); Red Cell Distribution Width 15.7 % (11.6-14.8); White Blood Cell Count 24.4 X10^3/uL (4.5-11.0)
[2021-12-29] MEDS: CARBIDOPA-LEVODOPA 25/100 TABLET 1 EACH PO ×3 (11:46→21:03)
[2021-12-29 11:48] LABS: Lactate (Lactic Acid) 1.4 mmol/L (0.7-2.1)
--- NOTE | 2021-12-29 11:48 | DI.RAD.S_ITS ---
PROCEDURE: XR HIP W PEL IF DONE LT 2V INDICATIONS: pain fall TECHNIQUE: 2 views of the hip were acquired. COMPARISON: [facility], CR, XR HIP W PEL IF DONE RT 2V, 12/26/2018, 20:28. FINDINGS: Bones: Right hip prosthesis in place without hardware failure or loosening. No evidence of acute fracture. Generalized osseous demineralization present. Degenerative changes present in the lower lumbar spine. Soft tissues: No suspicious soft tissue calcifications or masses. Moderate fecal debris in the rectum IMPRESSION: Right hip arthroplasty in good position without fracture. Osteopenia. Unremarkable left proximal femur. Approved by: Adalberto Lael M.D. on 12/29/2021 at 11:34
[2021-12-29 11:49] LABS: Alanine Aminotransferase 13 IU/L (<35); Albumin 3.5 g/dL (3.5-5.0); Alkaline Phosphatase 108 U/L (38-126); Aspartate Aminotransferase 116 IU/L (14-36); BUN Creatinine Ratio 54.1 (6-22); Bilirubin Total 0.6 mg/dL (0.2-1.3); Blood Urea Nitrogen 53 mg/dL (7-17); Calcium 8.9 mg/dL (8.4-10.2); Carbon Dioxide 26 mmol/L (22-32); Chloride 105 mmol/L (98-107); Estimated Glomerular Filt Rate 57 mL/min (>60); Globulin 3.4 g/dL (1.7-4.1); Glucose 117 mg/dL (80-110); HEMOLYSIS < 15 (0-50); Potassium 4.1 mmol/L (3.4-5.1); Sodium 139 mmol/L (137-145); Total Protein 6.9 g/dL (6.3-8.2)
[2021-12-29 12:00] LABS: Troponin I < 0.012 ng/mL (0.01-0.034)
[2021-12-29 12:03] LABS: Creatine Kinase 5036 U/L (30-135)
[2021-12-29 12:05] LABS: Procalcitonin 7.64 ng/mL (<0.5)
--- NOTE | 2021-12-29 12:06 | DI.RAD.S_ITS ---
PROCEDURE: XR WRIST RT MIN 3V INDICATIONS: fall TECHNIQUE: 4 views of the wrist were acquired. COMPARISON: None. FINDINGS: Bones: No fractures or dislocations. No suspicious bony lesions. Radiocarpal joint space narrowing. Generalized decrease in osseous mineralization noted. Scaphoid view: There is widening of the scapholunate interval. No scaphoid fracture present. Soft tissues: No suspicious soft tissue calcifications. Medial soft tissue swelling noted IMPRESSION: Medial soft tissue swelling. Osteopenia without fracture or foreign body. Widening of the scapholunate interval may reflect and chronic ligamentous injury Approved by: Adalberto Leal M.D. on 12/29/2021 at 11:41
[2021-12-29 12:20] LABS: CKMB % Relative Index 0.2 % (1.5-5.0); Creatine Kinase MB 7.71 ng/mL (<2.37)
[2021-12-29] MEDS: cefTRIAXone 1,000 MG in SODIUM CHLORIDE 0.9% 100 ML 200 MG IV (12:51)
[2021-12-29] MEDS: ACETAMINOPHEN 325 MG TABLET 650 MG PO (12:52)
[2021-12-29] MEDS: SODIUM CHLORIDE 0.9% 1,000 ML 150 ML IV ×2 (13:06→17:55)
--- NOTE | 2021-12-29 14:41 | PC.RNWOUND ---
Patient resting in bed, is incontinent of small, formed bowel movement. Turns to right side with assist of 2, patient's daughter in room. There is a 1.2 x 1cm wound to the sacrum appearing as an unstageable pressure injury. The wound base is maroon/purple consistent with DTPI with adherent yellow slough over the wound bed obscuring depth. This wound is surrounded by 7x14cm of erythema. There is no drainage noted at this time, no malodor. Patient's daughter says, it wasn't there 10 days ago when I bathed her. Daughter also says patient spends a lot of time sitting in chair, over 50% of the day. Sacral dressing is applied for protection and patient is tilted to the left side with 30 degree tilt using a pillow, heels floated off bed surface with pillow. Barrier cream applied to perineal area where some light pink is noted to skin/ skin folds. Turn schedule added to worklist. Patient reports comfort with position. There is also a 1cm light purple area to the right lateral thigh with some bruising noted distally on the lower outer thigh. Patient says she has had some falls. Sacrum Right lateral thigh
--- NOTE | 2021-12-29 17:24 | P.HP_ITS ---
History of Present Illness History of Present Illness Date Patient Seen: 12/29/21 Time Patient Seen: 17:24 Chief complaint: decreased LOC Narrative: This is an 86-year-old female with a past medical history of Parkinson's disease, with mild cognitive impairment, nephrolithiasis, and macular degeneration of her left eye who presented from [facility] with 3-4 days of worsening mental status and fatigue as well as a decrease in appetite. Unable to obtain information from patient currently given her significant lethargy. The patient denies any abdominal pain, nausea, vomiting, chest pain, shortness of breath at this time, but is unable to recall over the past couple of days at home it. Her daughter states that she was more alert in the emergency room then now, but recalls that starting approximately 4 days ago she had increasing lethargy and fatigue. Not eating or drinking very well, and was not moving around a lot. Two days ago she had a fall at her assisted living, and may have been down for maybe an hour. After her fall she became even more fatigued, not wanting to do much at all. Daughter reported an episode of incontinence of stool and urine. She was brought to the emergency room for further evaluation. There were no recorded fevers, and there were no known sick contacts. The daughter states that a couple of days prior to her fatigue starting, she did complain of some mild lower abdominal pain, though this was apparently short lived. In the emergency room, the patient's vital signs were within normal limits. Laboratory evaluation revealed the white blood cell count of 24.4, with 92% neutrophils. Chemistries revealed a creatinine of 0.98 up from her usual baseline of around 0.5. AST was slightly elevated at 116, total CK was 5036. Troponin was within normal limits. Procalcitonin was elevated at 7.64. Was grossly positive for infection with greater than 100 white blood cells and many urine bacteria, nitrate was negative. COVID-19 testing was negative. The patient in the emergency room complained of some extremity pain, imaging was unremarkable with no acute fracture including her hip and wrist. CT of her head was also unremarkable for any acute findings. Chest x-ray was also unremarkable. She was admitted for further management to the hospitalist service. Patient History Medical History Diverticulosis Hallucinations Macular degeneration of left eye Nephrolithiasis Parkinsons Scoliosis Septicemia Surgical History History of cystocele History of hip surgery (10/11/18) History of lithotripsy Status post hysterectomy Status post tonsillectomy and adenoidectomy Status post tubal ligation Family & Social History Family History Grandfather Diabetes mellitus Mother Heart disease Stroke Father Parkinsons Social History: household members spouse Prior Living Arrangements Assisted Living Safety & Behavioral: Feels Safe in Current Yes Environment Been Physically Hurt or No Threatened By a Person Tobacco & Substance use: Smoking Status Never smoker alcohol intake current alcohol intake frequency holiday/special occasion Substance Use Type does not use Meds Home Medications and Allergies Home Medications Medication Instructions Recorded Confirmed Type carbidopa 25 mg-levodopa 100 mg 1 tab PO TID ##0 12/31/15 12/29/21 History tablet carbidopa ER 50 mg-levodopa 200 mg 1 tab PO TID 10/10/18 12/29/21 History tablet,extended release trazodone 50 mg tablet 50 mg PO BEDTIME PRN Sleep 10/10/18 12/29/21 History sennosides 8.6 mg tablet (senna) 17.2 mg PO BEDTIME PRN 10/14/18 12/29/21 Rx Constipation #30 tabs tramadol 50 mg tablet 50 mg PO Q4HR PRN Pain, Moderate 10/14/18 12/29/21 Rx (4-6) #30 tabs oxycodone 5 mg tablet 5 mg PO Q4-6H PRN Pain, Moderate 11/03/18 12/29/21 Rx (4-6) #40 tabs hydrocodone 5 mg-acetaminophen 325 1 tab PO Q6H PRN pain #10 tabs 12/09/18 12/29/21 Rx mg tablet ([place]) alendronate 70 mg tablet 70 mg PO WEEKLY 12/29/21 12/29/21 History cholecalciferol (vitamin D3) 2,000 units PO DAILY 12/29/21 12/29/21 History docusate sodium 100 mg capsule 100 mg PO DAILY 12/29/21 12/29/21 History ketoconazole 2 % topical cream 1 applic topical 2XW 12/29/21 12/29/21 History melatonin 5 mg PO BEDTIME PRN Insomnia 12/29/21 12/29/21 History mirtazapine 15 mg tablet 15 mg PO BEDTIME 12/29/21 12/29/21 History ondansetron HCl 4 mg tablet 4 mg PO Q3-6H PRN Nausea 12/29/21 12/29/21 History polyethylene glycol 3350 17 gram 17 gm PO DAILY PRN Constipation 12/29/21 12/29/21 History oral powder packet Allergies Allergy/AdvReac Type Severity Reaction Status Date / Time Penicillins [PENICILLINS] Allergy Unknown Verified 12/09/18 13:51 Review of Systems Review of Systems Narrative: All other systems reviewed with the patient and daughter and are negative unless otherwise stated. Review of systems is currently limited by the patient's current mentation however Exam Vital Signs (past 8 hours): - 12/29/21 10:00 12/29/21 09:56 12/29/21 10:00 Temperature 97.5 F L Pulse Rate 90 91 H Respiratory Rate 18 17 Blood Pressure 111/76 114/56 L Pulse Oximetry 94 95 Oxygen Delivery Method Room Air Oxygen Flow Rate 12/29/21 10:00 12/29/21 10:30 12/29/21 10:42 Temperature Pulse Rate 91 H 89 91 H Respiratory Rate 23 23 22 Blood Pressure Pulse Oximetry 94 94 Oxygen Delivery Method Oxygen Flow Rate 12/29/21 10:42 12/29/21 10:45 12/29/21 10:45 Temperature Pulse Rate 89 Respiratory Rate 21 Blood Pressure 122/75 121/59 L Pulse Oximetry 94 Oxygen Delivery Method Oxygen Flow Rate 12/29/21 11:00 12/29/21 11:00 12/29/21 11:30 Temperature Pulse Rate 89 Respiratory Rate 22 Blood Pressure 129/55 L 134/60 Pulse Oximetry 95 Oxygen Delivery Method Oxygen Flow Rate 12/29/21 11:30 12/29/21 12:00 12/29/21 12:00 Temperature Pulse Rate 91 H 90 Respiratory Rate 20 20 Blood Pressure 118/71 Pulse Oximetry 95 97 Oxygen Delivery Method Oxygen Flow Rate 12/29/21 12:30 12/29/21 12:30 12/29/21 13:00 Temperature Pulse Rate 91 H Respiratory Rate 26 H Blood Pressure 128/63 131/64 Pulse Oximetry 93 Oxygen Delivery Method Oxygen Flow Rate 12/29/21 13:00 12/29/21 13:57 12/29/21 13:50 Temperature 96.8 F L Pulse Rate 93 H 83 Respiratory Rate 24 27 H Blood Pressure 96/52 L Pulse Oximetry 93 93 92 Oxygen Delivery Method Room Air Oxygen Flow Rate 0 0 Oxygen Delivery Method Room Air Oxygen Flow Rate 0 Narrative Exam Narrative: General:? Elderly female, mildly ill-appearing, very lethargic and difficult to arouse HEENT:? Normocephalic, atraumatic, extraocular muscles intact, oral pharynx is clear and mucous membranes are dry. Neck: supple and symmetric, trachea is midline, no cervical adenopathy. Negative for JVD Chest:? Normal AP diameter and contour without kyphoscoliosis, no tachypnea, equal chest rise bilaterally. Lungs:? CTA b/l no wheezing rhonchi or rales. Cardio:?RRR no m/r/g. Abdomen: S NT ND. Musculoskeletal:? Muscle strength and tone are equal within normal limits, no deformity. Extremities: No edema or joint effusions. No cyanosis or clubbing. Skin:? Pale,? Warm to touch. Unstageable sacral pressure ulcer. Small, minimal surrounding erythema. Neuro:? Lethargic, oriented to name, very slow to respond to questions, difficult to arouse. Psych:? Unable to assess Objective Labs Result Diagrams: 12/29/21 11:30 12/29/21 11:30 Labs: Laboratory Results - last 24 hr 12/29/21 12/29/21 12/29/21 10:47 10:47 11:30 WBC 24.4 H RBC 4.66 Hgb 13.7 Hct 41.5 MCV 89.1 MCH 29.4 MCHC 33.0 RDW 15.7 H Plt Count 288 Neut % (Auto) 92.0 H Lymph % (Auto) 2.2 L Gilliam % (Auto) 5.6 Eos % (Auto) 0.0 L Baso % (Auto) 0.2 Neut # (Auto) 66616 H Lymph # (Auto) 500 L Gilliam # (Auto) 1400 H Eos # (Auto) 0 Baso # (Auto) 0 Sodium Potassium Chloride Carbon Dioxide BUN Creatinine Estimated GFR BUN/Creatinine Ratio Glucose Lactate Calcium Total Bilirubin AST ALT Alkaline Phosphatase Total Creatine Kinase CK-MB (CK-2) CK-MB (CK-2) Rel Index Troponin I Total Protein Albumin Globulin Albumin/Globulin Ratio Procalcitonin Urine Color Yellow Urine Appearance Cloudy Urine pH 5.0 Ur Specific [place] 1.010 Urine Protein 2+ H Urine Glucose (UA) Negative Urine Ketones Trace H Urine Occult Blood 3+ H Urine Nitrate Negative Urine Bilirubin Negative Urine Urobilinogen 0.2 Ur Leukocyte Esterase 3+ H Urine RBC 1-5/hpf Urine WBC >100/hpf H Urine Bacteria Many (>30) H Ur Culture Indicated? Specimen cultured SARS-CoV-2 (PCR) Negative 12/29/21 12/29/21 11:30 11:30 WBC RBC Hgb Hct MCV MCH MCHC RDW Plt Count Neut % (Auto) Lymph % (Auto) Gilliam % (Auto) Eos % (Auto) Baso % (Auto) Neut # (Auto) Lymph # (Auto) Gilliam # (Auto) Eos # (Auto) Baso # (Auto) Sodium 139 Potassium 4.1 Chloride 105 Carbon Dioxide 26 BUN 53 H Creatinine 0.98 Estimated GFR 57 L BUN/Creatinine Ratio 54.1 H Glucose 117 H Lactate 1.4 Calcium 8.9 Total Bilirubin 0.6 AST 116 H ALT 13 Alkaline Phosphatase 108 Total Creatine Kinase 5036 H CK-MB (CK-2) 7.71 H CK-MB (CK-2) Rel Index 0.2 L Troponin I < 0.012 Total Protein 6.9 Albumin 3.5 Globulin 3.4 Albumin/Globulin Ratio 1.0 Procalcitonin 7.64 H Urine Color Urine Appearance Urine pH Ur Specific [place] Urine Protein Urine Glucose (UA) Urine Ketones Urine Occult Blood Urine Nitrate Urine Bilirubin Urine Urobilinogen Ur Leukocyte Esterase Urine RBC Urine WBC Urine Bacteria Ur Culture Indicated? SARS-CoV-2 (PCR) Assessment & Plan Assessment & Plan narrative: This is an 86-year-old female with past medical history of Parkinson's disease and mild cognitive impairment admitted with sepsis secondary to likely acute cystitis. 1. Sepsis secondary to acute cystitis with acute metabolic encephalopathy, TENA, and hypotension - received fluid boluses in the ER. Started on ceftriaxone, will plan to continue. - BP 96/52. MAP of 67. Will continue fluids and follow response. - will check CT KUB to rule out obstructing stone. - continue ceftriaxone for now. - SOFA score of 2 based on mental status and hypotension. Also with TENA as creatinine is 0.98 from baseline of around 0.5. 2. TENA - secondary to dehydration, rhabdomyolysis, and sepsis. - continue fluid resuscitation. 3. Acute non-traumatic rhabdomyolysis. - continue IV fluids with normal saline at 150 cc per hour - ramos in place for accurate urinary output. 4. Parkinson's disease with mild cognitive impairment. - continue home sinemet, mirtazapine at bedtime. - continue aggressive bowel therapies for constipation. - PT/OT once improved. Code: DNR, daughter unsure about pressors. POLST states comfort measures but daughter is agreeable to antibiotics, fluids, etc. daughter is surrogate decision maker and MPOA. DVT: Lovenox daily Dispo: Patient admitted under inpatient status as her stay is expected to exceed two midnights. I have utilized all available immediate resources to obtain, update, or review the patient's current medications. COVID-19 COVID-19 status: Negative Time Spent With Patient Critical Care time: I spent a total of [] minutes of critical care time on this patient's care today; this time is exclusive of procedural time. Scores GCS [place] coma scale eye opening: To sound Giovanny coma scale verbal response: Confused Giovanny coma scale motor response: Obey commands [place] coma scale total score: 13 SOFA PaO2/FIO2: >=400 mmHg Platelets: >= 150 Bilirubin: < 1.2 mg/dL Hypotension: MAP < 70 mmHg Giovanny Coma Scale: 13-14 Renal: < 1.2 mg/dL SOFA Score: 2 Quality VTE Deep Vein Thrombosis/Pulmonary Embolism Present on Admission: No MIPS - Admit I confirm the patient?s Advance Care Plan is present, Code status is documented, Surrogate decision maker is in patient?s record [If Yes, STOP here]: Yes
--- NOTE | 2021-12-29 17:29 | DI.CT.S_ITS ---
PROCEDURE: CT KIDNEY URETER BLADDER (KUB) INDICATIONS: sepsis, history of obstructing stone TECHNIQUE: Axial sections were acquired from the lung bases to the pubic symphysis. Coronal and sagittal reformats were performed. For radiation dose reduction, the following was used: automated exposure control, adjustment of mA and/or kV according to patient size. COMPARISON: [facility], CT, KIDNEY/ URETER/BLADDER, 02/25/2016, 12:49. FINDINGS: Image quality: Degraded by right hip arthroplasty artifact. Lung bases: There is small right pleural effusion. Mild bibasilar atelectasis versus pneumonia is present. Heart: Calcification of the coronary vasculature. URINARY: Kidneys are normal in size. There are multiple calcifications within the right inferior pole kidney and renal pelvis, largest of which is in the inferior pole measuring 18 mm, and measuring roughly 15 150 Hounsfield units. Moderate right kidney superior pole hydronephrosis is present. Right renal pelvic calculus is present measuring 14 mm diameter and demonstrating Hounsfield units 976. Right ureter is not well seen. Distal right ureter is not well seen secondary to metallic artifact. There is mild left hydronephrosis mild diffuse left ureteral dilatation. No left renal calculi. No definite left ureteral calculi, although evaluation of the left distal ureter is limited by right hip arthroplasty artifact. Bladder: Normal wall thickness. No stones. ABDOMEN: Liver: Scattered calcifications. No focal mass. Gallbladder: Unremarkable. Biliary ducts: Unremarkable. Pancreas: Unremarkable. Spleen: Multiple splenic calcifications. Adrenal Glands: Unremarkable. Stomach and Bowel: Suboptimal evaluation of the bowel secondary to lack of both intravenous and oral contrast. Stomach and small bowel grossly unremarkable. Appendix not seen. No evidence of appendicitis. The right colon, transverse colon, and descending colon are non distended. There is diverticulosis of the descending and sigmoid colon. There is moderate stool throughout the sigmoid colon. Large amount of stool within the rectum, which is moderately distended. There is severe thickening of the mid and distal sigmoid colon as well as the rectum, which demonstrates moderate surrounding fat stranding. Small amount of fluid surrounding the rectum. No definite pericolonic abscess, although evaluation for such is limited by lack of intravenous and oral contrast. Peritoneum: No abnormal intraperitoneal fluid. No free air. Ventral Wall: No hernia. Abdominal Nodes: No enlarged retroperitoneal or mesenteric lymph nodes. Vessels: Aorta and inferior vena cava are normal in size. PELVIS: Pelvic Organs: Unremarkable. Pelvic Nodes: Unremarkable. Miscellaneous: No inguinal hernias are seen. Bones: Unremarkable. IMPRESSION: 1. Limited evaluation of the bowel secondary to intravenous and oral contrast. 2. Severe thickening of the sigmoid colon and rectum. Differential considerations include ischemia, infection, and inflammation. No definite pericolonic abscess. There is fecal impaction within the rectum. 3. Appendix is not seen. No evidence of appendicitis. 4. Right intrarenal calculi right renal pelvic calculus, associated with moderate right hydronephrosis. No definite right ureteral calcification. 5. Left hydronephrosis and left ureteral dilatation. No definite left ureteral calcifications. 6. Small right pleural effusion. Mild bibasilar atelectasis versus pneumonia. 7. Coronary artery disease. 8. 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 Dictated by: Estephania Huffman M.D. on 12/29/2021 at 17:57 Approved by: Estephania Huffman M.D. on 12/29/2021 at 18:04
[2021-12-29] MEDS: metroNIDAZOLE 500 MG/100 ML PIGGYBACK 100 MG IV (18:39)
[2021-12-29] MEDS: CIPROFLOXACIN 400 MG/200 ML PIGGYBACK 200 MG IV (19:23)
[2021-12-29] MEDS: MIRTAZAPINE 15 MG TABLET PO (21:03)
--- NOTE | 2021-12-29 21:42 | PC.NURSE ---
Patient is oriented to self, birthdate, age and place. Breath sounds CTA with RA sat of 91%. HRR w/last documented telemetry reading of SR (1999 readings not yet documented). Denies nausea. BT present and abdomen is soft; incontinent of soft, brown stool. Indwelling catheter is patent; urine is cloudy, anitha. Is being repositioned q2h as has generalized weakness and has pressure injury to coccyx (dressing to coccyx is CDI). Did get up to BSC with walker and 2 assists; needing cueing for hand placement and to keep walker in front of her. When sitting on edge of bed leans to right side. Denies any pain. Fall risk score is high and bed alarm is activated. Daughter rooming in.
[2021-12-30] VITALS (9 sets, daily range): BP systolic 97–118; BP diastolic 40–60; PULSE 78–89; RESP 16–25; TEMP 35.9–37; O2SAT 91–96
[2021-12-30] MEDS: SODIUM CHLORIDE 0.9% 1,000 ML 150 ML IV ×3 (00:02→17:46)
[2021-12-30] MEDS: metroNIDAZOLE 500 MG/100 ML PIGGYBACK 100 MG IV ×3 (02:01→17:47)
[2021-12-30 05:17] LABS: Add Manual Diff / Slide Review NO; Basophils Absolute Auto 0 /uL (0-100); Basophils Percent Auto 0.2 % (0-2); Eosinophils Absolute Auto 0 /uL (0-450); Eosinophils Percent Auto 0.2 % (2-4); Hematocrit 33.7 % (36-46); Hemoglobin 11.4 g/dL (12.0-16.0); Lymphocytes Absolute Auto 500 /uL (1100-4500); Lymphocytes Percent Auto 3.1 % (25-40); Mean Corpuscular HGB Conc 33.9 % (30-36); Mean Corpuscular Volume 88.6 fL (80-100); Monocytes Absolute Auto 900 /uL (0-900); Monocytes Percent Auto 5.4 % (3-14); Neutrophils Absolute Auto 14800 /uL (1500-7000); Neutrophils Percent Auto 91.1 % (50-75); Platelet Count 221 X10^3/uL (150-400); Red Cell Distribution Width 15.5 % (11.6-14.8); White Blood Cell Count 16.2 X10^3/uL (4.5-11.0)
[2021-12-30 05:29] LABS: Alanine Aminotransferase 9 IU/L (<35); Albumin 2.7 g/dL (3.5-5.0); Albumin Globulin Ratio 0.9 (1.0-2.8); Alkaline Phosphatase 103 U/L (38-126); Aspartate Aminotransferase 81 IU/L (14-36); BUN Creatinine Ratio 53.6 (6-22); Bilirubin Total 0.5 mg/dL (0.2-1.3); Blood Urea Nitrogen 37 mg/dL (7-17); Calcium 7.8 mg/dL (8.4-10.2); Carbon Dioxide 24 mmol/L (22-32); Chloride 109 mmol/L (98-107); Estimated Glomerular Filt Rate > 60 mL/min (>60); Glucose 96 mg/dL (80-110); HEMOLYSIS < 15 (0-50); Magnesium 2.3 mg/dL (1.6-2.3); Potassium 3.8 mmol/L (3.4-5.1); Sodium 138 mmol/L (137-145); Total Protein 5.7 g/dL (6.3-8.2)
[2021-12-30] MEDS: CIPROFLOXACIN 400 MG/200 ML PIGGYBACK 200 MG IV ×2 (06:43→19:21)
[2021-12-30] MEDS: CARBIDOPA-LEVODOPA ER 50/200 TABLET 1 EACH PO ×3 (08:26→20:24)
[2021-12-30] MEDS: ENOXAPARIN 40 MG/0.4 ML SYRINGE SUBCUT (08:27)
[2021-12-30] MEDS: DOCUSATE 100 MG CAPSULE PO (08:27)
[2021-12-30] MEDS: CARBIDOPA-LEVODOPA 25/100 TABLET 1 EACH PO ×3 (08:27→20:24)
--- NOTE | 2021-12-30 08:45 | PC.RNWOUND ---
Patient resting in bed, daughter Martina at bedside. Primary nurse and wound nurse assist patient to turn to right side, patient is cleaned up of small formed stool incontinence. Sacral wound bed appears more distinct today, 70% slough-covered and 30% purple discoloration, periwound erythema is almost completely resolved with just a small margin of erythema to the periwound. Patient's daughter says, Oh my gosh, it looks so much better today! No drainage is noted to wound or dressing. Heels are floated on pillows and patient is ready for breakfast. Education is given to patient and daughter about the importance of repositioning, even small weight shifts while sitting in chair, pressure redistribution seat cushions, good nutrition. Daughter asks about sacral dressings for prophylactic use after discharge and information is given. Patient, who tends to be stoic, is encouraged to verbally report and pain or discomfort to staff immediately; patient verbally agrees. Patient tolerates cares well and reports comfort at this time.
--- NOTE | 2021-12-30 11:17 | CM.DANOTE ---
Initial DCP Assessment Note Pt is a 86 yo female, resident at [facility] of [facility] in [place], arrives after recent fall at home, decreased intake, decreased LOC, medical history of Parkinson's disease and admitted inpatient for management of sepsis d/t UTI PCP: Elva Powell Payer: DIEGO CONNELL Met w/patient and her dtr Martina at bedside, introduced role. Dtr Martina feeding patient 1:1, patient participates minimally in this conversation, able to answer some questions with prompting. Dtr Martina lives in [place], visits patient often and able to give good history. Patient has four adult children. Leigh lives in [place], Shannon lives on [facility], dtr Martina in [place] and son Christiano in [place]. Dtr Martina is a primary care physician and often acts as patient/family spokesperson. Patient has been living at [facility] for approx 2 years. Patient moved from her home shortly after falling and breaking her hip, going through surgery, and recovering at SNF. Supportive dtrs take turns visiting patient, doing errands and taking patient to family get-togethers. Patient requires assist for most ADLs currently- dressing, bathing, and hygiene needs. Patient uses a walker to ambulate and typically goes to the dining room once daily for a meal. Patient and family hopeful patient can return to [facility] upon DC; Martina and her siblings have been allowed into [facility] in the past to assist patient and will make themselves available to do this again as needed. Patient gets PT/OT at [facility] from an in house therapy team, dtr Martina explains this has been going very smoothly. Patient can increase or decrease care at any time Plan: DC back to [facility], likely via family auto vs short SNF stay depending on improvement here, PT/OT evals etc CM team following closely to assist in coordination of safe dispo. Place call to JACINTA Camara at [facility] as needed for coordination of plan. STANLEY Abbasi Discharge Planning/Care Management CM Discharge Assessment Start: 12/30/21 11:04 Freq: Status: Active Protocol: Document 12/30/21 11:04 LYNN (Rec: 12/30/21 11:16 LYNN [id number]) Discharge Planning Assessment Assigned Snagger Misty W, HOSPICE HOME HEALTH AIDE DPOA/Assigned Designee Name Martina Hardy, daughter ( [place]) Contact Information [phone] Advance Directives? Yes Advance Directives on File Yes History Provided By Patient,Family Member,Medical Record Prior Living Arrangements Assisted Living Household Members caregiver Comment Assisted Living Type of transporation used prior to Relies on Others admit Facility Name Admitted From: [facility] Willing to Return to Facility? Yes Independent with ADL's No Is patient alert and oriented? Yes: At baseline, some mild cog impairment Needs Assistance With Bathing,Grooming,Meal Prep, Managing Medications,Home Chores / Shopping Community Services used prior to Physical Therapy,Occupational admission: Therapy Comment There is a therapy team that provides PT/OT in house at [facility], according to dtr Comment Return to [facility], first choice. Will consider SNF if recommended, [facility] first SNF choice. Patient went to [facility] ([facility] years ago after hip repair Barriers to Discharge Yes Comment Patient weaker than usual, may need additional therapies and care Transportation Arrangement Family vs facility Referrals Initiated None needed Additional Comment Awaiting medical POC to unfold and therapies to eval Medicare Choice List Provided Yes SNF/HH Preference Likely [place] facility, [facility] Has Agency SNF been contacted No
--- NOTE | 2021-12-30 14:32 | PM.PN.1 ---
Subjective Subjective Date Patient Seen: 12/30/21 Interval history: Patient much more alert today, some nausea but continued weakness. No vomiting. She had a couple of small formed bowel movements. Yesterday CT scan showed thickening of rectum and sigmoid around a large fecal load. She has renal calculi and mild hydronephrosis but no obvious stones on CT. May be from stercoral colitis and obstruction from obstipation. Exam Vital Signs (past 8 hours): - 12/30/21 08:15 12/30/21 10:00 Temperature 98.6 F Pulse Rate 82 Respiratory Rate 17 Blood Pressure 103/51 L Pulse Oximetry 91 93 Oxygen Delivery Method Room Air Oxygen Flow Rate 0 0 Oxygen Delivery Method Room Air Oxygen Flow Rate 0 Narrative Exam Narrative: General:? Elderly female, mildly ill-appearing, very lethargic and difficult to arouse HEENT:? Normocephalic, atraumatic, extraocular muscles intact, oral pharynx is clear and mucous membranes are dry. Neck: supple and symmetric, trachea is midline, no cervical adenopathy. Negative for JVD Chest:? Normal AP diameter and contour without kyphoscoliosis, no tachypnea, equal chest rise bilaterally. Lungs:? CTA b/l no wheezing rhonchi or rales. Cardio:?RRR no m/r/g. Abdomen: S NT ND. Musculoskeletal:? Muscle strength and tone are equal within normal limits, no deformity. Extremities: No edema or joint effusions. No cyanosis or clubbing. Skin:? Pale,? Warm to touch. Unstageable sacral pressure ulcer. Small, minimal surrounding erythema. Neuro:? Lethargic, oriented to name, very slow to respond to questions, difficult to arouse. Psych:? Unable to assess Objective Labs Result Diagrams: 12/30/21 04:54 12/30/21 04:54 Labs: Laboratory Results - last 24 hr 12/30/21 12/30/21 04:54 04:54 WBC 16.2 H RBC 3.80 L Hgb 11.4 L Hct 33.7 L MCV 88.6 MCH 30.0 MCHC 33.9 RDW 15.5 H Plt Count 221 Neut % (Auto) 91.1 H Lymph % (Auto) 3.1 L [place] % (Auto) 5.4 Eos % (Auto) 0.2 L Baso % (Auto) 0.2 Neut # (Auto) 22542 H Lymph # (Auto) 500 L [place] # (Auto) 900 Eos # (Auto) 0 Baso # (Auto) 0 Sodium 138 Potassium 3.8 Chloride 109 H Carbon Dioxide 24 BUN 37 H Creatinine 0.69 Estimated GFR > 60 BUN/Creatinine Ratio 53.6 H Glucose 96 Calcium 7.8 L Magnesium 2.3 Total Bilirubin 0.5 AST 81 H ALT 9 Alkaline Phosphatase 103 Total Protein 5.7 L Albumin 2.7 L Globulin 3.0 Albumin/Globulin Ratio 0.9 L FORMERLY [facility], 1928–1983 Medical History Diverticulosis Hallucinations Macular degeneration of left eye Nephrolithiasis Parkinsons Scoliosis Septicemia Surgical History History of cystocele History of hip surgery (10/11/18) History of lithotripsy Status post hysterectomy Status post tonsillectomy and adenoidectomy Status post tubal ligation Family History Grandfather Diabetes mellitus Mother Heart disease Stroke Father Parkinsons Social History household members: caregiver Smoking Status: Never smoker alcohol intake: current Assessment & Plan Assessment & Plan narrative: This is an 86-year-old female with past medical history of Parkinson's disease and mild cognitive impairment admitted with sepsis secondary to likely acute cystitis. 1. Sepsis secondary to acute cystitis, possible diverticulitis with acute metabolic encephalopathy, TENA, and hypotension - received fluid boluses in the ER. Started on ceftriaxone, changed to ciprofloxacin and flagyl as noted below. - BP 96/52 during admission. MAP of 67. Will continue fluids and follow response. - will check CT KUB to rule out obstructing stone. - continue ceftriaxone for now. - SOFA score of 2 based on mental status and hypotension. Also with TENA as creatinine is 0.98 from baseline of around 0.5. - suspect secondary to stercoral colitis at this time. Possible this is diverticulitis as well given CT appearance. Antibiotics chaned to ciprofloxacin and flagyl given penicillin allergy to cover diverticulitis and urinary sources. - aggressive laxitive therapy ordered, if continued BM great but may need enema or disimpaction. 2. TENA, improved - secondary to dehydration, rhabdomyolysis, and sepsis. - continue fluid resuscitation. 3. Acute non-traumatic rhabdomyolysis. - continue IV fluids, reduce to 100 cc per hour today given improvement in TENA and tolerating more oral intake. - ramos in place for accurate urinary output. 4. Parkinson's disease with mild cognitive impairment. - continue home sinemet, mirtazapine at bedtime. - continue aggressive bowel therapies for constipation. - PT/OT tomorrow if continuing to improve. Code: DNR, daughter unsure about pressors. POLST states comfort measures but daughter is agreeable to antibiotics, fluids, etc. daughter is surrogate decision maker and MPOA. DVT: Lovenox daily Dispo: Patient admitted under inpatient status as her stay is expected to exceed two midnights. I have utilized all available immediate resources to obtain, update, or review the patient's current medications. COVID-19 COVID-19 status: Negative Time Spent With Patient Critical Care time: I spent a total of [] minutes of critical care time on this patient's care today; this time is exclusive of procedural time. Quality VTE Deep Vein Thrombosis/Pulmonary Embolism Present on Admission: No
[2021-12-30] MEDS: MIRTAZAPINE 15 MG TABLET PO (20:23)
[2021-12-30] MEDS: SENNOSIDES 8.6 MG TABLET 17.2 MG PO (20:24)
[2021-12-31] VITALS (13 sets, daily range): BP systolic 105–122; BP diastolic 52–63; PULSE 66–86; RESP 16–22; TEMP 35.9–36.8; O2SAT 90–97
[2021-12-31] MEDS: metroNIDAZOLE 500 MG/100 ML PIGGYBACK 100 MG IV ×3 (01:52→17:08)
[2021-12-31 05:50] LABS: Add Manual Diff / Slide Review NO; Basophils Absolute Auto 0 /uL (0-100); Basophils Percent Auto 0.2 % (0-2); Eosinophils Absolute Auto 100 /uL (0-450); Eosinophils Percent Auto 1.1 % (2-4); Hematocrit 32.4 % (36-46); Hemoglobin 10.9 g/dL (12.0-16.0); Lymphocytes Absolute Auto 700 /uL (1100-4500); Lymphocytes Percent Auto 5.7 % (25-40); Mean Corpuscular HGB Conc 33.6 % (30-36); Mean Corpuscular Hemoglobin 29.8 PG (26-34); Mean Corpuscular Volume 88.7 fL (80-100); Monocytes Absolute Auto 700 /uL (0-900); Monocytes Percent Auto 6.5 % (3-14); Neutrophils Absolute Auto 9800 /uL (1500-7000); Neutrophils Percent Auto 86.5 % (50-75); Platelet Count 231 X10^3/uL (150-400); Red Blood Cell Count 3.66 X10^6/uL (4.0-5.2); Red Cell Distribution Width 15.5 % (11.6-14.8); White Blood Cell Count 11.3 X10^3/uL (4.5-11.0)
[2021-12-31] MEDS: SODIUM CHLORIDE 0.9% 1,000 ML 100 ML IV (06:41)
[2021-12-31] MEDS: CIPROFLOXACIN 400 MG/200 ML PIGGYBACK 200 MG IV (06:42)
[2021-12-31 06:48] LABS: Alanine Aminotransferase 11 IU/L (<35); Albumin 2.6 g/dL (3.5-5.0); Albumin Globulin Ratio 0.9 (1.0-2.8); Alkaline Phosphatase 124 U/L (38-126); Aspartate Aminotransferase 82 IU/L (14-36); Bilirubin Total 0.5 mg/dL (0.2-1.3); Blood Urea Nitrogen 18 mg/dL (7-17); Calcium 7.4 mg/dL (8.4-10.2); Carbon Dioxide 24 mmol/L (22-32); Chloride 108 mmol/L (98-107); Creatine Kinase 1155 U/L (30-135); Estimated Glomerular Filt Rate > 60 mL/min (>60); Globulin 2.8 g/dL (1.7-4.1); Glucose 92 mg/dL (80-110); HEMOLYSIS < 15 (0-50); Potassium 3.5 mmol/L (3.4-5.1); Sodium 137 mmol/L (137-145); Total Protein 5.4 g/dL (6.3-8.2)
[2021-12-31] MEDS: CARBIDOPA-LEVODOPA 25/100 TABLET 1 EACH PO ×3 (08:28→21:35)
[2021-12-31] MEDS: ENOXAPARIN 40 MG/0.4 ML SYRINGE SUBCUT (08:28)
[2021-12-31] MEDS: polyethylene glycoL 3350 17 GM POWD.PACK PO (08:28)
[2021-12-31] MEDS: DOCUSATE 100 MG CAPSULE PO (08:28)
[2021-12-31] MEDS: CARBIDOPA-LEVODOPA ER 50/200 TABLET 1 EACH PO ×3 (08:28→21:35)
--- NOTE | 2021-12-31 09:10 | PT.IIE ---
Current Diagnoses Sepsis, unspecified organism (12/29/21) Surgical History (Last Reviewed 12/29/21 @ 19:47 by Drew Reardon DO) History of cystocele History of hip surgery (10/11/18) History of lithotripsy Status post hysterectomy Status post tonsillectomy and adenoidectomy Status post tubal ligation Medical History (Last Reviewed 12/29/21 @ 19:47 by Drew Reardon DO) Diverticulosis Hallucinations Macular degeneration of left eye Nephrolithiasis Parkinsons Scoliosis Septicemia Physical Therapy Inpatient Evaluation/Re-Eval M1 PT/OT-IP Prior Functional Status Start: 12/31/21 12:54 Freq: NEEDED Status: Active Protocol: Document 12/31/21 09:10 AB (Rec: 12/31/21 13:07 AB [email or web address]) Medical Review Prior Functional Status Medical History Reviewed Yes Communication able to make needs known but needs increase time to respond Mobility and Gait daughter in room and provided some information or corrected pt's responses stated that pt is modified independent with mobility using her U walker. stated that staffs comes in in the morning and at night to get pt ready and in between the day, staffs checks on pt but pt able to walk to the toilet using U walker by herself Activities of Daily Living and IADL's Staff assists pt with shower, dressing and medication needs Social History Household Members caregiver Living Arrangements Assisted Living Number of Floors (Floors) One Floor Number of Stairs To Enter/Railing? pt in the 2nd level apartment with an elevator to get to her floor pt lives at [facility] Environment Standard Height Toilet,Walk in Shower,Built-In Shower Seat, Elevator Home Equipment Raised Toilet Seat w/Armrests, Hand Held Shower,Grab Bars Near Toilet,Grab Bars In Shower Additional Social History Comment Has a U walker, hospital bed without rails M2 PT-IP Current Condition Start: 12/31/21 12:54 Freq: NEEDED Status: Active Protocol: Document 12/31/21 09:10 AB (Rec: 12/31/21 13:07 AB [email or web address]) Physical Therapy Current Condition Current Condition Evaluation Date 12/31/21 Treatment Diagnosis sepsis; UTI; PD; difficulty in walking Onset Date 12/29/21 M3 PT-IP Subjective Start: 12/31/21 12:54 Freq: NEEDED Status: Active Protocol: Document 12/31/21 09:10 AB (Rec: 12/31/21 13:07 AB [email or web address]) Subjective Physical Therapy Visit Type Type Initial Evaluation Visit Start Time 09:10 Visit Stop Time 09:55 Total Visit Minutes 45 Number of BINDING CUTTER Visits 0 Physical Therapy Visit Comments Patient Comments agreeable to do PT M4 PT-IP Mobility and Gait Start: 12/31/21 12:54 Freq: NEEDED Status: Active Protocol: Document 12/31/21 09:10 AB (Rec: 12/31/21 13:07 AB [email or web address]) PT-Bed Mobility Assessment Supine to Sit Supine to Sit Maximum Assistance,Head of Bed Elevated Scooting Scooting to Edge of Bed Maximum Assistance PT-Transfer Assessment Sit to and From Stand Sit to and from Stand Maximum Assistance,1 Person Assistance,2 Person Assistance ,Use of Upper Extremities Equipment Transfer Assistive Device Gait Belt,Front Wheeled Walker Orthotic/Prosthetic Devices or Brace: No Transfers Transfer Destination Chair Transfer Technique Stand Step Pivot Transfer Ability Level of Assist 2 Person Assistance,Use of Upper Extremities Comments Mobility Comments completed supine to sit max A x 1-2 and max cues with HOB elevated. max A x1-2 for scooting to EOB. increase lateral trunk lean to the R. pt requiring increase time to complete tasks and has freezing episodes during mobility. able to sit on EOB CGA to min A and max cues for posture. completed sit to stand x 2 attempts max A x 1-2 and max cues. stooped posture and increase R trunk leaning. completed step transfer to chair using FWW max A x 1-2 and max cues. pt needed to be cleaned up and brief change. informed NAC. completed sit to stand max A and max cues and max A to maintain standing balance using FWW while NAC assisted pt with hygiene care and brief change. pt max A for controlled descent on chair. total A x 2 for positioning on the chair. call light and table placed within reach. informed pt's daughter regarding SNF rehab but is hesistant and prefer pt to go back to [facility] if possible. informed regarding level of care of 24/7 assist of 2 person at this time and use of w/c. daughter understood PT-Balance Assessment Sitting Balance and Reactions Static Sitting Balance Ability Fair Dynamic Sitting Balance Ability Poor Standing Balance and Reactions Static Standing Balance Ability Poor Dynamic Standing Balance Ability Poor Device Used FWW M5 PT-IP Objective Assessments Start: 12/31/21 12:54 Freq: NEEDED Status: Active Protocol: Document 12/31/21 09:10 AB (Rec: 12/31/21 13:07 AB [email or web address]) Orientation Orientation/Cognition Level of Alertness Confusional State Orientation Name Safety Awareness Decreased Safety Awareness Memory Description Short Term Impaired Gross Range of Motion Lower Extremity ROM Assessment Within Functional Limits Strength Lower Extremity Strength Assessment Bilaterally Impaired Comments Strength Comments RLE: 3-/5 LLE: 4-/5 M6 PT-IP Treatment Start: 12/31/21 12:54 Freq: NEEDED Status: Active Protocol: Document 12/31/21 09:10 AB (Rec: 12/31/21 13:07 AB [email or web address]) Physical Therapy Treatment Education Education Provided Safety M7 PT-IP Assessment and Plan Start: 12/31/21 12:54 Freq: NEEDED Status: Active Protocol: Document 12/31/21 09:10 AB (Rec: 12/31/21 13:07 AB [email or web address]) PT Summary Assessment and Plan Potential Rehabilitation Potential Fair Status of Condition at Evaluation Evolving Summary Impairments Pain,ROM,Strength,Balance, Coordination,Sensation,Tone, Cognition,Bed Mobility, Transfers,Gait,Activity Tolerance Assessment Summary pt requiring max A x 1-2 with mobility and unable to tolerate much activity. d/c plan depending on progress but will need SNF rehab at this time. will continue to assess progress. Goals Bed Mobility Goal Standby Assistance Transfer Goal Independent,Front Wheeled Walker Gait Goal Standby Assistance,Front Wheel Walker Gait Distance 100 Other Goals improve ambulation using U walker 200 ft SBA Days to Meet Goals 10 Frequency of Treatment Frequency Of Treatment Once a Day Treatment Plan Physical Therapy Treatment Plan Bed Mobility Training,Transfer Training,Gait Training, Therapeutic Exercise,Balance Retraining,Discharge Planning, Hot or Cold Pack,Neuromuscular Re-ed,Coordination Retraining ,Manual Therapy Precautions Other Precautions falls Recommendations To Nursing Amount of Assist Needed 2 Person Assist Discharge Recommendations PT Discharge Recommendations Home with 26/12 Assist Available,Home Health,SNF Rehab,Home vs SNF Transportation Needs at Discharge Wheelchair/Cabulance
[2021-12-31] MEDS: POTASSIUM CHLORIDE 20 MEQ TAB PO (11:36)
--- NOTE | 2021-12-31 12:22 | CM.DPC ---
Addendum entered by STANLEY Torres 12/31/21 15:30: ADD: SW called Shelbie at [facility] and confirmed she received clinicals to review but then during discussion mentioned they have no RN on the weekends to confirm if pt can be accepted back and the barriers to accepting pt back on the weekend. RADHA requested that she call pt's family and update them on the inability to accept pt on the weekend and likely need of SNF if pt is stable for d/c Sat or Sun. Shelbie very agreeable and calling family now to update them on their concerns and preference of SNF at d/c. If pt remains in the hospital over the weekend then can coordinate further with [facility] to determine if pt can d/c right back to their facility vs SNF first. BF Addendum entered by STANLEY Torres 12/31/21 15:10: ADD: Confirmed pt actually has [employer] Medicare and AARP supplement, not [employer] managed medicare which means pt will not need auth for SNF at d/c. RADHA spoke to Rosanne at [facility] and she confirms they can accept pt at d/c if SNF needed, preference would be Monday but if pt medically stable Mon then they could accept but family would need to provide transport over the weekend as they will not have their facility van. Rosanne requests call on her cell phone ([phone]) tomorrow Sat with update on if pt needs SNF still and when she may be stable to d/c. RADHA spoke to Rema at [facility] and confirms they can accept but wants family/pt to be aware they have a couple COVID+ pts at their facility currently and family/pt would need to be agreeable to pt going to [facility] and pt would be in a different hallway than the quarantined COVID patients. RADHA attempted to call Dtr Martina and had to leave a msg requesting call back for update as vm was general message and went by pt's room multiple times and pt sleeping and Dtr not present as she was taking a break from being bedside. No other family numbers listed on the board or in the computer. Plan: SW to follow closely Sat with [facility] to determine if they feel pt can return at d/c and updating [facility] SNF Sat if pt will need SNF pending further PT/OT and timeline of discharge. Family will need to transport pt at d/c if over the weekend to either Assisted Living or SNF. BF Original Note: [facility] SNF vs [facility] Per MD, pt making some medical progress but not stable for discharge yet today and ordered PT/OT this AM as pt appropriate for therapies today. Per PT/OT, pt somewhat below baseline and currently 1-2PA for transfer/ambulation but anticipate pt will clear more and improve towards likelihood of return to [facility] but currently this morning may be more assist than her [facility] wants to manage. They will attempt to get their eval notes in soon. RADHA called [facility] [phone] and spoke to DEEPA Morfin and she is requesting clinicals to review and SW waiting for PT/OT notes and Shelbie aware that family preference is for pt to return there. Shelbie states she is mostly concerned for if pt can use call light appropriately as pt at baseline uses call light well. RADHA faxed clinicals to fax [phone] to determine if pt can return at d/ or need SNF. Confirmed pt uses their PT/OT providers and HH would not be needed at d/ if they accept back. RADHA met bedside with pt and Dtr Martina and explained role and discussed pt's current assist needs. Both confirm preference is return to [facility] if possible but aware that [facility] has to approve that they can meet her needs at d/. RADHA discussed need to have plan B in line due to pt's AARP Medicare and need for insurance auth for SNF if SNF needed. RADHA provided the SNF Choice list and marked AARP contracted SNFs. Initial preference would be [facility] SNF due to location and RADHA discussed not an AARP contracted SNF but would be willing to inquire since pt resides at their [facility] in [place] and if they could get one-time auth in a timely manner and start auth request today since its Monday. RADHA called [facility] admissions and left msg discussing above and need to submit for auth today if they can accept and faxed initial clinicals. Second preference would be [facility] as pt has been there before about 3 years ago for hx of hip fx. RADHA called [facility] admissions Ranjana and discussed above and she will review to determine if they can accept and willing to start auth today. RADHA confirmed that pt is fully COVID vax'd with two boosters and printed copy of [facility] website. PASRR completed in anticipation of possible SNF vs [facility]. Plan: SW to follow closely for [facility] review to determine if pt can return vs [facility] and [facility] review if SNF needed. STANLEY Torres
--- NOTE | 2021-12-31 13:20 | OT.IP.EVAL ---
Current Diagnoses Sepsis, unspecified organism (12/29/21) Past Medical History (Last Reviewed 12/29/21 @ 19:47 by Drew Reardon DO) Diverticulosis Hallucinations Macular degeneration of left eye Nephrolithiasis Parkinsons Scoliosis Septicemia Surgical History (Last Reviewed 12/29/21 @ 19:47 by Drew Reardon DO) History of cystocele History of hip surgery (10/11/18) History of lithotripsy Status post hysterectomy Status post tonsillectomy and adenoidectomy Status post tubal ligation Occupational Therapy Inpatient Evaluation/Re-Eval M1 PT/OT-IP Prior Functional Status Start: 12/31/21 12:54 Freq: NEEDED Status: Active Protocol: Document 12/31/21 13:31 [facility] (Rec: 12/31/21 13:51 [facility] [id number]) Medical Review Prior Functional Status Medical History Reviewed Yes Communication able to make needs known but needs increase time to respond Mobility and Gait daughter in room and provided some information or corrected pt's responses stated that pt is modified independent with mobility using her U walker. stated that staffs comes in in the morning and at night to get pt ready and in between the day, staffs checks on pt but pt able to walk to the toilet using U walker by herself Activities of Daily Living and IADL's Staff assists pt with shower, dressing and medication needs Social History Household Members caregiver Living Arrangements Assisted Living Number of Floors (Floors) One Floor Number of Stairs To Enter/Railing? pt in the 2nd level apartment with an elevator to get to her floor pt lives at [facility] Environment Standard Height Toilet,Walk in Shower,Built-In Shower Seat, Elevator Home Equipment Raised Toilet Seat w/Armrests, Hand Held Shower,Grab Bars Near Toilet,Grab Bars In Shower Additional Social History Comment Has a U walker, hospital bed without rails M2 OT-IP Current Condition Start: 12/31/21 13:30 Freq: Status: Active Protocol: Document 12/31/21 13:31 [facility] (Rec: 12/31/21 13:51 [facility] [id number]) Occupational Therapy Current Condition Current Condition Evaluation Date 12/31/21 Treatment Diagnosis Sepsis,UTI, decreased mobility Diagnosis Onset Date 12/31/21 M3 OT- IP Subjective and Pain Start: 12/31/21 13:30 Freq: Status: Active Protocol: Document 12/31/21 13:31 [facility] (Rec: 12/31/21 13:51 [facility] [id number]) OT- Subjective Occupational Therapy Visit Type Type Initial Evaluation Visit Start Time 10:17 Visit Stop Time 13:20 Total Visit Minutes 59 Notes Pt seen multiple times today Occupational Therapy Visit Comments Patient Comments Pt agreed to get up. Patient/Caregiver Goals To go back to [facility]. OT Pain Assessment Pain When Pain Assessed At Rest Pain Present Pain Present Denied Pain M4 OT- IP ADL's Start: 12/31/21 13:30 Freq: Status: Active Protocol: Document 12/31/21 13:31 [facility] (Rec: 12/31/21 13:51 [facility] [id number]) OT [id number] Comments OT Self-Feeding Comments Pt needing assist for set-up. Pt noted to have difficulty to clear her mouth and needing continuous cues to clear her mouth, take smaller bites and sips. Noted pt coughing on the water and requested LABORER GENERAL eval orders from the hospitalist. OT ADL-Grooming Comments OT Grooming Comments Pt's daughter assist pt. OT ADL-Oral Care Comments Oral Care Comments Pt's daughter assisted pt with denture care. OT ADL-Dressing General Eval Lower Body Dressing Ability Maximum Assistance Comments OT Dressing Comments Assist to doff her socks and put on her slip on shoes. OT ADL-Toileting General Evaluation Toileting Ability Maximum Assistance Areas Needing Assistance Manage Clothing,Perform Perineal Hygiene Comments OT Toileting Comments One person to assist to help stand pt and another for hygiene needs. Initially pt able to scoot forwards on the BSC and nursing aid able to reach to wipe and needing to stand for completeness and brief management needs. OT ADL-Bathing Comments OT Bathing Comments Sponge bath more appropriate at this time, as pt very tired . M5 OT- IP IADL's Start: 12/31/21 13:30 Freq: Status: Active Protocol: Document 12/31/21 13:31 [facility] (Rec: 12/31/21 13:51 [facility] [id number]) OT-Instrumental Activities of Daily Living Home Safety Awareness Awareness of Need for Assistance at Home Decreased Awareness Ability to Problem Solve Emergency Unable to Problem Solve Situations Home Safety Comments Pt lives at [facility] and is assist for her ADl's, medications and mobility needs . Medication Management Medication Management Caregiver Administers Money Management Money Management Caregiver Provides Assistance Meal Preparation Meal Preparation Caregiver Provides Assist Vacuum Applicator Operator Vacuum Applicator Operator Caregiver Provides Assist Driving Driving Caregiver Provides Assist M6 OT- IP Functional Cognition Start: 12/31/21 13:30 Freq: Status: Active Protocol: Document 12/31/21 13:31 [facility] (Rec: 12/31/21 13:51 [facility] [id number]) Cognitive Factors Limiting Selfcare Function Cognitive Ability Level of Alertness Alert,Confusional State Patient Orientation Name Attention Span Ability Capable of Focused Attention, Unable to Sustain Attention Ability to Follow Commands Able to Follow One Step Commands with Increased Time, Able to Follow One Step Commands with Repetition Cognitive Comments Cognitive Assessment Comments Pt having difficulty to follow commands at time and admits that she feels confused. Pt needing step by step commands and simple cues to follow. OT- Vision and Hearing OT- Hearing Assessment OT- Hearing Assessment Hearing Impaired OT- Vision Assessment Visual Acuity Glasses All The Time Vision Assessment Comments Pt states seeing better without her glasses, noted spots on her glasses which were unable to be cleaned off. M7 OT- IP Mobility and Balance Start: 12/31/21 13:30 Freq: Status: Active Protocol: Document 12/31/21 13:31 [facility] (Rec: 12/31/21 13:51 [facility] [id number]) OT- Bed Mobility Assessment Sit to Supine Sit to Supine Assist Maximum Assistance OT-Transfer Assessment Sit to and From Stand Sit to and from Stand Maximum Assistance,1 Person Assistance,2 Person Assistance Transfers Transfer Ability Maximum Assistance,2 Person Assistance Technique Transfer Destination Bed,Bedside Commode,Chair Transfer Technique Stand Step Pivot Devices Transfer Assistive Devices None,Gait Belt,Front Wheeled Walker Comments Mobility Comments Pt has U -Step walker and needing initially MAX X1 to stand and take a few steps and then her legs starting to buckle and needing second person to assist. Transfer stand pivot from C to bed MAX AX 1 and LIONEL x1. OT- Balance Assessment Sitting Balance and Reactions Static Sitting Balance Ability Good Dynamic Sitting Balance Ability Fair Standing Balance and Reactions Static Standing Balance Ability Poor Dynamic Standing Balance Ability Poor M8 OT- IP Objective Assessments Start: 12/31/21 13:30 Freq: Status: Active Protocol: Document 12/31/21 13:31 [facility] (Rec: 12/31/21 13:51 [facility] [id number]) OT Gross Range of Motion Upper Extremity Range of Motion ROM Impairments Decreased at end ROM shoulder flexion. OT Strength Comments Strength Comments At least 3-/5 for BUE per functional movements. OT-Muscle Tone Assessment Comments Muscle Tone Comments Noted resistence/tone in her BLE when assist pt to get back to bed. M9 OT- IP Assessment and Plan Start: 12/31/21 13:30 Freq: Status: Active Protocol: Document 12/31/21 13:31 [facility] (Rec: 12/31/21 13:51 [facility] [id number]) OT Summary Assessment and Plan Potential Rehabilitation Potential Good Analytic Complexity at Evaluation Moderate Summary OT Impairments Range of Motion,Strength, Balance,Coordination, Functional Cognition, Functional Mobility,Self- Feeding,Grooming,Dressing, Toileting,Bathing,Toilet Transfers,Shower Transfers, Activity Tolerance Progress Towards Goals Slow Progress due to Medical Issues,Slow Progress due to Activity Tolerance,Slow Progress due to Cognition Assessment Summary Pt MOD complexity and main barriers are decreased activity tolerance, now needing extensive two person assist for ADl and mobility needs. Pt hoping to go back to [facility]. Therefore pending progress and if pt able to receive increased care at [facility] , pt to go to skilled rehab versus home RESIDENTIAL with increased care and home health . Goals Self-Feeding Goal Standby Assistance Grooming Goal Standby Assistance Dressing Goal Moderate Assistance Toileting Goal Moderate Assistance Bathing Goal Moderate Assistance Toilet Transfer Goal Minimal Assistance Shower Transfer Goal Moderate Assistance Days to Meet Goals 10 Frequency of Treatment Frequency Of Treatment Once a Day Treatment Plan OT Treatment Plan ADL Training,Functional Cognition Training,Functional Mobility,Patient/Family Education,Discharge Planning Other Treatment Recommendations and Next Transfer to [facility] with MAX X 1. Treatment Focus Discharge Recommendations OT Discharge Recommendations Home with 26/12 Assist Available,Home Health,SNF Rehab,Home vs SNF Transportation Needs at Discharge Wheelchair/Cabulance
--- NOTE | 2021-12-31 13:42 | PM.PN.1 ---
Subjective Subjective Date Patient Seen: 12/31/21 Interval history: Patient much more alert today but remains weak with lethargy. No nausea or vomiting. Oral intake has improved per family at bedside. Exam Vital Signs (past 8 hours): - 12/31/21 06:37 12/31/21 07:40 12/31/21 11:00 Temperature 98.2 F Pulse Rate 86 84 Respiratory Rate 18 18 Blood Pressure 122/63 105/52 L Pulse Oximetry 92 90 L 97 Oxygen Delivery Method Room Air Oxygen Flow Rate 0 0 Oxygen Delivery Method Room Air Oxygen Flow Rate 0 Narrative Exam Narrative: General:? Elderly female, mildly ill-appearing, more alert and sitting upright in bedside chair eating lunch. HEENT:? Normocephalic, atraumatic, extraocular muscles intact, oral pharynx is clear and mucous membranes are dry. Neck: supple and symmetric, trachea is midline, no cervical adenopathy. Negative for JVD Chest:? Normal AP diameter and contour without kyphoscoliosis, no tachypnea, equal chest rise bilaterally. Lungs:? CTA b/l no wheezing rhonchi or rales. Cardio:?RRR no m/r/g. Abdomen: S NT ND. Musculoskeletal:? Muscle strength and tone are equal within normal limits, no deformity. Extremities: No edema or joint effusions. No cyanosis or clubbing. Skin:? Pale,? Warm to touch. Unstageable sacral pressure ulcer. Small, minimal surrounding erythema. Neuro:? Lethargic, oriented to name, very slow to respond to questions, difficult to arouse. Psych:? Unable to assess Objective Labs Result Diagrams: 12/31/21 05:08 12/31/21 05:08 Labs: Laboratory Results - last 24 hr 12/31/21 12/31/21 12/31/21 05:08 05:08 05:08 WBC 11.3 H RBC 3.66 L Hgb 10.9 L Hct 32.4 L MCV 88.7 MCH 29.8 MCHC 33.6 RDW 15.5 H Plt Count 231 Neut % (Auto) 86.5 H Lymph % (Auto) 5.7 L Dorado % (Auto) 6.5 Eos % (Auto) 1.1 L Baso % (Auto) 0.2 Neut # (Auto) 9800 H Lymph # (Auto) 700 L Dorado # (Auto) 700 Eos # (Auto) 100 Baso # (Auto) 0 Sodium 137 Potassium 3.5 Chloride 108 H Carbon Dioxide 24 BUN 18 H Creatinine 0.60 Estimated GFR > 60 BUN/Creatinine Ratio 30.0 H Glucose 92 Calcium 7.4 L Magnesium 2.0 Total Bilirubin 0.5 AST 82 H ALT 11 Alkaline Phosphatase 124 Total Creatine Kinase 1155 H D Total Protein 5.4 L Albumin 2.6 L Globulin 2.8 Albumin/Globulin Ratio 0.9 L PFSH Medical History Diverticulosis Hallucinations Macular degeneration of left eye Nephrolithiasis Parkinsons Scoliosis Septicemia Surgical History History of cystocele History of hip surgery (10/11/18) History of lithotripsy Status post hysterectomy Status post tonsillectomy and adenoidectomy Status post tubal ligation Family History Grandfather Diabetes mellitus Mother Heart disease Stroke Father Parkinsons Social History household members: caregiver Smoking Status: Never smoker alcohol intake: current Assessment & Plan Assessment & Plan narrative: This is an 86-year-old female with past medical history of Parkinson's disease and mild cognitive impairment admitted with sepsis secondary to likely acute cystitis. 1. Sepsis secondary to acute cystitis, possible diverticulitis with acute metabolic encephalopathy, TENA, and hypotension - received fluid boluses in the ER. Started on ceftriaxone, changed to ciprofloxacin and flagyl as noted below. - BP 96/52 during admission. MAP of 67. Will continue fluids and follow response. - SOFA score of 2 based on mental status and hypotension. Also with TENA as creatinine is 0.98 from baseline of around 0.5. - suspect secondary to stercoral colitis at this time. Possible this is diverticulitis as well given CT appearance. Antibiotics chaned to ciprofloxacin and flagyl given penicillin allergy to cover diverticulitis and urinary sources. - aggressive laxitive therapy ordered, will continue. She was able to have a large bowel movement yesterday afternoon. 2. TENA, improved - secondary to dehydration, rhabdomyolysis, and sepsis. - can stop IV fluids today. 3. Acute non-traumatic rhabdomyolysis. - continued IV fluids until today given improvement in TENA and tolerating more oral intake. - ramos in place for accurate urinary output, can discontinue today. 4. Parkinson's disease with mild cognitive impairment. - continue home sinemet, mirtazapine at bedtime. - continue aggressive bowel therapies for constipation. - PT/OT. Code: DNR, daughter unsure about pressors. POLST states comfort measures but daughter is agreeable to antibiotics, fluids, etc. daughter is surrogate decision maker and MPOA. DVT: Lovenox daily Dispo: Patient admitted under inpatient status. Unclear if she will be able to return to [facility] assisted living or if she will need short term SNF. Possibly medically ready in 1-2 days for discharge to SNF or assisted living. I have utilized all available immediate resources to obtain, update, or review the patient's current medications. COVID-19 COVID-19 status: Negative Time Spent With Patient Critical Care time: I spent a total of [] minutes of critical care time on this patient's care today; this time is exclusive of procedural time. Quality VTE Deep Vein Thrombosis/Pulmonary Embolism Present on Admission: No
--- NOTE | 2021-12-31 13:57 | SLP.IPNOTE ---
Attempted to see pt at 13:35 for bedside swallow evaluation. Pt was sleeping with daughter (Martina) at bedside when LABOR STANDARDS DIRECTOR arrived. Pt not able to participate in bedside swallow evaluation at this time due to fatigue, will attempt at 15:30. Discussed pt baseline with regards to feeding/swallowing with daughter. Per daughter, pt usually eats a regular diet with thin liquids, but they have been providing more soft foods since swallowing difficulties started a few months ago. Pt had COVID a few months ago and started experiencing swallowing difficulties where it takes her longer to swallow, she does not clear all the food in her mouth prior to taking another bite, and she experiences increased coughing when eating. Daughter reported pt has also had decreased appetite and is consistently eating smaller portions now.
--- NOTE | 2021-12-31 15:28 | DIET.CONS ---
Addendum entered by Tonya Crawford 12/31/21 16:41: Per wound RN, unstageable pressure wound. ONS BID to support pro needs. Original Note: Dietary Consultation Note Admission Date: 12/29/2021 13:01 Assessment: 86 y/o F with PMH of Parkinson's disease and mild cognitive impairment. She is admitted with sepsis. RD consulted for malnutrition evaluation. Daughter (retired family physician) is at bedside and helpful with evaluation. Recent PO since admission 10-50%. Daughter reports poor appetite since end of October when Carolina had Covid. At that time she lost 10#. Denies any changes to taste. Daughter reports a decline in wt and appetite since admission to assisted care living. States she eats better with family is around and ordering for her. Has premier protein shake (low in carb, high pro) that she enjoys. Reports Carolina may sometimes have difficulty with firm foods. Limited wt hx available. Most recent wts prior to this admission were in 2019. Information gathered from daughter on wt: Weight 3 years ago: 135# June 2021: 125# November 2021: 115# (-10# d/t covid) Likely UBW: 130# -9# or -6.9% over 6 or more months (not significant for malnutrition) She does have a low for age BMI (<23) at 20.3 (significant for malnutrition) She also reports reduced appetite since end of October, likely <75% EER (significant for malnutrition) Diet recall: B: nothing or yogurt (0-100kcals) L: egg sandwich or chicken adobo or milk shake (500 kcals) D: half sandwich (125 kcals) Sn: half protein drink (80kcals) Estimated total intake: 700-800kcals = 61-65% of EER EER: 1276-6845 kcals per day MSJ REE: 1033 x1.1=8429hadcw per day 25 kcal/kg= 1375kcals per day Nutrition focused physical exam: scooped temporal area, depressed interosseous muscle (significant for malnutrition) Ht: 170.18 cm Wt: 55 kg BMI: 20.3 UBW: 59 kg Last BM: 12/31/21 (12/31/21 04:54) MNA: 8 Landen Score: 14 Diet: 07/27/22 Lunch General (Regular) Diet Diet Modifications: Nutrition Percent Meal Consumed 25% 12/30/21 18:00 Percent Meal Consumed 50% 12/30/21 13:35 Percent Meal Consumed 10 12/30/21 09:30 Percent Meal Consumed 15% 12/29/21 20:18 Labs: RBC 3.66 X10^6/uL (4.0-5.2) L 12/31/21 05:08 Hgb 10.9 g/dL (12.0-16.0) L 12/31/21 05:08 Hct 32.4 % (36-46) L 12/31/21 05:08 Creatinine 0.60 mg/dL (0.52-1.04) 12/31/21 05:08 Lactate 1.4 mmol/L (0.7-2.1) 12/29/21 11:30 Nutrition Diagnosis: Acute on chronic moderate protein calorie malnutrition r/t recent weight loss with covid and reported declining appetite since admission to assisted living aeb physical signs of muscle wasting in holiness and interosseous, low for age BMI (<23), and predicted <75% REE over the last 2 months since covid. Interventions: 1. ONS BID to support kcal and pro needs 2. Discussed ways to increase ONS intake, ie using straw, pouring in clear cup/container 3. Changed diet order to easy chew EER: 1200-1300kcals per day Monitoring/Evaluations: ONS tolerance, PO, weights Electronically Signed by: Tonya Crafword 12/31/21 15:28 Clinical Dietitian [address] [id number]
[2021-12-31] MEDS: BISACODYL 5 MG TABLET PO (15:34)
--- NOTE | 2021-12-31 15:57 | SLP.IPNOTE ---
Attempted to see pt for bedside swallow evaluation at 15:30. Pt was asleep and NSG woke her to provide medications. Observed NSG provide 3 medications in applesauce and 2 sips of water. Pt's eyes were mostly closed for all trials and she reported fatigue. Did not complete full bedside swallow evaluation at this time due to fatigue. Pt exhibited prolonged holding of bolus in mouth prior to swallowing. No coughing observed. Pt has a diagnosis of Parkinson's Disease and daughter reported pt has been receiving BIG and LOUD therapy at her current residence. Will complete bedside swallow evaluation tomorrow when pt is more rested.
[2021-12-31] MEDS: CIPROFLOXACIN 400 MG/200 ML PIGGYBACK 150 MG IV (18:37)
[2021-12-31] MEDS: MIRTAZAPINE 15 MG TABLET PO (21:35)
[2021-12-31] MEDS: SENNOSIDES 8.6 MG TABLET 17.2 MG PO (21:35)
[2021-12-31] MEDS: SODIUM CHLORIDE 0.9% FLUSH 10 ML IV (21:36)
[2022-01-01] VITALS (11 sets, daily range): BP systolic 104–127; BP diastolic 56–70; PULSE 81–86; RESP 14–21; TEMP 36.1–36.9; O2SAT 93–96
[2022-01-01] MEDS: metroNIDAZOLE 500 MG/100 ML PIGGYBACK 100 MG IV (01:07)
[2022-01-01 06:03] LABS: Add Manual Diff / Slide Review NO; Basophils Absolute Auto 0 /uL (0-100); Basophils Percent Auto 0.2 % (0-2); Eosinophils Absolute Auto 200 /uL (0-450); Eosinophils Percent Auto 1.9 % (2-4); Hematocrit 33.9 % (36-46); Hemoglobin 11.6 g/dL (12.0-16.0); Lymphocytes Absolute Auto 700 /uL (1100-4500); Lymphocytes Percent Auto 7.1 % (25-40); Mean Corpuscular HGB Conc 34.3 % (30-36); Mean Corpuscular Hemoglobin 30.2 PG (26-34); Mean Corpuscular Volume 88.1 fL (80-100); Monocytes Absolute Auto 1000 /uL (0-900); Monocytes Percent Auto 9.6 % (3-14); Neutrophils Absolute Auto 8200 /uL (1500-7000); Neutrophils Percent Auto 81.2 % (50-75); Platelet Count 227 X10^3/uL (150-400); Red Blood Cell Count 3.84 X10^6/uL (4.0-5.2); Red Cell Distribution Width 15.3 % (11.6-14.8); White Blood Cell Count 10.1 X10^3/uL (4.5-11.0)
[2022-01-01 06:09] LABS: Alanine Aminotransferase 12 IU/L (<35); Albumin 2.6 g/dL (3.5-5.0); Albumin Globulin Ratio 0.9 (1.0-2.8); Alkaline Phosphatase 113 U/L (38-126); Aspartate Aminotransferase 65 IU/L (14-36); Bilirubin Total 0.4 mg/dL (0.2-1.3); Blood Urea Nitrogen 13 mg/dL (7-17); Calcium 7.4 mg/dL (8.4-10.2); Carbon Dioxide 23 mmol/L (22-32); Chloride 107 mmol/L (98-107); Estimated Glomerular Filt Rate > 60 mL/min (>60); Globulin 2.8 g/dL (1.7-4.1); Glucose 103 mg/dL (80-110); HEMOLYSIS < 15 (0-50); Magnesium 1.9 mg/dL (1.6-2.3); Potassium 3.2 mmol/L (3.4-5.1); Sodium 136 mmol/L (137-145); Total Protein 5.4 g/dL (6.3-8.2)
[2022-01-01] MEDS: CIPROFLOXACIN 400 MG/200 ML PIGGYBACK 75 MG IV ×2 (07:52→18:42)
[2022-01-01] MEDS: CARBIDOPA-LEVODOPA 25/100 TABLET 1 EACH PO ×3 (07:56→21:10)
[2022-01-01] MEDS: CARBIDOPA-LEVODOPA ER 50/200 TABLET 1 EACH PO ×3 (07:56→21:10)
[2022-01-01] MEDS: DOCUSATE 100 MG CAPSULE PO (08:00)
[2022-01-01] MEDS: polyethylene glycoL 3350 17 GM POWD.PACK PO (08:00)
[2022-01-01] MEDS: ENOXAPARIN 40 MG/0.4 ML SYRINGE SUBCUT (08:00)
--- NOTE | 2022-01-01 08:56 | PC.NURSE ---
Addendum entered by Maggie Kelley R.N. 01/01/22 15:49: gave a bed bath, applied new dressing to coccyx. Addendum entered by Maggie Kelley R.N. 01/01/22 11:23: patient in chair. placed waffle cushion. [id number]. She got up to BSC. SII pressure injury to her coccyx. dressing intact. Original Note: IV meds given slow ok by pharmacy to give next dose on time.
--- NOTE | 2022-01-01 11:03 | PT.IPTN ---
Current Diagnoses Sepsis, unspecified organism (12/29/21) Physical Therapy Treatment Note M2 PT-IP Current Condition Start: 12/31/21 12:54 Freq: NEEDED Status: Active Protocol: Document 12/31/21 09:10 AB (Rec: 12/31/21 13:07 AB [id number]) Physical Therapy Current Condition Current Condition Evaluation Date 12/31/21 Treatment Diagnosis sepsis; UTI; PD; difficulty in walking Onset Date 12/29/21 M3 PT-IP Subjective Start: 12/31/21 12:54 Freq: NEEDED Status: Active Protocol: Document 01/01/22 10:30 KS (Rec: 01/01/22 12:27 KS [id number]) Subjective Physical Therapy Visit Type Type Treatment Note Visit Start Time 10:30 Visit Stop Time 11:03 Total Visit Minutes 33 Notes Co-treat w/ OT d/t pts needs. Number of MEDICAL SUPPORT ASSISTANT Visits 1 Physical Therapy Visit Comments Patient Comments agreeable to do PT M4 PT-IP Mobility and Gait Start: 12/31/21 12:54 Freq: NEEDED Status: Active Protocol: Document 01/01/22 10:30 KS (Rec: 01/01/22 12:27 KS [id number]) PT-Transfer Assessment Sit to and From Stand Sit to and from Stand Contact Guard Assistance, Minimal Assistance,1 Person Assistance,2 Person Assistance Equipment Transfer Assistive Device Gait Belt,Front Wheeled Walker Orthotic/Prosthetic Devices or Brace: No Transfers Transfer Destination Chair Transfer Technique sit<>stand Transfer Ability Level of Assist 1 Person Assistance,Use of Upper Extremities Comments Mobility Comments Pt in chair upon arrival w/ daughter in room. Agreeable to working w/ therapy. Pt able to scoot EOC CGA and cues. Pt sit<>stand w/ 4WW Min A x2 o first attempt and stood ~1 min 30 seconds. Pt attempted taking steps forward but was unable to clear RLE from ground and only slid foot forward minimally. Pt sat back down, attempted seated marching but pt still unable to elevate RLE. Pt performed 2 additional sit<>stands w/ CGA to Min A and on second attempt stood 2 min 30 seconds and 3rd attempt pt w/ quick approach to fatigue but maintained standing balance for over 1 min. Occasional cues for upright posture. Pt demonstrated well controlled descent when sitting. Pt left in chair w/ OT in room. Gait Assessment Comments Gait Comments Attempted, but pt unable to elevate RLE. PT-Balance Assessment Sitting Balance and Reactions Static Sitting Balance Ability Good Dynamic Sitting Balance Ability Fair Standing Balance and Reactions Static Standing Balance Ability Fair Dynamic Standing Balance Ability Poor Device Used 4WW M5 PT-IP Objective Assessments Start: 12/31/21 12:54 Freq: NEEDED Status: Active Protocol: Document 12/31/21 09:10 AB (Rec: 12/31/21 13:07 AB [id number]) Orientation Orientation/Cognition Level of Alertness Confusional State Orientation Name Safety Awareness Decreased Safety Awareness Memory Description Short Term Impaired Gross Range of Motion Lower Extremity ROM Assessment Within Functional Limits Strength Lower Extremity Strength Assessment Bilaterally Impaired Comments Strength Comments RLE: 3-/5 LLE: 4-/5 M6 PT-IP Treatment Start: 12/31/21 12:54 Freq: NEEDED Status: Active Protocol: Document 01/01/22 10:30 KS (Rec: 01/01/22 12:27 KS [id number]) Physical Therapy Treatment Education Education Provided Safety Other Treatments Other Treatment Performed Seated marching M7 PT-IP Assessment and Plan Start: 12/31/21 12:54 Freq: NEEDED Status: Active Protocol: Document 01/01/22 10:30 KS (Rec: 01/01/22 12:27 KS [id number]) PT Summary Assessment and Plan Potential Rehabilitation Potential Fair Status of Condition at Evaluation Evolving Summary Impairments Pain,ROM,Strength,Balance, Coordination,Sensation,Tone, Cognition,Bed Mobility, Transfers,Gait,Activity Tolerance Assessment Summary Pt showed improved mobility today, only requiring CGA to Min A for sit<>Stand and able to maintain standing balance 1 -2 minutes w/ 4WW however she is currently unable to elvated RLE from floor to advance limb during ambulation. She will require SNF to improve strength and functional mobility independence. Goals Bed Mobility Goal Standby Assistance Transfer Goal Independent,Front Wheeled Walker Gait Goal Standby Assistance,Front Wheel Walker Gait Distance 100 Other Goals improve ambulation using U walker 200 ft SBA Days to Meet Goals 10 Frequency of Treatment Frequency Of Treatment Once a Day Treatment Plan Physical Therapy Treatment Plan Bed Mobility Training,Transfer Training,Gait Training, Therapeutic Exercise,Balance Retraining,Discharge Planning, Hot or Cold Pack,Neuromuscular Re-ed,Coordination Retraining ,Manual Therapy Precautions Other Precautions falls Recommendations To Nursing Amount of Assist Needed 2 Person Assist Discharge Recommendations PT Discharge Recommendations Home with 24/ Assist Available,Home Health,SNF Rehab Transportation Needs at Discharge Wheelchair/Cabulance
--- NOTE | 2022-01-01 11:49 | OT.IP.TRT ---
Current Diagnoses Sepsis, unspecified organism (12/29/21) Occupational Therapy Treatment Note M2 OT-IP Current Condition Start: 12/31/21 13:30 Freq: Status: Active Protocol: Document 12/31/21 13:31 [facility] (Rec: 12/31/21 13:51 [facility] [id number]) Occupational Therapy Current Condition Current Condition Evaluation Date 12/31/21 Treatment Diagnosis Sepsis,UTI, decreased mobility Diagnosis Onset Date 12/31/21 M3 OT- IP Subjective and Pain Start: 12/31/21 13:30 Freq: Status: Active Protocol: Document 01/01/22 10:30 [facility] (Rec: 01/01/22 12:31 [facility] [id number]) OT- Subjective Occupational Therapy Visit Type Type Treatment Note Visit Start Time 10:30 Visit Stop Time 11:13 Total Visit Minutes 43 Occupational Therapy Visit Comments Patient Comments Pt agreed to try to get up. Patient/Caregiver Goals Pt wanting to go back to her [facility] but realizes would be best to go to skilled rehab. OT Pain Assessment Pain When Pain Assessed At Rest Pain Present Pain Present Denied Pain M4 OT- IP ADL's Start: 12/31/21 13:30 Freq: Status: Active Protocol: Document 01/01/22 10:30 [facility] (Rec: 01/01/22 12:31 [facility] [id number]) OT [id number] Comments OT Self-Feeding Comments Per pt's daughter states that pt gets tired and therefore ends up assisting and feeding her. Able to go over again what to look out for - small bites and sips, check for pocketing and alternating between solids and liquids. OT ADL-Grooming Comments OT Grooming Comments Pt refusing at this time. OT ADL-Oral Care Comments Oral Care Comments Pt refusing at this time. M5 OT- IP IADL's Start: 12/31/21 13:30 Freq: Status: Active Protocol: Document 12/31/21 13:31 [facility] (Rec: 12/31/21 13:51 [facility] [id number]) OT-Instrumental Activities of Daily Living Home Safety Awareness Awareness of Need for Assistance at Home Decreased Awareness Ability to Problem Solve Emergency Unable to Problem Solve Situations Home Safety Comments Pt lives at [facility] and is assist for her ADl's, medications and mobility needs . Medication Management Medication Management Caregiver Administers Money Management Money Management Caregiver Provides Assistance Meal Preparation Meal Preparation Caregiver Provides Assist It Operations Specialist It Operations Specialist Caregiver Provides Assist Driving Driving Caregiver Provides Assist M6 OT- IP Functional Cognition Start: 12/31/21 13:30 Freq: Status: Active Protocol: Document 01/01/22 10:30 [facility] (Rec: 01/01/22 12:31 [facility] [id number]) Cognitive Factors Limiting Selfcare Function Cognitive Ability Level of Alertness Alert,Confusional State Patient Orientation Name Attention Span Ability Capable of Focused Attention, Unable to Sustain Attention Ability to Follow Commands Able to Follow One Step Commands with Increased Time, Able to Follow One Step Commands with Repetition Cognitive Comments Cognitive Assessment Comments Pt better to follow commands today however pt states still feels a little confused at times. M7 OT- IP Mobility and Balance Start: 12/31/21 13:30 Freq: Status: Active Protocol: Document 01/01/22 10:30 [facility] (Rec: 01/01/22 12:31 [facility] [id number]) OT-Transfer Assessment Sit to and From Stand Sit to and from Stand Contact Guard Assistance, Minimal Assistance,2 Person Assistance Devices Transfer Assistive Devices Gait Belt,Front Wheeled Walker Comments Mobility Comments Pt needing form LIONEL x2 to CGA x1 to stand to U step walker today. 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 At this tiime transfers only for pt. OT- Balance Assessment Sitting Balance and Reactions Static Sitting Balance Ability Good Dynamic Sitting Balance Ability Fair Standing Balance and Reactions Static Standing Balance Ability Poor Dynamic Standing Balance Ability Poor Comments Other Balance Tests/Deviations/Treatment Pt able to stand to her U step : walker 1 min and 15 seconds, 2 min and 30 sec, and then 1 minute with rest break in between. Pt able to control herself to sit back to the recliner with good safety and needing CGA- LIONEL. M9 OT- IP Assessment and Plan Start: 12/31/21 13:30 Freq: Status: Active Protocol: Document 01/01/22 10:30 [facility] (Rec: 01/01/22 12:31 [facility] [id number]) OT Summary Assessment and Plan Potential Rehabilitation Potential Good Analytic Complexity at Evaluation Moderate Summary OT Impairments Range of Motion,Strength, Balance,Coordination, Functional Cognition, Functional Mobility,Self- Feeding,Grooming,Dressing, Toileting,Bathing,Toilet Transfers,Shower Transfers, Activity Tolerance Progress Towards Goals Progressing Toward Goals Assessment Summary Pt is very cooperative and motivated to get better and able to stand for 2min and 30 seconds today with her u-step walker in front of her. At this time pt not able to safely take steps due to RLE weakness. Pt would greatly benefit form skilled rehab to help get her back to one person assist from her [facility] facility. Goals Self-Feeding Goal Standby Assistance Grooming Goal Standby Assistance Dressing Goal Moderate Assistance Toileting Goal Moderate Assistance Bathing Goal Moderate Assistance Toilet Transfer Goal Minimal Assistance Shower Transfer Goal Moderate Assistance Days to Meet Goals 20 Frequency of Treatment Frequency Of Treatment Once a Day Treatment Plan OT Treatment Plan ADL Training,Functional Cognition Training,Functional Mobility,Patient/Family Education,Discharge Planning Discharge Recommendations OT Discharge Recommendations SNF Rehab Transportation Needs at Discharge Wheelchair/Cabulance
[2022-01-01] MEDS: metroNIDAZOLE 500 MG/100 ML PIGGYBACK 50 MG IV ×2 (12:54→21:10)
[2022-01-01] MEDS: POTASSIUM CHLORIDE 20 MEQ TAB 40 MEQ PO (14:49)
--- NOTE | 2022-01-01 15:23 | PM.PN.1 ---
Subjective Subjective Date Patient Seen: 01/01/22 Interval history: 86 yo female w/Parkinson's disease, mild cognitive impairment, nephrolithiasis, and left eye and macular degeneration who is presently hospital day 2., admitted with sepsis secondary to UTI, acute metabolic encephalopathy, TENA, and hypotension. She was also felt to have nontraumatic rhabdomyolysis. That has since resolved. Abdominal pelvic CT performed on December 29, 2021 revealed a limited evaluation of the bowel secondary to IV and oral contrast. There is severe thickening of the sigmoid colon and rectum. Differential considerations include ischemia, infection, and inflammation. No definite pericolonic abscess. There is fecal impaction within the rectum. No evidence of appendicitis. Right intrarenal calculi and right renal pelvic calculus associated with moderate right hydronephrosis. Left hydronephrosis and left ureteral dilatation without ureteral calcification. Small right pleural effusion was noted. Mild bibasilar atelectasis versus pneumonia. Coronary artery disease. 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 Her daughter notes waxing and waning mental status. She notes yesterday was a good day and her mom seemed much more bright and engaged. However, by the afternoon she was quite fatigued. Today, she has been more fatigued overall. However, she did work with both PT and OT. Appetite overall has been decreased this past year, perhaps worse since her COVID infection. She reports her mom has somewhat frequent bad days, the etiology of which is not clear. S struggle with constipation secondary to her Parkinson's disease. She has not had any recent fevers, chills, abdominal pain or cramps. No diarrhea. No melena or black or tarry stools. Exam Vital Signs (past 8 hours): - 01/01/22 07:57 01/01/22 09:24 01/01/22 09:24 Temperature 97.0 F L Pulse Rate 85 Respiratory Rate 17 Blood Pressure 120/66 Pulse Oximetry 93 93 Oxygen Delivery Method Room Air Room Air Oxygen Flow Rate 0 01/01/22 11:46 01/01/22 11:00 Temperature 97.6 F Pulse Rate 81 Respiratory Rate 17 Blood Pressure 104/56 L Pulse Oximetry 94 93 Oxygen Delivery Method Room Air Oxygen Flow Rate 0 Oxygen Delivery Method Room Air Oxygen Flow Rate 0 Narrative Exam Narrative: GEN: Elderly female, lethargic, slow to respond but oriented x2, NAD HEENT:NC, Face symmetric CHEST: Respiratory excursions symmetric, CTAB CV: RRR, no M/R/G ABD: Soft, NT/ND, BT present in all 4 quadrants, no organomegaly or masses EXTR: warm, well perfused, no C/C/E SKIN: warm and dry, no rash NEURO: Lethargic/slow to respond but oriented, nonfocal Objective Labs Result Diagrams: 01/01/22 05:44 01/01/22 05:44 Labs: Laboratory Results - last 24 hr 01/01/22 01/01/22 05:44 05:44 WBC 10.1 RBC 3.84 L Hgb 11.6 L Hct 33.9 L MCV 88.1 MCH 30.2 MCHC 34.3 RDW 15.3 H Plt Count 227 Neut % (Auto) 81.2 H Lymph % (Auto) 7.1 L [place] % (Auto) 9.6 Eos % (Auto) 1.9 L Baso % (Auto) 0.2 Neut # (Auto) 8200 H Lymph # (Auto) 700 L [place] # (Auto) 1000 H Eos # (Auto) 200 Baso # (Auto) 0 Sodium 136 L Potassium 3.2 L Chloride 107 Carbon Dioxide 23 BUN 13 Creatinine 0.50 L Estimated GFR > 60 BUN/Creatinine Ratio 26.0 H Glucose 103 Calcium 7.4 L Magnesium 1.9 Total Bilirubin 0.4 AST 65 H ALT 12 Alkaline Phosphatase 113 Total Protein 5.4 L Albumin 2.6 L Globulin 2.8 Albumin/Globulin Ratio 0.9 L PFSH Medical History Diverticulosis Hallucinations Macular degeneration of left eye Nephrolithiasis Parkinsons Scoliosis Septicemia Surgical History History of cystocele History of hip surgery (10/11/18) History of lithotripsy Status post hysterectomy Status post tonsillectomy and adenoidectomy Status post tubal ligation Family History Grandfather Diabetes mellitus Mother Heart disease Stroke Father Parkinsons Social History household members: caregiver Smoking Status: Never smoker alcohol intake: current Assessment & Plan Assessment & Plan narrative: 1. E coli sepsis and UTI Sepsis now resolved. Patient was admitted with sepsis secondary to E coli UTI. Was hypotensive on admission with subsequent improvement overall. He also had TENA and a sofa score of 2. She continues on Cipro at this time. There is some concern of possible diverticulitis. However, upon review of her CT scan it appears she has a colitis rather than diverticulitis. Please see below for further details. 2. Sigmoid colitis Patient had severe thickening noted of the sigmoid colon and rectum. No evidence of diverticulitis. No abscess. Possibilities include ischemic colitis, inflammatory colitis, or infectious colitis. It does not appear to be infectious as she has not had any abdominal pain, cramping, fevers, diarrhea. Her stools have been solid. She is if anything had constipation. There is some concern for stercoral colitis, however the severe thickening of the colon and fat stranding is somewhat atypical. Given her age, certainly ischemic colitis is in the differential. That said, she is not having significant abdominal pain or rectal bleeding. Discussed at length the patient and her daughter. At this time, stable plan to continue monitoring, ensuring she is having regular bowel movements, and consider further workup on an outpatient basis if she has any persistent symptoms. 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 At that time, she may be able to have a follow-up abdominal CT to reassess her colonic thickening. As there isn't any specific evidence for infectious colitis, antibiotics will be narrowed to cover just the E coli UTI at discharge. 3. TENA Now resolved. It was felt to be secondary to dehydration, nontraumatic rhabdomyolysis, sepsis. 4. Acute nontraumatic rhabdomyolysis CK has continued to improve and was down to 1155 yesterday. 5. Hypokalemia Will continue to replete orally 6. Parkinson's disease Continue usual outpatient carbidopa/levodopa treatment. Code status DNR Prophylaxis On Lovenox Disposition She has been accepted to [facility] tomorrow Time Spent With Patient Critical Care time: I spent a total of [] minutes of critical care time on this patient's care today; this time is exclusive of procedural time. Quality VTE Deep Vein Thrombosis/Pulmonary Embolism Present on Admission: No
--- NOTE | 2022-01-01 15:28 | CM.DPNOTE ---
Addendum entered by Leigh Centeno R.N. 01/01/22 15:49: Note: Did not print Covid swab due to still pending. SELeydi Original Note: Discharge Planning Note: Met with patient and daughter Martina (physician in [place]). Very supportive family. Patient normally resides at [facility]. She has Parkinsons and mild cognitive impairment at baseline. Patient and daughter hoping she could dc to her [facility] but after PT/OT worked with her today with daughter present, patient and daughter now agreeable to discharge to SNF to strengthen. Speech therapy eval pending, needs to be done in AM, notified therapy. Spoke with Rosanne at [facility] and they can accept tomorrow but cannot transport on weekends. No cabulance companies open tomorrow. Spoke with Ambulance, they can transport and set up 1:30 discharge for tomorrow 01/02/22. PT/OT recommend BLS. BLS form filled out. PASSR is completed. Dr Moyer provided signed med sheets and scripts. Placed with our face sheet packet. She is fully vaccinated, report printed. Covid swab done today by nurse and printed. Ashtyn Centeno RN, DCP
[2022-01-01 15:55] LABS: COVID19 -Nasal RAPID Negative (Negative)
[2022-01-01] MEDS: SENNOSIDES 8.6 MG TABLET 17.2 MG PO (21:10)
[2022-01-01] MEDS: MIRTAZAPINE 15 MG TABLET PO (21:10)
[2022-01-01] MEDS: SODIUM CHLORIDE 0.9% FLUSH 10 ML IV (21:11)
[2022-01-02] VITALS (7 sets, daily range): BP systolic 118–124; BP diastolic 52–72; PULSE 82–86; RESP 16–22; TEMP 36.1–36.4; O2SAT 92–95
[2022-01-02] MEDS: metroNIDAZOLE 500 MG/100 ML PIGGYBACK 50 MG IV ×2 (03:53→12:08)
[2022-01-02] MEDS: CARBIDOPA-LEVODOPA 25/100 TABLET 1 EACH PO ×2 (08:22→13:55)
[2022-01-02] MEDS: CARBIDOPA-LEVODOPA ER 50/200 TABLET 1 EACH PO ×2 (08:22→13:55)
[2022-01-02] MEDS: CIPROFLOXACIN 400 MG/200 ML PIGGYBACK 75 MG IV (08:23)
--- NOTE | 2022-01-02 10:02 | ST.IPCSEOM ---
Visit Care Team Role Provider Type SUZAN Alvarado Primary Care Provider Non-Staff Specialty: Medical Address: [address], [place], [address] Email: Lelo Greene DO Emergency Provider Physician Referring Provider Specialty: Emergency Medicine Address: [address] [place] [address], [id number] Email: [email or web address] [email or web address] Provider Physician Attending Provider Specialty: Internal Medicine Address: [address] [place] [address], [id number] Email: [email or web address] Diagnoses Sepsis, unspecified organism (12/29/21) Past Medical History (Last Reviewed 12/29/21 @ 19:47 by Drew Reardon DO) Diverticulosis (Medical) Hallucinations (Medical) Macular degeneration of left eye (Medical) Nephrolithiasis (Medical) Parkinsons (Medical) Scoliosis (Medical) Septicemia (Medical) Speech-Language Pathology Swallow Evaluation [employer] SALES REPRESENTATIVE Clinical Swallow Evaluation Start: 01/02/22 09:41 Freq: Status: Active Protocol: Document 01/02/22 09:41 TIO (Rec: 01/02/22 10:01 TIO [id number]) Clinical Swallow Evaluation Session Time Visit Start Time 08:30 Visit Stop Time 09:00 Total Visit Minutes 30 Setting Assessment Location Acute Care Visit Type Note Type Initial evaluation Patient Information Identification Type Name,Wristband History Per H&P: This is an 86-year- old female with a past medical history of Parkinson's disease, with mild cognitive impairment, nephrolithiasis, and macular degeneration of her left eye who presented from [facility] with 3 -4 days of worsening mental status and fatigue as well as a decrease in appetite. Unable to obtain information from patient currently given her significant lethargy. The patient denies any abdominal pain, nausea, vomiting, chest pain, shortness of breath at this time, but is unable to recall over the past couple of days at home it. Her daughter states that she was more alert in the emergency room then now, but recalls that starting approximately 4 days ago she had increasing lethargy and fatigue. Not eating or drinking very well, and was not moving around a lot. Two days ago she had a fall at her assisted living, and may have been down for maybe an hour. After her fall she became even more fatigued , not wanting to do much at all. Daughter reported an episode of incontinence of stool and urine. She was brought to the emergency room for further evaluation. There were no recorded fevers, and there were no known sick contacts. The daughter states that a couple of days prior to her fatigue starting, she did complain of some mild lower abdominal pain, though this was apparently short lived. Subjective Observations The pt was slightly reclined in bed eating morning meal with daughter and nurse at bedside when [employer] SALES REPRESENTATIVE arrived. NSG was providing medications in pudding in between bites of morning meal (comprised of blueberry muffin, orange juice , dry Cheerios, and strawberries). Reported by Patient Current Diet Regular,Thin liquids Baseline Feeding Method Needs some assistance Objective Assessment Mental Status Responsive,Cooperative Oral Integrity WFL Dentition Within normal limits Lip Function Mild impairment Observation of Lips at Rest Symmetrical Pucker Reduced range of motion, Reduced strength Lip Retraction Reduced range of motion Alternating Pucker/Lip Retraction Reduced range of motion, Incoordination Tongue Function Within normal limits Observations of Tongue at Rest Within normal limits Tongue Protrusion Within normal limits Tongue Retraction Within normal limits Jaw Function Within normal limits Observations of Jaw at Rest Within normal limits Jaw Opening Within normal limits Jaw Closing Within normal limits Comment Completed partial oral motor exam. Limited intraoral observations and incomplete exam due to pt confusion and fatigue. Reduced labial ROM and strength observed with smile and pucker. Coordination was further complicated by pt 's cognitive impairments and she was unable to follow directions to coordinate this movement. Structures were symmetrical at rest and in motion. Dentition was present and WNL. Observed oral movements while pt was eating and movements appeared to be WFL for the purposes of speech and swallowing. Food and Liquid Trials Position During Assessment Slightly reclined,In bed Liquids Trialed Thin Solids Trialed Puree,Dysphagia Mechanical, Dysphagia Advanced,Regular Administration Type Tea spoon,Straw,Self-feeding, Needs some assistance Oral Impairment Within functional limits Oral Phase Comments Pt exhibited no anterior loss of bolus. Prolonged holding observed wit all PO trials, though A/P propulsion and mastication were timely and efficient. Pt exhibited minimal oral residue following PO trials, though demonstrated several instances of a spontaneous second swallow to clear residue. Pharyngeal Impairment Within normal limits Pharyngeal Phase Comments No overt signs or symptoms of aspiration observed. Pt managed a variety of textures with no observed or reported difficulty. Fatigue/Endurance Mild fatigue Comment The pt exhibited increased breathing across the morning meal and ate about 15% of meal . She was self-feeding with assistance needed to scoop bites off plate onto her spoon . Daughter reported pt's appetite has decreased since pt had COVID in October. Findings Swallowing Function Within functional limits Severity of Swallow Impairment Within functional limits Contributing Factors to Swallow Reduced alertness or attention Impairment Based on Cognitive status,Family support,Age,Comorbidities, Duration of symptoms/severity Comment The pt presents with swallowing WFL. Prolonged holding of bolus observed with all PO trials, which is likely secondary to Parkinson' s. Pt exhibited increased fatigue over the course of a meal with increased breathing observed, though this does not appear to impact swallow safety at this time as pt has a reduced appetite and is eating for shorter periods of time. Impact on Safety and Functioning No limitations Recommendations Instrumental Assessment No Recommended Solids Regular Recommended Liquids Thin Safety Precautions/Swallowing Feed only when alert,Reduce Recommendations distractions,Remain upright ( 90 degrees) during all oral intake,Upright position at least 30 minutes after meals, Small bites and sips when eating,Slow rate; swallow between bites,Set-up assistance,1 to 1 feeding assistance Medication Recommendations Whole in Carrier Discharge Recommendations halfway facility Education Patient/Caregiver Education Described results of evaluation,Patient expressed understanding of evaluation, Patient expressed agreement with goals & treatment plans, Family/caregivers expressed understanding of evaluation, Family/caregivers expressed agreement with goals & treatment plans,Patient expressed understanding of safety precautions,Patient expressed understanding of feeding recommendations,Family /caregivers expressed understanding of safety precautions,Family/caregivers expressed understanding of feeding recommendations Goals Long-term Goals The pt will safely tolerate least restrictive diet to meet her nutrition and hydration needs.
[2022-01-02] MEDS: ENOXAPARIN 40 MG/0.4 ML SYRINGE SUBCUT (10:10)
[2022-01-02] MEDS: DOCUSATE 100 MG CAPSULE PO (10:10)
[2022-01-02] MEDS: SODIUM CHLORIDE 0.9% FLUSH 10 ML IV (10:12)
[2022-01-02] MEDS: polyethylene glycoL 3350 17 GM POWD.PACK PO (10:12)
--- NOTE | 2022-01-02 12:15 | CM.DPC ---
DCP/continued: Reviewed chart. Orders obtained for patient to discharge to [facility] in [place] for SNF. Placed call to Rosanne at [facility] and she is in agreement to accept. Transport arranged via BLS for 1:30pm. RN given number to call report. Faxed orders, copy of scripts, and PASRR to [facility]. No additional needs identified. RN and provider both spoke with daughter re: above plan. Patient and family aware and agreeable. P: Aundrea today via S. ABEL
--- NOTE | 2022-01-02 12:30 | P.DS_ITS ---
History of Present Illness History of Present Illness Date Patient Seen: 01/02/22 Chief complaint: decreased LOC Narrative: Per admit H&P: This is an 86-year-old female with a past medical history of Parkinson's disease, with mild cognitive impairment, nephrolithiasis, and macular degener ation of her left eye who presented from [facility] with 3-4 days of worsening mental status and fatigue as well as a decrease in appetite.? Unable to obtain information from patient currently given her significant lethargy.? The patient denies any abdominal pain, nausea, vomiting, chest pain, shortness of breath at this time, but is unable to recall over the past couple of days at home it.? Her daughter states that she was more alert in the emergency room then now, but recalls that starting approximately 4 days ago she had increasing lethargy and fatigue.? Not eating or drinking very well, and was not moving around a lot.? Two days ago she had a fall at her assisted living, and may have been down for maybe an hour.? After her fall she became even more fatigued, not wanting to do much at all.? Daughter reported an episode of incontinence of stool and urine.? She was brought to the emergency room for further evaluation.? There were no recorded fevers, and there were no known sick contacts.? The daughter states that a couple of days prior to her fatigue starting, she did complain of some mild lower abdominal pain, though this was apparently short lived. In the emergency room, the patient's vital signs were within normal limits.? Laboratory evaluation revealed the white blood cell count of 24.4, with 92% neutrophils.? Chemistries revealed a creatinine of 0.98 up from her usual baseline of around 0.5.? AST was slightly elevated at 116, total CK was 5036.? Troponin was within normal limits.? Procalcitonin was elevated at 7.64.? Was grossly positive for infection with greater than 100 white blood cells and many urine bacteria, nitrate was negative.? COVID-19 testing was negative.? The patient in the emergency room complained of some extremity pain, imaging was unremarkable with no acute fracture including her hip and wrist.? CT of her head was also unremarkable for any acute findings.? Chest x-ray was also unremarkable.? She was admitted for further management to the hospitalist service. Discharge Providers Provider Date of admission: 12/29/21 13:01 Discharge Date: 01/02/22 Primary care physician: SUZAN Avlarado Consults: 12/29/21 14:36 Consult to Dietitian, Adult Routine Comment: Reason For Exam: recent weight loss, Parkinsons 12/29/21 15:01 Consult to Inpatient Wound Care Nurse Routine Comment: Reason for consultation: sacral pressure injury 12/30/21 16:14 Consult to Dietitian, Adult Routine Comment: Reason For Exam: malnutrition 12/31/21 08:23 Consult to Occupational Therapy Evaluate & Treat Comment: Physician Instructions: Evaluate and treat Consult to Physical Therapy Evaluate & Treat Comment: Physician Instructions: Evaluate and Treat 12/31/21 10:56 Consult to Speech Therapy Evaluate & Treat Comment: Physician Instructions: Evaluate and treat Discharge provider: Dixie Moyer MD Summary Hospital Course Discharge Diagnosis: 1. E coli sepsis and UTI-sepsis resolved 2. Sigmoid colitis, unclear etiology 3. TENA, resolved 4. Acute nontraumatic rhabdomyolysis, improved 5. Hypokalemia, improved 6. Parkinson's disease, chronic, stable 7. 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 Nephrolithiasis - Right intrarenal calculi, right renal pelvis calculus 9. Moderate right hydronephrosis without good visualization of the right ureter 10. Left hydronephrosis w/o evidence of obstruction 11. Acute metabolic encephalopathy, improved 12. Acute on chronic moderate protein calorie malnutrition 13. 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 She was also felt to have nontraumatic rhabdomyolysis.?Abdominal pelvic CT performed on December 29, 2021 revealed a limited evaluation of the bowel secondary to IV and oral contrast.? There is severe thickening of the sigmoid colon and rectum.? Differential cons iderations include ischemia, infection, and inflammation.? No definite pericolonic abscess.? There is fecal impaction within the rectum.? No evidence of appendicitis.? Right intrarenal calculi and right renal pelvic calculus associated with moderate right hydronephrosis.? Left hydronephrosis and left ureteral dilatation without ureteral calcification.? Small right pleural effusion was noted.? Mild bibasilar atelectasis versus pneumonia.? Coronary artery disease.? 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 Pt had gradual improvement of her sepsis w/IV antibiotics. She did receive a bowel regimen w/resolution of her fecal impaction. It was felt her colitis could be secondary to ischemia (although she had no significant abdominal pain or rectal bleeding), infection (no diarrhea/fever) or inflammation. Stercoral colitis was another consideration. AFter extensive conversations w/pt's dtr, the decision was made to continue a bowel regimen to promote regular bowel movements, monitor for GI sxs, and f/u w/her PCP w/consideration of a repeat CT in 2 months when she has her CT for her malignancy. With regard to her hydronephrosis and kidney stones, encouraged her to increase po fluids. If she develops any renal colic sxs, would f/u w/PCP for recheck and referral to urology. Pt did have waxing and waning mental status during her hospitalization consistent w/her metabolic encephalopathy. With treatment of her infection, this was improving at discharge. Dietitian consultation was performed and pt was found to have acute on chronic moderate protein calorie malnutrition r/t recent weight loss with covid and reported declining appetite since admission to assisted living and physical signs of muscle wasting in mandaeism and interosseous, low for age BMI (<23), and predicted <75% REE over the last 2 months since covid. She was placed on ONS with plans for close f/u with her PCP. On date of admission, pt was noted to have a PI and wound care was consulted with findings as follows: 1.2 x 1cm wound to the sacrum appearing as an unstageable pressure injury. The wound base is maroon/purple consistent with DTPI. Dtr noted pt sits in a chair for much of the day. Local wound care initiated and goals for offloading pressure from the wound and nutritional optimization were made. Status at Discharge Cognitive/behavioral status at discharge: at baseline, oriented Functional status at discharge: uses cane/walker Overall status at discharge: patient is progressing back to baseline Time Spent with Patient Time spent: Greater than 30 minutes (45 minutes spent coordinating d/c) Exam Vital Signs (past 8 hours): Oxygen Delivery Method Room Air Oxygen Flow Rate 0 Narrative Exam Narrative: GEN:? Elderly female, lethargic, slow to respond but oriented x2, NAD HEENT:NC, Face symmetric CHEST: Respiratory excursions symmetric, CTAB CV: RRR, no M/R/G ABD: Soft, NT/ND, BT present in all 4 quadrants, no organomegaly or masses EXTR: warm, well perfused, no C/C/E SKIN: warm and dry, no rash NEURO:? Lethargic/slow to respond but oriented, nonfocal Objective Labs Result Diagrams: 01/01/22 05:44 01/01/22 05:44 PENDING SALE TO [facility] Medical History Diverticulosis Hallucinations Macular degeneration of left eye Nephrolithiasis Parkinsons Scoliosis Septicemia Surgical History History of cystocele History of hip surgery (10/11/18) History of lithotripsy Status post hysterectomy Status post tonsillectomy and adenoidectomy Status post tubal ligation Family History Grandfather Diabetes mellitus Mother Heart disease Stroke Father Parkinsons Social History household members: caregiver Smoking Status: Never smoker alcohol intake: current Discharge Plan Discharge Plan Patient Disposition: SNF Transfer to: More Provider Discharge Comment: Continue to monitor any gastrointestinal complaints. Please monitor bowel movements and if patient does not have bowel movement every 1-2 days, please add as needed bowel medications. Monitor for abdominal pain, diarrhea, rectal bleeding. PT/OT to evaluate and treat at the facility. Recommend f/u BMP next week to reassess potassium level Discharge orders & Medications Prescriptions: New sennosides-docusate sodium [Senna with Docusate Sodium] 8.6-50 mg tablet 1 tab-cap PO BID Qty: 60 0RF polyethylene glycol 3350 [Miralax] 17 gram/dose powder 17 g PO DAILY Qty: 238 0RF Rx Instructions: Give in orange juice, okay to hold for loose stools cephalexin 500 mg capsule 500 mg PO TID Qty: 12 0RF Continued carbidopa-levodopa 25 MG/100 MG tablet 1 tab PO TID Qty: 0 Rx Instructions: 0700, 1400,2100 polyethylene glycol 3350 17 gram powder in packet 17 gm PO DAILY PRN (Reason: Constipation) alendronate 70 mg tablet 70 mg PO WEEKLY ketoconazole 2 % cream 1 applic TOPICAL 2XW melatonin 5 mg PO BEDTIME PRN (Reason: Insomnia) mirtazapine 15 mg tablet 15 mg PO BEDTIME ondansetron HCl 4 mg tablet 4 mg PO Q3-6H PRN (Reason: Nausea) cholecalciferol (vitamin D3) 2,000 units PO DAILY carbidopa-levodopa 50-200 mg tablet extended release 1 tab PO TID Rx Instructions: Taken with carbidopa-levodopa 25/100 mg tab TID at 0700, 1400, 2100 Discontinued hydrocodone-acetaminophen [Esperance] 5-325 mg tablet 1 tab PO Q6H PRN (Reason: pain) Qty: 10 0RF docusate sodium 100 mg capsule 100 mg PO DAILY trazodone 50 mg tablet 50 mg PO BEDTIME PRN (Reason: Sleep) tramadol 50 mg Tablet 50 mg PO Q4HR PRN (Reason: Pain, Moderate (4-6)) Qty: 30 0RF sennosides [senna] 8.6 mg Tablet 17.2 mg PO BEDTIME PRN (Reason: Constipation) Qty: 30 0RF oxycodone 5 mg Tablet 5 mg PO Q4-6H PRN (Reason: Pain, Moderate (4-6)) Qty: 40 0RF Follow up/Referrals: Elva Powell ARNP [Primary Care Provider] - Diet/Activity/Treatments Diet: Regular Liquid consistency: Normal/Thin Food texture: Regular Activity: As tolerated; per PT/OT Oxygen: N/A Discharge Data Primary Care Provider: Elva Powell Quality VTE Deep Vein Thrombosis/Pulmonary Embolism Present on Admission: No
--- NOTE | 2022-01-02 13:54 | PT.IPTN ---
Current Diagnoses Sepsis, unspecified organism (12/29/21) Physical Therapy Treatment Note M2 PT-IP Current Condition Start: 12/31/21 12:54 Freq: NEEDED Status: Active Protocol: Document 12/31/21 09:10 AB (Rec: 12/31/21 13:07 AB [id number]) Physical Therapy Current Condition Current Condition Evaluation Date 12/31/21 Treatment Diagnosis sepsis; UTI; PD; difficulty in walking Onset Date 12/29/21 M3 PT-IP Subjective Start: 12/31/21 12:54 Freq: NEEDED Status: Active Protocol: Document 01/02/22 13:54 AW (Rec: 01/02/22 14:14 AW [id number]) Subjective Physical Therapy Visit Type Type Treatment Note Visit Start Time 15:38 Visit Stop Time 15:54 Total Visit Minutes 16 Notes Pt's daughter has been inquiring today about PT availability. Was able to work with pt just prior to dc to SNF. Number of SANITARY PLUMBER Visits 0 Physical Therapy Visit Comments Patient Comments agreeable to do PT M4 PT-IP Mobility and Gait Start: 12/31/21 12:54 Freq: NEEDED Status: Active Protocol: Document 01/02/22 13:54 AW (Rec: 01/02/22 14:14 AW [id number]) PT-Transfer Assessment Sit to and From Stand Sit to and from Stand Minimal Assistance,Moderate Assistance,1 Person Assistance Equipment Transfer Assistive Device Gait Belt,Front Wheeled Walker Orthotic/Prosthetic Devices or Brace: No Transfers Transfer Destination Bed,Chair Transfer Technique Stand Step Pivot Transfer Ability Level of Assist Maximum Assistance,1 Person Assistance,Use of Upper Extremities Comments Mobility Comments Pt was up in chair as PT arrived. Her daughter was encouraging her to move. Pt scooted forward on the chair and needed mod A to stand. She used her U-Walker to transfer to the bed max A. She rested and then agreed to stand again min A from the tall mattress. She stood and marched in place with poor BLE elevation before moving away from the bed and indicating desire to transfer back to the chair. Max A required for transfer. BLS transport arrived to take her to SNF. Gait Assessment Gait Gait Assistance Required: Maximum Assistance,1 Person Assist Distance (Feet) 4 Gait Deviations General Gait Pattern Decreased Stride Length, Decreased Feet Clearance, Festinating,Flexed Trunk, Narrow Based Gait Comments Gait Comments Pt needed max cues to move BLE and widen RASHIDA using her own U Walker PT-Balance Assessment Sitting Balance and Reactions Static Sitting Balance Ability Good Dynamic Sitting Balance Ability Fair Standing Balance and Reactions Static Standing Balance Ability Poor Dynamic Standing Balance Ability Poor Device Used U Walker M5 PT-IP Objective Assessments Start: 12/31/21 12:54 Freq: NEEDED Status: Active Protocol: Document 12/31/21 09:10 AB (Rec: 12/31/21 13:07 AB [id number]) Orientation Orientation/Cognition Level of Alertness Confusional State Orientation Name Safety Awareness Decreased Safety Awareness Memory Description Short Term Impaired Gross Range of Motion Lower Extremity ROM Assessment Within Functional Limits Strength Lower Extremity Strength Assessment Bilaterally Impaired Comments Strength Comments RLE: 3-/5 LLE: 4-/5 M6 PT-IP Treatment Start: 12/31/21 12:54 Freq: NEEDED Status: Active Protocol: Document 01/02/22 13:54 AW (Rec: 01/02/22 14:14 AW [id number]) Physical Therapy Treatment Education Education Provided Safety M7 PT-IP Assessment and Plan Start: 12/31/21 12:54 Freq: NEEDED Status: Active Protocol: Document 01/02/22 13:54 AW (Rec: 01/02/22 14:14 AW [id number]) PT Summary Assessment and Plan Summary Impairments Pain,ROM,Strength,Balance, Coordination,Sensation,Tone, Cognition,Bed Mobility, Transfers,Gait,Activity Tolerance Assessment Summary Pt was seen today just before next dose of carbidopa levodopa which likely complicated her mobility. Pt needed max cues and assist for transfers. She is below her baseline and will require SNF rehab to improve strength and mobility. Goals Bed Mobility Goal Standby Assistance Transfer Goal Independent,Front Wheeled Walker Gait Goal Standby Assistance,Front Wheel Walker Gait Distance 100 Other Goals improve ambulation using U walker 200 ft SBA Days to Meet Goals 10 Frequency of Treatment Frequency Of Treatment Once a Day Treatment Plan Physical Therapy Treatment Plan Bed Mobility Training,Transfer Training,Gait Training, Therapeutic Exercise,Balance Retraining,Discharge Planning, Hot or Cold Pack,Neuromuscular Re-ed,Coordination Retraining ,Manual Therapy Precautions Other Precautions falls Recommendations To Nursing Amount of Assist Needed 2 Person Assist Discharge Recommendations PT Discharge Recommendations Home with 26/12 Assist Available,Home Health,SNF Rehab Transportation Needs at Discharge Wheelchair/Cabulance
--- NOTE | 2022-01-02 13:54 | PT.IPTN ---
Current Diagnoses Sepsis, unspecified organism (12/29/21) Physical Therapy Treatment Note M2 PT-IP Current Condition Start: 12/31/21 12:54 Freq: NEEDED Status: Active Protocol: Document 12/31/21 09:10 AB (Rec: 12/31/21 13:07 AB [id number]) Physical Therapy Current Condition Current Condition Evaluation Date 12/31/21 Treatment Diagnosis sepsis; UTI; PD; difficulty in walking Onset Date 12/29/21 M3 PT-IP Subjective Start: 12/31/21 12:54 Freq: NEEDED Status: Active Protocol: Document 01/02/22 13:54 AW (Rec: 01/02/22 14:14 AW [id number]) Subjective Physical Therapy Visit Type Type Treatment Note Visit Start Time 13:58 Visit Stop Time 13:54 Total Visit Minutes 16 Notes Pt's daughter has been inquiring today about PT availability. Was able to work with pt just prior to dc to SNF. Number of [place] Visits 0 Physical Therapy Visit Comments Patient Comments agreeable to do PT M4 PT-IP Mobility and Gait Start: 12/31/21 12:54 Freq: NEEDED Status: Active Protocol: Document 01/02/22 13:54 AW (Rec: 01/02/22 14:14 AW [id number]) PT-Transfer Assessment Sit to and From Stand Sit to and from Stand Minimal Assistance,Moderate Assistance,1 Person Assistance Equipment Transfer Assistive Device Gait Belt,Front Wheeled Walker Orthotic/Prosthetic Devices or Brace: No Transfers Transfer Destination Bed,Chair Transfer Technique Stand Step Pivot Transfer Ability Level of Assist Maximum Assistance,1 Person Assistance,Use of Upper Extremities Comments Mobility Comments Pt was up in chair as PT arrived. Her daughter was encouraging her to move. Pt scooted forward on the chair and needed mod A to stand. She used her U-Walker to transfer to the bed max A. She rested and then agreed to stand again min A from the tall mattress. She stood and marched in place with poor BLE elevation before moving away from the bed and indicating desire to transfer back to the chair. Max A required for transfer. BLS transport arrived to take her to SNF. Gait Assessment Gait Gait Assistance Required: Maximum Assistance,1 Person Assist Distance (Feet) 4 Gait Deviations General Gait Pattern Decreased Stride Length, Decreased Feet Clearance, Festinating,Flexed Trunk, Narrow Based Gait Comments Gait Comments Pt needed max cues to move BLE and widen RASHIDA using her own U Walker PT-Balance Assessment Sitting Balance and Reactions Static Sitting Balance Ability Good Dynamic Sitting Balance Ability Fair Standing Balance and Reactions Static Standing Balance Ability Poor Dynamic Standing Balance Ability Poor Device Used U Walker M5 PT-IP Objective Assessments Start: 12/31/21 12:54 Freq: NEEDED Status: Active Protocol: Document 12/31/21 09:10 AB (Rec: 12/31/21 13:07 AB [id number]) Orientation Orientation/Cognition Level of Alertness Confusional State Orientation Name Safety Awareness Decreased Safety Awareness Memory Description Short Term Impaired Gross Range of Motion Lower Extremity ROM Assessment Within Functional Limits Strength Lower Extremity Strength Assessment Bilaterally Impaired Comments Strength Comments RLE: 3-/5 LLE: 4-/5 M6 PT-IP Treatment Start: 12/31/21 12:54 Freq: NEEDED Status: Active Protocol: Document 01/02/22 13:54 AW (Rec: 01/02/22 14:14 AW [id number]) Physical Therapy Treatment Education Education Provided Safety M7 PT-IP Assessment and Plan Start: 12/31/21 12:54 Freq: NEEDED Status: Active Protocol: Document 01/02/22 13:54 AW (Rec: 01/02/22 14:14 AW [id number]) PT Summary Assessment and Plan Summary Impairments Pain,ROM,Strength,Balance, Coordination,Sensation,Tone, Cognition,Bed Mobility, Transfers,Gait,Activity Tolerance Assessment Summary Pt was seen today just before next dose of carbidopa levodopa which likely complicated her mobility. Pt needed max cues and assist for transfers. She is below her baseline and will require SNF rehab to improve strength and mobility. Goals Bed Mobility Goal Standby Assistance Transfer Goal Independent,Front Wheeled Walker Gait Goal Standby Assistance,Front Wheel Walker Gait Distance 100 Other Goals improve ambulation using U walker 200 ft SBA Days to Meet Goals 10 Frequency of Treatment Frequency Of Treatment Once a Day Treatment Plan Physical Therapy Treatment Plan Bed Mobility Training,Transfer Training,Gait Training, Therapeutic Exercise,Balance Retraining,Discharge Planning, Hot or Cold Pack,Neuromuscular Re-ed,Coordination Retraining ,Manual Therapy Precautions Other Precautions falls Recommendations To Nursing Amount of Assist Needed 2 Person Assist Discharge Recommendations PT Discharge Recommendations Home with 26/12 Assist Available,Home Health,SNF Rehab Transportation Needs at Discharge Wheelchair/Cabulance
== END 2022-01-02 14:00 | DRG 871 ==
LOC: ED 12:55 → AC 13:03
PROVIDERS: Admitting Provider Internal Medicine; Emergency Provider Emergency Medicine; PCP Nurse Practitioner Gerontology; Referring Provider Emergency Medicine; Visit Provider Internal Medicine
DX: A41.51 Sepsis due to Escherichia coli [E. coli] (principal); G93.41 Metabolic encephalopathy; N30.00 Acute cystitis without hematuria; N17.9 Acute kidney failure, unspecified; M62.82 Rhabdomyolysis; Z68.1 Body mass index [BMI] 19.9 or less, adult; E44.0 Moderate protein-calorie malnutrition; R65.20 Severe sepsis without septic shock; K52.9 Noninfective gastroenteritis and colitis, unspecified; L89.150 Pressure ulcer of sacral region, unstageable; E86.0 Dehydration; I95.9 Hypotension, unspecified; G20 Parkinson's disease; G31.84 Mild cognitive impairment of uncertain or unknown etiology; E87.6 Hypokalemia; K56.41 Fecal impaction; Z66 Do not resuscitate; Z20.822 Contact with and (suspected) exposure to COVID-19
CPT/HCPCS: 36415; 70450; 71045; 73110; 73502; 74176; 80053; 81001; 82550; 82553; 83605; 83735; 84145; 84484; 85025; 87040; 87077; 87086; 87186; 87635; 92610; 93005; 96365; 97162; 97166; 97530; 97535; 99284; 99285; C9803; J0696; J0744; J1650

== ENCOUNTER → 2022-05-11 13:11 | Outpatient (CLI) | payer MEDICARE, SELFPAY ==
[2021-12-29 13:57] VITALS: BMI 20.3
--- NOTE | 2022-05-11 | DI.RAD.S_ITS ---
PROCEDURE: XR HIP W PEL IF DONE RT 2V INDICATIONS: Pain in right hip TECHNIQUE: AP pelvis with lateral view of the right hip. COMPARISON: [facility], CR, XR HIP W PEL IF DONE LT 2V, 12/29/2021, 11:55. FINDINGS: Bones: No fractures or dislocations. Pelvic ring appears intact. No suspicious bony lesions. Patient is status post long-stem unipolar right hip prosthesis. Again noted is a large amount heterotopic ossification noted in the region of the hip joint extending of the femur. Surgical hardware appears in good position without evidence for hardware complication. Soft tissues: The visualized bowel gas pattern is normal. No suspicious soft tissue calcifications. IMPRESSION: 1. Satisfactory and stable appearance of long-stem unipolar right hip prosthesis. 2. Again noted is a large amount of stable heterotopic ossification noted extending off the proximal right femur. Dictated by: Rajesh Bledsoe M.D. on 05/11/2022 at 14:24 Approved by: Rajesh Bledsoe M.D. on 05/11/2022 at 14:28
== END ==
PROVIDERS: PCP Nurse Practitioner Gerontology; Referring Provider Nurse Practitioner Gerontology; Visit Provider Nurse Practitioner Gerontology
DX: M25.551 Pain in right hip (principal)
CPT/HCPCS: 73502

== ENCOUNTER → 2022-07-15 16:09 | Outpatient (CLI) | payer MEDICARE, SELFPAY ==
[2021-12-29 13:57] VITALS: BMI 20.3
--- NOTE | 2022-07-15 | DI.RAD.S_ITS ---
PROCEDURE: XR SHOULDER LT MIN 2V INDICATIONS: Left Shoulder Pain TECHNIQUE: 3 views of the shoulder were acquired. COMPARISON: None. FINDINGS: Bones: There is poor visualization of the distal clavicle. Soft tissues: No suspicious soft tissue calcifications. IMPRESSION: Poor visualization of the distal clavicle with apparent fracture and dislocation of the inferior most segment. Clavicular views may be helpful for further evaluation. Dictated by: Carmen Livingston M.D. on 07/15/2022 at 16:28 Approved by: Carmen Livingston M.D. on 07/15/2022 at 16:29
== END ==
PROVIDERS: PCP Nurse Practitioner Gerontology; Referring Provider Nurse Practitioner Family; Visit Provider Nurse Practitioner Family
DX: M25.512 Pain in left shoulder (principal)
CPT/HCPCS: 73030

== ENCOUNTER → 2022-08-24 16:11 | Outpatient (CLI) | payer MEDICARE, SELFPAY ==
[2021-12-29 13:57] VITALS: BMI 20.3
--- NOTE | 2022-08-24 16:14 | DI.RAD.S_ITS ---
PROCEDURE: XR FINGER LT MIN 2V INDICATIONS: Fall TECHNIQUE: AP hand, 2 views of the 2nd finger(s) acquired. COMPARISON: None. FINDINGS: Bones: Nondisplaced fracture through the shaft of the 2nd middle phalanx. Interphalangeal joint space narrowing with associated osteophytosis. Soft tissues: No suspicious soft tissue calcifications. IMPRESSION: Nondisplaced fracture through the shaft of the 2nd middle phalanx. Dictated by: Cameron Song M.D. on 08/24/2022 at 17:00 Approved by: Cameron Song M.D. on 08/24/2022 at 17:02
== END ==
PROVIDERS: PCP Nurse Practitioner Gerontology; Referring Provider Nurse Practitioner Gerontology; Visit Provider Nurse Practitioner Gerontology
DX: S62.651A Nondisplaced fracture of middle phalanx of left index finger, initial encounter for closed fracture (principal); R52 Pain, unspecified; W19.XXXA Unspecified fall, initial encounter
CPT/HCPCS: 73140